=== PATIENT | male | born 1945 | race Caucasian/White ===

== ENCOUNTER 2024-02-27 13:47 | Inpatient (IN) | payer BC, SELFPAY ==
[2024-02-27] VITALS (11 sets, daily range): BP systolic 116–168; BP diastolic 65–94; BMI 27.1; BMI 26.2
--- NOTE | 2024-02-27 10:35 | EDRN ---
Pt after assisted in changing int hosp gown and getting onto stretcher had SOB, moist cough noted, increased WOB, tachypneic, and POX 76% on RA.
--- NOTE | 2024-02-27 10:37 | ED.GENMED ---
History of Present Illness
<Elsa Giang PA-C - Last Filed: 02/27/24 12:32>
General
Chief Complaint: Breathing Problem
Source: patient
Exam Limitations: none
Time Seen by Provider: 02/27/24 10:35
Nursing documentation reviewed up to this point in time: agreed with
Travel History
Have you had any contact with someone who has COVID-19?: No
Do you have any symptoms of coronavirus? Fever > 100 degrees, chills, cough, shortness of breath, sore throat, loss of taste or smell, muscle aches, or headache?: No
History of Present Illness
History of Present Illness:
78 y/o male with a hx of HTN, HLP, chronic kidney disease, DM, presenting to the emergency department today with shortness of breath for the past 3 days. He states he started to have this shortness of breath for few weeks now, however over the past
few days its gotten significantly worse. Patient experiences this on exertion and at rest. Patient states he feels exhausted anytime he is well. Patient also admits to coughing and sputum production. Patient is a ex-smoker, he quit few years ago
but used to smoke every day for years. Patient denies nausea, vomiting, abdominal pain. Patient denies any fevers or chills. Patient has a history of heart failure, coronary artery disease patient does take 80 mg of furosemide twice daily for his
kidney disease. Patient follows with Dr. Hart for his kidney disease but has not gone to see her in a while due to lack of insurance coverage.
Past History
<Elsa Giang PA-C - Last Filed: 02/27/24 12:32>
Past History
ED Past Medical History: HTN, NIDDM and Other (Charcot Ashly Tooth)
ED Past Surgical History: Other (Right second toe amputation)
Social History
Tobacco: Former smoker
Personal:
Living: with family
Employment: Retired
Family History
Family History: Other (nc)
Review of Systems
<Elsa Giang PA-C - Last Filed: 02/27/24 12:32>
Review of Systems
All Other Systems: ROS reviewed and negative except as documented in HPI and ROS
Phy Exam
<YAW Raphael Last Filed: 02/27/24 12:32>
Physical Exam
Physical Exam:
Vitals: Patient is hypoxic to 80% on room air, 88 to 91% on 4 L nasal cannula
General: Patient is ill-appearing
Skin: Warm and dry, no rashes or lesions
Head: Normocephalic, atraumatic
Eyes: Bilateral chemosis
Throat: No pharyngeal erythema
Neck: No cervical lymphadenopathy
Cardiac: Regular rate and rhythm, no murmurs
Peripheral Vascular: Right
Pulm: Increased respiratory effort, increased respiratory rate, tripoding noted, decreased breath sounds noted in all guerrero b/l
Abdomen: No abdominal tenderness
Musculoskeletal: Right sided below the knee amputation, left sided lower extremity swelling with brawny discoloration
Neuro: AAOx3. CN II-XII intact. No focal neurologic deficits.
Scores
<YAW Raphael Last Filed: 02/27/24 12:32>
Heart Failure Risk
Heart Failure Risk Score: Yes
History of Stroke or TIA: No
History of intubation for respiratory distress: No
Heart rate on ED arrival >/= 110: No
SaO2 <90% on arrival on room air: Yes
HR >/=110 during 3min walk test (or too ill to perform test): No
ECG has acute ischemic changes: No
Urea >/=12mmol/L (BUN 33.6mg/dL): Yes
Serum CO2>/=35mmol/L: No
Troponin I or T elevated to MO Level (0.4mg/dL): No
NT-proBNP >/=5,000ng/L (5,000pg/ml): No
HF Risk Score: 2
Admission Status: MEDIUM RISK 9.2% Consider observation or discharge to home with homecare & f/u visit to PCP/Medical Affairs Leader, or SNF for treatment
Course
<Elsa Giang PA-C - Last Filed: 02/27/24 12:32>
Orders/Labs/Results
Orders:
Orders
02/27/24 10:37
Electrocardiogram (*1) Urgent
Reason for Study: Chest Pain
EKG- Treatment ONCE
IV Insert/Care/Rem.- Treatment PRN
02/27/24 10:51
CR Chest Portable - 1 View Urgent
Comment:
Reason For Exam: shortness of breath
Reason Study Needs to be Portable: Patient Unstable
02/27/24 10:59
COVID-19 Antigen Urgent
Source: Nasal Swab
Complete Blood Count/With Diff Urgent
Comprehensive Metabolic Panel Urgent
Pro-BNP [NT-proBNP] Urgent
Troponin I Urgent
Influenza A+B Rapid Molecular Urgent
MARLEEN Source: Nasal Swab
Specimen Description:
02/27/24 11:29
Furosemide [Lasix] 80 mg IV NOW STA
Abnormal Lab Results
02/27/24
10:59
MCH 26.8 L pg
(27.0-31.0)
MCHC 30.9 L g/dL
(33.0-37.0)
Absolute Neuts (auto) 7.8 H 10^3/uL
(1.4-6.5)
Absolute Lymphs (auto) 0.9 L 10^3/uL
(1.2-3.4)
Neutrophils % 82.1 H %
(42.2-75.2)
Lymphocytes % 9.9 L %
(20.5-51.1)
BUN 48 H mg/dl
(9-20)
Creatinine 2.2 H mg/dL
(0.7-1.3)
Glucose 101 H mg/dl
(70-99)
02/27/24 10:59
02/27/24 10:59
Vital Signs
Initial and Last Documented VS:
Initial Vital Signs
Temp Pulse Resp BP Pulse Ox
97.5 F 65 16 153/70 88
02/27/24 10:26 02/27/24 10:26 02/27/24 10:26 02/27/24 10:26 02/27/24 10:26
Last Documented Vital Signs
Temp Pulse Resp BP Pulse Ox
97.5 F 62 24 116/94 90
02/27/24 10:26 02/27/24 12:30 02/27/24 12:30 02/27/24 12:00 02/27/24 12:30
<Joe Mckinney, DO - Last Filed: 02/27/24 11:39>
Orders/Labs/Results
Orders:
Orders
02/27/24 10:37
Electrocardiogram (*1) Urgent
Reason for Study: Chest Pain
EKG- Treatment ONCE
IV Insert/Care/Rem.- Treatment PRN
02/27/24 10:51
CR Chest Portable - 1 View Urgent
Comment:
Reason For Exam: shortness of breath
Reason Study Needs to be Portable: Patient Unstable
02/27/24 10:59
COVID-19 Antigen Urgent
Source: Nasal Swab
Complete Blood Count/With Diff Urgent
Comprehensive Metabolic Panel Urgent
Pro-BNP [NT-proBNP] Urgent
Troponin I Urgent
Influenza A+B Rapid Molecular Urgent
MARLEEN Source: Nasal Swab
Specimen Description:
02/27/24 11:29
Furosemide [Lasix] 80 mg IV NOW STA
Abnormal Lab Results
02/27/24
10:59
MCH 26.8 L pg
(27.0-31.0)
MCHC 30.9 L g/dL
(33.0-37.0)
Absolute Neuts (auto) 7.8 H 10^3/uL
(1.4-6.5)
Absolute Lymphs (auto) 0.9 L 10^3/uL
(1.2-3.4)
Neutrophils % 82.1 H %
(42.2-75.2)
Lymphocytes % 9.9 L %
(20.5-51.1)
BUN 48 H mg/dl
(9-20)
Creatinine 2.2 H mg/dL
(0.7-1.3)
Glucose 101 H mg/dl
(70-99)
02/27/24 10:59
02/27/24 10:59
Vital Signs
Initial and Last Documented VS:
Initial Vital Signs
Temp Pulse Resp BP Pulse Ox
97.5 F 65 16 153/70 88
02/27/24 10:26 02/27/24 10:26 02/27/24 10:26 02/27/24 10:26 02/27/24 10:26
Last Documented Vital Signs
Temp Pulse Resp BP Pulse Ox
97.5 F 62 24 116/94 90
02/27/24 10:26 02/27/24 12:30 02/27/24 12:30 02/27/24 12:00 02/27/24 12:30
Beulahlt;Elsa Giang PA-C - Last Filed: 02/27/24 12:32>
MDM/Problems Addressed
Differential Diagnosis Includes:
ddx include pneumonia, URI, PE, ACS, CHF, DVT, chronic venous disease, DKA, symptomatic anemia, pulmonary effusion, pulmonary renal syndrome
MDM/Problems Addressed:
shortness of breath
Chronic conditions affecting care: DM and HTN
Acute Exacerbation and/or Progression of Chronic Illness: DM and HTN
<Elsa Giang PA-C - Last Filed: 02/27/24 12:32>
*Radiology
Radiology exam reviewed: preliminary read by ED provider (bilateral pleural effusions )
*Pulse Oximetry
Patient hypoxic: yes
*EKG
Interpreted by ED Provider?: Yes
EKG Intrepretation Date: 02/27/24
Interpretation: abnormal (low voltage )
Heart Rate: 65
Rate: normal
Rhythm: sinus
[place]: normal axis
Interval: normal interval and normal QT interval
QRS Pattern: low voltage
Ischemia: no ischemia
*Product Tester Interpretation
Rate: normal
Interpretation: normal
Heart Rate: 66
Rhythm: sinus
*Critical Care Note
Total Time (30-74mins, 75-104mins- exclusive of procedures): Not Applicable
Data Reviewed
Review of Other/Old Records Reveals: Records (reviewed ER physician documentation from 07/22/2023, ) and Discharge Summary (reviewed discharge summary from 07/09/19, )
<YAW Raphael Last Filed: 02/27/24 12:32>
Patient Management
Escalation/DeEscalation of care consider admission/obs:
78 y/o male with PMH of CKD, DM, HTN, coming in today with shortness of breath and left LE edema. He takes 80 mg lasix BID, he states he is unsure exactly why. No hx of CHF. Pt 80% on RA, 92% on 4L, CXR demonstrates b/l pleural effusions. Lasix
started. Patient's presentation is most suspicious for cardiorenal/renopulmonary syndrome. Will plan to admit, patient accepted by hospitalist.
ED Attending Note
<YAW Raphael Last Filed: 02/27/24 12:32>
-
Portions of this chart may have been created with voice recognition software.� Occasional wrong word or��sound alike� substitutions may have occurred due to the inherent limitations of voice recognition software.
<Joe Mckinney DO - Last Filed: 02/27/24 11:39>
ED Attending Note
Patient seen and examined by attending physician: Yes
I performed the substantive portion of visit, reviewed & personally made and approve the management plan that is documented in note by myself or RAULITO.: Yes
I performed a history and physical exam of patient and discussed management with resident, I reviewed resident's note and agree with documented findings and plan of care.: Yes
ED Attending Note:
I evaluated the patient at bedside. The patient has lower extremity edema to the left lower extremity (right lower extremity has been amputated). He is hypoxic with room air sat of 80%. Will IV diuresis and consider preload reduction with nitro.
He does have a history of CKD but denies history of CHF and states he does not have a work study student. Chest x-ray shows bilateral pleural with some volume overload.
Discharge Plan
Departure
Patient Disposition: Admit
Date of Disposition: 02/27/24
Time of Disposition: 12:01
Presentation/result/management discussed w/ accepting MD/DO: Hospitalist
Patient with high blood pressure during this ER visit?: Yes
Condition: Fair
Discharge Problem:
Fluid overload, Hypoxia
Prescriptions:
No Action
clopidogrel 75 MG tablet
75 mg PO DAILY
amlodipine 10 MG tablet
10 mg PO DAILY
montelukast 10 MG tablet
10 mg PO DAILY
furosemide 80 MG tablet
80 mg PO BID
atorvastatin 20 mg Tablet
20 mg PO QPM
metoprolol succinate 100 mg Tablet Extended Release 24 Hr
100 mg PO DAILY
aspirin 81 mg Tablet,Delayed Release (Dr/Ec)
81 mg PO DAILY
acetaminophen [Tylenol Extra Strength] 500 mg Tablet
1,000 mg PO BIDPRN PRN (Reason: mild pain)
bisacodyl [Dulcolax (bisacodyl)] 5 mg Tablet,Delayed Release (Dr/Ec)
5 mg PO DAILYPRN PRN (Reason: constipation)
Patient Comments:
02/27/2024, chewable.
losartan 100 mg Tablet
100 mg PO DAILY
insulin aspart U-100 [Novolog FlexPen U-100 Insulin] 100 unit/mL (3 mL) Insulin Pen
6 unit SC AC PRN (Reason: high blood sugar)
Patient Comments:
02/27/2024, per pt., if his BS is low 80s or below, he does not take this med.
insulin glargine [Lantus Solostar U-100 Insulin] 100 unit/mL (3 mL) Insulin Pen
14 unit SC DAILY
Referrals:
Nell Lala DO [Family Provider] -
Interventions
Interventions:
*Risk Screen - Suicide Last Done: 02/27/24 11:19
*General Assessment Last Done: 02/27/24 11:19
*Neglect/Abuse Screening Last Done: 02/27/24 11:19
ED- Fall Risk Assessment Last Done: 02/27/24 11:19
*ED COVID-19 Vaccine History Last Done: 02/27/24 11:19
ED- Cardiac Assessment Last Done: 02/27/24 11:19
ED- Pulmonary Assessment Last Done: 02/27/24 11:19
Discharge Date and Time
Print Language: ALBANIAN
--- NOTE | 2024-02-27 11:00 | EDRN ---
Portable CXR at this time.
[2024-02-27 11:25] LABS: % Basophils 0.3 % (0-2); % Eosinophils 1.5 % (0-6); % Immature Granulocytes 0.4 % (0-0.5); % Lymphocytes 9.9 % (20.5-51.1); % Monocytes 5.8 % (1.7-9.3); % Neutrophils 82.1 % (42.2-75.2); Absolute Eosinophils 0.1 10^3/uL (0-0.7); Absolute Lymphocytes 0.9 10^3/uL (1.2-3.4); Absolute Monocytes 0.6 10^3/uL (0.1-0.6); Absolute Neutrophils 7.8 10^3/uL (1.4-6.5); Hemoglobin 13.3 g/dL (13.0-18.0); Mean Corp Hgb Conc. 30.9 g/dL (33.0-37.0); Mean Corpuscular Hgb 26.8 pg (27.0-31.0); Mean Corpuscular Volume 86.7 fL (80.0-94.0); Mean Platelet Volume 9.3 fL (7.4-10.4); Nucleated Red Blood Cells % 0 % (-); Platelet Count 181 10^3/uL (130-400); Red Blood Cell Count 4.96 10^6/uL (4.70-6.10); Red Cell Dist. Width 14.1 % (11.5-14.5); White Blood Cell Count 9.5 10^3/uL (4.8-10.8)
[2024-02-27 11:40] LABS: COVID-19 Antigen Negative (Negative)
[2024-02-27 11:46] LABS: ALT (SGPT) 25 U/L (0-50); AST (SGOT) 31 U/L (17-59); Albumin 3.8 g/dl (3.5-5.0); Alkaline Phosphatase 112 U/L (38-126); Blood Urea Nitrogen 48 mg/dl (9-20); Carbon Dioxide 30 mmol/L (22-30); Chloride 104 mmol/L (98-107); Estimated Creatinine Clearance 27 ml/min; Glucose 101 mg/dl (70-99); Potassium 4.3 mmol/L (3.5-5.1); Sodium 139 mmol/L (135-145); Total Bilirubin 0.5 mg/dl (0.2-1.3); Total Protein 7.5 g/dl (6.3-8.2); eGFR 29.54
[2024-02-27 11:58] LABS: NT-proBNP 1080 pg/ml; Troponin I < 0.012 ng/ml
--- NOTE | 2024-02-27 12:40 | EDRN ---
Dr Oscar was in to see pt at this time.
[2024-02-27] MEDS: LASIX 80 MG IV (12:46)
--- NOTE | 2024-02-27 12:53 | EDRN ---
Pt has voided twice before this but someone emptied it and it was not measured.
--- NOTE | 2024-02-27 13:20 | HPS.HSE ---
Family Physician
-
Family Physician: Nell Lala
Chief Complaint
-
Shortness of breath, lower extremity edema
History of Present Illness
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
Patient has been noticing some slowly worsening shortness of breath mainly pronounced in the last 3 days. Not able to take few steps without getting short of breath. Patient have noticed leg swelling as well. Some cough with white phlegm
production, afebrile. Patient has history of CKD and has not seen nephrology in 1 year. Compliant with home medication.
Denies having any chest pain/palpitation/dizziness/syncope/abdominal pain/nausea/vomiting/diarrhea/dysuria.
Medical History
Past Medical History
Past Medical History: Reports Other
Additional Past Medical History:
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
Past Surgical History: Reports Other
Social History
Tobacco: Non-smoker
Alcohol: None
Drug: None
Personal:
Living: With Family
Family History
Family History: Not pertinent
Allergies / Home Medications
Allergies reflects when Allergies were last updated in [facility].
Home Medications with original date entered in [facility]
Allergy/Medication List:
Allergies
Allergy/AdvReac Type Severity Reaction Status Date / Time
No Known Allergies Allergy Verified 02/27/24 10:26
Home Medications
clopidogrel 75 mg tablet 75 mg PO DAILY Blood Clot Prevention/Tx 04/24/18
amlodipine 10 mg tablet 10 mg PO QPM Blood Pressure 07/09/20
montelukast 10 mg tablet 10 mg PO QPM asthma 07/09/20
furosemide 80 mg tablet 80 mg PO BID@0800,1600 Fluid Retention/Swelling 06/28/21
acetaminophen 500 mg tablet (Tylenol Extra Strength) 1,000 mg PO BIDPRN PRN mild pain 02/27/24
aspirin 81 mg tablet,delayed release 81 mg PO DAILY Blood Clot Prevention/Tx 02/27/24
atorvastatin 20 mg tablet 20 mg PO QPM High Cholesterol 02/27/24
bisacodyl 5 mg tablet,delayed release (Dulcolax (bisacodyl)) 5 mg PO DAILYPRN PRN constipation 02/27/24
insulin aspart U-100 100 unit/mL (3 mL) subcutaneous pen (Novolog FlexPen U-100 Insulin aspart) 6 unit SC AC PRN high blood sugar 02/27/24
insulin glargine 100 unit/mL (3 mL) subcutaneous pen (Lantus Solostar U-100 Insulin) 14 unit SC DAILY Diabetes 02/27/24
losartan 100 mg tablet 100 mg PO DAILY Blood Pressure 02/27/24
metoprolol succinate 100 mg tablet,extended release 24 hr 100 mg PO DAILY Blood Pressure 02/27/24
Review of Systems
-
A 12 point ROS was completed and negative except as noted: Yes
Physical Exam
Vital Signs
Vital Signs
Temp Pulse Resp BP Pulse Ox
97.5 F 68 24 163/73 85
02/27/24 10:26 02/27/24 13:00 02/27/24 13:00 02/27/24 13:00 02/27/24 13:00
Physical Exam
General: No Apparent Distress
HEENT: Atraumatic
Respiratory: Clear
Cardiac: S1/S2 and Regular Rhythm; No Murmur or Rub
GI: Soft, Non Tender and Non Distended; No Organomegaly
Rectal: Deferred by Provider
Musculoskeletal: Edema, Left Lower Extremity and Other (Right BKA)
Skin: No Rash
Neuro: Awake, Alert, Oriented and Nonfocal/grossly intact
Laboratory Results
-
02/27/24 10:59
02/27/24 10:59
Laboratory Results
Total Bilirubin 0.5 mg/dl (0.2-1.3) 02/27/24 10:59
AST 31 U/L (17-59) 02/27/24 10:59
ALT 25 U/L (0-50) 02/27/24 10:59
Alkaline Phosphatase 112 U/L (38-126) 02/27/24 10:59
Troponin I < 0.012 ng/ml 02/27/24 10:59
Data Reviewed
-
Lab Data: Labs Reviewed by me, Discussed with Patient and Discussed with Family
Impression/Plan
-
1. Acute hypoxic respiratory failure
Bilateral pleural effusion
-Likely secondary to heart failure exacerbation and effusion related
-Chest x-ray showing moderate bilateral pleural effusion
-IRAD consulted for thoracentesis
-Wean off oxygen as possible
2. Presumed diastolic heart failure exacerbation
-Last echocardiogram in 2018 showing preserved EF
-Repeat echocardiogram ordered
-Start patient on IV Lasix 80 mg twice daily
-Follow weight and creatinine
-Cardiology consulted for further help
3. CKD stage IIIb
-Baseline remains unclear, last creatinine check in July 17 was 2.5
-Patient has failed to follow-up with nephrology
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
-Nephrology asked to follow-up with patient requiring high-dose of IV diuretic therapy
4. History of peripheral artery disease
History of right BKA
-Continue aspirin/Plavix/statin
5. Insulin-dependent diabetes mellitus
-Continue Lantus 14 unit daily and 6 units AC with sliding scale
-Check A1c in morning
6. Essential hypertension
-Continue Toprol-XL with holding parameters
-Hold losartan for now with unknown kidney function baseline
7. HLD
- maintain on atorvastatin
DVT PPX - Heparin subq
Full code
Total time spent : 78 mins
I personally saw and examined the patient.
I have reviewed all diagnostic interpretations and treatment plans as written.
Time includes patient management by me, time spent at the patients bedside, time to review lab and imaging results, discussing patient care, documentation in the medical record, and time spent with the family or caregiver and discussing care plan
with RN/Consultants.
--- NOTE | 2024-02-27 13:39 | EDRN ---
Pt administered boxed lunch at this time for his lunch.
--- NOTE | 2024-02-27 13:41 | CON.CAR ---
Addendum entered and electronically signed by Christal Alvarado MD 02/27/24 15:50:
I saw and examined the patient.
The [employer] SET UP OPERATOR RADIAL's note was reviewed and I agree with the note.
Comment: 78 year old male with diastolic heart failure, HTN, HLD, PVD S/P amputation, and CKD who presents with increasing sob and le edema with malfitting of his right BKA stump. He is not compliant with the second dose of lasix and even more so
this week. He had orthopnea and pnd. On exam he is tachypneic and oxygen saturation dropped to 85% while I was in the room rebounding to 92% with an increase to 5 L NC. He had reduced BS at the bases b/l, rrr no m/r/g. Pitting edema in the left
leg up to the mid thigh. Pitting edema at right bka stump. CXR with b/l mod effusions. ECG without ischemia
A: Acute decompensated CHF, unknown EF, with acute hypoxic respiratory failure.
-start IV BID diuresis
-would benefit from thoracentesis given significatn respiratory distress
-update echo
-titrate GDMT as needed
-will follow
d/w Dr Oscar.
Original Note:
Consultation
Consultation Request
Date/Time Consultation Requested: 02/27/24 13:25
Date/Time Consultation Performed: 02/27/24 13:50
Requesting Provider: AGUEDA Orozco
Performing Provider: AGUEDA Mead for Dr. Alvarado
Reason for Consultation: Acute on chronic heart failure
Medical History
-
Chief Complaint: Shortness of breath
History of Present Illness:
Conrad Melissa is an 78 year old male with diastolic heart failure, HTN, HLD, PVD S/P amputation, and CKD who presents with shortness of breath. It gets worse with exertion and improves with rest. He endorses orthopnea and an increase in edema in
his bilateral hands and left leg. This all started approximately 1 week ago. He states he was mildly short of breath and had no edema at that time. Since then his edema and shortness of breath has escalated. He endorses medication adherence.
Cardiology was consulted for acute on chronic diastolic heart failure. He is not having any anginal symptoms.
He was seen by Dr. Landa during his prior hospitalization. He had bacteremia and had an abnormal transthoracic echocardiogram which progressed to a transesophageal echocardiogram which did not show vegetation.
Past Medical History
Past Medical History: CHF, HTN, Hypercholesterolemia and Renal Failure
Past Surgical History: Orthopedic and Other (Amputation)
Social History
Tobacco: Former Smoker
Alcohol: None
Drug: None
Personal:
Living: With Family
Employment: Retired
Family History
Family History: Reviewed & Not Pertinent
Allergies / Home Medications
Allergy/AdvReac Type Severity Reaction Status Date / Time
No Known Allergies Allergy Verified 02/27/24 10:26
�Medication �Instructions �Recorded �Confirmed �Type
clopidogrel 75 mg tablet 75 mg PO DAILY Blood Clot 04/24/18 02/27/24 History
Prevention/Tx
amlodipine 10 mg tablet 10 mg PO DAILY Blood Pressure 07/09/20 02/27/24 History
montelukast 10 mg tablet 10 mg PO DAILY asthma 07/09/20 02/27/24 History
furosemide 80 mg tablet 80 mg PO BID@0800,1600 Fluid 06/28/21 02/27/24 History
Retention/Swelling
acetaminophen 500 mg tablet 1,000 mg PO BIDPRN PRN mild pain 02/27/24 02/27/24 History
(Tylenol Extra Strength)
aspirin 81 mg tablet,delayed 81 mg PO DAILY Blood Clot 02/27/24 02/27/24 History
release Prevention/Tx
atorvastatin 20 mg tablet 20 mg PO QPM High Cholesterol 02/27/24 02/27/24 History
bisacodyl 5 mg tablet,delayed 5 mg PO DAILYPRN PRN constipation 02/27/24 02/27/24 History
release (Dulcolax (bisacodyl))
insulin aspart U-100 100 unit/mL 6 unit SC AC PRN high blood sugar 02/27/24 02/27/24 History
(3 mL) subcutaneous pen (Novolog
FlexPen U-100 Insulin aspart)
insulin glargine 100 unit/mL (3 14 unit SC DAILY Diabetes 02/27/24 02/27/24 History
mL) subcutaneous pen (Lantus
Solostar U-100 Insulin)
losartan 100 mg tablet 100 mg PO DAILY Blood Pressure 02/27/24 02/27/24 History
metoprolol succinate 100 mg 100 mg PO DAILY Blood Pressure 02/27/24 02/27/24 History
tablet,extended release 24 hr
Review of Systems
-
History Source: Patient
All other systems: Negative unless noted
Respiratory: Trouble Breathing
Musculoskeletal: Edema
Physical Exam
Vital Signs
Temp Pulse Resp BP Pulse Ox
97.5 F 69 22 163/73 85
02/27/24 10:26 02/27/24 13:30 02/27/24 13:30 02/27/24 13:00 02/27/24 13:30
Lab Results
02/27/24 10:59
02/27/24 10:59
Troponin I < 0.012 ng/ml 02/27/24 10:59
Blu-Q-Tpwaymzjuak Pept 1080 pg/ml 02/27/24 10:59
Physical Exam
General: Well Developed, Well Nourished, No Apparent Distress and Respiratory Distress (mild)
HEENT: Normocephalic, Anicteric and Moist Mucous Membranes
Respiratory: Crackles and Accessory Resp Muscle Use
Cardiac: S1/S2, Regular Rhythm and Peripheral Edema (B/L hands and LLE)
Breast: Deferred by me
GI: Soft, Non Tender, Non Distended and Normal Bowel Sounds
Rectal: Deferred by Provider
Genito-urinary: No Costovertebral Tender
Musculoskeletal: No Clubbing and No Cyanosis
Skin: Warm and Dry
Neuro: AO x 3
Hematologic/Lymphatic: No Lymphadenopathy
Psych: Calm
Impression / Plan
-
Acute hypoxic respiratory insufficiency, in the setting of acute heart failure (B/L pleural effusions)
-May need need to consider thoracentesis
Heart failure, type unknown, acute on chronic
-Diuresis per Nephrology, goal weight to be determined, he's on Lasix 80mg BID at home
-On Losartan 100mg & metoprolol succinate
-Had been on Jardiance in the past, documentation reflects this was unaffordable
-Aldactone being avoiding per Nephrology (hyperkalemia)
-Trend daily weight, I/Os, and BMP with diuresis
-Low sodium diet
-Heart failure education
-Update TTE
Abnormal echocardiogram
-Update TTE given HF
-KIP 2019 with focal calcification of anterior mitral valve and LCC of aortic valve, vegetation less likely
HTN, managed by Family Medicine Physician Assistant
HLD, LDL 33 on atorvastatin 20mg
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 Duncan
Secondary hyperparathyroidism
Type II DM, most recent Hgba1c 6.0%
PVD S/P right BKA, on DAPT
Former tobacco abuse, continued cessation recommended
Data Reviewed
-
EKG: Report Reviewed by me (Sinus rhythm, rate 65)
Radiology: Report Reviewed by me (CXR: Moderate bilateral pleural effusions.)
Medical Tests (Nuc Med, Echo etc): Report Reviewed by me (Echo as above)
Labs: Labs Reviewed by me
Old Records: Reviewed
--- NOTE | 2024-02-27 14:41 | EDRN ---
Pt awaiting a clean bed at this time. Pt OOB to Commode to move his bowels w/ assist of one. Pt ate 100% of boxed lunch.
--- NOTE | 2024-02-27 15:11 | W.CON.NEPH ---
Consultation
-
Performing Provider: Kathrine Watson
Reason for Consultation: CKD
Medical History
-
Chief Complaint: AURY on CKD
History of Present Illness:
Mr. Melissa is an 78 YOM with PMH of diastolic heart failure, HTN, DLD, PVD (s/p amputation) and CKD 3B/IV who presents to the hospital for worsening SOB.
It gets worse with exertion and improves with rest. States that he can no longer lay flat. He endorses orthopnea and an increase in edema in his bilateral hands and left leg. Denies chest pain. States that his urine output has remained stable. He
does endorse medication non compliance. He was takign his lasix 80mg daily usually (BID every once in a while). Does fluid restrict at home. Denies heavy salt intake. States that baseline weight is around 180 lbs, up to 187 currently.
Was lost to follow up with Dr. Duncan. States that his kidney function has remained stable. Cr in 11/2023 at 1.99
Past Medical History
CHF, HTN, Hypercholesterolemia and CKD IV (bl Cr 2s)
Past Medical History: Other
Past Surgical History: Orthopedic (R BKA) and Other
Social History
Tobacco: Former Smoker
Alcohol: None
Drug: None
Personal:
Living: With Family
Employment: Retired
Family History
Family History: Not Pertinent
Allergies / Home Medications
Allergy/AdvReac Type Severity Reaction Status Date / Time
No Known Allergies Allergy Verified 02/27/24 10:26
�Medication �Instructions �Recorded �Confirmed �Type
clopidogrel 75 mg tablet 75 mg PO DAILY Blood Clot 04/24/18 02/27/24 History
Prevention/Tx
amlodipine 10 mg tablet 10 mg PO DAILY Blood Pressure 07/09/20 02/27/24 History
montelukast 10 mg tablet 10 mg PO DAILY asthma 07/09/20 02/27/24 History
furosemide 80 mg tablet 80 mg PO BID@0800,1600 Fluid 06/28/21 02/27/24 History
Retention/Swelling
acetaminophen 500 mg tablet 1,000 mg PO BIDPRN PRN mild pain 02/27/24 02/27/24 History
(Tylenol Extra Strength)
aspirin 81 mg tablet,delayed 81 mg PO DAILY Blood Clot 02/27/24 02/27/24 History
release Prevention/Tx
atorvastatin 20 mg tablet 20 mg PO QPM High Cholesterol 02/27/24 02/27/24 History
bisacodyl 5 mg tablet,delayed 5 mg PO DAILYPRN PRN constipation 02/27/24 02/27/24 History
release (Dulcolax (bisacodyl))
insulin aspart U-100 100 unit/mL 6 unit SC AC PRN high blood sugar 02/27/24 02/27/24 History
(3 mL) subcutaneous pen (Novolog
FlexPen U-100 Insulin aspart)
insulin glargine 100 unit/mL (3 14 unit SC DAILY Diabetes 02/27/24 02/27/24 History
mL) subcutaneous pen (Lantus
Solostar U-100 Insulin)
losartan 100 mg tablet 100 mg PO DAILY Blood Pressure 02/27/24 02/27/24 History
metoprolol succinate 100 mg 100 mg PO DAILY Blood Pressure 02/27/24 02/27/24 History
tablet,extended release 24 hr
Review of Systems
-
History Source: Patient
All other systems: Negative unless noted
Constitutional: Weight Gain and Fatigue
Respiratory: Trouble Breathing
Musculoskeletal: Edema
Physical Exam
Vital Signs
Vital Signs
Temp Pulse Resp BP Pulse Ox
97.5 F 65 23 127/65 89
02/27/24 10:26 02/27/24 15:00 02/27/24 15:00 02/27/24 14:00 02/27/24 15:00
Lab Results
WBC 9.5 10^3/uL (4.8-10.8) 02/27/24 10:59
RBC 4.96 10^6/uL (4.70-6.10) 02/27/24 10:59
Hgb 13.3 g/dL (13.0-18.0) 02/27/24 10:59
Hct 43.0 % (39.0-52.0) 02/27/24 10:59
Plt Count 181 10^3/uL (130-400) 02/27/24 10:59
Sodium 139 mmol/L (135-145) 02/27/24 10:59
Potassium 4.3 mmol/L (3.5-5.1) 02/27/24 10:59
Chloride 104 mmol/L (98-107) 02/27/24 10:59
Carbon Dioxide 30 mmol/L (22-30) 02/27/24 10:59
BUN 48 mg/dl (9-20) H 02/27/24 10:59
Creatinine 2.2 mg/dL (0.7-1.3) H 02/27/24 10:59
eGFR 29.54 02/27/24 10:59
Glucose 101 mg/dl (70-99) H 02/27/24 10:59
Calcium 9.0 mg/dl (8.4-10.2) 02/27/24 10:59
Amy-Z-Dfyhkdmwvbm Pept 1080 pg/ml 02/27/24 10:59
Albumin 3.8 g/dl (3.5-5.0) 02/27/24 10:59
Physical Exam
General: AOx3, No Distress and Nontoxic
HEENT: PERRL, EOMI, Anicteric, Conjunctivae Clear and Facial Symmetry
Respiratory: Crackels
Cardiac: S1/S2, Regular Rate/Rhythm and Murmur
Breast: N/A
Abdomen: Soft, Nontender, Nondistended, Normal Bowel Sounds and No Hepatosplenomegaly
Rectal: Deferred by Provider
Genito-urinary: No Costovertebral Tender
Musculoskeletal: Edema (pitting edema of L leg to thigh)
Skin: Warm and Dry
Neuro: Nonfocal/Grossly Intact
Hematologic/Lymphatic: No Cervical Lymphadenopathy
Psych: Mood/afflect pleasant and Insight/judgement good
Assessment/Plan
-
Assessment:
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
b/l pleural effusions
Diastolic heart failure (on losartan, metoprolol, jardiance previously tried. no aldactone due to hyperK)
T2DM (A1C 6%)
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
former smoker
HTN
DLD
volume overload
Plan:
- last seen by Dr. Duncan in 2021. he has been lost to follow up.
- Cr baseline in 2021 was thought to be low 2s. most recent Cr in [facility] is 1.99. Current Cr 2.2, likely at baseline
- In 2020 K biopsy was not adequate smaple but EM shows nodular diabetic sclerosis and severe vascular sclerosis.
- did have periods where he had significant proteinuria (>11g) but had stabilized around 2g. obtain UA, UPCR
- home diuretic: 80mg BID, please increase to 80IV BID. reiterated to the patient the importance of medication compliance
- we will need daily weights to establish a good dry weight
- likely will need thoracentesis to help improve his SOB
- trend BMPs
- monitor I/Os
Data Reviewed
-
Radiology: Image Personally Visualized and interpreted (bilateral pleural effusions)
Labs: Labs Reviewed by me, Discussed with Physician and Discussed with Patient
Old Records: Reviewed
--- NOTE | 2024-02-27 15:13 | EDRN ---
Dr. Bergmanonin room w/ pt. Echocardiogram just completed at [facility] at this time.
[2024-02-27 16:49] LABS: Glucose - Point of Care 113 mg/dl (70-99)
[2024-02-27 18:10] LABS: Urine Albumin 2+ (Neg - Trace); Urine Bilirubin Negative (Negative); Urine Character Clear (Clear); Urine Color Yellow; Urine Glucose Negative (Negative); Urine Ketone Negative (Negative); Urine Leukocyte 1+ (Negative); Urine Nitrite Negative (Negative); Urine Occult Blood 3+ (Negative); Urine Specific Gravity 1.015 (<1.030); Urine Urobilinogen Negative (Neg - 1+)
[2024-02-27] MEDS: NOVOLOG FLEXPEN-LOW RESISTANCE SC (18:11)
[2024-02-27 18:17] LABS: Urine Red Blood Cell 21-25 /HPF (0-2); Urine Squamous Cell 0-2 /LPF (Few); Urine White Cell >100 /HPF (0-5)
[2024-02-27] MEDS: NOVOLOG FLEXPEN 6 UNITS SC (18:26)
--- NOTE | 2024-02-27 18:35 | PTCARENOTE ---
Pt admitted from ED to room 436-1, pt slid over to bed from stretcher. Admission and assessment done. Pt with no c/o at this time. Pt is on bedrest. Pt with R BKA with prosthetic in room. PT SR on monitor. Vitals stable. 96 on 6L. Dinner ordered.
[2024-02-27] MEDS: LIPITOR 20 MG PO (20:22)
[2024-02-27] MEDS: HEPARIN 5000 UNITS SC (20:22)
[2024-02-27 21:56] LABS: Glucose - Point of Care 132 mg/dl (70-99)
[2024-02-28] VITALS (10 sets, daily range): BP systolic 67–161; BP diastolic 54–77; PULSE 68; O2SAT 93–96; BMI 25.9
[2024-02-28 07:51] LABS: Glucose - Point of Care 73 mg/dl (70-99)
[2024-02-28 08:14] LABS: Hematocrit 42.7 % (39.0-52.0); Mean Corp Hgb Conc. 30.4 g/dL (33.0-37.0); Mean Corpuscular Hgb 26.6 pg (27.0-31.0); Mean Corpuscular Volume 87.5 fL (80.0-94.0); Mean Platelet Volume 8.9 fL (7.4-10.4); Platelet Count 159 10^3/uL (130-400); Red Blood Cell Count 4.88 10^6/uL (4.70-6.10); White Blood Cell Count 8.5 10^3/uL (4.8-10.8)
[2024-02-28 08:55] LABS: Blood Urea Nitrogen 50 mg/dl (9-20); Calcium 9.1 mg/dl (8.4-10.2); Carbon Dioxide 33 mmol/L (22-30); Chloride 100 mmol/L (98-107); Estimated Creatinine Clearance 27 ml/min; Glucose 82 mg/dl (70-99); Sodium 140 mmol/L (135-145); eGFR 29.54
[2024-02-28 09:03] LABS: Body Fluid Mononuclear 96.3 %; Body Fluid Polymorphonuclear 3.7 %; Body Fluid WBC 1157 /CUMM
[2024-02-28 09:09] LABS: Body Fluid Second Tech RLT
[2024-02-28 09:26] LABS: Glycohemoglobin (HgbA1c) 6.2 % (4.0-5.6)
[2024-02-28 09:50] LABS: Potassium 4.7 mmol/L (3.5-5.1)
[2024-02-28] MEDS: ASPIR LOW (ENTERIC COATED) 81 MG PO (11:11)
[2024-02-28] MEDS: NOVOLOG FLEXPEN-LOW RESISTANCE SC ×3 (11:11→17:36)
[2024-02-28] MEDS: NOVOLOG FLEXPEN 6 UNITS SC ×2 (11:11→17:36)
[2024-02-28] MEDS: LANTUS 0.140000000000000013 UNITS SC (11:12)
[2024-02-28] MEDS: LASIX 80 MG IV ×2 (11:12→15:54)
[2024-02-28] MEDS: HEPARIN 5000 UNITS SC ×2 (11:12→20:21)
[2024-02-28] MEDS: SINGULAIR 10 MG PO (11:13)
[2024-02-28] MEDS: PLAVIX 75 MG PO (11:13)
[2024-02-28] MEDS: NORVASC 10 MG PO (11:13)
[2024-02-28] MEDS: TOPROL XL 100 MG PO (11:14)
[2024-02-28 11:16] LABS: Body Fluid Glucose 97 mg/dl; Body Fluid LDH 135 U/L; Body Fluid Protein 3.7 g/dl
--- NOTE | 2024-02-28 11:29 | W.PN.CD ---
Addendum entered and electronically signed by Christal Alvarado MD 02/28/24 12:07:
I saw and examined the patient.
The PATIENT FINANCIAL COUNSELOR's note was reviewed and I agree with the note.
Comment: He is feeling so much better since thoracentesis. on exam he has decreased bs on the right and improved on the left base but with rales. RRR no m/r/g. Le edema still persists. Echo results noted and I suspect PHTN and TR will improve
with diuresis. Will continue.
Original Note:
Today's Communication / Plan
-
-continue IV diuresis and monitor
-thoracesis as planned
Impression / Plan
-
Assessment/Plan: 78 year old male with diastolic heart failure, HTN, HLD, PVD S/P amputation, and CKD who presents with SOB and edema. He has some issues with Lasix compliance. He is admitted with heart failure exacerbation.
HFpEF, ekmgw-hy-fqqyyrq:
-Echo 02/27/24: Normal biventricular size and systolic function without regional wall motion abnormality. Stage II diastolic dysfunction suggestive of abnormal relaxation and increased
filling pressures. Aortic sclerosis without stenosis. Moderate tricuspid regurgitation with severe pulmonary hypertension. Bilateral pleural effusions.
-continue IV diuresis, which requires intensive monitoring
-remains on O2 by NC
-Had been on Jardiance in the past, documentation reflects this was unaffordable
-Aldactone being avoiding per Nephrology (hyperkalemia)
-pleural effusions noted: now s/p thoracentesis for 2L today. I am told he will have another thora tomorrow.
-on O2 by NC- wean as tolerated
HTN:
-stable
HLD:
-continue statin
CKD:
-nephrology consulted
Type II DM:
-per primary
PVD S/P right BKA:
-on DAPT
Former tobacco abuse, continued cessation recommended
Subjective:
He feels so much better after thoracentesis
Physical Exam
Vital Signs/Labs
Vital Signs
Temp Pulse Resp BP Pulse Ox
97.8 F 67 16 124/77 93
02/28/24 08:00 02/28/24 11:12 02/28/24 08:45 02/28/24 11:12 02/28/24 08:30
02/27/24 02/28/24 02/29/24
06:59 06:59 06:59
Actual Weight 79.577 kg
02/28/24 07:40
02/28/24 07:40
02/27/24
10:59
Ltm-E-Gwumtgejodp Pept 1080
LAB Results
02/27/24
10:59
Troponin I < 0.012
Physical Exam
Constitutional: No acute distress
EENT: Anicteric
Cardiovascular: Rhythm & rate is regular
Respiratory: Other (caorse lung sounds throughout, on O2 by NC)
Neuro/Psych: AO x 3
Data Reviewed
-
Date of Service: February 28, 2024
EKG: Other (tele SR)
[2024-02-28 12:26] LABS: Glucose - Point of Care 155 mg/dl (70-99)
[2024-02-28 12:45] LABS: Protein/creatinine Ratio 7.6; Urine Protein 331 mg/dl
--- NOTE | 2024-02-28 13:55 | W.PN.HOSP.TC ---
Today's Communication/Plan
-
Continue IV diuretics
Follow renal function
IRAD to do right-sided thoracentesis tomorrow
Assessment / Plan
Assessment / Plan
TTE
Normal biventricular size and systolic function without regional wall motion abnormality.
Stage II diastolic dysfunction suggestive of abnormal relaxation and increased filling pressures.
Aortic sclerosis without stenosis.
Moderate tricuspid regurgitation with severe pulmonary hypertension.
Bilateral pleural effusions.
Compared to previous echo 07/04/19, severe pulmonary hypertension, moderate
tricuspid regurgitation and bilateral pleural effusions are all new from the prior study.

1. Acute hypoxic respiratory failure
Bilateral pleural effusion
-Likely secondary to heart failure exacerbation and effusion related
-Chest x-ray showing moderate bilateral pleural effusion
-S/p thoracentesis of 2 L left sided pleural effusion.
-IRAD will do right-sided thoracentesis tomorrow
-Wean off oxygen as possible
2. Acute on chronic diastolic heart failure exacerbation
-Last echocardiogram in 2018 showing preserved EF
-Repeat echocardiogram result as above
-Start patient on IV Lasix 80 mg twice daily
-Follow weight and creatinine
-Cardiology consulted for further help
3. CKD stage IIIb
-Baseline remains unclear, last creatinine check in July 17 was 2.5
-Patient has failed to follow-up with nephrology
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
-Nephrology asked to follow-up with patient requiring high-dose of IV diuretic therapy
4. History of peripheral artery disease
History of right BKA
-Continue aspirin/Plavix/statin
5. Insulin-dependent diabetes mellitus
-Continue Lantus 14 unit daily and 6 units AC with sliding scale
-Hbga1c of 6.2
6. Essential hypertension
-Continue Toprol-XL with holding parameters
-Hold losartan for now with unknown kidney function baseline
7. HLD
- maintain on atorvastatin
DVT PPX - Heparin subq
Full code
Anticipated Discharge: 24 - 48 hours
Subjective/Interval History
-
Date of Service: February 28, 2024
Patient subjective feeling much better
Remains on oxygen through nasal cannula
Afebrile overnight
Objective Data
-
Labs:
Laboratory Results
02/28/24
07:40
WBC 8.5
Hgb 13.0
Hct 42.7
Plt Count 159
Sodium 140
Potassium 4.7
Chloride 100
Carbon Dioxide 33 H
BUN 50 H
Creatinine 2.2 H
Glucose 82
Calcium 9.1
Vital Signs:
Vital Signs
Temp Pulse Resp BP Pulse Ox
98 F 69 16 128/70 96
02/28/24 11:49 02/28/24 11:49 02/28/24 11:49 02/28/24 11:49 02/28/24 11:49
I&O
02/27/24 02/28/24 02/29/24
06:59 06:59 06:59
Intake Total 480 / 480
Output Total 1475 / 1475
Balance -995 / -995
Review of Systems
-
Respiratory: Denies Cough or Trouble Breathing
Cardiac: Reports No Symptoms
Abdomen/GI: Reports No Symptoms
Physical Exam
-
General: No Apparent Distress and Obese
HEENT: Oxygen
Respiratory: Crackles
Cardiac: Regular Rhythm and S1/S2; Negative Murmur
GI: Soft, Nontender and Nondistended
Musculoskeletal: Edema, Right Lower Extrem, Edema, Left Lower Extrem and Other (Right BKA)
Neuro: Awake, AO x 3 and No Motor Deficits
--- NOTE | 2024-02-28 15:37 | CM ---
quality assurance project manager reviewed patient's chart and met with patient and patient lives with spouse daughter and son in law in a 2 story home with one step to enter, patient is independent with adl's and uses a cane with ambulation, patient with BKA and has
prosthetic leg, patient did not require oxygen prior to admission, patient is currently on 6 liters of oxygen.
Plan; Home with spouse when stable.
[2024-02-28] MEDS: NOVOLOG FLEXPEN SC (15:53)
[2024-02-28 16:54] LABS: Glucose - Point of Care 124 mg/dl (70-99)
--- NOTE | 2024-02-28 17:11 | W.PN.NEPH.PH ---
Today's Communication / Plan
-
observe on diuresis
follow bmp
Assessment/Plan
-
Assessment:
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
b/l pleural effusions
Diastolic heart failure (on losartan, metoprolol, jardiance previously tried. no aldactone due to hyperK)
T2DM (A1C 6%)
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
former smoker
HTN
DLD
volume overload
Plan:
-Creatinine stable at 2.2
- last seen by Dr. Duncan in 2021. he has been lost to follow up.
- Cr baseline in 2021 was thought to be low 2s. most recent Cr in [facility] is 1.99. Current Cr 2.2, likely at baseline
- In 2020 K biopsy was not adequate smaple but EM shows nodular diabetic sclerosis and severe vascular sclerosis.
- did have periods where he had significant proteinuria (>11g) but had stabilized around 2g. obtain UA, UPCR
- home diuretic: 80mg BID, please increase to 80IV BID. reiterated to the patient the importance of medication compliance
- we will need daily weights to establish a good dry weight
- likely will need thoracentesis to help improve his SOB
- trend BMPs
- monitor I/Os
-
-
Date of Service: February 28, 2024
CC / HPI / ROS
-
Chief Complaint:
CKD
History of Present Illness:
Creatinine stable at 2.2
Hemodynamically stable
Status post thoracentesis
Review of Systems:
Nonoliguric
Chest pain
Weight is down
Labs
-
Labs:
WBC 8.5 10^3/uL (4.8-10.8) 02/28/24 07:40
RBC 4.88 10^6/uL (4.70-6.10) 02/28/24 07:40
Hgb 13.0 g/dL (13.0-18.0) 02/28/24 07:40
Hct 42.7 % (39.0-52.0) 02/28/24 07:40
Plt Count 159 10^3/uL (130-400) 02/28/24 07:40
Sodium 140 mmol/L (135-145) 02/28/24 07:40
Potassium 4.7 mmol/L (3.5-5.1) 02/28/24 07:40
Chloride 100 mmol/L (98-107) 02/28/24 07:40
Carbon Dioxide 33 mmol/L (22-30) H 02/28/24 07:40
BUN 50 mg/dl (9-20) H 02/28/24 07:40
Creatinine 2.2 mg/dL (0.7-1.3) H 02/28/24 07:40
eGFR 29.54 02/28/24 07:40
Glucose 82 mg/dl (70-99) 02/28/24 07:40
Calcium 9.1 mg/dl (8.4-10.2) 02/28/24 07:40
Ifh-H-Rzuoerlppvr Pept 1080 pg/ml 02/27/24 10:59
Albumin 3.8 g/dl (3.5-5.0) 02/27/24 10:59
Physical Exam
-
Vital Signs:
Vital Signs
Temp Pulse Resp BP Pulse Ox
97.7 F 63 18 140/69 96
02/28/24 16:25 02/28/24 16:25 02/28/24 16:25 02/28/24 16:25 02/28/24 11:49
Cardiovascular:: Regular rate and rhythm
Respiratory:: Bilateral: Coarse
Lung Excursion:: Normal
Abdomen:: Nontender and Soft
Bowel Sounds:: Normal
Extremity Edema:: +2: Bilateral:
Hernandez Catheter: No
[2024-02-28] MEDS: LIPITOR 20 MG PO (17:36)
--- NOTE | 2024-02-28 19:59 | PTCARENOTE ---
pt was received in bed - awake, alert and verbally responsive receiving 6l/m via nasal cannula. pt can make his needs known and understands when being spoken too. pt had a left sided thoracentesis that yielded 2L of serosanguineous pleural fluid. pt
continues to have band-aid in place with no active bleeding or drainage. pt states that he feels better then when he first arrived but that this has been the worst episode of shortness of breath that he has felt in a long time. pt is currently in
bed interacting with his roommate and his family
[2024-02-28 21:32] LABS: Glucose - Point of Care 68 mg/dl (70-99)
[2024-02-28 21:51] LABS: Glucose - Point of Care 70 mg/dl (70-99)
[2024-02-29] VITALS (9 sets, daily range): BP systolic 66–146; BP diastolic 56–73; BMI 24.8
[2024-02-29] LABS: Glucose - Point of Care 63 mg/dl (70-99)
[2024-02-29 00:18] LABS: Glucose - Point of Care 80 mg/dl (70-99)
[2024-02-29] MEDS: LIDOCAINE 4% PATCH 1 PATCH TOPICAL (02:04)
[2024-02-29 03:03] LABS: Glucose - Point of Care 79 mg/dl (70-99)
[2024-02-29 07:14] LABS: Hematocrit 40.5 % (39.0-52.0); Hemoglobin 12.9 g/dL (13.0-18.0); Mean Corp Hgb Conc. 31.9 g/dL (33.0-37.0); Mean Corpuscular Volume 84.7 fL (80.0-94.0); Platelet Count 157 10^3/uL (130-400); Red Blood Cell Count 4.78 10^6/uL (4.70-6.10); Red Cell Dist. Width 13.9 % (11.5-14.5); White Blood Cell Count 8.3 10^3/uL (4.8-10.8)
[2024-02-29 07:39] LABS: Glucose - Point of Care 63 mg/dl (70-99)
[2024-02-29 07:42] LABS: Blood Urea Nitrogen 50 mg/dl (9-20); Calcium 8.6 mg/dl (8.4-10.2); Carbon Dioxide 35 mmol/L (22-30); Chloride 97 mmol/L (98-107); Estimated Creatinine Clearance 28 ml/min; Glucose 67 mg/dl (70-99); Potassium 4.4 mmol/L (3.5-5.1); Sodium 137 mmol/L (135-145); eGFR 31.23
[2024-02-29 08:11] LABS: Glucose - Point of Care 97 mg/dl (70-99)
[2024-02-29] MEDS: NOVOLOG FLEXPEN-LOW RESISTANCE SC ×3 (08:12→17:04)
[2024-02-29] MEDS: HEPARIN 5000 UNITS SC ×2 (08:13→20:28)
[2024-02-29] MEDS: ASPIR LOW (ENTERIC COATED) 81 MG PO (08:13)
[2024-02-29] MEDS: PLAVIX 75 MG PO (08:13)
[2024-02-29] MEDS: SINGULAIR 10 MG PO (08:15)
[2024-02-29] MEDS: LANTUS 0.140000000000000013 UNITS SC (08:17)
[2024-02-29] MEDS: NORVASC 10 MG PO (08:19)
[2024-02-29] MEDS: LASIX 80 MG IV ×2 (08:19→16:19)
[2024-02-29] MEDS: TOPROL XL 100 MG PO (08:19)
[2024-02-29] MEDS: NOVOLOG FLEXPEN 6 UNITS SC (08:38)
--- NOTE | 2024-02-29 09:23 | W.PN.CD ---
Today's Communication / Plan
-
continue IV lasix 80mg bid
Impression / Plan
-
Assessment/Plan: 78 year old male with diastolic heart failure, HTN, HLD, PVD S/P amputation, and CKD who presents with SOB and edema. He has some issues with Lasix compliance. He is admitted with heart failure exacerbation.
HFpEF, hlyoe-nh-fxiovrp:
-Echo 02/27/24: Normal biventricular size and systolic function without regional wall motion abnormality. Stage II diastolic dysfunction suggestive of abnormal relaxation and increased filling pressures. Aortic sclerosis without stenosis. Moderate
tricuspid regurgitation with severe pulmonary hypertension. Bilateral pleural effusions.
-continue IV lasix 80mg bid, which requires intensive monitoring of labs, tele
-Had been on Jardiance in the past, documentation reflects this was unaffordable
-Aldactone being avoiding per Nephrology (hyperkalemia)
Bilateral pleural effusion
-pleural effusions noted: now s/p left thoracentesis for 2L on 02/27
-assess for right thoracentesis today
HTN:
-stable
HLD:
-continue statin
CKD3b:
-nephrology consulted
Type II DM:
-per primary
PVD S/P right BKA:
-on DAPT
Former tobacco abuse, continued cessation recommended
Subjective:
SOB and edema are improving
Physical Exam
Vital Signs/Labs
Vital Signs
Temp Pulse Resp BP Pulse Ox
98.0 F 67 18 140/73 96
02/29/24 07:30 02/29/24 08:19 02/29/24 07:30 02/29/24 08:19 02/29/24 07:30
02/28/24 02/29/24 03/01/24
06:59 06:59 06:59
Actual Weight 79.577 kg 76.249 kg
02/29/24 06:59
02/29/24 06:59
02/27/24
10:59
Maa-R-Gyzhtjeenls Pept 1080
LAB Results
02/27/24
10:59
Troponin I < 0.012
Physical Exam
Constitutional: No acute distress and Comfortable
EENT: Moist mucous membranes
Cardiovascular: Rhythm & rate is regular, JVD present and Systolic murmur present
Respiratory: Respiratory effort normal and Lungs clear to auscul.
Neuro/Psych: AO x 3
Data Reviewed
-
Date of Service: February 29, 2024
EKG: Other (Tele: SR 60s)
Labs: Labs Reviewed by me
--- NOTE | 2024-02-29 10:56 | W.PN.HOSP.TC ---
Today's Communication/Plan
-
continue wean off o2 as possible.
continue diuretics
f/u weight/cr
Assessment / Plan
Assessment / Plan
TTE
Normal biventricular size and systolic function without regional wall motion abnormality.
Stage II diastolic dysfunction suggestive of abnormal relaxation and increased filling pressures.
Aortic sclerosis without stenosis.
Moderate tricuspid regurgitation with severe pulmonary hypertension.
Bilateral pleural effusions.
Compared to previous echo 07/04/19, severe pulmonary hypertension, moderate
tricuspid regurgitation and bilateral pleural effusions are all new from the prior study.

1. Acute hypoxic respiratory failure
Bilateral pleural effusion
-Likely secondary to heart failure exacerbation and effusion related
-Chest x-ray showing moderate bilateral pleural effusion
-S/p thoracentesis of 2 L left sided pleural effusion. - exudative in nature. gram stain no organism.
-s/p thoracentesis of 2 L right sided effusion.
-IRAD will do right-sided thoracentesis tomorrow
-Wean off oxygen as possible
2. Acute on chronic diastolic heart failure exacerbation
-Last echocardiogram in 2018 showing preserved EF
-Repeat echocardiogram result as above
-Start patient on IV Lasix 80 mg twice daily
-Follow weight and creatinine
-Cardiology consulted for further help
3. CKD stage IIIb
-Baseline remains unclear, last creatinine check in July 17 was 2.5
-Patient has failed to follow-up with nephrology
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
-Nephrology asked to follow-up with patient requiring high-dose of IV diuretic therapy
4. History of peripheral artery disease
History of right BKA
-Continue aspirin/Plavix/statin
5. Insulin-dependent diabetes mellitus
-Continue Lantus 14 unit daily and 6 units AC with sliding scale
-Hbga1c of 6.2
6. Essential hypertension
-Continue Toprol-XL with holding parameters
-Hold losartan for now with unknown kidney function baseline
7. HLD
- maintain on atorvastatin
DVT PPX - Heparin subq
Full code
Anticipated Discharge: 24 - 48 hours
Subjective/Interval History
-
Date of Service: February 29, 2024
breathing subjectively better
no other problems
Objective Data
-
Labs:
Laboratory Results
02/29/24
06:59
WBC 8.3
Hgb 12.9 L
Hct 40.5
Plt Count 157
Sodium 137
Potassium 4.4
Chloride 97 L
Carbon Dioxide 35 H
BUN 50 H
Creatinine 2.1 H
Glucose 67 L
Calcium 8.6
Vital Signs:
Vital Signs
Temp Pulse Resp BP Pulse Ox
98 F 64 18 112/56 95
02/29/24 09:12 02/29/24 09:41 02/29/24 09:41 02/29/24 09:41 02/29/24 09:30
I&O
02/28/24 02/29/24 03/01/24
06:59 06:59 06:59
Intake Total 480 / 480 1260 / 1260
Output Total 1475 / 1475 1550 / 1550
Balance -995 / -995 -290 / -290
Review of Systems
-
Respiratory: Reports No Symptoms
Cardiac: Reports No Symptoms
Abdomen/GI: Reports No Symptoms
Physical Exam
-
General: No Apparent Distress and Obese
HEENT: Oxygen
Respiratory: Crackles
Cardiac: Regular Rhythm and S1/S2; Negative Murmur
GI: Soft, Nontender and Nondistended
Musculoskeletal: Edema, Right Lower Extrem, Edema, Left Lower Extrem and Other (Right BKA)
Neuro: Awake, AO x 3 and No Motor Deficits
[2024-02-29 12:17] LABS: Glucose - Point of Care 53 mg/dl (70-99)
[2024-02-29] MEDS: NOVOLOG FLEXPEN SC ×2 (12:30→17:05)
[2024-02-29 13:22] LABS: Glucose - Point of Care 135 mg/dl (70-99)
--- NOTE | 2024-02-29 14:51 | W.PN.NEPH.PH ---
Today's Communication / Plan
-
Observe on IV diuretics
Assessment/Plan
-
Assessment:
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
b/l pleural effusions
Diastolic heart failure (on losartan, metoprolol, jardiance previously tried. no aldactone due to hyperK)
T2DM (A1C 6%)
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
former smoker
HTN
DLD
volume overload
Plan:
-Creatinine stable at 2.1
- last seen by Dr. Duncan in 2021. he has been lost to follow up.
- Cr baseline in 2021 was thought to be low 2s. most recent Cr in [facility] is 1.99. Current Cr 2.1, likely at baseline
- In 2020 K biopsy was not adequate but EM shows nodular diabetic sclerosis and severe vascular sclerosis.
- did have periods where he had significant proteinuria (>11g) but had stabilized around 2g. obtain UA, UPCR
- home diuretic: 80mg BID, 80IV BID now, weight is dropping
- we will need daily weights to establish a good dry weight
-Status post 2 L thoracentesis today
- trend BMPs
- monitor I/Os
-
-
Date of Service: February 29, 2024
CC / HPI / ROS
-
Chief Complaint:
CKD
History of Present Illness:
Creatinine stable at 2.1
Status post thoracentesis ~2 liters
Hemodynamically stable
Review of Systems:
Nonoliguric
Chest pain
Weight is down
Labs
-
Labs:
WBC 8.3 10^3/uL (4.8-10.8) 02/29/24 06:59
RBC 4.78 10^6/uL (4.70-6.10) 02/29/24 06:59
Hgb 12.9 g/dL (13.0-18.0) L 02/29/24 06:59
Hct 40.5 % (39.0-52.0) 02/29/24 06:59
Plt Count 157 10^3/uL (130-400) 02/29/24 06:59
Sodium 137 mmol/L (135-145) 02/29/24 06:59
Potassium 4.4 mmol/L (3.5-5.1) 02/29/24 06:59
Chloride 97 mmol/L (98-107) L 02/29/24 06:59
Carbon Dioxide 35 mmol/L (22-30) H 02/29/24 06:59
BUN 50 mg/dl (9-20) H 02/29/24 06:59
Creatinine 2.1 mg/dL (0.7-1.3) H 02/29/24 06:59
eGFR 31.23 02/29/24 06:59
Glucose 67 mg/dl (70-99) L 02/29/24 06:59
Calcium 8.6 mg/dl (8.4-10.2) 02/29/24 06:59
Vgj-L-Zuqngzrdjca Pept 1080 pg/ml 02/27/24 10:59
Albumin 3.8 g/dl (3.5-5.0) 02/27/24 10:59
Physical Exam
-
Vital Signs:
Vital Signs
Temp Pulse Resp BP Pulse Ox
97.7 F 60 18 138/70 96
02/29/24 11:00 02/29/24 11:00 02/29/24 11:00 02/29/24 11:00 02/29/24 11:00
Cardiovascular:: Regular rate and rhythm
Respiratory:: Bilateral: Coarse
Lung Excursion:: Normal
Abdomen:: Nontender
Bowel Sounds:: Normal
Extremity Edema:: +1: Bilateral:
Hernandez Catheter: No
--- NOTE | 2024-02-29 15:42 | CM ---
Patient is requiring 5 liters of oxygen, skilled nursing case manager needs to follow with patient for any oxygen needs at discharge.
Plan; to follow with patient progress.
[2024-02-29 16:35] LABS: Glucose - Point of Care 86 mg/dl (70-99)
[2024-02-29] MEDS: LIPITOR 20 MG PO (16:59)
[2024-02-29 21:22] LABS: Glucose - Point of Care 102 mg/dl (70-99)
[2024-03-01 03:39] VITALS: BP 134/69
[2024-03-01 05:37] VITALS: BMI 24.0
[2024-03-01 05:58] LABS: Hematocrit 39.1 % (39.0-52.0); Hemoglobin 12.4 g/dL (13.0-18.0); Mean Corp Hgb Conc. 31.7 g/dL (33.0-37.0); Mean Corpuscular Hgb 26.6 pg (27.0-31.0); Mean Corpuscular Volume 83.9 fL (80.0-94.0); Mean Platelet Volume 9.4 fL (7.4-10.4); Platelet Count 162 10^3/uL (130-400); Red Blood Cell Count 4.66 10^6/uL (4.70-6.10); Red Cell Dist. Width 14.1 % (11.5-14.5); White Blood Cell Count 8.4 10^3/uL (4.8-10.8)
[2024-03-01 06:30] LABS: Blood Urea Nitrogen 50 mg/dl (9-20); Calcium 8.3 mg/dl (8.4-10.2); Carbon Dioxide 34 mmol/L (22-30); Chloride 99 mmol/L (98-107); Estimated Creatinine Clearance 25 ml/min; Glucose 82 mg/dl (70-99); Potassium 4.6 mmol/L (3.5-5.1); Sodium 135 mmol/L (135-145); eGFR 26.61
[2024-03-01 07:30] VITALS: BP 130/65
[2024-03-01 07:44] LABS: Glucose - Point of Care 88 mg/dl (70-99)
[2024-03-01] MEDS: NOVOLOG FLEXPEN-LOW RESISTANCE SC ×2 (08:01→16:10)
[2024-03-01] MEDS: LANTUS 0.140000000000000013 UNITS SC (08:02)
[2024-03-01] MEDS: LIDOCAINE 4% PATCH 1 PATCH TOPICAL (08:02)
[2024-03-01] MEDS: NOVOLOG FLEXPEN 6 UNITS SC ×3 (08:03→16:10)
[2024-03-01] MEDS: LASIX 80 MG IV ×2 (08:04→16:11)
[2024-03-01] MEDS: PLAVIX 75 MG PO (08:26)
[2024-03-01] MEDS: ASPIR LOW (ENTERIC COATED) 81 MG PO (08:26)
[2024-03-01] MEDS: TOPROL XL 100 MG PO (08:26)
[2024-03-01] MEDS: SINGULAIR 10 MG PO (08:27)
[2024-03-01] MEDS: NORVASC 10 MG PO (08:27)
[2024-03-01] MEDS: HEPARIN 5000 UNITS SC ×2 (08:29→20:09)
--- NOTE | 2024-03-01 09:04 | W.PN.CD ---
Today's Communication / Plan
-
received IV lasix this AM, will give one more dose of IV at 4pm
ordered to transition to lasix 80mg PO bid tomorrow
we discussed med compliance: he was not taking the second dose consistently at home previously
as long as weight and Cr stable, likely discharge tomorrow
we will arrange for follow up with us
please call us with additional questions
Impression / Plan
-
Assessment/Plan: 78 year old male with diastolic heart failure, HTN, HLD, PVD S/P amputation, and CKD who presents with SOB and edema. He has some issues with Lasix compliance. He is admitted with heart failure exacerbation.
HFpEF, cbrnf-rn-esbefek:
-Echo 02/27/24: Normal biventricular size and systolic function without regional wall motion abnormality. Stage II diastolic dysfunction suggestive of abnormal relaxation and increased filling pressures. Aortic sclerosis without stenosis. Moderate
tricuspid regurgitation with severe pulmonary hypertension. Bilateral pleural effusions.
-Had been on Jardiance in the past, documentation reflects this was unaffordable
-Aldactone being avoiding per Nephrology (hyperkalemia)
-received IV lasix this AM, will give one more dose of IV at 4pm
-ordered to transition to lasix 80mg PO bid tomorrow
-we discussed med compliance: he was not taking the second dose consistently at home previously
Bilateral pleural effusion
-pleural effusions noted: now s/p left thoracentesis for 2L on 02/27, and right for 2L on 02/28
HTN:
-stable
HLD:
-continue statin
CKD3b:
-nephrology consulted
Type II DM:
-per primary
PVD S/P right BKA:
-on DAPT
Former tobacco abuse, continued cessation recommended
Subjective:
SOB and edema are better
Physical Exam
Vital Signs/Labs
Vital Signs
Temp Pulse Resp BP Pulse Ox
99.0 F 62 18 130/65 96
03/01/24 07:30 03/01/24 07:30 03/01/24 07:30 03/01/24 07:30 03/01/24 07:30
02/29/24 03/01/24 03/02/24
06:59 06:59 06:59
Actual Weight 76.249 kg 73.624 kg
03/01/24 05:17
03/01/24 05:17
02/27/24
10:59
Elk-W-Dacxubcasjk Pept 1080
LAB Results
02/27/24
10:59
Troponin I < 0.012
Physical Exam
Constitutional: No acute distress and Comfortable
EENT: Moist mucous membranes
Cardiovascular: Rhythm & rate is regular, Systolic murmur absent and JVD present
Respiratory: Respiratory effort normal, Lungs clear to auscul. and Wheeze Absent
GI: Distention absent
Neuro/Psych: AO x 3
Data Reviewed
-
Date of Service: March 01, 2024
EKG: Other (Tele: SR 60s)
Labs: Labs Reviewed by me
[2024-03-01 09:36] VITALS: BP 111/58; PULSE 73; O2SAT 92
[2024-03-01 11:30] VITALS: BP 114/65
[2024-03-01 11:49] LABS: Glucose - Point of Care 188 mg/dl (70-99)
[2024-03-01] MEDS: NOVOLOG FLEXPEN-LOW RESISTANCE 1 UNITS SC (12:04)
--- NOTE | 2024-03-01 13:48 | CM ---
Chart reviewed and patient is still on 5 liters of oxygen, patient did not require oxygen prior to admission. patient will need home oxygen evaluation, family preservation caseworker reached out to nursing to discuss plan for weaning oxygen. Plan is to home with
spouse.
Plan; Home with home oxygen evaluation and home care.
--- NOTE | 2024-03-01 14:16 | W.PN.HOSP.TC ---
Today's Communication/Plan
-
continue diuretics, PO from tomorrow
f/u renal function
Assessment / Plan
Assessment / Plan
TTE
Normal biventricular size and systolic function without regional wall motion abnormality.
Stage II diastolic dysfunction suggestive of abnormal relaxation and increased filling pressures.
Aortic sclerosis without stenosis.
Moderate tricuspid regurgitation with severe pulmonary hypertension.
Bilateral pleural effusions.
Compared to previous echo 07/04/19, severe pulmonary hypertension, moderate
tricuspid regurgitation and bilateral pleural effusions are all new from the prior study.

1. Acute hypoxic respiratory failure
Bilateral pleural effusion
-Likely secondary to heart failure exacerbation and effusion related
-Chest x-ray showing moderate bilateral pleural effusion
-S/p thoracentesis of 2 L left sided pleural effusion. - exudative in nature. gram stain no organism.
-s/p thoracentesis of 2 L right sided effusion.
-IRAD will do right-sided thoracentesis tomorrow
-Wean off oxygen as possible
2. Acute on chronic diastolic heart failure exacerbation
-Last echocardiogram in 2018 showing preserved EF
-Repeat echocardiogram result as above
-Follow weight and creatinine
-Patient IV Lasix has been changed to oral Lasix 80 mg twice daily.
3. CKD stage IIIb
-Baseline remains unclear, last creatinine check in July 17 was 2.5
-Patient has failed to follow-up with nephrology
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
-Nephrology asked to follow-up with patient requiring high-dose of IV diuretic therapy
4. History of peripheral artery disease
History of right BKA
-Continue aspirin/Plavix/statin
5. Insulin-dependent diabetes mellitus
-Continue Lantus 14 unit daily and 6 units AC with sliding scale
-Hbga1c of 6.2
6. Essential hypertension
-Continue Toprol-XL with holding parameters
-Hold losartan for now with unknown kidney function baseline
7. HLD
- maintain on atorvastatin
DVT PPX - Heparin subq
Full code
Anticipated Discharge: Within 24 hours
Subjective/Interval History
-
Date of Service: March 01, 2024
Patient denies of any problems
Breathing subjectively better
Remains on 4 L oxygen through nasal cannula
Objective Data
-
Labs:
Laboratory Results
03/01/24
05:17
WBC 8.4
Hgb 12.4 L
Hct 39.1
Plt Count 162
Sodium 135
Potassium 4.6
Chloride 99
Carbon Dioxide 34 H
BUN 50 H
Creatinine 2.4 H
Glucose 82
Calcium 8.3 L
Vital Signs:
Vital Signs
Temp Pulse Resp BP Pulse Ox
98.3 F 84 18 114/65 93
03/01/24 11:30 03/01/24 11:30 03/01/24 11:30 03/01/24 11:30 03/01/24 11:30
I&O
02/29/24 03/01/24 03/02/24
06:59 06:59 06:59
Intake Total 1260 / 1260 1800 / 1800
Output Total 1550 / 1550 900 / 900
Balance -290 / -290 900 / 900
Review of Systems
-
Respiratory: Reports No Symptoms
Cardiac: Reports No Symptoms
Abdomen/GI: Reports No Symptoms
Physical Exam
-
General: No Apparent Distress and Obese
HEENT: Oxygen
Respiratory: Clear to Auscultation
Cardiac: Regular Rhythm and S1/S2; Negative Murmur
GI: Soft, Nontender and Nondistended
Musculoskeletal: Edema, Right Lower Extrem, Edema, Left Lower Extrem and Other (Right BKA)
Neuro: Awake, AO x 3 and No Motor Deficits
--- NOTE | 2024-03-01 15:17 | W.HF.CON ---
Heart Failure
- LV Function
Left ventricular function study result: LV Ejection fraction >40%
Ejection Fraction Percentage: 55-60
- ARNI
Patient already on ARNI: No
Heart Failure ARNI Not Indicated: LV Ejection Fraction >/= 40%
- ACEI/ARB
Patient already on ACEI/ARB: No
Heart Failure ACEI/ARB Not Indicated: LV Ejection Fraction > 40%
- Beta Charity
Patient already on Evidence Based Beta Charity: Yes
- Mineralocorticord Receptor Antagonist
Patient already on MRA: No
Heart Failure MRA Not Indicated: LV Ejection Fraction > 40%
- SGLT-2 Inhibitor
Patient already on SGLT-2 Inhibitor: No
Heart Failure SGLT-2 Inhibitor Contraindication: Patient Refusal
Heart Failure SGLT-2 Inhibitor Not Indicated: LV Ejection Fraction >40%
- NYHA CHF Classification
NYHA CHF Classification Level: Class III - Symptoms w/ min exertion, interferes w/ nml daily activity
- ACC/AHA Stage
ACC/AHA Stage: Stage C: Symptomatic Heart Failure
--- NOTE | 2024-03-01 15:49 | PN.CDI ---
CDI
- -
CDI:
Physician Documentation Request
Admit Date: 02/27/24 13:47
Dear Doctor Dayne,
Patient admitted for acute hypoxic respiratory failure.
03/01 Hospitalist PN: 'CKD stage IIIb'
Laboratory Tests
02/29/24 03/01/24
06:59 05:17
Creatinine 2.1 H 2.4 H
Clarify which of the following accurately represents the patient's renal status:
AURY on CKD 3B
CKD 3B
Other
Criteria for AURY*
1 Increase in serum creatinine by > or = to 0.3 mg/dL (> or = to 26.5 micromol/L) within 48 hours, OR
2 Increase in serum creatinine to > or = to 1.5 times baseline, which is known or presumed to have occurred within 7 days, OR
3 Urine volume < 0.5 nL/kg/hour for six hours
Use of terms such as suspected, likely, concern for, or probable (associated with a specific diagnosis that is being evaluated, monitored, or treated as if it exists) are acceptable and can be coded in the inpatient setting, when documented at the
time of discharge.
Thank you,
Era Burk RN, BSN
CDI Specialist
Available via [place] text
Please use your independent medical judgment in providing your response.
*Source: Kidney Disease: Improving Global Outcomes (KDIGO) 2012
[2024-03-01 16:00] VITALS: BP 128/64
[2024-03-01 16:10] LABS: Glucose - Point of Care 133 mg/dl (70-99)
[2024-03-01] MEDS: LIPITOR 20 MG PO (16:12)
--- NOTE | 2024-03-01 17:13 | W.PN.NEPH.PH ---
Today's Communication / Plan
-
f/u labs
Assessment/Plan
-
Assessment:
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
b/l pleural effusions
Diastolic heart failure (on losartan, metoprolol, jardiance previously tried. no aldactone due to hyperK)
T2DM (A1C 6%)
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
former smoker
HTN
DLD
volume overload
Plan:
-Creatinine up at 2.4 with diuresis
- last seen by Dr. Duncan in 2021. he has been lost to follow up.
- In 2020 K biopsy was not adequate but EM shows nodular diabetic sclerosis and severe vascular sclerosis.
- did have periods where he had significant proteinuria (>11g) but had stabilized around 2g. obtain UA ?UTI sample, UPCR 7.6gm/gm of cr
- home diuretic: 80mg BID, 80IV BID now, weight is dropping
diuresis changed to po in am per cards
-Status post 2 L thoracentesisthis admit
we reviewed imp of FR and checking daily wts
- trend BMPs
f/u nephro after d/c
-
-
Date of Service: March 01, 2024
CC / HPI / ROS
-
Chief Complaint:
CKD
History of Present Illness:
Creatinine up at 2.4
Status post thoracentesis ~2 liters 4/4
Hemodynamically stable
wt is down
Review of Systems:
Nonoliguric
Chest pain
no sob at rest
Labs
-
Labs:
WBC 8.4 10^3/uL (4.8-10.8) 03/01/24 05:17
RBC 4.66 10^6/uL (4.70-6.10) L 03/01/24 05:17
Hgb 12.4 g/dL (13.0-18.0) L 03/01/24 05:17
Hct 39.1 % (39.0-52.0) 03/01/24 05:17
Plt Count 162 10^3/uL (130-400) 03/01/24 05:17
Sodium 135 mmol/L (135-145) 03/01/24 05:17
Potassium 4.6 mmol/L (3.5-5.1) 03/01/24 05:17
Chloride 99 mmol/L (98-107) 03/01/24 05:17
Carbon Dioxide 34 mmol/L (22-30) H 03/01/24 05:17
BUN 50 mg/dl (9-20) H 03/01/24 05:17
Creatinine 2.4 mg/dL (0.7-1.3) H 03/01/24 05:17
eGFR 26.61 03/01/24 05:17
Glucose 82 mg/dl (70-99) 03/01/24 05:17
Calcium 8.3 mg/dl (8.4-10.2) L 03/01/24 05:17
Ugl-J-Cmmygpdzeiu Pept 1080 pg/ml 02/27/24 10:59
Albumin 3.8 g/dl (3.5-5.0) 02/27/24 10:59
Physical Exam
-
Vital Signs:
Vital Signs
Temp Pulse Resp BP Pulse Ox
98.1 F 63 20 128/64 95
03/01/24 16:00 03/01/24 16:00 03/01/24 16:00 03/01/24 16:00 03/01/24 16:00
Cardiovascular:: Regular rate and rhythm
Respiratory:: Bilateral: Rales
Lung Excursion:: Normal
Abdomen:: Nontender and Soft
Extremity Edema:: +1: Left:
Hernandez Catheter: No
Other Findings::
rt BKA
[2024-03-01 22:10] LABS: Glucose - Point of Care 106 mg/dl (70-99)
[2024-03-01 23:39] VITALS: BP 147/78
[2024-03-02 05:48] VITALS: BMI 23.5
[2024-03-02 07:00] VITALS: BP 137/62
[2024-03-02 07:29] LABS: Blood Urea Nitrogen 52 mg/dl (9-20); Calcium 8.4 mg/dl (8.4-10.2); Chloride 95 mmol/L (98-107); Estimated Creatinine Clearance 23 ml/min; Glucose 78 mg/dl (70-99); Potassium 4.4 mmol/L (3.5-5.1); Sodium 136 mmol/L (135-145); eGFR 24.17
[2024-03-02 07:36] LABS: Glucose - Point of Care 82 mg/dl (70-99)
[2024-03-02 07:40] LABS: Carbon Dioxide 35 mmol/L (22-30)
[2024-03-02] MEDS: LANTUS 0.140000000000000013 UNITS SC (08:08)
[2024-03-02] MEDS: NOVOLOG FLEXPEN-LOW RESISTANCE SC ×3 (08:08→16:30)
[2024-03-02] MEDS: NOVOLOG FLEXPEN 6 UNITS SC (08:09)
[2024-03-02] MEDS: PLAVIX 75 MG PO (08:11)
[2024-03-02] MEDS: TOPROL XL 100 MG PO (08:11)
[2024-03-02] MEDS: NORVASC 10 MG PO (08:12)
[2024-03-02] MEDS: ASPIR LOW (ENTERIC COATED) 81 MG PO (08:12)
[2024-03-02] MEDS: SINGULAIR 10 MG PO (08:12)
[2024-03-02] MEDS: LASIX 80 MG PO (08:13)
[2024-03-02] MEDS: HEPARIN 5000 UNITS SC ×2 (08:16→20:09)
[2024-03-02] MEDS: LIDOCAINE 4% PATCH TOPICAL (08:22)
--- NOTE | 2024-03-02 10:15 | CM ---
Patient seen bedside, patient continues to require oxygen. CM will watch for home O2 evaluation for home O2 needs. CM will continue to follow for discharge planning needs.
Plan; home with home O2 likely.
[2024-03-02 11:44] LABS: Glucose - Point of Care 138 mg/dl (70-99)
--- NOTE | 2024-03-02 13:26 | W.PN.HOSP.TC ---
Today's Communication/Plan
-
home o2 assessment
discharge planning
Assessment / Plan
Assessment / Plan
TTE
Normal biventricular size and systolic function without regional wall motion abnormality.
Stage II diastolic dysfunction suggestive of abnormal relaxation and increased filling pressures.
Aortic sclerosis without stenosis.
Moderate tricuspid regurgitation with severe pulmonary hypertension.
Bilateral pleural effusions.
Compared to previous echo 07/04/19, severe pulmonary hypertension, moderate
tricuspid regurgitation and bilateral pleural effusions are all new from the prior study.

1. Acute hypoxic respiratory failure
Bilateral pleural effusion
-Likely secondary to heart failure exacerbation and effusion related
-Chest x-ray showing moderate bilateral pleural effusion
-S/p thoracentesis of 2 L left sided pleural effusion. - exudative in nature. gram stain no organism.
-s/p thoracentesis of 2 L right sided effusion.
-Home oxygen evaluation ordered. Currently on 3 L through nasal cannula
2. Acute on chronic diastolic heart failure exacerbation
-Last echocardiogram in 2018 showing preserved EF
-Repeat echocardiogram result as above
-Follow weight and creatinine
-Back on PO Lasix 80 mg twice daily
-Creatinine uptrending 2.6 today. May overload decreased dose of Lasix based on cr tomorrow
3. CKD stage IIIb
-Baseline remains unclear, last creatinine check in July 17 was 2.5
-Patient has failed to follow-up with nephrology
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
-Nephrology asked to follow-up with patient requiring high-dose of IV diuretic therapy
4. History of peripheral artery disease
History of right BKA
-Continue aspirin/Plavix/statin
5. Insulin-dependent diabetes mellitus
-Continue Lantus 14 unit daily and 6 units AC with sliding scale
-Hbga1c of 6.2
6. Essential hypertension
-Continue Toprol-XL with holding parameters
-Hold losartan for now with unknown kidney function baseline
7. HLD
- maintain on atorvastatin
DVT PPX - Heparin subq
Full code
Anticipated Discharge: Within 24 hours
Subjective/Interval History
-
Date of Service: March 02, 2024
Patient subjectively feeling better
Oxygen requirement coming down on on 3 L nasal cannula
Objective Data
-
Labs:
Laboratory Results
03/02/24
06:00
Sodium 136
Potassium 4.4
Chloride 95 L
Carbon Dioxide 35 H
BUN 52 H
Creatinine 2.6 H
Glucose 78
Calcium 8.4
Vital Signs:
Vital Signs
Temp Pulse Resp BP Pulse Ox
98.3 F 69 16 137/62 95
03/02/24 07:00 03/02/24 07:00 03/02/24 07:00 03/02/24 07:00 03/02/24 08:10
I&O
03/01/24 03/02/24 03/03/24
06:59 06:59 06:59
Intake Total 1800 / 1800 1080 / 1080
Output Total 900 / 900 1500 / 1500
Balance 900 / 900 -420 / -420
Review of Systems
-
Respiratory: Reports No Symptoms
Cardiac: Reports No Symptoms
Abdomen/GI: Reports No Symptoms
Physical Exam
-
General: No Apparent Distress and Obese
HEENT: Oxygen (3 L nasal cannula)
Respiratory: Clear to Auscultation
Cardiac: Regular Rhythm and S1/S2; Negative Murmur
GI: Soft, Nontender and Nondistended
Musculoskeletal: Edema, Right Lower Extrem, Edema, Left Lower Extrem and Other (Right BKA)
Neuro: Awake, AO x 3 and No Motor Deficits
[2024-03-02 15:00] VITALS: BP 130/70
--- NOTE | 2024-03-02 15:06 | W.PN.NEPH.PH ---
Today's Communication / Plan
-
hold lasix
Assessment/Plan
-
Assessment:
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
b/l pleural effusions
Diastolic heart failure (on losartan, metoprolol, jardiance previously tried. no aldactone due to hyperK)
T2DM (A1C 6%)
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
former smoker
HTN
DLD
volume overload
- last seen by Dr. Duncan in 2021. he has been lost to follow up.
- In 2020 K biopsy was not adequate but EM shows nodular diabetic sclerosis and severe vascular sclerosis.
- did have periods where he had significant proteinuria (>11g) but had stabilized around 2g.
Plan:
-Creatinine up at 2.6 with diuresis
UA ?UTI sample, UPCR 7.6gm/gm of cr
hold po lasix today and monitor cr
if cr improving tomorrow resume home dose lasix 80mg BID and maintian FR strictly at home
-Status post 2 L thoracentesisthis admit
we reviewed imp of FR and checking daily wts
- trend BMPs
f/u nephro Dr Duncan after d/c
-
-
Date of Service: March 02, 2024
CC / HPI / ROS
-
Chief Complaint:
CKD
History of Present Illness:
Creatinine up at 2.6
Status post thoracentesis ~2 liters 4/4
Hemodynamically stable
wt is down
Review of Systems:
Nonoliguric
Chest pain
no sob at rest
Labs
-
Labs:
WBC 8.4 10^3/uL (4.8-10.8) 03/01/24 05:17
RBC 4.66 10^6/uL (4.70-6.10) L 03/01/24 05:17
Hgb 12.4 g/dL (13.0-18.0) L 03/01/24 05:17
Hct 39.1 % (39.0-52.0) 03/01/24 05:17
Plt Count 162 10^3/uL (130-400) 03/01/24 05:17
Sodium 136 mmol/L (135-145) 03/02/24 06:00
Potassium 4.4 mmol/L (3.5-5.1) 03/02/24 06:00
Chloride 95 mmol/L (98-107) L 03/02/24 06:00
Carbon Dioxide 35 mmol/L (22-30) H 03/02/24 06:00
BUN 52 mg/dl (9-20) H 03/02/24 06:00
Creatinine 2.6 mg/dL (0.7-1.3) H 03/02/24 06:00
eGFR 24.17 03/02/24 06:00
Glucose 78 mg/dl (70-99) 03/02/24 06:00
Calcium 8.4 mg/dl (8.4-10.2) 03/02/24 06:00
Lae-T-Eqonjrsytrg Pept 1080 pg/ml 02/27/24 10:59
Albumin 3.8 g/dl (3.5-5.0) 02/27/24 10:59
Physical Exam
-
Vital Signs:
Vital Signs
Temp Pulse Resp BP Pulse Ox
98.3 F 69 16 137/62 95
03/02/24 07:00 03/02/24 07:00 03/02/24 07:00 03/02/24 07:00 03/02/24 08:10
Cardiovascular:: Regular rate and rhythm
Lung Excursion:: Normal (decreased)
Abdomen:: Nontender and Soft
Extremity Edema:: +2: Left:
Hernandez Catheter: No
[2024-03-02 16:29] LABS: Glucose - Point of Care 83 mg/dl (70-99)
[2024-03-02] MEDS: LIPITOR 20 MG PO (16:31)
[2024-03-02 21:25] LABS: Glucose - Point of Care 108 mg/dl (70-99)
[2024-03-02 23:23] VITALS: BP 153/81
[2024-03-03 04:48] VITALS: BMI 24.2
[2024-03-03 06:56] LABS: Glucose - Point of Care 91 mg/dl (70-99)
[2024-03-03 07:00] VITALS: BP 121/60
[2024-03-03] MEDS: NOVOLOG FLEXPEN-LOW RESISTANCE SC ×2 (08:20→12:00)
[2024-03-03] MEDS: LANTUS 0.140000000000000013 UNITS SC (08:21)
[2024-03-03] MEDS: ASPIR LOW (ENTERIC COATED) 81 MG PO (08:21)
[2024-03-03] MEDS: PLAVIX 75 MG PO (08:21)
[2024-03-03] MEDS: NORVASC 10 MG PO (08:21)
[2024-03-03] MEDS: TOPROL XL 100 MG PO (08:22)
[2024-03-03] MEDS: HEPARIN 5000 UNITS SC (08:22)
[2024-03-03] MEDS: SINGULAIR 10 MG PO (08:22)
[2024-03-03] MEDS: LIDOCAINE 4% PATCH TOPICAL (08:23)
[2024-03-03 08:27] LABS: Blood Urea Nitrogen 57 mg/dl (9-20); Calcium 8.5 mg/dl (8.4-10.2); Carbon Dioxide 36 mmol/L (22-30); Chloride 94 mmol/L (98-107); Estimated Creatinine Clearance 23 ml/min; Glucose 92 mg/dl (70-99); Potassium 4.2 mmol/L (3.5-5.1); Sodium 133 mmol/L (135-145); eGFR 24.17
--- NOTE | 2024-03-03 10:36 | W.PN.HOSP.TC ---
Addendum entered and electronically signed by Gerardo Oscar MD 03/03/24 15:46:
Adjust diagnosis:
AURY on CKD IIIB
Original Note:
Today's Communication/Plan
-
d/c home with HH
Assessment / Plan
Assessment / Plan
TTE
Normal biventricular size and systolic function without regional wall motion abnormality.
Stage II diastolic dysfunction suggestive of abnormal relaxation and increased filling pressures.
Aortic sclerosis without stenosis.
Moderate tricuspid regurgitation with severe pulmonary hypertension.
Bilateral pleural effusions.
Compared to previous echo 07/04/19, severe pulmonary hypertension, moderate
tricuspid regurgitation and bilateral pleural effusions are all new from the prior study.

1. Acute hypoxic respiratory failure
Bilateral pleural effusion
-Likely secondary to heart failure exacerbation and effusion related
-Chest x-ray showing moderate bilateral pleural effusion
-S/p thoracentesis of 2 L left sided pleural effusion. - exudative in nature. gram stain no organism.
-s/p thoracentesis of 2 L right sided effusion.
-Currently on 3 L through nasal cannula. Home o2 arrangement pending today
2. Acute on chronic diastolic heart failure exacerbation
-Last echocardiogram in 2018 showing preserved EF
-Repeat echocardiogram result as above
-Follow weight and creatinine
-On PO Lasix 80 mg twice daily
-Creatinine remains stable.
3. CKD stage IIIb
-Baseline remains unclear, last creatinine check in July 17 was 2.5
-Patient has failed to follow-up with nephrology
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
-Nephrology asked to follow-up with patient requiring high-dose of IV diuretic therapy
4. History of peripheral artery disease
History of right BKA
-Continue aspirin/Plavix/statin
5. Insulin-dependent diabetes mellitus
-Continue Lantus 14 unit daily and 6 units AC with sliding scale
-Hbga1c of 6.2
6. Essential hypertension
-Continue Toprol-XL with holding parameters
-Hold losartan for now with unknown kidney function baseline
7. HLD
- maintain on atorvastatin
DVT PPX - Heparin subq
Full code
More than 30 minutes spent in discharge including
Final examination of the patient
Summarizing hospital stay
Instructions for continuing care to all relevant caregivers
Preparation of discharge records, prescriptions, and referral forms
Total time spent (in minutes): 38 mins
Anticipated Discharge: Today
Subjective/Interval History
-
Date of Service: March 03, 2024
no new problems
have some dry cough and minimal phlegm
Objective Data
-
Labs:
Laboratory Results
03/03/24
07:25
Sodium 133 L
Potassium 4.2
Chloride 94 L
Carbon Dioxide 36 H
BUN 57 H
Creatinine 2.6 H
Glucose 92
Calcium 8.5
Vital Signs:
Vital Signs
Temp Pulse Resp BP Pulse Ox
98.2 F 67 18 121/60 97
03/03/24 07:00 03/03/24 08:21 03/03/24 07:00 03/03/24 08:21 03/03/24 08:30
I&O
03/02/24 03/03/24 03/04/24
06:59 06:59 06:59
Intake Total 1080 / 1080 1740 / 1740
Output Total 1500 / 1500 650 / 650
Balance -420 / -420 1090 / 1090
Review of Systems
-
Respiratory: Reports No Symptoms
Cardiac: Reports No Symptoms
Abdomen/GI: Reports No Symptoms
Physical Exam
-
General: No Apparent Distress and Obese
HEENT: Oxygen (3 L nasal cannula)
Respiratory: Clear to Auscultation
Cardiac: Regular Rhythm and S1/S2; Negative Murmur
GI: Soft, Nontender and Nondistended
Musculoskeletal: Other (Right BKA)
Neuro: Awake, AO x 3 and No Motor Deficits
--- NOTE | 2024-03-03 11:44 | CM ---
Addendum entered by Nyla Haider 03/03/24 16:03:
Patient tank delivered bedside, concentrator will be delivered once patient and are home. to provide transport home.
Original Note:
Patient seen bedside, discussed patient qualifies for home oxygen, clinical information sent to [facility]. To from [facility] will be calling patient and delivering tank to hospital, unsure of a time. CM will continue to
follow for discharge planning needs.
Plan; home with O2, waiting on O2 delivery.
[2024-03-03 11:56] LABS: Glucose - Point of Care 138 mg/dl (70-99)
[2024-03-03 13:20] VITALS: BP 121/57
--- NOTE | 2024-03-03 14:11 | W.PN.NEPH.PH ---
Today's Communication / Plan
-
ok to d/c
Assessment/Plan
-
Assessment:
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
b/l pleural effusions
Diastolic heart failure (on losartan, metoprolol, jardiance previously tried. no aldactone due to hyperK)
T2DM (A1C 6%)
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
former smoker
HTN
DLD
volume overload
- last seen by Dr. Duncan in 2021. he has been lost to follow up.
- In 2020 K biopsy was not adequate but EM shows nodular diabetic sclerosis and severe vascular sclerosis.
- did have periods where he had significant proteinuria (>11g) but had stabilized around 2g.
Plan:
-Creatinine stable at 2.6 holding diuresis
UA ?UTI sample, UPCR 7.6gm/gm of cr
hold po lasix and monitor cr
bp stable, hold losartan
probably resume lasix 80mg BID in next 1-2 days for wt gain
BMP 3-4days, results to Dr Duncan
we reviewed imp of FR and checking daily wts
f/u nephro Dr Duncan after d/c
d/w pt
-
-
Date of Service: March 03, 2024
CC / HPI / ROS
-
Chief Complaint:
CKD
History of Present Illness:
Creatinine stable at 2.6
Status post thoracentesis ~2 liters 4/4
Hemodynamically stable
wt is up today
Review of Systems:
Nonoliguric
Chest pain
no sob at rest
edema much improved
Labs
-
Labs:
WBC 8.4 10^3/uL (4.8-10.8) 03/01/24 05:17
RBC 4.66 10^6/uL (4.70-6.10) L 03/01/24 05:17
Hgb 12.4 g/dL (13.0-18.0) L 03/01/24 05:17
Hct 39.1 % (39.0-52.0) 03/01/24 05:17
Plt Count 162 10^3/uL (130-400) 03/01/24 05:17
Sodium 133 mmol/L (135-145) L 03/03/24 07:25
Potassium 4.2 mmol/L (3.5-5.1) 03/03/24 07:25
Chloride 94 mmol/L (98-107) L 03/03/24 07:25
Carbon Dioxide 36 mmol/L (22-30) H 03/03/24 07:25
BUN 57 mg/dl (9-20) H 03/03/24 07:25
Creatinine 2.6 mg/dL (0.7-1.3) H 03/03/24 07:25
eGFR 24.17 03/03/24 07:25
Glucose 92 mg/dl (70-99) 03/03/24 07:25
Calcium 8.5 mg/dl (8.4-10.2) 03/03/24 07:25
Xok-H-Fsyaavdabjy Pept 1080 pg/ml 02/27/24 10:59
Albumin 3.8 g/dl (3.5-5.0) 02/27/24 10:59
Physical Exam
-
Vital Signs:
Vital Signs
Temp Pulse Resp BP Pulse Ox
98.3 F 64 18 121/57 94
03/03/24 13:20 03/03/24 13:20 03/03/24 13:20 03/03/24 13:20 03/03/24 13:20
Cardiovascular:: Regular rate and rhythm
Respiratory:: Bilateral: CTA
Lung Excursion:: Normal
Abdomen:: Nontender and Soft
Extremity Edema:: None: Left: (trace)
Hernandez Catheter: No
Other Findings::
rt BKA
--- NOTE | 2024-03-03 17:42 | W.DCSUMMARY ---
Discharge Summary
Discharge Data
Date of Admission: 02/27/24
Date of Discharge: 03/03/24
-
Pending Results: No
Hospital Course
Discharging Physician : Dr Gerardo Oscar
Disposition : Home with
Primary care physician : Dr Nell Lala
Principal Discharge diagnosis :
Acute hypoxic respiratory failure
Bilateral pleural effusion, transudative
Acute on chronic diastolic congestive heart failure
Acute kidney injury on chronic kidney disease stage IIIb
Chronic Discharge diagnosis :
History of peripheral artery disease
History of right below-knee amputation
Insulin-dependent diabetes mellitus
Essential hypertension
Hyperlipidemia
Hospital Course :
Patient is 78-year-old male with above-mentioned past medical history came to ER with new onset of exertional dyspnea and lower extremity swelling. Patient have history of diastolic heart failure and chronic kidney disease although have not
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 In ER patient was noted to having new hypoxic respiratory failure. Chest x-ray was showing bilateral pleural effusion. Patient was considered to having diastolic heart failure exacerbation.
Patient was started on IV diuretic and cardiology and nephrology was consulted. Interventional radiology was consulted for thoracentesis and patient underwent bilateral thoracentesis with drainage of 2 L of pleural fluid. Patient had significant
improvement in symptoms after this and oxygen was able to be weaned off of 2 L. Post volume optimization patient was discharged home on oral Lasix therapy and home oxygen. Patient instructed to follow-up with cardiology and nephrology in office.
Important imaging findings :
None
Procedure findings :
None
Discharge Plan
-
Patient Disposition: Home with Home Care
Discharge Diagnosis/Procedures: Diastolic HF exacerbation, Acute hypoxic resp failure, CKDIIIB
Condition: Fair
Diet: Low Fat, 2 Gram Sodium and Restrict fluids to 48 oz
Activity: As tolerated
Driving Restrictions: No driving
Bathing Restrictions: OK to Shower
Other Services: VN and PT
Instructions: *CBC Heart Failure Instructions
Referrals:
Tim Landa MD [Active] -
Nell Lala DO [Family Provider] - in one week
Jade Duncan MD [Active] - in three to four weeks
Prescriptions:
Continued
clopidogrel 75 MG tablet
75 mg PO DAILY
amlodipine 10 MG tablet
10 mg PO QPM
montelukast 10 MG tablet
10 mg PO QPM
furosemide 80 MG tablet
80 mg PO BID@0800,1600
atorvastatin 20 mg Tablet
20 mg PO QPM
metoprolol succinate 100 mg Tablet Extended Release 24 Hr
100 mg PO DAILY
aspirin 81 mg Tablet,Delayed Release (Dr/Ec)
81 mg PO DAILY
acetaminophen [Tylenol Extra Strength] 500 mg Tablet
1,000 mg PO BIDPRN PRN (Reason: mild pain)
bisacodyl [Dulcolax (bisacodyl)] 5 mg Tablet,Delayed Release (Dr/Ec)
5 mg PO DAILYPRN PRN (Reason: constipation)
Patient Comments:
02/27/2024, chewable.
losartan 100 mg Tablet
100 mg PO DAILY
insulin aspart U-100 [Novolog FlexPen U-100 Insulin] 100 unit/mL (3 mL) Insulin Pen
6 unit SC AC PRN (Reason: high blood sugar)
Patient Comments:
02/27/2024, per pt., if his BS is low 80s or below, he does not take this med.
insulin glargine [Lantus Solostar U-100 Insulin] 100 unit/mL (3 mL) Insulin Pen
14 unit SC DAILY
Discharge Orders:
Discharge Patient (As Directed); Ordered 03/03/24
Ordered By: Gerardo Oscar
Discharge Date and Time
Discharge Date/Time: 03/03/24 15:59
Print Language: ZIMBABWEAN
--- NOTE | 2024-03-18 10:18 | HFEDUCATE ---
Pt has F/U appt on 03/19/24 at 2:00PM with AGUEDA Staples
== END 2024-03-03 15:59 | disposition home health service (06) | DRG 291 ==
LOC: 4 WEST ACU 13:47
PROVIDERS: Internal Medicine; Radiology Vascular & Interventional Radiology; ADMITTING PHYSICIAN Hospitalist; CONSULT PHYSICIAN Internal Medicine Cardiovascular Disease; EMERGENCY PHYSICIAN Emergency Medicine; FAMILY PHYSICIAN Family Medicine; OTHER PHYSICIAN Student in an Organized Health Care Education/Training Program
PROC: 0W9B3ZZ Drainage of Left Pleural Cavity, Percutaneous Approach (ICD-10-PCS; 2024-02-28)
PROC: 0W993ZZ Drainage of Right Pleural Cavity, Percutaneous Approach (ICD-10-PCS; 2024-02-29)
DX: I13.0 Hypertensive heart and chronic kidney disease with heart failure and stage 1 through stage 4 chronic kidney disease, or unspecified chronic kidney disease (principal); I50.33 Acute on chronic diastolic (congestive) heart failure; J96.01 Acute respiratory failure with hypoxia; N18.4 Chronic kidney disease, stage 4 (severe); N25.81 Secondary hyperparathyroidism of renal origin; N17.9 Acute kidney failure, unspecified; J90 Pleural effusion, not elsewhere classified; E78.00 Pure hypercholesterolemia, unspecified; M10.9 Gout, unspecified; E11.22 Type 2 diabetes mellitus with diabetic chronic kidney disease; N26.9 Renal sclerosis, unspecified; E11.51 Type 2 diabetes mellitus with diabetic peripheral angiopathy without gangrene; I27.20 Pulmonary hypertension, unspecified; I07.1 Rheumatic tricuspid insufficiency; E11.65 Type 2 diabetes mellitus with hyperglycemia; I25.10 Atherosclerotic heart disease of native coronary artery without angina pectoris; Z87.891 Personal history of nicotine dependence; Z59.7 Insufficient social insurance and welfare support; Z91.148 Patient's other noncompliance with medication regimen for other reason; Z89.511 Acquired absence of right leg below knee; Z79.02 Long term (current) use of antithrombotics/antiplatelets; Z79.82 Long term (current) use of aspirin; Z79.4 Long term (current) use of insulin; Z11.52 Encounter for screening for COVID-19
CPT/HCPCS: 88305; 32555; 71045; 80048; 80053; 81003; 81015; 82570; 82945; 82962; 83036; 83615; 83880; 84156; 84157; 84484; 85025; 85027; 87015; 87070; 87205; 87502; 87811; 88112; 89051; 93005; 93306; 96374; 97116; 97162; 97166; 99285

== ENCOUNTER 2024-04-15 11:43 | Outpatient (RCR) | payer BC, SELFPAY | END 2024-04-15 23:59 | disposition home or self-care (01) | LOC: RPT 11:43 | PROVIDERS: ATTENDING PHYSICIAN Internal Medicine; FAMILY PHYSICIAN Family Medicine | DX: I89.0 Lymphedema, not elsewhere classified (principal); Z89.511 Acquired absence of right leg below knee; Z89.422 Acquired absence of other left toe(s); Z89.412 Acquired absence of left great toe; Z73.6 Limitation of activities due to disability | CPT/HCPCS: 97163; 97530 ==

== ENCOUNTER 2024-11-22 14:35 | Inpatient (IN) | payer BC, SELFPAY ==
[2024-11-22] VITALS (40 sets, daily range): BP systolic 88–128; BP diastolic 42–67; PULSE 2–94; BMI 25.4; BMI 24.5
--- NOTE | 2024-11-22 09:34 | EDRN ---
oxygen 2l applied
[2024-11-22 10:33] LABS: COVID-19 Antigen Negative (Negative)
[2024-11-22 10:35] LABS: ALT (SGPT) 16 U/L (0-50); AST (SGOT) 20 U/L (17-59); Albumin 3.3 g/dl (3.5-5.0); Alkaline Phosphatase 49 U/L (38-126); Blood Urea Nitrogen 65 mg/dl (9-20); Calcium 8.5 mg/dl (8.4-10.2); Carbon Dioxide 30 mmol/L (22-30); Chloride 100 mmol/L (98-107); Glucose 107 mg/dl (70-99); Potassium 4.9 mmol/L (3.5-5.1); Sodium 140 mmol/L (135-145); Total Bilirubin 0.4 mg/dl (0.2-1.3); Total Protein 6.4 g/dl (6.3-8.2); eGFR 21.07
[2024-11-22 10:41] LABS: Hematocrit 42.9 % (39.0-52.0); Hemoglobin 13.3 g/dL (13.0-18.0); Mean Corpuscular Hgb 27.6 pg (27.0-31.0); Mean Platelet Volume 9.7 fL (7.4-10.4); Platelet Count 132 10^3/uL (130-400); Red Blood Cell Count 4.82 10^6/uL (4.70-6.10); White Blood Cell Count 5.2 10^3/uL (4.8-10.8)
[2024-11-22 10:44] LABS: INR 1.37; PT 17.4 Sec (11.4-14.6)
[2024-11-22 11:21] LABS: Absolute Neutrophils -Man Diff 3.6 10^3/uL (1.4-6.5); Band Neutrophils 28 % (0-3); Lymphocytes 5 % (20-51); Metamyelocytes 17 % (-); Myelocytes 4 % (-); Normal RBC Morphology Yes; Platelets Checked Yes; Segmented Neutrophils 42 % (42-75); Total Cells Counted 100
[2024-11-22 11:55] LABS: NT-proBNP 7510 pg/ml; Troponin I < 0.012 ng/ml
--- NOTE | 2024-11-22 12:58 | ED.GENMED ---
History of Present Illness
General
Chief Complaint: Breathing Problem
Source: patient, records and spouse
Exam Limitations: none
Time Seen by Provider: 11/22/24 12:40
Nursing documentation reviewed up to this point in time: agreed with
History of Present Illness
History of Present Illness:
79-year-old male with a past medical history as documented presents to the emergency department for evaluation of shortness of breath. Patient reports onset of symptoms over the past week and they have been constant. He reports symptoms are
exacerbated with conversation, movement, laying flat. No relieving factors noted. Associated with swelling in the leg (he is status post right BKA but has increased swelling in the left leg). He has had mild cough. Denies fevers or chills.
Denies any chest pain. Similar symptoms in the past related CHF. He does take 80 mg twice daily of Lasix but says he has been only intermittently compliant due to recent significant health issue with his granddaughter and travel to and from [facility].
Previously seen by Dr. Landa during hospitalizations.
Past History
Past History
ED Past Medical History: HTN, NIDDM and Other (Charcot Ashly Tooth)
ED Past Surgical History: Other (Right second toe amputation)
Social History
Tobacco: Former smoker
Personal:
Living: with family
Employment: Retired
Family History
Family History: Other (nc)
Review of Systems
Review of Systems
All Other Systems: ROS reviewed and negative except as documented in HPI and ROS
Constitutional: Reports fatigue; Denies fever or chills
Respiratory: Reports cough and trouble breathing
Cardiac: Denies chest pain
ABD/GI: Denies abdominal pain
Musculoskeletal: Reports edema
Neurological: Denies dizzy or headache
Phy Exam
Physical Exam
Physical Exam:
General: Awake, alert, oriented x3; no acute distress
Head: Normocephalic, atraumatic
Eyes: Conjunctiva normal, EOMI
Throat: Airway intact, handling secretions
Neck: Trachea midline, slight JVD
Lungs: Breath sounds diminished at the lung bases bilaterally; tachypneic respiratory rate high 20s, hypoxic requiring 3 L nasal cannula
Heart: Regular rate and rhythm, no murmurs, gallops, or rubs appreciated
Neuro: No gross deficit
Extremities: Right BKA, left lower extremity +2 edema pitting
Scores
Heart Failure Risk
Heart Failure Risk Score: Yes
History of Stroke or TIA: No
History of intubation for respiratory distress: No
Heart rate on ED arrival >/= 110: No
SaO2 <90% on arrival on room air: Yes
HR >/=110 during 3min walk test (or too ill to perform test): Yes
ECG has acute ischemic changes: No
Urea >/=12mmol/L (BUN 33.6mg/dL): Yes
Serum CO2>/=35mmol/L: No
Troponin I or T elevated to CO Level (0.4mg/dL): No
NT-proBNP >/=5,000ng/L (5,000pg/ml): Yes
HF Risk Score: 5
Admission Status: VERY HIGH RISK 39.8% Consider admission to hospital
Heart Score for Chest Pain Patients
STEMI patient?: Not applicable
Withdrawal Assessment of Alcohol
Withdrawal Assessment Completed?: Not applicable
Course
Orders/Labs/Results
Orders:
Orders
11/22/24 09:50
Electrocardiogram (*1) Urgent
Reason for Study: Shortness of Breath
11/22/24 09:51
EKG- Treatment ONCE
11/22/24 09:52
Chest [CR Chest - 2 Views ] Urgent
Comment:
Reason For Exam: cough, sob
11/22/24 10:00
COVID-19 Antigen Urgent
Source: Nasal Swab
Complete Blood Count/With Diff Urgent
Comprehensive Metabolic Panel Urgent
Manual Differential Urgent
NT-proBNP Urgent
PT/INR [Prothrombin Time] Urgent
Troponin I Urgent
Influenza A+B Rapid Molecular Urgent
MARLEEN Source: Nasal Swab
Specimen Description:
11/22/24 12:53
Furosemide [Lasix] 80 mg IV NOW STA
Abnormal Lab Results
11/22/24
10:00
MCHC 31.0 L g/dL
(33.0-37.0)
RDW 15.0 H %
(11.5-14.5)
Band Neutrophils 28 H %
(0-3)
Lymphocytes (Manual) 5 L %
(20-51)
PT 17.4 H Sec
(11.4-14.6)
BUN 65 H mg/dl
(9-20)
Creatinine 2.9 H mg/dL
(0.7-1.3)
Glucose 107 H mg/dl
(70-99)
Albumin 3.3 L g/dl
(3.5-5.0)
11/22/24 10:00
11/22/24 10:00
Vital Signs
Initial and Last Documented VS:
Initial Vital Signs
Pulse Pulse Ox
85 88
11/22/24 09:33 11/22/24 09:33
Last Documented Vital Signs
Temp Pulse Resp BP Pulse Ox
36.4 C 87 20 95/56 94
11/22/24 10:00 11/22/24 09:49 11/22/24 09:49 11/22/24 09:49 11/22/24 09:49
MDM/Problems Addressed
Differential Diagnosis Includes:
Pneumonia, CHF, bronchitis, anemia
MDM/Problems Addressed:
79-year-old male presents for evaluation of increasing shortness of breath associate with cough, orthopnea, edema. Intermittently compliant with diuretic over the past few weeks. Vitals were significant for hypoxia requiring 3 L nasal cannula�he
wears oxygen at nighttime but never during the day at home he says. He also has tachypnea and conversational dyspnea. Physical exam as above. Labs were sent off including a CBC and a CMP which were significant for chronic kidney disease with a
creatinine of 2.9 slightly higher than baseline. His troponin is undetectable but his proBNP is 7500. Chest x-ray shows increased bilateral pleural effusions and overall picture is concerning for acute CHF. Will plan to treat with IV Lasix. Will
admit for continued treatment of acute respiratory failure with hypoxia secondary to CHF exacerbation. Case discussed with hospitalist.
Chronic conditions affecting care:
CHF, CKD
Acute Exacerbation and/or Progression of Chronic Illness:
Acute CHF managed as above
*Radiology
Radiology exam reviewed: preliminary read by ED provider (Reviewed independently by me shows bilateral pleural effusions and subsegmental atelectasis) and radiology read reviewed
*Pulse Oximetry
Patient hypoxic: yes
*EKG
Interpreted by ED Provider?: Yes
Heart Rate: 86
Rate: normal
Rhythm: sinus
[place]: normal axis
Interval: normal interval
QRS Pattern: low voltage
Ischemia: no ischemia
*Critical Care Note
Total Time (30-74mins, 75-104mins- exclusive of procedures): Not Applicable
Data Reviewed
Review of Other/Old Records Reveals: Labs, Records, Radiology Studies (Prior chest x-ray reviewed) and Discharge Summary
Source: patient, records and spouse
Patient Management
Discussion with other providers: Hospitalist (Discussed with hospitalist)
Escalation/DeEscalation of care consider admission/obs:
Admission indicated
ED Attending Note
-
Portions of this chart may have been created with voice recognition software.� Occasional wrong word or��sound alike� substitutions may have occurred due to the inherent limitations of voice recognition software.
Discharge Plan
Departure
Patient Disposition: Admit
Date of Disposition: 11/22/24
Time of Disposition: 12:57
Admit to doctor: Maria Luz
Presentation/result/management discussed w/ accepting MD/DO: Hospitalist
Discharge Problem:
CHF exacerbation, Acute hypoxemic respiratory failure
Prescriptions:
No Action
clopidogrel 75 MG tablet
75 mg PO DAILY
amlodipine 10 MG tablet
10 mg PO QPM
montelukast 10 MG tablet
10 mg PO QPM
furosemide 80 MG tablet
80 mg PO BID@0800,1600
atorvastatin 20 mg Tablet
20 mg PO QPM
metoprolol succinate 100 mg Tablet Extended Release 24 Hr
100 mg PO DAILY
aspirin 81 mg Tablet,Delayed Release (Dr/Ec)
81 mg PO DAILY
acetaminophen [Tylenol Extra Strength] 500 mg Tablet
1,000 mg PO BIDPRN PRN (Reason: mild pain)
bisacodyl [Dulcolax (bisacodyl)] 5 mg Tablet,Delayed Release (Dr/Ec)
5 mg PO DAILYPRN PRN (Reason: constipation)
Patient Comments:
02/27/2024, chewable.
losartan 100 mg Tablet
100 mg PO DAILY
insulin aspart U-100 [Novolog FlexPen U-100 Insulin] 100 unit/mL (3 mL) Insulin Pen
6 unit SC AC PRN (Reason: high blood sugar)
Patient Comments:
02/27/2024, per pt., if his BS is low 80s or below, he does not take this med.
insulin glargine [Lantus Solostar U-100 Insulin] 100 unit/mL (3 mL) Insulin Pen
14 unit SC DAILY
Referrals:
Jade Duncan MD [Family Provider] -
Interventions
Interventions:
*Risk Screen - Suicide Last Done: 11/22/24 09:49
Discharge Date and Time
Print Language: AZERI
[2024-11-22] MEDS: LASIX 80 MG IV ×2 (13:07→20:53)
--- NOTE | 2024-11-22 13:11 | HPS.HSE ---
Family Physician
-
Family Physician: Jade Duncan MD
Chief Complaint
-
Shortness of breath, hypoxia
History of Present Illness
79-year-old male complaining of shortness of breath , orthopnea, productive cough for the past 2 days. He is on chronic oxygen 2 to 3 L but is increased to 4 L over the past 2 days due to his symptoms. He believes he has not taken his Lasix 80 mg
p.o. for the past 3 days at 2 PM like he normally does due to stress of his 12-year-old granddaughter currently diagnosed with a brain tumor 1 week ago and is dying at [facility]. He was noted to be 93% on 2 L in ER triage complaining of generalized
fatigue. He is 90% on 4 L nasal cannula at bedside currently during my exam with orthopnea. He is hypotensive on arrival 95/56. He denies fever, chills, chest pain, palpitations, abdominal pain, nausea, vomiting, diarrhea, urinary symptoms, rash,
headache.
He has past medical history of chronic diastolic heart failure on chronic 2 to 3 L nasal cannula due to chronic hypoxic respiratory insufficiency DM2, diabetic neuropathy, CKD 4, former smoker, HTN, HLD, Burks-Troy syndrome, necrotizing
fasciitis of the right first finger, PVD with right BKA, left midfoot amputation, left kidney biopsy 07/01/2021, iron deficiency anemia.
Medical History
Past Medical History
Past Medical History: Reports Other
Additional Past Medical History:
chronic diastolic heart failure on chronic 2 to 3 L nasal cannula due to chronic hypoxic respiratory insufficiency
DM2
diabetic neuropathy
CKD stage 4-left kidney biopsy 07/01/2021
former smoker
HTN
HLD
Burks-Troy syndrome
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
PVD with right BKA, left midfoot amputation
iron deficiency anemia
Past Surgical History: Reports Other
Social History
Tobacco: Former Smoker (36 years 1 pack a day quit 30 years ago age 49)
Alcohol: Former (Daily)
Drug: None
Personal:
Living: With Family ( Maye, grandchildren and adult children)
Family History
Family History: Not pertinent
Allergies / Home Medications
Allergies reflects when Allergies were last updated in [facility].
Home Medications with original date entered in [facility]
Allergy/Medication List:
Allergies
Allergy/AdvReac Type Severity Reaction Status Date / Time
No Known Allergies Allergy Verified 11/22/24 09:50
Home Medications
clopidogrel 75 mg tablet 75 mg PO DAILY Blood Clot Prevention/Tx 04/24/18
amlodipine 10 mg tablet 10 mg PO QPM Blood Pressure 07/09/20
montelukast 10 mg tablet 10 mg PO QPM asthma 07/09/20
furosemide 80 mg tablet 80 mg PO BID Fluid Retention/Swelling 06/28/21
acetaminophen 500 mg tablet (Tylenol Extra Strength) 1,000 mg PO BIDPRN PRN mild pain 02/27/24
atorvastatin 20 mg tablet 20 mg PO QPM High Cholesterol 02/27/24
bisacodyl 5 mg tablet,delayed release (Dulcolax (bisacodyl)) 5 mg PO DAILYPRN PRN constipation 02/27/24
insulin aspart U-100 100 unit/mL (3 mL) subcutaneous pen (Novolog FlexPen U-100 Insulin aspart) 6 unit SC AC high blood sugar 02/27/24
insulin glargine 100 unit/mL (3 mL) subcutaneous pen (Lantus Solostar U-100 Insulin) 14 unit SC DAILY Diabetes 02/27/24
losartan 100 mg tablet 100 mg PO DAILY Blood Pressure 02/27/24
metoprolol succinate 100 mg tablet,extended release 24 hr 100 mg PO DAILY Blood Pressure 02/27/24
Review of Systems
-
History Source: Patient and Family ( Maye)
A 12 point ROS was completed and negative except as noted: Yes
Constitutional: Reports Fatigue; Denies Fever, Weight Gain or Weight Loss
EENT: Reports Runny Nose; Denies Sore Throat
Respiratory: Reports Cough (Productive) and Trouble Breathing (Shortness of breath, orthopnea)
Cardiac: Denies Chest Pain, Diaphoresis, Palpitations or Syncope
Abdomen/GI: Denies Abdominal Pain, Nausea, Vomiting, Diarrhea, Constipated, Bloody Stools or Black Stools
: Denies Dysuria, Frequency, Flank Pain, Incontinence, Difficulty Voiding or Urgency
Musculoskeletal: Reports Edema (+2 left lower extremity, right BKA prosthetic in place, left midfoot amputation); Denies Joint Pain
Skin: Denies Itching or Rash
Neurological: Denies Dizzy, Headache or Weakness
Endocrine: Reports No Symptoms
Hematologic/Lymphatic: Reports No Symptoms
Psych: Reports Calm
Physical Exam
Vital Signs
Vital Signs
Temp Pulse Resp BP Pulse Ox
97.6 F 85 20 114/58 94
11/22/24 10:00 11/22/24 13:07 11/22/24 09:49 11/22/24 13:07 11/22/24 09:49
Physical Exam
General: Conversant and Other (Orthopneic with tachypnea); No Fever or Chills
HEENT: NormoCephalic, Anicteric, Tracheostomy Collar, PERRLA and Other (Rhinorrhea)
Respiratory: Other (Severely diminished breath sounds bilaterally with severe bilateral moderate pleural effusions on x-ray, tachypnea with orthopnea); No Wheezes
Cardiac: S1/S2, Regular Rhythm, Peripheral Edema (+2 left lower extremity, right BKA prosthetic in place, left midfoot amputation) and JVD; No Murmur, Rub or Gallop
Breast: Deferred by me
GI: Soft, Non Tender, Non Distended, Normal Bowel Sounds and No Hepatosplenomegaly
Musculoskeletal: No Clubbing, No Cyanosis, Edema, Left Lower Extremity (+2 left lower extremity, right BKA prosthetic in place, left midfoot amputation) and Edema, Right Lower Extremity (+2 left lower extremity, right BKA prosthetic in place, left
midfoot amputation); No Edema, Left Upper Extremity or Edema, Right Upper Extremity
Skin: Warm and Dry; No Rash, Jaundice or Ulcers
Neuro: AO x 3, No Motor Deficits, Cranial Nerves Intact and No Sensory Deficits; No Slurred Speech, Facial Droop, Tremors or Sedated
Psych: Calm
Laboratory Results
-
11/22/24 10:00
11/22/24 10:00
Laboratory Results
PT 17.4 Sec (11.4-14.6) H 11/22/24 10:00
INR 1.37 11/22/24 10:00
Total Bilirubin 0.4 mg/dl (0.2-1.3) 11/22/24 10:00
AST 20 U/L (17-59) 11/22/24 10:00
ALT 16 U/L (0-50) 11/22/24 10:00
Alkaline Phosphatase 49 U/L (38-126) 11/22/24 10:00
Troponin I < 0.012 ng/ml 11/22/24 10:00
Impression/Plan
-
Impression/plan:
Admit to IMU
#Acute on Chronic hypoxic resp insufficiency on chronic 2-3 L nasal cannula 2/2 MOD BILAT Pleural effusions versus possible infectious source
#Moderate bilateral pleural effusions likely secondary to missed diuretics
#Hx February 2024-S/p thoracentesis of 2 L left sided pleural effusion. - exudative in nature. gram stain no organism.-s/p thoracentesis of 2 L right sided effusion.
WBC 5.2 but with 28% bands
-Consult interventional radiology-for thoracentesis
-Blood cultures x 2, UA [employer]
#Acute on hronic diastolic CHF 2/2 Missed diuretics x 3 days
#Hx severe Pulm HTN
Patient missed his 2 PM 80 mg Lasix over the last 3 days due to stress of 12-year-old granddaughter dying of brain tumor diagnosed 1 week ago
90% 2 L nasal cannula, orthopnea
-BNP 7510 patient reports his weight is typically 170-173 pounds was 173 pounds on 11/19/2024
-I/O, daily weights
-IV Lasix 80 mg given in ER
-Will give IV Lasix 80 mg twice daily hold parameters for blood pressure
-Consult CBC cardiology
2D echo 02/27/2024: EF 55-60% normal LVS, LVSF, no wall abnormalities, stage II diastolic dysfunction, moderate TR with severe pulm HTN PAP 69 mmHg
#Hx severe pulm HTN-PAP 69 mmHg
#Hx moderate TR
#AURY on CKD 4
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
Creat 2.9 baseline appears 2.2 from February 2024
-Will hold on IV fluids due to CHF
- monitor BMP
#Acute hypotension concern volume depletion versus infection
95/56 > 114/58 self resolved
-Will monitor, hold amlodipine 10 mg every afternoon, losartan 100 mg daily, metoprolol succinate 100 mg daily
#History of peripheral artery disease
#History of right BKA-has prosthetic device from [place]
# Hx left midfoot amputation
-Continue aspirin/Plavix/statin
#Insulin-dependent diabetes mellitus
-Continue Lantus 14 unit daily and 6 units AC with sliding scale
-Hbga1c of 6.27 February 2024
#HLD
-Continue atorvastatin 20 mg every afternoon
#Asthma�no acute exacerbation
-Continue Singulair 10 mg every afternoon
Other PMH:
Burks-Troy syndrome,
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
iron deficiency anemia-Hgb 13.3
DVT PPX - Heparin subq
Full code
--- NOTE | 2024-11-22 14:03 | W.PN.UPDATE ---
Update Note
Progress Note Update
This is an addendum to the H&P written by Rosanna Delarosa on 11/22/2024.� Patient seen and examined independently with [employer].
79-year-old male past medical history of HFpEF, severe pulmonary hypertension, moderate tricuspid regurgitation, CKD 3B, PAD status post right BKA, type 2 diabetes, hypertension, hyperlipidemia, presenting with shortness of breath over the past week
and leg swelling.
Chest x-ray shows bibasilar opacifications suggesting moderate bilateral pleural effusions with likely underlying subsegmental atelectasis.� COVID and flu negative.� Cardiac BNP of 7500.
Labs show stable labs with creatinine of 2.9 relatively close to his baseline of 2.6.� Labs also show bandemia of 28 with normal white cell count.
Patient initially with blood pressure of 95/56.� Second blood pressure 114/58.� Patient given 80 IV Lasix.
Presentation consistent with acute HFpEF exacerbation.� Continue 80 IV Lasix twice daily if blood pressure can tolerate.� Cardiology consulted.� IR consulted for thoracentesis.� Check blood cultures due to bandemia.
--- NOTE | 2024-11-22 14:48 | CON.CAR ---
Addendum entered and electronically signed by Uli Bethea MD 11/22/24 16:31:
I saw and examined the patient.
The [employer]'s note was reviewed and I agree with the note.
Comment: 79-year-old male (known to Dr. Landa, his primary ship pilot), with chronic HFpEF, hypertension, tricuspid regurgitation, pulmonary hypertension, dyslipidemia, PAD status post right BKA, chronic lymphedema, medically managed endocarditis
in 2019 and chronic kidney disease stage IV who presented to the emergency department with a chief complaint of shortness of breath. He has bilateral pleural effusion and has not taken afternoon lasix given granddaughter's illness.
- IV lasix
Original Note:
Consultation
Consultation Request
Date/Time Consultation Requested: 11/22/2024 13:50
Date/Time Consultation Performed: 11/22/2024 14:20
Requesting Provider: AGUEDA Orozco
Performing Provider: AGUEDA Mead for Dr. Bethea
Reason for Consultation: Acute on chronic HF
Medical History
-
Chief Complaint: Shortness of breath
History of Present Illness:
Conrad Gillis is an 79-year-old male (known to Dr. Landa, his primary ship pilot), with chronic HFpEF, hypertension, tricuspid regurgitation, pulmonary hypertension, dyslipidemia, PAD status post right BKA, chronic lymphedema, medically managed
endocarditis in 2019 and chronic kidney disease stage IV who presented to the emergency department with a chief complaint of shortness of breath. He endorses not taking his afternoon Lasix for 3 days. This was prompted by his granddaughter's
illness. She currently has a nonoperative brain tumor and is at [facility]. He was found to be hypoxic in triage. Chest x-ray with bilateral pleural effusions. Cardiology has been consulted for heart failure management.
Past Medical History
Past Medical History: CHF, HTN, Hypercholesterolemia, IDDM, Renal Failure (CKD Stage IV) and Other (Pulmonary hypertension, lymphedema, P 80 status post right BKA)
Past Surgical History: Orthopedic
Social History
Tobacco: Former Smoker
Alcohol: Daily
Drug: None
Personal:
Living: With Family (, daughter, and grandchildren)
Employment: Retired
Family History
Family History: Reviewed & Not Pertinent
Allergies / Home Medications
Allergy/AdvReac Type Severity Reaction Status Date / Time
No Known Allergies Allergy Verified 11/22/24 09:50
�Medication �Instructions �Recorded �Confirmed �Type
clopidogrel 75 mg tablet 75 mg PO DAILY Blood Clot 04/24/18 11/22/24 History
Prevention/Tx
amlodipine 10 mg tablet 10 mg PO QPM Blood Pressure 07/09/20 11/22/24 History
montelukast 10 mg tablet 10 mg PO QPM asthma 07/09/20 11/22/24 History
furosemide 80 mg tablet 80 mg PO BID Fluid 06/28/21 11/22/24 History
Retention/Swelling
acetaminophen 500 mg tablet 1,000 mg PO BIDPRN PRN mild pain 02/27/24 11/22/24 History
(Tylenol Extra Strength)
atorvastatin 20 mg tablet 20 mg PO QPM High Cholesterol 02/27/24 11/22/24 History
bisacodyl 5 mg tablet,delayed 5 mg PO DAILYPRN PRN constipation 02/27/24 11/22/24 History
release (Dulcolax (bisacodyl))
insulin aspart U-100 100 unit/mL 6 unit SC AC high blood sugar 02/27/24 11/22/24 History
(3 mL) subcutaneous pen (Novolog
FlexPen U-100 Insulin aspart)
insulin glargine 100 unit/mL (3 14 unit SC DAILY Diabetes 02/27/24 11/22/24 History
mL) subcutaneous pen (Lantus
Solostar U-100 Insulin)
losartan 100 mg tablet 100 mg PO DAILY Blood Pressure 02/27/24 11/22/24 History
metoprolol succinate 100 mg 100 mg PO DAILY Blood Pressure 02/27/24 11/22/24 History
tablet,extended release 24 hr
Review of Systems
-
History Source: Patient
All other systems: Negative unless noted
Constitutional: Weight Gain and Fatigue
EENT: No Symptoms
Respiratory: Trouble Breathing
Cardiac: No Symptoms
Abdomen/GI: No Symptoms
: No Symptoms
Musculoskeletal: Edema
Skin: No Symptoms
Neurological: No Symptoms
Endocrine: No Symptoms
Hematologic/Lymphatic: No Symptoms
Physical Exam
Vital Signs
Temp Pulse Resp BP Pulse Ox
98.1 F 88 20 102/52 93
11/22/24 14:14 11/22/24 14:14 11/22/24 14:14 11/22/24 14:14 11/22/24 14:14
Lab Results
Troponin I < 0.012 ng/ml 11/22/24 10:00
Ttq-P-Zxdgyzdsdxl Pept 7510 pg/ml 11/22/24 10:00
Physical Exam
General: Well Developed, Well Nourished, No Apparent Distress and Comfortable
HEENT: Normocephalic, Anicteric and Moist Mucous Membranes
Respiratory: Crackles and Accessory Resp Muscle Use
Cardiac: S1/S2, Regular Rhythm and Peripheral Edema
Breast: Deferred by me
GI: Soft, Non Tender, Non Distended and Normal Bowel Sounds
Rectal: Deferred by Provider
Genito-urinary: No Costovertebral Tender
Musculoskeletal: No Clubbing and No Cyanosis
Skin: Warm and Dry
Neuro: AO x 3
Hematologic/Lymphatic: No Lymphadenopathy
Psych: Calm
Impression / Plan
-
IMPRESSION/PLAN: 79M with chronic HFpEF, hypertension, tricuspid regurgitation, pulmonary hypertension, dyslipidemia, PAD status post right BKA, chronic lymphedema, medically managed endocarditis in 2019 and chronic kidney disease stage IV who
presented to the emergency department with a chief complaint of shortness
Primary Children Librarian: Dr. Landa
Acute on chronic hypoxic respiratory insufficiency, in the setting of acute on chronic HFpEF
HFpEF, acute on chronic
-Diuresis with furosemide 80 mg IV twice daily, this requires intensive monitoring
-Case management to [facility] [id number], nephrology believes he will benefit from this (per outpatient note)
-Trend daily weight, I's/O, and BMP with diuresis
-Update echocardiogram
Bilateral pleural effusions
-Status post right thoracentesis for 2000 mL yellow pleural fluid
Bandemia, blood cultures drawn by primary service
Moderate tricuspid regurgitation
Severe pulmonary hypertension
HTN, managed by Lead Retail Sales Associate
HLD, on atorvastatin 20mg
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 Duncan
Secondary hyperparathyroidism
Type II DM, on insulin
PAD S/P right BKA, on clopidogrel
Former tobacco abuse, continued cessation recommended
[2024-11-22 15:30] LABS: Body Fluid Amylase 70 U/L; Body Fluid Glucose 103 mg/dl; Body Fluid LDH 142 U/L; Body Fluid Protein 4.9 g/dl; Body Fluid Triglycerides 33 mg/dl
--- NOTE | 2024-11-22 15:30 | W.PN.UPDATE ---
Update Note
Progress Note Update
Upgrade to ICU
#Acute hypoxia status post thoracentesis possible contralateral reexpansion pulmonary edema
-Pulse ox 74% on current 10 L nasal cannula-consider high flow nasal cannula if no pneumothorax
-Chest x-ray postthoracentesis 1 hour ago:Was no pneumothorax following right thoracentesis still with moderate left pleural effusion small right residual pleural effusion
-Will obtain stat chest x-ray given acute hypoxia 1 hour after thoracentesis
-Consult pulmonary
-Case discussed with interventional radiology no pneumothorax noted on repeat chest x-ray however left lung appearing worse concerning for possible contralateral reexpansion pulm edema
-Check stat Pro-Aime
-Stat ABGs
-Will start BiPAP
-Consult services program manager
-Patient agrees to intubation if needed
-IV Lasix 20 mg now for possible contralateral reexpansion pulmonary edema
Exam
Patient awake alert oriented x 3 is stating that his shortness of breath feels much better than when he initially came in, however nurse now reporting he is becoming more lethargic
He denies chest pain but states he still has that difficulty taking a breath when he came in
Bilateral lungs still very diminished with slight crackles throughout the right lung status post thoracentesis right lung 2 L removed
Heart S1-S2 no murmur no rub
[2024-11-22 15:55] LABS: Body Fluid Mononuclear 97.5 %; Body Fluid Polymorphonuclear 2.5 %; Body Fluid WBC 347 /CUMM
[2024-11-22 15:56] LABS: Body Fluid Second Tech CMC
[2024-11-22 16:08] LABS: Hematocrit 45.4 % (39.0-52.0)
[2024-11-22] MEDS: LASIX 20 MG IV (16:10)
[2024-11-22 16:23] LABS: B.E. 2.7 mmol/L; HCO3 30.1 mmol/L (21-28); O2 Saturation % 79.1 % (94-98); PCO2 57 mmHg (35-48); pH 7.33 (7.35-7.45)
[2024-11-22 16:24] LABS: PO2 46 mmHg (83-108)
[2024-11-22 16:31] LABS: Glucose 76 mg/dl (70-99); Total Protein 6.6 g/dl (6.3-8.2)
[2024-11-22 16:42] LABS: Procalcitonin 55.51 ng/ml (0.0-0.25)
[2024-11-22 16:43] LABS: LDH 186 U/L (120-246)
--- NOTE | 2024-11-22 16:57 | CON.INTV ---
Consultation
Consultation Request
Date/Time Consultation Requested: 11/22
Date/Time Consultation Performed: 11/22
Reason for Consultation: Critical care, hypoxia
Medical History
-
History of Present Illness:
History obtained from the patient, reviewing hospital records and reviewing outpatient records. Patient is an 79-year-old male with history of heart failure, hypertension, peripheral vascular disease status post right lower extremity BKA, chronic
kidney disease. He has a history of heart failure secondary to noncompliance with medications. Patient is on oxygen therapy does not use it consistently. He was seen by pulmonary for recurrent effusions in 2019 but has not been seen since. He
brought himself into [facility] because of increased shortness of breath and left-sided chest discomfort. He also describes some mild increased lower extreme edema. He admits to not taking his Lasix consistently due to stress dealing with
a grandchild who is sick. He denies any cough, hemoptysis, falls, syncope, nausea, abdominal pain, blood in urine or stool. He denies any weight changes, PND, orthopnea. Upon arrival to [facility], afebrile, pulse 87, breathing at 20,
95/56, 94%. Patient was noted to have bilateral pleural effusions on chest x-ray. He underwent right thoracentesis which she last underwent February 2024 without difficulty. 2 L were drained. Postthoracentesis he developed increased shortness of
breath, requiring high levels of nasal cannula, transition to BiPAP. Chest x-ray ruled out any obvious pneumothorax but he had worsening left upper lobe infiltrate postthoracentesis. He is being admitted to ICU for further management
.
PMH: Hypertension, hyperlipidemia, chronic kidney disease, history of heart failure, peripheral vascular disease with left BKA, history of recurrent effusion requiring intermittent thoracentesis, history of COPD, History of Pseudomonas infection of
the right lower extremity preamputation
Past Medical History
Past Medical History: None (See above)
Past Surgical History: None (See above)
Social History
Tobacco: Former Smoker (2 packs a day for 30 years, quit many years ago. 60+ pack year history)
Alcohol: Occasional
Drug: None
Personal:
Living: With Family
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
Family History
Family History: Other (Unremarkable for lung disease, blood clots, lung cancer)
Allergies / Home Medications
Allergies
Allergy/AdvReac Type Severity Reaction Status Date / Time
No Known Allergies Allergy Verified 11/22/24 09:50
Home Medications
�Medication �Instructions �Recorded �Confirmed �Last Taken �Type
clopidogrel 75 mg tablet 75 mg PO DAILY Blood Clot 04/24/18 11/22/24 11/22/24 History
Prevention/Tx
amlodipine 10 mg tablet 10 mg PO QPM Blood Pressure 07/09/20 11/22/24 11/21/24 History
montelukast 10 mg tablet 10 mg PO QPM asthma 07/09/20 11/22/24 11/21/24 History
furosemide 80 mg tablet 80 mg PO BID Fluid 06/28/21 11/22/24 11/22/24 History
Retention/Swelling
acetaminophen 500 mg tablet 1,000 mg PO BIDPRN PRN mild pain 02/27/24 11/22/24 11/22/24 History
(Tylenol Extra Strength)
atorvastatin 20 mg tablet 20 mg PO QPM High Cholesterol 02/27/24 11/22/24 11/21/24 History
bisacodyl 5 mg tablet,delayed 5 mg PO DAILYPRN PRN constipation 02/27/24 11/22/24 02/26/24 History
release (Dulcolax (bisacodyl))
insulin aspart U-100 100 unit/mL 6 unit SC AC high blood sugar 02/27/24 11/22/24 11/22/24 History
(3 mL) subcutaneous pen (Novolog
FlexPen U-100 Insulin aspart)
insulin glargine 100 unit/mL (3 14 unit SC DAILY Diabetes 02/27/24 11/22/24 11/22/24 History
mL) subcutaneous pen (Lantus
Solostar U-100 Insulin)
losartan 100 mg tablet 100 mg PO DAILY Blood Pressure 02/27/24 11/22/24 11/22/24 History
metoprolol succinate 100 mg 100 mg PO DAILY Blood Pressure 02/27/24 11/22/24 11/22/24 History
tablet,extended release 24 hr
Review of Systems
-
All other systems: Negative unless noted
Vitals / Labs / Diagnostic Testing
Vital Signs
Temp Pulse Resp BP Pulse Ox
98.1 F 83 28 128/62 73
11/22/24 14:14 11/22/24 16:15 11/22/24 16:15 11/22/24 16:15 11/22/24 16:17
Lab Data
11/22/24 16:01
11/22/24 16:01
Laboratory Results
11/22/24 11/22/24
10:00 16:14
PT 17.4 H
INR 1.37
pH 7.33 L
pCO2 57 H
pO2 46 L*
HCO3 30.1 H
O2 Delivery Level
Microbiology
11/22/24 10:00 Nasal Swab Influenza Types A & B (BERRY) - Final
Negative for Influenza A & B, NAAT
Negative results must be combined with clinical observations
and patient history.
Nucleic Acid Amplification test (NAAT)performed on the
[employer] platform.
Diagnostic Testing:
Physical Exam
-
HEENT: Normocephalic, Anicteric and Other (Dry mucosa)
Cardiovascular: S1/S2, Regular Rhythm and Murmur (n)
Respiratory: Wheeze (n), Rales (Crackles left side midlung field), Rhonchi (n), Non-Labored Respirations and Other (Decreased breath sounds left base)
GI: Soft, Non Distended and Non Tender
Neurology: Awake, Alert, No Motor Deficits (Moving all extremities) and Other (Right BKA)
Skin: Good Color and Other (Capillary refill adequate, extremities warm)
General: Comfortable
Assessment
-
79-year-old male with history of heart failure, chronic kidney disease, bilateral pleural effusions requiring intermittent thoracentesis, presents with 3 days of increased chest discomfort on the left side. This was associated with increased
shortness of breath. He admits to not taking his Lasix therapy given recent stress and travel to [facility] [place] [facility] with sick grandchild. Was found to have bilateral pleural effusions. Underwent right thoracentesis drained 2 L. Postthoracentesis required
increased oxygen, now on BiPAP saturation 86%. We are asked to help from critical care standpoint 11/22/2024
Acute hypoxic respiratory insufficiency
Now requiring BiPAP with 15 L
Baseline 1 to 2 L at home as needed
Worsening left upper lobe infiltrate
Pneumonia versus reexpansion pulmonary edema
History of heart failure
Pulmonary hypertension
Noncompliance with Lasix in the past
Conditions present prior to admission
COPD, emphysema per CT imaging
FEV1 2.48/92%, TLC 90%, DLCO 50% per PFT 2019
Hypertension/hyperlipidemia
Peripheral arterial disease, right BKA
On Plavix
Left toe amputation
Chronic kidney disease, stage III
Diabetic nodular glomerulosclerosis
Recurrent pleural effusion requiring intermittent thoracentesis
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
COVID December 2022
Plan/recommendations
At this time, patient has developed worsening oxygenation postthoracentesis
He appears to have developed a left upper lobe infiltrate. Interestingly he is complaining of left-sided chest discomfort over the past few days
Has not been taking his Lasix therapy consistently
Crackles in the left midlung zone noted. Improvement in the right lung after thoracentesis, 2 L drained
Echocardiogram was done in the ED, PA pressure 57, large bilateral pleural effusion, normal biventricular function which is encouraging
Moving forward
Continue with BiPAP therapy at this time. Currently on 11/09 with 15 L
Saturation ranges between 83 and 86%. Patient appears to be comfortable with no use of accessory muscles
He received Lasix therapy in the ED
Agree with Lasix therapy
I suspect he may require Hernandez catheter as he is unable to urinate despite positive bladder scan
Will place Hernandez catheter
Although likely reexpansion pulm edema, given symptoms of chest discomfort on the left side for few days prior at risk for brewing pneumonia or thromboembolic process versus worsening left pleural effusion
Check bilateral lower extremity Dopplers.
D-dimer may be helpful if negative
It appears he has left lower extremity edema, records suggest history of lymphedema but not sure acuity
If oxygenation continues to improve with BiPAP, alveolar recruitment, continue with supportive care
If does not improve, may require intubation. Patient is agreeable to intubation although hopefully this can be avoided
Would also consider antibiotics for pneumonia at least in the short-term if he worsens
COVID-negative
Check flu
Check procalcitonin
Depending on how he does, may need CT angiogram to rule out PE but given current constellation of findings, this is less likely and would avoid contrast given his CKD
May consider empiric Lovenox therapy tonight if he worsens or for now continue with DVT prophylaxis
Reviewed with the ED staff, CCN
will follow
TCCT 32 min
[2024-11-22 17:07] LABS: Urine Albumin 2+ (Neg - Trace); Urine Bilirubin Negative (Negative); Urine Character Clear (Clear); Urine Color Yellow; Urine Glucose Negative (Negative); Urine Ketone Negative (Negative); Urine Leukocyte Negative (Negative); Urine Nitrite Negative (Negative); Urine Occult Blood 1+ (Negative); Urine Urobilinogen Negative (Neg - 1+)
[2024-11-22 17:16] LABS: Urine Squamous Cell 0-2 /LPF (Few)
[2024-11-22 17:17] LABS: Urine Bacteria Many (Negative); Urine White Cell 0-2 /HPF (0-5)
[2024-11-22 17:18] LABS: D-Dimer 3.12 ug/mlFEU (0.00-0.50)
[2024-11-22] MEDS: DEXTROSE 50% SYRINGE 12.5 GRAMS IV (17:47)
--- NOTE | 2024-11-22 17:51 | PTCARENOTE ---
pt received from ED AO x3. on NIV 12/09 100% 91%. Crackles throughout. dyspneic,tachypnea. Accucheck 66, dextrose administered. hernandez draining clear dark yellow urine 500 out on arrival. IV lasix admin in ED. Skin intact, right BKA, left toe
amputations, left pedal present with Doppler. sacral foam applied for prevention. bandaid on right mid back secondary to thoracentesis. Prosthesis removed. Pt oriented to surroundings. CB in reach. BP 104/64 HR 95.
[2024-11-22 17:53] LABS: Glucose - Point of Care 66 mg/dl (70-99)
[2024-11-22 18:25] LABS: Glucose - Point of Care 90 mg/dl (70-99)
--- NOTE | 2024-11-22 19:32 | PTCARENOTE ---
Received pt via handoff. Pt AAOx3, able to move all extremities. NSR, with palpable pulse in UE, and left L extremity. 95% on NIV, crackles throughout. Hypoactive bowel sounds in all 4Q. Hernandez Catheter CDI draining yellow urine. Left toe amputation
and right BKA, Right flank thoracentesis incision covered. No gtts running. Call pino at bedside.
[2024-11-22] MEDS: ZOFRAN 4 MG IV (19:45)
[2024-11-22] MEDS: LIPITOR PO (20:32)
[2024-11-22] MEDS: SINGULAIR PO (20:32)
[2024-11-22 22:00] LABS: Glucose - Point of Care 87 mg/dl (70-99)
[2024-11-22 23:44] LABS: B.E. 0.4 mmol/L; HCO3 28.9 mmol/L (21-28); O2 Saturation % 88.2 % (94-98); PCO2 63 mmHg (35-48); pH 7.27 (7.35-7.45)
[2024-11-22 23:46] LABS: O2 Therapy NIV
[2024-11-22 23:47] LABS: PO2 56 mmHg (83-108)
[2024-11-23] VITALS (91 sets, daily range): BP systolic 63–159; BP diastolic 38–108; BMI 23.9
--- NOTE | 2024-11-23 | PTCARENOTE ---
All systems reassessed. Hygiene performed. Call pino at bedside.
[2024-11-23] MEDS: HEPARIN 5000 UNITS SC ×3 (00:50→15:23)
[2024-11-23] MEDS: OFIRMEV 100 IV ×2 (01:28→13:06)
[2024-11-23] MEDS: LEVOPHED 250 IV ×3 (02:36→16:53)
[2024-11-23 03:30] LABS: Hematocrit 46.4 % (39.0-52.0); Hemoglobin 14.4 g/dL (13.0-18.0); Mean Corpuscular Hgb 27.5 pg (27.0-31.0); Mean Corpuscular Volume 88.7 fL (80.0-94.0); Mean Platelet Volume 9.7 fL (7.4-10.4); Platelet Count 154 10^3/uL (130-400); Red Blood Cell Count 5.23 10^6/uL (4.70-6.10); White Blood Cell Count 2.5 10^3/uL (4.8-10.8)
--- NOTE | 2024-11-23 03:41 | PTCARENOTE ---
All systems reassessed. Pt becoming hypotensive, Levo gtt started see flowsheet. Hygiene performed, labs drawn.
[2024-11-23 03:43] LABS: ALT (SGPT) 14 U/L (0-50); AST (SGOT) 19 U/L (17-59); Alkaline Phosphatase 47 U/L (38-126); Blood Urea Nitrogen 80 mg/dl (9-20); Calcium 8.4 mg/dl (8.4-10.2); Carbon Dioxide 25 mmol/L (22-30); Chloride 103 mmol/L (98-107); Estimated Creatinine Clearance 19 ml/min; Glucose 71 mg/dl (70-99); Potassium 5.4 mmol/L (3.5-5.1); Sodium 140 mmol/L (135-145); Total Bilirubin 0.6 mg/dl (0.2-1.3); eGFR 20.23
[2024-11-23 04:54] LABS: Platelets Checked Yes; Total Cells Counted 100; Toxic Granulation 2+; Vacuolated Segs 1+
[2024-11-23 04:55] LABS: Absolute Neutrophils -Man Diff 1.3 10^3/uL (1.4-6.5); Atypical Lymphocytes 2 %; Band Neutrophils 37 % (0-3); Lymphocytes 16 % (20-51); Metamyelocytes 46 % (-); Monocytes 7 % (2-9); Myelocytes 4 % (-); Normal RBC Morphology No; Segmented Neutrophils 18 % (42-75)
[2024-11-23 04:58] LABS: Anisocytosis Occasional; Polychromasia Occasional; Target Cells Occasional
[2024-11-23 04:59] LABS: Basophilic Stippling Occasional
--- NOTE | 2024-11-23 07:47 | W.PN.INTV ---
Today's Communication / Plan
Recommendations
Proceed with left thoracentesis, appropriate studies
Broad-spectrum antibiotics for presumed infection, sepsis
ID has been consulted
Continue NIV
Remains on norepinephrine, wean as able
Hold Lasix
Assessment
-
79-year-old male with history of heart failure, chronic kidney disease, bilateral pleural effusions requiring intermittent thoracentesis, presents with 3 days of increased chest discomfort on the left side. This was associated with increased
shortness of breath. He admits to not taking his Lasix therapy given recent stress and travel to the city with sick grandchild. Was found to have bilateral pleural effusions. Underwent right thoracentesis drained 2 L. Postthoracentesis required
increased oxygen, now on BiPAP saturation 86%. We are asked to help from critical care standpoint 11/22/2024
Acute hypoxic respiratory insufficiency
on NIV
Baseline 1 to 2 L at home as needed
Worsening left upper lobe infiltrate
Pneumonia versus reexpansion pulmonary edema
Bacteremia
Hypotension, secondary to sepsis
History of heart failure
Pulmonary hypertension
Noncompliance with Lasix in the past
Conditions present prior to admission
COPD, emphysema per CT imaging
FEV1 2.48/92%, TLC 90%, DLCO 50% per PFT 2019
Hypertension/hyperlipidemia
Peripheral arterial disease, right BKA
On Plavix
Left toe amputation
Chronic kidney disease, stage III
Diabetic nodular glomerulosclerosis
Recurrent pleural effusion requiring intermittent thoracentesis
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
COVID December 2022
Plan/recommendations
At this time, patient has developed worsening oxygenation postthoracentesis
Chest x-ray worrisome for left upper lobe pneumonia
Blood cultures are positive. Antibiotics started this morning, ceftriaxone/azithromycin
Dopplers negative for DVT
Crackles in the left midlung zone noted. Improvement in the right lung after thoracentesis, 2 L drained
Echocardiogram was done in the ED, PA pressure 57, large bilateral pleural effusion, normal biventricular function which is encouraging
Moving forward
Continue with NIV, 100%
Saturation ranges between 83 and 86%. Patient appears to be comfortable with no use of accessory muscles
He received Lasix therapy in the ED
Would favor holding Lasix for now, may require gentle fluids
Hernandez catheter in place
Although likely reexpansion pulm edema, given symptoms of chest discomfort on the left side for few days prior at risk for brewing pneumonia or thromboembolic process versus worsening left pleural effusion
Dopplers negative
Will proceed with left thoracentesis
Will also proceed with central line placement in anticipation of ongoing issues with hypotension which I suspect is from sepsis
If oxygenation continues to improve with BiPAP, alveolar recruitment, continue with supportive care
If does not improve, may require intubation. Patient is agreeable to intubation although hopefully this can be avoided
Would also consider antibiotics for pneumonia at least in the short-term if he worsens
COVID-negative
Influenza negative
Depending on how he does, may need CT angiogram to rule out PE but given current constellation of findings, this is less likely and would avoid contrast given his CKD
May consider empiric Lovenox therapy tonight if he worsens or for now continue with DVT prophylaxis
Reviewed with critical care nursing, respiratory care, primary service, nephrology
TCCT 40 min
Subjective Dataa
Subjective Data
Date of Service:
Date of Service: November 23, 2024
Subjective:
Patient remains critically ill. Although mentating, continues to have issues with hypoxia despite NIV. Also requiring low-dose norepinephrine
Objective Data
Data Reviewed
Vital Signs / I&O / Oxygen:
Vital Signs
Temp Pulse Resp BP Pulse Ox
99.5 F 114 16 107/68 89
11/23/24 07:38 11/23/24 07:30 11/23/24 07:30 11/23/24 07:30 11/23/24 07:30
Intake and Output
11/22/24 11/23/2411/24/24
06:59 06:59 06:59
Intake Total 287.5 / 310.0 22.5 / 22.5
Output Total 855 / 855
Balance -567.5 / -545.0 22.5 / 22.5
SaO2 [NIV (Non Invasive 92
Ventilation)]
SaO2 89
Nasal Cannula flow liters per 15
minute
Physical Exam
General: Respiratory Distress (Mild use of accessory muscles)
HEENT: Normocephalic and Anicteric
Cardiovascular: S1-S2, Regular Rhythm and Murmur (n)
Respiratory: Wheeze, Crackles (Left midlung zone), Rhonchi (n), Non-Labored Respirations, Stridor (n) and ET Tube
GI: Soft and Non Distended
Neurology: Awake, Alert, No Motor Deficits (Generally weak) and Other (Right BKA)
Skin: Cyanosis (n), Jaundice (n) and Rash (n)
Labs/Micro/Reports
Lab Data
11/23/24 03:18
11/23/24 03:18
Laboratory Results
11/22/24 11/22/24 11/22/24
10:00 16:14 23:37
PT 17.4 H
INR 1.37
pH 7.33 L 7.27 L
pCO2 57 H 63 H
pO2 46 L* 56 L*
HCO3 30.1 H 28.9 H
O2 Delivery Level Niv
Microbiology
11/22/24 14:40 Pleural Fluid Gram Stain - Preliminary
11/22/24 10:00 Nasal Swab Influenza Types A & B (BERRY) - Final
Negative for Influenza A & B, NAAT
Negative results must be combined with clinical observations
and patient history.
Nucleic Acid Amplification test (NAAT)performed on the
[employer] platform.
--- NOTE | 2024-11-23 08:18 | W.PN.HOSP.TC ---
Today's Communication/Plan
-
Continue diuretics
IR consult
Add vancomycin
ID consult
Assessment / Plan
Assessment / Plan
Gen-AAOx3, NAD
HEENT-NC, AT, anicteric, clear oral mm
Neck-supple
CV-reg, no M, +S1/S2
Lungs-decreased breath sounds bilaterally
Abd-soft, NT, ND
Ext-left lower extremity edema, right BKA
Musculoskeletal-no cyanosis, clubbing
Skin-warm and dry
Neuro-grossly non-focal
Psych-calm, cooperative
Shock -requiring vasopressors. Differential diagnosis includes sepsis versus cardiogenic versus hypovolemic versus other. Currently on 6 mcg/min Levophed.
Acute hypoxic respiratory failure -likely multifactorial etiology including acute pulmonary edema from heart failure, bilateral pleural effusions, cannot rule out pneumonia. Remains hypoxic on noninvasive ventilation as well as high flow nasal
cannula with pulse ox in the 70s. High flow nasal cannula attempted with nonrebreather mask and pulse ox still around 70%.
Sepsis -differential diagnosis includes pneumonia versus other causes. Blood cultures positive for gram-positive cocci so far. Add vancomycin. ID consult.
Leukopenia noted, low-grade fevers.
Acute on chronic heart failure with preserved EF -continue IV Lasix. Echocardiogram done 11/22 shows LVEF 60 to 65%, stage I diastolic dysfunction, mild to moderate TR, normal RV size and function.
BNP 7510.
Bilateral pleural effusions -presumably due to congestive heart failure. Underwent right thoracentesis 11/22 by IR, 2 L of clear yellow fluid removed. Has had multiple bilateral thoracenteses in the past.
IR consulted for left thoracentesis by occupational therapist's assistant.
Hyperkalemia -5.4. Give a dose of Lokelma. Hold losartan.
CKD 4 -I do not believe he has AURY. Suspect renal function at baseline.
PAD -history of right BKA.
DM 2 without hyperglycemia -glucose 71 this morning. Has been on Lantus 14 units daily, NovoLog 6 units AC at home. Orders continued here.
Essential hypertension
Hyperlipidemia -atorvastatin.
Mild intermittent asthma
History of Burks-Troy syndrome
Full code -I spoke with patient about goals of care and aggressiveness of therapy. He agrees to CPR and ventilation if needed. Remains quite hypoxic despite high flow oxygen along with nonrebreather mask. Discussed with nursing and occupational therapist's assistant.
Anticipated Discharge: > 48 hours
Subjective/Interval History
-
Date of Service: November 23, 2024
Patient seen and examined. Complaining of left-sided chest pain that feels like a muscle cramp. Denies shortness of breath, denies cough.
Objective Data
-
Labs:
Laboratory Results
11/22/24 11/23/24
23:37 03:18
WBC 2.5 L
Hgb 14.4
Hct 46.4
Plt Count 154
HCO3 28.9 H
Sodium 140
Potassium 5.4 H
Chloride 103
Carbon Dioxide 25
BUN 80 H
Creatinine 3.0 H
Glucose 71
Calcium 8.4
Total Bilirubin 0.6
AST 19
ALT 14
Alkaline Phosphatase 47
Vital Signs:
Vital Signs
Temp Pulse Resp BP Pulse Ox
99.5 F 114 16 107/68 89
11/23/24 07:38 11/23/24 07:30 11/23/24 07:30 11/23/24 07:30 11/23/24 07:30
I&O
11/22/24 11/23/24 11/24/24
06:59 06:59 06:59
Intake Total 287.5 / 310.0 22.5 / 22.5
Output Total 855 / 855
Balance -567.5 / -545.0 22.5 / 22.5
Review of Systems
-
History Source: Patient
All other systems: Reviewed and negative
[2024-11-23] MEDS: LASIX IV (08:33)
[2024-11-23] MEDS: PLAVIX PO (08:33)
[2024-11-23] MEDS: ZITHROMAX INFUSION 250 IV (08:36)
[2024-11-23 08:43] LABS: Glucose - Point of Care 90 mg/dl (70-99)
[2024-11-23] MEDS: ROCEPHIN 1000 MG IV ×2 (08:46→14:37)
[2024-11-23] MEDS: STERILE WATER FOR INJECTION 10 ML IV ×2 (08:46→14:37)
[2024-11-23 08:50] LABS: Protein/creatinine Ratio 0.2; Urine Protein 43 mg/dl
[2024-11-23 09:06] LABS: Glycohemoglobin (HgbA1c) 5.5 % (4.0-5.6)
--- NOTE | 2024-11-23 09:08 | W.CON.NEPH ---
Consultation
-
Date/Time Consultation Requested: 11/23/2024 7 AM
Date/Time Consultation Performed: 11/23/2024 9 AM
Requesting Provider: Dr. Stanley
Performing Provider: Dr. Norman
Reason for Consultation: AURY
Medical History
-
Chief Complaint: AURY on CKD
History of Present Illness:
Mr. Melissa is an 79 YOM diastolic heart failure on Lasix therapy though he has not been taking this in the last 3 days, diabetes controlled with insulin therapy, CKD 3B/4 felt to be progressive diabetic kidney disease and hypertensive
nephrosclerosis. He came to the hospital because of worsening shortness of breath. He was found to be in distress with significant bilateral pleural effusions. He was also hypotensive and required pressor therapy. He is currently in the ICU on
BiPAP. He underwent right thoracentesis for 2 L yesterday and had worsening of his x-ray on the left side. He is now also growing gram-positive cocci in blood cultures in the last 24 hours. His creatinine is noted to be 3.0 up from his baseline
of 2.4 representing acute kidney injury. He is currently critically ill in the ICU.
Past Medical History
Diastolic heart failure, pulmonary hypertension, HTN, Hypercholesterolemia and CKD IV (bl Cr 2.4), diabetes mellitus type 2, TKD, right BKA
Past Medical History: Other
Past Surgical History: Orthopedic (R BKA) and Other
Social History
Tobacco: Former Smoker
Alcohol: None
Drug: None
Personal:
Living: With Family
Employment: Retired
Family History
Family History: Not Pertinent
Allergies / Home Medications
Allergy/AdvReac Type Severity Reaction Status Date / Time
No Known Allergies Allergy Verified 11/22/24 09:50
�Medication �Instructions �Recorded �Confirmed �Type
clopidogrel 75 mg tablet 75 mg PO DAILY Blood Clot 04/24/18 11/22/24 History
Prevention/Tx
amlodipine 10 mg tablet 10 mg PO QPM Blood Pressure 07/09/20 11/22/24 History
montelukast 10 mg tablet 10 mg PO QPM asthma 07/09/20 11/22/24 History
furosemide 80 mg tablet 80 mg PO BID Fluid 06/28/21 11/22/24 History
Retention/Swelling
acetaminophen 500 mg tablet 1,000 mg PO BIDPRN PRN mild pain 02/27/24 11/22/24 History
(Tylenol Extra Strength)
atorvastatin 20 mg tablet 20 mg PO QPM High Cholesterol 02/27/24 11/22/24 History
bisacodyl 5 mg tablet,delayed 5 mg PO DAILYPRN PRN constipation 02/27/24 11/22/24 History
release (Dulcolax (bisacodyl))
insulin aspart U-100 100 unit/mL 6 unit SC AC high blood sugar 02/27/24 11/22/24 History
(3 mL) subcutaneous pen (Novolog
FlexPen U-100 Insulin aspart)
insulin glargine 100 unit/mL (3 14 unit SC DAILY Diabetes 02/27/24 11/22/24 History
mL) subcutaneous pen (Lantus
Solostar U-100 Insulin)
losartan 100 mg tablet 100 mg PO DAILY Blood Pressure 02/27/24 11/22/24 History
metoprolol succinate 100 mg 100 mg PO DAILY Blood Pressure 02/27/24 11/22/24 History
tablet,extended release 24 hr
Review of Systems
-
Shortness of breath. No chest pain
All other systems: Negative unless noted
Physical Exam
Vital Signs
Vital Signs
Temp Pulse Resp BP Pulse Ox
99.5 F 114 16 107/68 89
11/23/24 07:38 11/23/24 07:30 11/23/24 07:30 11/23/24 07:30 11/23/24 07:30
Lab Results
WBC 2.5 10^3/uL (4.8-10.8) L 11/23/24 03:18
RBC 5.23 10^6/uL (4.70-6.10) 11/23/24 03:18
Hgb 14.4 g/dL (13.0-18.0) 11/23/24 03:18
Hct 46.4 % (39.0-52.0) 11/23/24 03:18
Plt Count 154 10^3/uL (130-400) 11/23/24 03:18
Sodium 140 mmol/L (135-145) 11/23/24 03:18
Potassium 5.4 mmol/L (3.5-5.1) H 11/23/24 03:18
Chloride 103 mmol/L (98-107) 11/23/24 03:18
Carbon Dioxide 25 mmol/L (22-30) 11/23/24 03:18
BUN 80 mg/dl (9-20) H 11/23/24 03:18
Creatinine 3.0 mg/dL (0.7-1.3) H 11/23/24 03:18
eGFR 20.23 11/23/24 03:18
Glucose 71 mg/dl (70-99) 11/23/24 03:18
Calcium 8.4 mg/dl (8.4-10.2) 11/23/24 03:18
Cqj-T-Gtkdwamnpuj Pept 7510 pg/ml 11/22/24 10:00
Albumin 3.0 g/dl (3.5-5.0) L 11/23/24 03:18
Physical Exam
Patient is awake alert oriented and in no distress. Mood and affect were pleasant, insight and judgment were good. Pupils are equal round and reactive to light, extraocular movements are intact, sclera were anicteric. Hearing was normal, ears and
nose are intact. Oropharynx was clear. Neck was supple with trachea midline and no thyromegaly. Heart was regular rate and rhythm without rubs. Lower extremities with 1 edema. Lungs were rhonchi to auscultation bilaterally left > right and with
normal excursion. Abdomen was soft, nontender, with normal active bowel sounds, and no hepatosplenomegaly. Skin was without rash and with normal turgor.
Data Reviewed
-
Radiology: Report Reviewed by me
Medical Tests (Nuc Med, Echo etc): Image Personally Visualized and interpreted and Report Reviewed by me (Echocardiogram on 11/22/2024 shows ejection fraction 60%, diastolic dysfunction, moderate TR, moderate pulmonary hypertension, large bilateral
pleural effusion)
Labs: Labs Reviewed by me
Old Records: Reviewed
Assessment/Plan
-
Assessment:
CKD IV (followed by Dr. Duncan) presumed to be DKD/vascular sclerosis
AURY
b/l pleural effusions
Decompensated Diastolic heart failure (on losartan, metoprolol, jardiance previously tried. no aldactone due to hyperK)
DM2
PVD s/p R BKA
hypotension
subnephrotic range proteinuria ?improving
PNA
GPC Bacteremia
leukopenia
- In 2020 Kidney biopsy was not adequate but EM showed nodular diabetic sclerosis and severe vascular sclerosis.
Plan:
check lactate
repeat BMP
keep SBP > 90 and MAP > 65
for left thoracentesis
maintain hernandez
holding losartan
can try to diurese with lasix 80 iV TID and diuril, but I suspect sepsis may be a larger issue (with BCx growing this quickly)
I discussed with the patient the possibility of dialysis and he does understand that this may be a problem in the future.
Critical care time 50 minutes
--- NOTE | 2024-11-23 09:26 | W.PN.CD ---
Today's Communication / Plan
-
Hold diuresis for today given likely septic shock
Abx and pressor support
Impression / Plan
-
IMPRESSION/PLAN: 79M with chronic HFpEF, hypertension, tricuspid regurgitation, pulmonary hypertension, dyslipidemia, PAD status post right BKA, chronic lymphedema, medically managed endocarditis in 2019 and chronic kidney disease stage IV who
presented to the emergency department with a chief complaint of shortness
Primary Riverboat Master: Dr. Landa
Acute on chronic hypoxic respiratory insufficiency, in the setting of acute on chronic HFpEF and likely PNA with positive blood cultures and hypotension requiring levophed
It is unclear what is driving this degree of hypoxia and hypotension, in the setting of fevers positive blood cultures likely infection related
- he is now requiring vasopressors
- he has 2/2 blood cx's positive with low grade fevers
- likely will need thoracentesis
- would hold diuretics for today and reassess tomorrow
- Now requiring BIPAP
HFpEF, acute on chronic
-Hold Diuresis with furosemide 80 mg IV twice daily
-Case management to [facility] SGLT2i, nephrology believes he will benefit from this (per outpatient note)
-Trend daily weight, I's/O, and BMP with diuresis
-Update echocardiogram
Bilateral pleural effusions
-Status post right thoracentesis for 2000 mL yellow pleural fluid
- consider repeat
Bandemia, blood cultures drawn by primary service
Moderate tricuspid regurgitation
Severe pulmonary hypertension
HTN, managed by [facility]
HLD, on atorvastatin 20mg
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 Duncan
Secondary hyperparathyroidism
Type II DM, on insulin
PAD S/P right BKA, on clopidogrel
Former tobacco abuse, continued cessation recommended
Physical Exam
Vital Signs/Labs
Vital Signs
Temp Pulse Resp BP Pulse Ox
99.5 F 114 16 107/68 89
11/23/24 07:38 11/23/24 07:30 11/23/24 07:30 11/23/24 07:30 11/23/24 07:30
11/22/24 11/23/24 11/24/24
06:59 06:59 06:59
Actual Weight 161 lb 9.581 oz
11/23/24 03:18
11/23/24 03:18
PT 17.4 Sec (11.4-14.6) H 11/22/24 10:00
INR 1.37 11/22/24 10:00
11/22/24
10:00
Itv-O-Ffblmtfvzgg Pept 7510
LAB Results
11/22/24
10:00
Troponin I < 0.012
Physical Exam
Constitutional: Distress
EENT: Anicteric
Cardiovascular: Rhythm & rate is regular and Pedal edema present (LLE trace to 1+ )
Respiratory: Other (decreased b/s b/l )
GI: Soft
Neuro/Psych: Alert and Oriented
Data Reviewed
-
Date of Service: November 23, 2024
Medical Decision Making: Reviewed Test Results
EKG: Tracing Personally Visualized and interpreted (sr)
Echo: Tracing Personally Visualized and interpreted
Labs: Labs Reviewed by me
--- NOTE | 2024-11-23 09:35 | PTCARENOTE ---
recd 0715 handoff at bedside, awake, brightly interactive gesturing wants mask off. asking for food/water. seen by Ester Bey, Lizeth, Neema. updates with patient, Dr. Anderson updated by phone. code status conversation with
lizeth, pt very clearly wishes measures to save his life. assessment as documented. abx given as ordered, see JAN. turned, on bedpan no results, reassured of care and his safety, smiling. able to make needs known. levophed as documented,
attempted to wean, unsuccessful, see VS. CXR done portable in room. awaiting plan with IR for L thora and possible TLC insertion. adjustments made with oxygen, did not tolerate high flow and NRB, desats into low 70s. returned to NIV, when not
talking, moving, gesturing, sats can be as high as 87%.
--- NOTE | 2024-11-23 09:50 | PHA.VAN.IN ---
Assessment
- Assessment
Renal Function: Appears elevated from baseline
Concomitant Antimicrobials: CEFTRIAXONE, AZITHROMYCIN
- Previous Dosing Experience
Previous Regimen: 2019, SCR IS NOT AT THAT LEVEL
Plan
- Plan
Initial / Loading Dose: 1500MG
Maintenance Regimen: PRN BY LEVEL
Monitoring: RANDOM 11/24 IN AM
Pharmacokinetics Vancomycin I
- -
Patient Age: 79
Patient Sex: Male
Vancomycin Day #: 1
Indication: Bacteremia
Requesting Provider: DR. OCONNELL
Pertinent Antimicrobial Allergies:
NKDA
Height / Weight:
Height 5 ft 9 in
Actual Weight 73.3 kg
IBW in k.7
- Vital Signs / Lab Results
Temp Pulse Resp BP Pulse Ox
99.5 F 91 27 90/57 86
11/23/24 07:38 11/23/24 09:30 11/23/24 09:30 11/23/24 09:30 11/23/24 09:15
Lab Results - Hematology
11/22/24 11/23/24
10:00 03:18
WBC 5.2 2.5 L
Band Neutrophils 28 H 37 H D
Lab Results - Chemistry
11/22/24 11/23/24
10:00 03:18
BUN 65 H 80 H
Creatinine 2.9 H 3.0 H
Estimated Creat Clear 19
Albumin 3.3 L 3.0 L
Lab Results - Urine
11/22/24
16:59
Urine Nitrite (Reflex) Negative
Leukocyte Esterase Rfl Negative
Urine WBC (Reflex) 0-2
Ur Squamous Epith Cells 0-2
Urine Bacteria (Reflex) Many A
Microbiology Results
11/22/24 16:01 Blood Culture - Preliminary
Blood/Venous Positive culture in progress
Gram Stain - Preliminary
11/22/24 16:01 Blood Culture - Preliminary
Blood/Venous Positive culture in progress
Gram Stain - Preliminary
11/22/24 14:40 Gram Stain - Preliminary
Pleural Fluid
11/22/24 10:00 Influenza Types A & B (BERRY) - Final
Nasal Swab Negative for Influenza A & B, NAAT
Negative results must be combined with clinical observations
and patient history.
Nucleic Acid Amplification test (NAAT)performed on the
[employer] platform.
--- NOTE | 2024-11-23 10:00 | PTCARENOTE ---
positioned as able for comfort, lying on side, occas mask leaks.
[2024-11-23] MEDS: VANCOCIN 530 MG IV (10:16)
--- NOTE | 2024-11-23 10:59 | CM ---
CM following re: discharge planning.
Reviewed pt's chart, met with pt and pt's spouse at bedside.
Pt is an 79 year old male, admitted with primary dx of Acute hypoxic respiratory insufficiency. Now requiring BiPAP with 15 L. has home O2, baseline 2-3 L NC.
Pt lives with spouse, daughter, son in law and 2grandchildren in a 2SH, 1 step to enter. Per spouse their 12 year old grandson diagnosed with CA and is dying. Emotional support offered and provided. pt's spouse stated that she feels that their
grandson situation brought the pt to a condition he is now. Emotional support offered again and again. 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 Pt has home Oxygen, uses prosthetic leg due to R BKA. No VN or SNF history
[facility] for Farxiga 10 mg daily checked with [facility] pharmacist - no co-pay, covered by insurance 100%. Free monthly Farxiga coupon provided to pt's spouse.
Pharmacy: [facility]
D/C plan: uncertain at this time and will de[end on pt's progress.
CM will follow with discharge plan updates as hospitalization progresses
[2024-11-23 11:30] LABS: Hematocrit 45.7 % (39.0-52.0); Hemoglobin 14.7 g/dL (13.0-18.0); Mean Corp Hgb Conc. 32.2 g/dL (33.0-37.0); Mean Corpuscular Hgb 28.1 pg (27.0-31.0); Mean Corpuscular Volume 87.2 fL (80.0-94.0); Mean Platelet Volume 10.3 fL (7.4-10.4); Platelet Count 151 10^3/uL (130-400); Red Blood Cell Count 5.24 10^6/uL (4.70-6.10); Red Cell Dist. Width 15.1 % (11.5-14.5); White Blood Cell Count 3.1 10^3/uL (4.8-10.8)
[2024-11-23 11:33] LABS: Lactic Acid 2.3 mmol/L (0.7-2.0)
[2024-11-23 11:35] LABS: ALT (SGPT) 13 U/L (0-50); AST (SGOT) 19 U/L (17-59); Alkaline Phosphatase 47 U/L (38-126); Blood Urea Nitrogen 84 mg/dl (9-20); Calcium 8.3 mg/dl (8.4-10.2); Carbon Dioxide 22 mmol/L (22-30); Chloride 104 mmol/L (98-107); Estimated Creatinine Clearance 17 ml/min; Glucose 80 mg/dl (70-99); Potassium 5.4 mmol/L (3.5-5.1); Sodium 140 mmol/L (135-145); Total Bilirubin 0.6 mg/dl (0.2-1.3); Total Protein 6.1 g/dl (6.3-8.2); eGFR 17.41
--- NOTE | 2024-11-23 11:36 | PTCARENOTE ---
IR team here, RIJ TLC placed, positioned for thoracentesis, pt interacting with staff, making needs known. sats 74%, with some cough and deep breathing, debi into low 80s. denies SOB at this time, NIV settings unchanged, some leakage from mask,
re-sealed as able.
[2024-11-23] MEDS: NOVOLOG FLEXPEN-LOW RESISTANCE SC ×2 (11:47→16:55)
[2024-11-23 12:28] LABS: Body Fluid pH 7.02
[2024-11-23 12:31] LABS: Body Fluid WBC 6011 /CUMM
[2024-11-23 12:37] LABS: Body Fluid Glucose < 30 mg/dl; Body Fluid LDH < 90 U/L; Body Fluid Protein 4.6 g/dl
[2024-11-23 12:38] LABS: Body Fluid Second Tech CS
[2024-11-23 12:59] LABS: B.E. -2.9 mmol/L; O2 Saturation % 95.8 % (94-98); PCO2 62 mmHg (35-48); PO2 75 mmHg (83-108); pH 7.23 (7.35-7.45)
[2024-11-23] MEDS: NSS 250 IV (12:59)
--- NOTE | 2024-11-23 13:01 | PTCARENOTE ---
RIJ line in good placement per xray, fluid bolus infusing. ABG obtained by resp therapy. Dr Anderson updated throughout. positioned for comfort. in room, also updated, questions answered.
--- NOTE | 2024-11-23 13:32 | CON.ID ---
Consultation
-
Date/Time Consultation Requested: 11/23/2024 0825
Date/Time Consultation Performed: 11/23/2024 1300
Requesting Provider: Dr. Stanley
Performing Provider: Dr. Everett
Reason for Consultation: Bacteremia
Chief Complaint / Past History
History of Present Illness
Conrad Gillis is an 79-year-old male being evaluated at the request of Dr. Stanley in regards to bacteremia. History is obtained from chart review as the patient is currently intubated on the ventilator.
The patient has a significant past medical history of NIDDM with neuropathy. He presented to the emergency room yesterday afternoon following 1 weeks worth of progressive shortness of breath. He also has noted increased lower extremity swelling.
In the ER he admitted to mild cough but no fevers or chills. According to his who is at the bedside, the patient's family has been dealing with another illness, and the patient and his have been taking care of their 7-year-old grandchild.
She admits that he may have recently had a cold, which seemed self-limited. She notes that he often uses his home O2 concentrator at 1-1/2 L, but over the prior day or so it needed to be increased to 4 L/min.
At admission, he was found to have a normal white count but with a marked bandemia. Imaging revealed infiltrates. Blood cultures obtained at the time of admission are now positive (4 of 4 bottles) for gram-positive cocci.
Past History
Additional Past Medical History:
HTN
CHF
DM type II with neuropathy
CKD stage IV
Dyslipidemia
Pulmonary hypertension
PAD
Additional Past Surgical History:
Right BKA
Allergy History:
No Known Allergies Allergy (Verified 11/22/24 09:50)
Medications Reviewed: Yes
Current Antibiotics:
Azithromycin 500 mg IV every 24 hours
Ceftriaxone 1 g IV every 24 hours
Vancomycin (dosed per pharmacy)
Social History
Tobacco: Former Smoker
Alcohol: Daily
Drug: None
Personal:
Living: With Family
Employment: Retired
Family History
Family History: Not Pertinent
Review of Systems
Vital Signs
Temp Pulse Resp BP Pulse Ox
99.2 F 91 27 111/63 84
11/23/24 11:39 11/23/24 10:30 11/23/24 10:30 11/23/24 10:30 11/23/24 09:45
Physical Exam
Physical Exam
Constitutional: Acutely Ill, Chronically Ill and Toxic
Head: Normocephalic
Eyes: No Conjunctival Hemorrhage and Sclera Anicteric
Cardiovascular: S1/S2; Negative S3/S4
Pulmonary: Other (Currently on BiPAP. Breathing somewhat labored.)
Gastrointestinal: Soft, Non Distended, Normal Bowel Sounds, No Rebound and No Guarding
Extremities: Edema; Negative Cyanosis or Erythema
Neurological: Other (Arousable to touch.)
Lab / Diagnostic Study Results
11/23/24 11:07
11/23/24 11:07
Total Counted 100 11/23/24 03:18
Abs Neuts (Manual) 1.3 10^3/uL (1.4-6.5) L 11/23/24 03:18
Segmented Neutrophils 18 % (42-75) L 11/23/24 03:18
Band Neutrophils 37 % (0-3) H D 11/23/24 03:18
Lymphocytes (Manual) 16 % (20-51) L 11/23/24 03:18
PT 17.4 Sec (11.4-14.6) H 11/22/24 10:00
INR 1.37 11/22/24 10:00
Lactic Acid 2.3 mmol/L (0.7-2.0) H 11/23/24 11:07
Procalcitonin 55.51 ng/ml (0.0-0.25) H* 11/22/24 16:01
Ur Squamous Epith Cells 0-2 /LPF (Few) 11/22/24 16:59
Microbiology Results
Micro:
11/22/24 16:59 Urine Culture - Final
Urine NO GROWTH
11/23/24 11:42 Body Fluid Culture - Pending
Pleural Fluid Gram Stain - Pending
11/22/24 14:40 Body Fluid Culture - Preliminary
Pleural Fluid No Growth After 18-24 Hours
Gram Stain - Preliminary
11/22/24 16:01 Blood Culture - Preliminary
Blood/Venous Positive culture in progress
Gram Stain - GPC's in pairs (2 of 2 bottles)
11/22/24 16:01 Blood Culture - Preliminary
Blood/Venous Positive culture in progress
Gram Stain - GPC's in pairs (2 of 2 bottles)
11/22/24 14:39 Acid Fast Bacilli Smear - Pending
Pleural Fluid Acid Fast Bacilli Culture - Pending
11/22/24 14:40 Fungal Smear - Pending
Pleural Fluid Fungal Culture - Pending
11/22/24 10:00 Influenza Types A & B (BERRY) - Final
Nasal Swab Negative for Influenza A & B, NAAT
Negative results must be combined with clinical observations
and patient history.
Nucleic Acid Amplification test (NAAT)performed on the
[employer] platform.
Imaging:
11/22/2024 CXR (2 view): There is moderate bibasilar opacification at least in part suggesting moderate pleural effusions with likely underlying subsegmental atelectasis, slightly increased in comparison to prior study and significantly obscuring
the cardiac silhouette. There is no pneumothorax or suspected mediastinal shift.
11/22/2024 ECHO (TTE): EF approximately 60%. Mild to moderate tricuspid regurgitation. Large bilateral pleural effusions noted. Compared to prior from February 27, 2024, estimated pulmonary artery systolic pressure remain moderate to severely
elevated at 57 mmHg.
Assessment / Plan
Bacteremia with gram-positive cocci
- Suspect pneumococcus
Leukopenia
Hypoxic respiratory failure
- Pt failing BiPAP and for impending intubation
Fever
Pleural effusion s/p thoracentesis
HTN
CHF
DM type II with neuropathy
CKD stage IV
Dyslipidemia
Pulmonary hypertension
PAD with hx (R) BKA
Recommendations:
Continue ceftriaxone; increase to 2 g IV every 24 hours.
Continue Azithromycin.
While cultures are pending, continue with vancomycin. Await full identification and susceptibility data.
Monitor white count and temperature curve.
Follow CXR.
Patient currently critically ill in ICU with respiratory failure
Care Review
Plan reviewed with: Physician (Critical Care)
--- NOTE | 2024-11-23 13:36 | W.PN.UPDATE ---
Update Note
Progress Note Update
Evaluated patient multiple times throughout the day
Evaluated post left thoracentesis. 2 L drained. Saturation immediately improved from 83% to 97%
However, patient, although feeling better, appears to be using more accessory muscles
Chest exam with persistent decreased breath sounds
ABG reviewed. Progressive hypercapnic respiratory failure noted
Moving forward, decision was made to intubate for worsening hypercapnia
Discussed with anesthesia
Patient intubated without issue
Continue with volume-cycled ventilation, light sedation for now
Patient remains on ceftriaxone/vancomycin, azithromycin. Appreciate ID input
He may require some IV fluids depending on how he does
Follow oxygenation
Leukopenia with bandemia noted
Provided multiple updates to both by phone and at bedside throughout the day
Reviewed with critical care nursing, respiratory care, pharmacy, primary service, anesthesia
TCCT 37 min
[2024-11-23] MEDS: VERSED 2 MG IV (13:40)
--- NOTE | 2024-11-23 13:53 | W.PN.ANESINT ---
Anesthesia Intubation Note
- Intubation Note
Intubation Note:
Diagnosis: Hypercapnia, Respiratory Distress
Blade: Glidescope Mac 4
Tube Size: 8
Depth: 24
Side Taped: Right
Drugs Used: Versed 2 mg, Rocuronium 50 mg
Grade View: I
EtCO2 Present: Yes
Atraumatic: Yes
Attempts: 1
Insertion Start and Stop Time: 1242 pm, 1243 pm
SaO2 Pre: 93
SaO2 Post: 98
Glidescope Used: Yes
Other Airway Adjustments: None
Pre-Oxygenated: Yes
Portable Chest X-Ray: Pending
RSI: Yes
Suctioned: No
Bilateral Breath Sounds Confirmed: Yes
Vent Settings:
Settings per ICU Attending Physician
[2024-11-23 13:54] LABS: Urine Sodium 17 mmol/L (30-90)
[2024-11-23] MEDS: D5/0.9% SODIUM CHLORIDE 1000 IV (14:20)
[2024-11-23] MEDS: SUBLIMAZE 100 IV (14:20)
[2024-11-23] MEDS: SUBLIMAZE 75 MCG IV (14:25)
--- NOTE | 2024-11-23 14:31 | PTCARENOTE ---
intubated by PROGRAM PROFESSIONAL, Dr. Anderson updated , pt nodded head in understanding. some transient hypotension post procedure, titrating levophed block charting utilized. small bore feeding tube placed, tolerated, 65 cm, confirmed by xray. fentanyl
infusion added, turned, cleaned, complete bath and linen change, tolerated. oral care, mouth is dry, moisturizer applied.
[2024-11-23] MEDS: PLAVIX 75 MG PO (15:33)
[2024-11-23 16:24] LABS: Blood Urea Nitrogen 88 mg/dl (9-20); Calcium 7.6 mg/dl (8.4-10.2); Carbon Dioxide 24 mmol/L (22-30); Chloride 101 mmol/L (98-107); Estimated Creatinine Clearance 16 ml/min; Glucose 112 mg/dl (70-99); Potassium 4.9 mmol/L (3.5-5.1); Sodium 137 mmol/L (135-145); eGFR 16.26
[2024-11-23 16:25] LABS: Lactic Acid 2.1 mmol/L (0.7-2.0)
[2024-11-23] MEDS: SINGULAIR 10 MG PO (16:47)
[2024-11-23] MEDS: LIPITOR 20 MG PO (16:47)
[2024-11-23] MEDS: TYLENOL 1000 MG PO (16:47)
[2024-11-23 16:56] LABS: B.E. -1.1 mmol/L; HCO3 23.5 mmol/L (21-28); O2 Saturation % 97.6 % (94-98); PCO2 38 mmHg (35-48); PO2 74 mmHg (83-108)
--- NOTE | 2024-11-23 17:55 | PTCARENOTE ---
temp noted, blankets removed, linens changed, tylenol given see MAR for times. remains bedside. levophed titrated.
[2024-11-23] MEDS: PITRESSIN 100 IV (19:49)
--- NOTE | 2024-11-23 20:00 | PTCARENOTE ---
Received pt via handoff. Pt drowsy but still able to nod appropriately. NSR w/ pulse present with doppler. Intubated, #8 ETT, vent settings AC 18/550/100%/5, harsh scattered rhonchi throughout, suctioning greenish butt fluid. Small bore feeding tube
in the left nare @65. Hernandez draining minimal bernabe urine. Skin CDI. Gtts running see flowsheet. Labs drawn and hygiene performed. at bedside.
[2024-11-23] MEDS: LEVOPHED 258 MG IV (20:05)
[2024-11-23 20:49] LABS: Blood Urea Nitrogen 90 mg/dl (9-20); Calcium 7.7 mg/dl (8.4-10.2); Carbon Dioxide 25 mmol/L (22-30); Chloride 100 mmol/L (98-107); Estimated Creatinine Clearance 16 ml/min; Glucose 156 mg/dl (70-99); Potassium 4.6 mmol/L (3.5-5.1); Sodium 136 mmol/L (135-145); eGFR 16.26
[2024-11-23] MEDS: SUBLIMAZE 50 MCG IV (22:44)
[2024-11-23] MEDS: ATIVAN 1 MG IV (22:50)
--- NOTE | 2024-11-23 23:29 | W.PN.UPDATE ---
Update Note
Progress Note Update
Operation/Procedure: left radial arterial line placement
Consent for operation or procedure: Emergent need due to patient condition - need for invasive monitoring per protocol
Indications: Hemodynamic monitoring
After properly positioning the patient's wrist in the standard fashion, the site was prepped and draped in a sterile fashion. The radial artery was entered, noting bright red, pulsatile flow. A guidewire was easily inserted, the needle removed, and
the catheter was then placed using the Seldinger technique. The guidewire was removed, with good flow present. The catheter was then connected to the transducer with a good waveform noted. The catheter was secured with an occlusive dressing was
placed after properly cleaning and prepping the site.
Complications: The patient tolerated the procedure well and no complications were noted.
Estimated Blood Loss: minimal
Plan: Arterial line to remain in place for hemodynamic monitoring.
--- NOTE | 2024-11-23 23:30 | PTCARENOTE ---
All systems reassessed, SALVADOR Sullivan placed Jerrica which has been zeroed and correlates with cuff. at bedside.
[2024-11-24] VITALS (31 sets, daily range): BP systolic 76–152; BP diastolic 51–118; BMI 24.4
[2024-11-24] MEDS: SUBLIMAZE 50 MCG IV ×2 (00:35→12:14)
[2024-11-24] MEDS: HEPARIN 5000 UNITS SC ×3 (00:35→16:25)
[2024-11-24] MEDS: NOVOLOG FLEXPEN-LOW RESISTANCE 1 UNITS SC ×3 (00:58→23:35)
[2024-11-24] MEDS: CORDARONE 103 MG IV (00:59)
[2024-11-24 01:07] LABS: Glucose - Point of Care 174 mg/dl (70-99)
[2024-11-24] MEDS: CORDARONE 518 MG IV (01:11)
[2024-11-24] MEDS: D5/0.9% SODIUM CHLORIDE 1000 IV (01:28)
[2024-11-24] MEDS: LEVOPHED 258 MG IV ×3 (02:11→21:31)
[2024-11-24] MEDS: PITRESSIN 100 IV ×2 (02:13→14:01)
[2024-11-24 03:18] LABS: B.E. -3.5 mmol/L; HCO3 22.1 mmol/L (21-28); PCO2 41 mmHg (35-48); PO2 129 mmHg (83-108); pH 7.34 (7.35-7.45)
[2024-11-24 03:47] LABS: Vancomycin Random 10.9 ug/ml
--- NOTE | 2024-11-24 04:00 | PTCARENOTE ---
All systems reassessed. Pt now afebrile, still in rapid AFib. Labs drawn, hygiene performed.
[2024-11-24 04:02] LABS: ALT (SGPT) 15 U/L (0-50); AST (SGOT) 20 U/L (17-59); Albumin 2.5 g/dl (3.5-5.0); Alkaline Phosphatase 44 U/L (38-126); Blood Urea Nitrogen 90 mg/dl (9-20); Calcium 7.6 mg/dl (8.4-10.2); Carbon Dioxide 20 mmol/L (22-30); Chloride 103 mmol/L (98-107); Estimated Creatinine Clearance 17 ml/min; Glucose 246 mg/dl (70-99); Potassium 4.4 mmol/L (3.5-5.1); Sodium 137 mmol/L (135-145); Total Bilirubin 0.5 mg/dl (0.2-1.3); Total Protein 5.2 g/dl (6.3-8.2); eGFR 16.82
[2024-11-24 04:15] LABS: Hematocrit 41.4 % (39.0-52.0); Hemoglobin 13.2 g/dL (13.0-18.0); Mean Corp Hgb Conc. 31.9 g/dL (33.0-37.0); Mean Corpuscular Hgb 27.4 pg (27.0-31.0); Mean Corpuscular Volume 85.9 fL (80.0-94.0); Platelet Count 137 10^3/uL (130-400); Red Blood Cell Count 4.82 10^6/uL (4.70-6.10); Red Cell Dist. Width 15.1 % (11.5-14.5); White Blood Cell Count 5.1 10^3/uL (4.8-10.8)
[2024-11-24] MEDS: SUBLIMAZE 100 IV ×2 (05:54→20:14)
[2024-11-24] MEDS: NOVOLOG FLEXPEN-LOW RESISTANCE 300 UNITS SC (05:58)
[2024-11-24 06:09] LABS: Glucose - Point of Care 194 mg/dl (70-99)
[2024-11-24] MEDS: PLAVIX 75 MG PO (07:29)
[2024-11-24] MEDS: ROCEPHIN 2000 MG IV (07:29)
[2024-11-24] MEDS: STERILE WATER FOR INJECTION 20 ML IV (07:29)
--- NOTE | 2024-11-24 07:41 | W.PN.INTV ---
Today's Communication / Plan
Recommendations
Continue with volume-cycled ventilation for now. No plans for wean
Daily chest x-ray, follow pleural effusion
Await culture data, remains on antibiotics
Follow renal function
Assessment
-
79-year-old male with history of heart failure, chronic kidney disease, bilateral pleural effusions requiring intermittent thoracentesis, presents with 3 days of increased chest discomfort on the left side. This was associated with increased
shortness of breath. He admits to not taking his Lasix therapy given recent stress and travel to the city with sick grandchild. Was found to have bilateral pleural effusions. Underwent right thoracentesis drained 2 L. Postthoracentesis required
increased oxygen, now on BiPAP saturation 86%. We are asked to help from critical care standpoint 11/22/2024
Acute hypoxic respiratory insufficiency
on NIV, intubated 11/23
Baseline 1 to 2 L at home as needed
Worsening left upper lobe infiltrate
Pneumonia versus reexpansion pulmonary edema
Bacteremia
Left pleural fluid positive for Streptococcus hypotension, secondary to sepsis
s/p Left thora 11/23, -2L
History of heart failure
Pulmonary hypertension
Noncompliance with Lasix in the past
s/p rt thora -2L on 11/22
Acute renal insufficiency, creatinine 3.5
Conditions present prior to admission
COPD, emphysema per CT imaging
FEV1 2.48/92%, TLC 90%, DLCO 50% per PFT 2019
Hypertension/hyperlipidemia
Peripheral arterial disease, right BKA
On Plavix
Left toe amputation
Chronic kidney disease, stage III
Diabetic nodular glomerulosclerosis
Recurrent pleural effusion requiring intermittent thoracentesis
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
COVID December 2022
Plan/recommendations
At this time, patient remains critically ill
Required intubation 11/23 for progressive hypoxia
This is despite significant improvement in oxygenation status with left thoracentesis
Chest x-ray worrisome for left upper lobe pneumonia, left pleural fluid positive for Streptococcus
Blood cultures are positive.
Creatinine 3.5, urine output 500 cc / 24 hours
Moving forward
Continue with volume-cycled ventilation
AC 18/550/5/100%
Ppk 24, Pplat 11
wean FiO2
Daily chest x-ray, daily ABG
maintain light sedation for now. Patient appears to be comfortable
Ceftriaxone/azithromycin started morning of 11/23
Remains on antibiotics in addition to vancomycin pending cultures
Cardiology following
Blood cultures positive, left pleural fluid positive
COVID, flu negative
Echocardiogram was done in the ED, PA pressure 57, large bilateral pleural effusion, normal biventricular function which is encouraging
Hold on Lasix therapy for now per nephrology
Fluids per nephrology, bicarbonate
Follow urine output
Hernandez catheter in place
Atrial fibrillation with RVR developed overnight
Remains on amiodarone, started 11/23.
Chronic heart failure
Cardiology following
Depending on how he does, may need CT angiogram to rule out PE but given current constellation of findings, this is less likely and would avoid contrast given his CKD
May consider empiric Lovenox therapy tonight if he worsens or for now continue with DVT prophylaxis
Seems to be improved with treatment for pneumonia and thoracentesis for now
DVT prophylaxis: Subcutaneous heparin every 8 hours
GI prophylaxis: Not indicated
Reviewed with critical care nursing, respiratory care, primary service, cardiology
TCCT 35 min
Subjective Dataa
Subjective Data
Date of Service:
Date of Service: November 24, 2024
Subjective:
Patient remains critically ill. Required intubation yesterday p.m. for progressive hypercapnia. Renal function remains poor, urine output noted. Patient is awake and follows commands. Appears comfortable. Fevers noted
Objective Data
Data Reviewed
Vital Signs / I&O / Oxygen:
Vital Signs
Temp Pulse Resp BP Pulse Ox
98.7 F 119 20 76/51 95
11/24/24 07:00 11/24/24 06:00 11/24/24 06:00 11/24/24 06:00 11/24/24 07:16
Intake and Output
11/23/24 11/24/24 11/25/24
06:59 06:59 06:59
Intake Total 287.5 / 310.0 4189.1 / 4189.1
Output Total 855 / 855 527 / 527
Balance -567.5 / -545.0 3662.1 / 3662.1
SaO2 [A/C] 96
SaO2 [NIV (Non Invasive 83
Ventilation)]
SaO2 95
Nasal Cannula flow liters per 15
minute
Physical Exam
General: Comfortable and Other (Right IJ, upper extremity A-line)
HEENT: Normocephalic, Anicteric and Other (Dry mucosa)
Cardiovascular: S1-S2, Regular Rhythm, Murmur (n) and Other (Right lower extremity BKA)
Respiratory: Wheeze, Crackles (n), Rhonchi (n), Non-Labored Respirations, Stridor (n) and ET Tube
GI: Soft, Non Distended and Non Tender
Neurology: Awake, Alert, No Motor Deficits (Generally weak, moves extremities) and Other (Right BKA)
Skin: Cyanosis (n), Jaundice (n) and Rash (n)
Labs/Micro/Reports
Lab Data
11/24/24 03:10
11/24/24 03:09
Laboratory Results
11/23/24 11/23/24 11/24/24
12:53 16:43 03:10
pH 7.23 L 7.40 7.34 L
pCO2 62 H 38 41
pO2 75 L 74 L 129 H
HCO3 26.0 23.5 22.1
O2 Delivery Level
Microbiology
11/23/24 11:42 Pleural Fluid Gram Stain - Preliminary
11/22/24 16:59 Urine Urine Culture - Final
NO GROWTH
11/22/24 14:40 Pleural Fluid Body Fluid Culture - Preliminary
No Growth After 18-24 Hours
11/22/24 14:40 Pleural Fluid Gram Stain - Preliminary
11/22/24 16:01 Blood/Venous Blood Culture - Preliminary
Positive culture in progress
11/22/24 16:01 Blood/Venous Gram Stain - Preliminary
11/22/24 16:01 Blood/Venous Blood Culture - Preliminary
Positive culture in progress
11/22/24 16:01 Blood/Venous Gram Stain - Preliminary
11/22/24 10:00 Nasal Swab Influenza Types A & B (BERRY) - Final
Negative for Influenza A & B, NAAT
Negative results must be combined with clinical observations
and patient history.
Nucleic Acid Amplification test (NAAT)performed on the
[employer] platform.
--- NOTE | 2024-11-24 07:43 | PTCARENOTE ---
recd pt, eyes open with care, ETT to vent tolerating settings, tense, remains on fentanyl as noted, denies pain at present. bilat restraints for ETT safety. bedside, updated. gtts remain, art line zero and vee, cuff pressure noted. hernandez
draining. awaiting tube feed pump. afebrile. amio to 0.5 mg/min per order, IV line to amio separate, fluids, and pressors/fent for compatibility reasons. RIJ TLC dressing occlusive. peripheral sites capped. resting when undisturbed.
[2024-11-24] MEDS: ZITHROMAX INFUSION 250 IV (07:51)
[2024-11-24 08:07] LABS: Absolute Neutrophils -Man Diff 4.1 10^3/uL (1.4-6.5); Band Neutrophils 29 % (0-3); Segmented Neutrophils 53 % (42-75)
[2024-11-24 08:08] LABS: Lymphocytes 4 % (20-51); Metamyelocytes 5 % (-); Monocytes 7 % (2-9); Myelocytes 2 % (-); Total Cells Counted 100; Toxic Granulation 2+
--- NOTE | 2024-11-24 08:19 | PHA.VAN.FU ---
Vancomycin Assessment / Plan
- Assessment
Renal Function: Stable
WBC's are: WNL
In the past 24 hrs, patient has been: Febrile (102.9F)
Concomitant Antimicrobials: AZITHROMYCIN, CEFTRIAXONE
- Assessment - Therapeutic Drug Monitoring
Random Level: 10.9
- Dosing Plan
Dosing by Level: Re-dose today (500MG)
- Monitoring Plan
Random Level: 12/30 IN AM
- Follow Up
Pharmacy will continue to follow.
Vancomycin Follow UP
- -
Patient Age: 79
Patient Sex: Male
Vancomycin Day #: 2
Indication: Bacteremia
Requesting Provider: DR. OCONNELL
Pertinent Antimicrobial Allergies:
NKDA
Height / Weight:
Height 5 ft 9 in
Actual Weight 74.8 kg
IBW in k.7
- Vital Signs / Lab Results
Temp Pulse Resp BP Pulse Ox
98.7 F 119 20 76/51 95
11/24/24 07:00 11/24/24 06:00 11/24/24 06:00 11/24/24 06:00 11/24/24 07:16
Lab Results - Hematology
11/22/24 11/23/24 11/23/24
10:00 03:18 11:07
WBC 5.2 2.5 L 3.1 L
Band Neutrophils 28 H 37 H D
11/24/24
03:10
WBC 5.1
Band Neutrophils 29 H D
Lab Results - Chemistry
11/22/24 11/23/24 11/23/24
10:00 03:18 11:07
BUN 65 H 80 H 84 H
Creatinine 2.9 H 3.0 H 3.4 H
Estimated Creat Clear 19 17
Albumin 3.3 L 3.0 L 3.0 L
11/23/24 11/23/24 11/24/24
16:00 20:24 03:09
BUN 88 H 90 H 90 H
Creatinine 3.6 H 3.6 H 3.5 H
Estimated Creat Clear 16 16 17
Albumin 2.5 L
11/23/24 11/23/24 11/23/24
11:07 16:00 20:24
Lactic Acid 2.3 H 2.1 H 2.0
Microbiology Results
11/23/24 11:42 Gram Stain - Preliminary
Pleural Fluid
11/22/24 16:59 Urine Culture - Final
Urine NO GROWTH
11/22/24 14:40 Body Fluid Culture - Preliminary
Pleural Fluid No Growth After 18-24 Hours
Gram Stain - Preliminary
11/22/24 16:01 Blood Culture - Preliminary
Blood/Venous Positive culture in progress
Gram Stain - Preliminary
11/22/24 16:01 Blood Culture - Preliminary
Blood/Venous Positive culture in progress
Gram Stain - Preliminary
11/22/24 10:00 Influenza Types A & B (BERRY) - Final
Nasal Swab Negative for Influenza A & B, NAAT
Negative results must be combined with clinical observations
and patient history.
Nucleic Acid Amplification test (NAAT)performed on the
[employer] platform.
Therapeutic Drug Monitoring
Random Vancomycin 10.9 ug/ml 11/24/24 03:09
--- NOTE | 2024-11-24 08:28 | W.PN.HOSP.TC ---
Today's Communication/Plan
-
Continue antibiotics
Await cultures
Wean ventilator as able
Assessment / Plan
Assessment / Plan
Gen-sedated, intubated
HEENT-NC, AT, anicteric, clear oral mm
Neck-supple
CV-reg, no M, +S1/S2
Lungs-decreased breath sounds bilaterally
Abd-soft, NT, ND
Ext-left lower extremity edema, right BKA
Musculoskeletal-no cyanosis, clubbing
Skin-warm and dry
Shock -requiring vasopressors. Differential diagnosis includes sepsis versus cardiogenic versus hypovolemic versus other. Currently on 6 mcg/min Levophed.
Acute hypoxic respiratory failure -likely multifactorial etiology including acute pulmonary edema from heart failure, bilateral pleural effusions, pneumonia, sepsis. Intubated 11/23. 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 Currently on 80% FiO2, wean down
as able.
Sepsis -suspect due to pneumonia. Awaiting speciation of blood cultures. ID following. Continue antibiotics.
Acute on chronic heart failure with preserved EF -IV Lasix on hold due to shock, hypotension, vasopressors. Echocardiogram done 11/22 shows LVEF 60 to 65%, stage I diastolic dysfunction, mild to moderate TR, normal RV size and function.
BNP 7510.
Rapid atrial fibrillation -appears to be a new diagnosis. Started amiodarone drip last night. Cardiology following.
Bilateral pleural effusions -presumably due to congestive heart failure, rule out pneumonia. Gram stain of pleural fluid does show WBCs and gram-positive cocci. Underwent bilateral thoracentesis by IR, 2 L of fluid removed from each side. Has had
multiple bilateral thoracenteses in the past. Chest x-ray from this morning shows improvement but not resolution of effusions.
Hyperkalemia - resolved. Hold losartan.
AURY on CKD 4 -previous creatinine was in the 2 range, 2.1-2.6 in February. Admission creatinine 2.9, 3.5 today. Nephrology following. Etiology of AURY suspected to be due to sepsis, shock. Hold losartan. Continue Hernandez catheter.
PAD -history of right BKA.
DM 2 with hyperglycemia -glucose 264 this morning. Has been on Lantus 14 units daily, NovoLog 6 units AC at home. Currently on low resistance NovoLog scale. If needed can resume Lantus at lower dose.
Essential hypertension -hold meds for shock, hypotension.
Hyperlipidemia -atorvastatin.
Mild intermittent asthma
History of Burks-Troy syndrome
Full code
updated at the bedside.
Anticipated Discharge: > 48 hours
Subjective/Interval History
-
Date of Service: November 24, 2024
Patient seen and examined. Sedated, intubated. Looks comfortable.
Objective Data
-
Labs:
Laboratory Results
11/23/24 11/24/24 11/24/24
20:24 03:09 03:10
WBC 5.1
Hgb 13.2
Hct 41.4
Plt Count 137
HCO3 22.1
Sodium 136 137
Potassium 4.6 4.4
Chloride 100 103
Carbon Dioxide 25 20 L
BUN 90 H 90 H
Creatinine 3.6 H 3.5 H
Glucose 156 H 246 H
Calcium 7.7 L 7.6 L
Total Bilirubin 0.5
AST 20
ALT 15
Alkaline Phosphatase 44
Vital Signs:
Vital Signs
Temp Pulse Resp BP Pulse Ox
98.7 F 119 20 76/51 95
11/24/24 07:00 11/24/24 06:00 11/24/24 06:00 11/24/24 06:00 11/24/24 07:16
I&O
11/23/24 11/24/24 11/25/24
06:59 06:59 06:59
Intake Total 287.5 / 310.0 4189.1 / 4350.2 161.1 / 161.1
Output Total 855 / 855 527 / 527
Balance -567.5 / -545.0 3662.1 / 3823.2 161.1 / 161.1
Review of Systems
-
Unable to obtain full review of systems at this time due to: Acuity and Patient Intubation
[2024-11-24 08:37] LABS: Normal RBC Morphology Yes; Platelets Checked Yes
--- NOTE | 2024-11-24 09:07 | W.PN.NEPH.PH ---
Today's Communication / Plan
-
IVF
Assessment/Plan
-
Assessment:
CKD IV (followed by Dr. Duncan) presumed to be DKD/vascular sclerosis
AURY
b/l pleural effusions
Decompensated Diastolic heart failure (on losartan, metoprolol, jardiance previously tried. no aldactone due to hyperK)
DM2
PVD s/p R BKA
hypotension
subnephrotic range proteinuria ?improving
PNA
GPC Bacteremia
leukopenia
- In 2020 Kidney biopsy was not adequate but EM showed nodular diabetic sclerosis and severe vascular sclerosis.
Plan:
follow lactate
follow BMP
keep SBP > 90 and MAP > 65
maintain hernandez
holding losartan
no lasix needed currently
change IVF to bicarb once current bag completes
critical care time 34 minutes
-
-
Date of Service: November 24, 2024
CC / HPI / ROS
-
Chief Complaint:
AURY
History of Present Illness:
critically ill in ICU on vent/pressors
BP stable now on 2 pressors
AURY/Cr stable at 3.5
UOP improving
on 80% FiO2 vent
LFTs normal
WBC up to 5.1
Review of Systems:
intubated/sedated
Labs
-
Labs:
WBC 5.1 10^3/uL (4.8-10.8) 11/24/24 03:10
RBC 4.82 10^6/uL (4.70-6.10) 11/24/24 03:10
Hgb 13.2 g/dL (13.0-18.0) 11/24/24 03:10
Hct 41.4 % (39.0-52.0) 11/24/24 03:10
Plt Count 137 10^3/uL (130-400) 11/24/24 03:10
Sodium 137 mmol/L (135-145) 11/24/24 03:09
Potassium 4.4 mmol/L (3.5-5.1) 11/24/24 03:09
Chloride 103 mmol/L (98-107) 11/24/24 03:09
Carbon Dioxide 20 mmol/L (22-30) L 11/24/24 03:09
BUN 90 mg/dl (9-20) H 11/24/24 03:09
Creatinine 3.5 mg/dL (0.7-1.3) H 11/24/24 03:09
eGFR 16.82 11/24/24 03:09
Glucose 246 mg/dl (70-99) H 11/24/24 03:09
Calcium 7.6 mg/dl (8.4-10.2) L 11/24/24 03:09
Puo-Y-Gtyyccrwuxp Pept 7510 pg/ml 11/22/24 10:00
Albumin 2.5 g/dl (3.5-5.0) L 11/24/24 03:09
Physical Exam
-
Vital Signs:
Vital Signs
Temp Pulse Resp BP Pulse Ox
98.7 F 119 20 76/51 95
11/24/24 07:00 11/24/24 06:00 11/24/24 06:00 11/24/24 06:00 11/24/24 07:16
Cardiovascular:: Regular rate and rhythm
Respiratory:: Bilateral: Coarse
Lung Excursion:: Normal
Abdomen:: Nontender and Soft
Bowel Sounds:: Normal
Extremity Edema:: +1: Bilateral:
[2024-11-24] MEDS: SODIUM BICARBONATE 1150 MEQ IV ×2 (10:01→22:37)
--- NOTE | 2024-11-24 10:08 | W.PN.ID1 ---
Date of Service
Date of Service: November 24, 2024
Today's Communication
Continue current of biotics. Await final culture data. Continue with supportive measures.
Assessment / Plan
Bacteremia with gram-positive cocci
- Suspect pneumococcus
Leukopenia
Hypoxic respiratory failure
- Pt failing BiPAP and for impending intubation
Fever
Pleural effusion s/p thoracentesis
- left sided pleural fluid with streptococcal species growing.
HTN
CHF
DM type II with neuropathy
CKD stage IV
Dyslipidemia
Pulmonary hypertension
PAD with hx (R) BKA
Recommendations:
Continue ceftriaxone 2 g IV every 24 hours.
Continue Azithromycin.
While cultures are pending, continue with vancomycin. Await full identification and susceptibility data.
Monitor white count and temperature curve.
Follow CXR.
Patient remains critically ill in ICU on vent.
Chief Complaint
-: Clinical Sepsis and Bacteremia
Subjective / Review of Systems
Patient seen and examined. Since yesterday's exam, patient has been intubated.
Vital Signs / Physical Exam
Vital Signs
Vital Signs
Temp Pulse Resp BP Pulse Ox
98.7 F 119 20 76/51 95
11/24/24 07:00 11/24/24 06:00 11/24/24 06:00 11/24/24 06:00 11/24/24 07:16
Physical Exam
Constitutional: Comfortable and Acutely Ill
Head: Other (ET tube in place.)
Eyes: No Conjunctival Hemorrhage and Sclera Anicteric
Cardiovascular: S1/S2; Negative S3/S4
Pulmonary: Other (On vent.)
Gastrointestinal: Soft, Non Distended and Normal Bowel Sounds
Extremities: Edema; Negative Cyanosis or Erythema
Skin: Warm and Dry; Negative Rash or Jaundice
Psychological: Calm
Objective Data
Lab Data
Lab Results
11/24/24 03:10
11/24/24 03:09
PT 17.4 Sec (11.4-14.6) H 11/22/24 10:00
INR 1.37 11/22/24 10:00
Estimated Creat Clear 17 ml/min 11/24/24 03:09
Lactic Acid 2.0 mmol/L (0.7-2.0) 11/23/24 20:24
Total Bilirubin 0.5 mg/dl (0.2-1.3) 11/24/24 03:09
AST 20 U/L (17-59) 11/24/24 03:09
ALT 15 U/L (0-50) 11/24/24 03:09
Alkaline Phosphatase 44 U/L (38-126) 11/24/24 03:09
Most recent labs reviewed.
Micro Results:
11/22/24 16:01 Blood Culture - Preliminary
Blood/Venous Positive culture in progress
Gram Stain - Preliminary
11/23/24 11:42 Body Fluid Culture - Preliminary
Pleural Fluid Streptococcus species
Gram Stain - Preliminary
11/22/24 16:01 Blood Culture - Preliminary
Blood/Venous Positive culture in progress
Gram Stain - Preliminary
11/22/24 16:59 Urine Culture - Final
Urine NO GROWTH
11/22/24 14:40 Body Fluid Culture - Preliminary
Pleural Fluid No Growth After 18-24 Hours
Gram Stain - Preliminary
11/22/24 14:39 Acid Fast Bacilli Smear - Pending
Pleural Fluid Acid Fast Bacilli Culture - Pending
11/22/24 14:40 Fungal Smear - Pending
Pleural Fluid Fungal Culture - Pending
11/22/24 10:00 Influenza Types A & B (BERRY) - Final
Nasal Swab Negative for Influenza A & B, NAAT
Negative results must be combined with clinical observations
and patient history.
Nucleic Acid Amplification test (NAAT)performed on the
[employer] platform.
Imaging:
11/22/2024 CXR (2 view): There is moderate bibasilar opacification at least in part suggesting moderate pleural effusions with likely underlying subsegmental atelectasis, slightly increased in comparison to prior study and significantly obscuring
the cardiac silhouette. There is no pneumothorax or suspected mediastinal shift.
11/22/2024 ECHO (TTE): EF approximately 60%. Mild to moderate tricuspid regurgitation. Large bilateral pleural effusions noted. Compared to prior from February 27, 2024, estimated pulmonary artery systolic pressure remain moderate to severely
elevated at 57 mmHg.
Care Review
Plan reviewed with: Physician (Hospitalist; Critical Care)
[2024-11-24] MEDS: VANCOCIN HCL 500 MG 100 IV (10:10)
--- NOTE | 2024-11-24 11:39 | W.PN.CD ---
Today's Communication / Plan
-
Continue supportive care
Differ diuretics to nephrology given AURY on CKD
cont amio
heparin gtt for AF
EKG now back in SR
Impression / Plan
-
IMPRESSION/PLAN: 79M with chronic HFpEF, hypertension, tricuspid regurgitation, pulmonary hypertension, dyslipidemia, PAD status post right BKA, chronic lymphedema, medically managed endocarditis in 2019 and chronic kidney disease stage IV who
presented to the emergency department with a chief complaint of shortness
Primary Sole Painter: Dr. Landa
Acute on chronic hypoxic respiratory insufficiency 2/2 PNA with septic shock
Bacteremia and bacteria in thora fluid
- intubated wean vent as able
- on levophed wean as able
- ID following
HFpEF, acute on chronic
-Would differ diuretics to nephro given CKD and worsening kidney fxn
-Case management to [facility] SGLT2i, nephrology believes he will benefit from this (per outpatient note)
-Trend daily weight, I's/O, and BMP with diuresis
AF RVR
- new CHADSVASC at least 6
- cont amio
- heparin gtt now that he has converted
- EKG
Bilateral pleural effusions
-Status post thora
- bacteria in fluid
Moderate tricuspid regurgitation
Severe pulmonary hypertension
HTN, managed by Rigging Man
HLD, on atorvastatin 20mg
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 Duncan
Secondary hyperparathyroidism
Type II DM, on insulin
PAD S/P right BKA, on clopidogrel
Former tobacco abuse, continued cessation recommended
Subjective: Intubated but awake
Physical Exam
Vital Signs/Labs
Vital Signs
Temp Pulse Resp BP Pulse Ox
98.7 F 119 20 76/51 96
11/24/24 07:00 11/24/24 06:00 11/24/24 06:00 11/24/24 06:00 11/24/24 11:18
11/23/24 11/24/24 11/25/24
06:59 06:59 06:59
Actual Weight 161 lb 9.581 oz 164 lb 14.492 oz
11/24/24 03:10
11/24/24 03:09
PT 17.4 Sec (11.4-14.6) H 11/22/24 10:00
INR 1.37 11/22/24 10:00
11/22/24
10:00
Rlw-S-Iuqceudqgvf Pept 7510
LAB Results
11/22/24
10:00
Troponin I < 0.012
Physical Exam
Constitutional: Other (intubated)
EENT: Anicteric
Cardiovascular: Rhythm & rate is regular
Respiratory: Other (Improved aeration bilaterally)
GI: Soft
Neuro/Psych: Alert
Data Reviewed
-
Date of Service: November 24, 2024
Medical Decision Making: Reviewed Test Results
EKG: Tracing Personally Visualized and interpreted (af now sr )
Labs: Labs Reviewed by me
[2024-11-24 12:13] LABS: Glucose - Point of Care 221 mg/dl (70-99)
[2024-11-24] MEDS: NOVOLOG FLEXPEN-LOW RESISTANCE 2 UNITS SC (12:15)
--- NOTE | 2024-11-24 12:30 | PTCARENOTE ---
ETT moved per policy. glucose noted, covered per order. acknowledged pain, med with fentanyl as noted and gtt increased for comfort. titrated levophed per intervention. otherwise assessment unchanged.
--- NOTE | 2024-11-24 16:00 | PTCARENOTE ---
no change, turned, positioned for comfort. RIJ TLC dressing changed, tolerated. pt does report some neck pain at times, some lung discomfort L chest but presently denies need for additional pain meds.
[2024-11-24] MEDS: SINGULAIR 10 MG PO (17:30)
[2024-11-24] MEDS: LIPITOR 20 MG PO (17:30)
[2024-11-24] MEDS: TYLENOL 1000 MG PO ×2 (17:32→23:36)
[2024-11-24 17:54] LABS: Glucose - Point of Care 193 mg/dl (70-99)
--- NOTE | 2024-11-24 18:30 | PTCARENOTE ---
pt went back into afib, a flutter, see strips. VR 95-110. levophed titration as noted.
--- NOTE | 2024-11-24 19:38 | W.PN.UPDATE ---
Update Note
Progress Note Update
1899- Patient back in rapid afib, currently on amio gtt. Discussed with Dr. Bethea, road engineer freight, recommended initiation of heparin gtt and stop heparin 5000 sq Q8hr. Heparin gtt orders placed.
[2024-11-24] MEDS: HEPARIN 25000 UNITS/250 ML IV (20:05)
[2024-11-24 20:11] LABS: Hematocrit 38.4 % (39.0-52.0); Hemoglobin 12.7 g/dL (13.0-18.0); Mean Corp Hgb Conc. 33.1 g/dL (33.0-37.0); Mean Corpuscular Volume 84.8 fL (80.0-94.0); Mean Platelet Volume 10.1 fL (7.4-10.4); Platelet Count 132 10^3/uL (130-400); Red Blood Cell Count 4.53 10^6/uL (4.70-6.10); Red Cell Dist. Width 15.3 % (11.5-14.5); White Blood Cell Count 8.9 10^3/uL (4.8-10.8)
[2024-11-24 20:25] LABS: APTT 43.9 Sec (23.4-35.0)
[2024-11-24] MEDS: HEPARIN 6000 UNITS IV (22:39)
[2024-11-24 23:39] LABS: Glucose - Point of Care 165 mg/dl (70-99)
--- NOTE | 2024-11-25 | PTCARENOTE ---
Patient incontinent of large amount of dark brown loose stool. Skin care given, perineal care, hernandez care. Slight scrotal edema noted. Sacral dressing intact. DTI noted left medial coccyx measuring 2cm x 0.5cm. Protective zinc ointment and turning
patient off of coccyx; surrounding tissue pink and intact. No marked change in rest of physical assessment.
[2024-11-25] MEDS: PITRESSIN 100 IV ×3 (00:54→23:02)
[2024-11-25] MEDS: CORDARONE 518 MG IV (02:07)
[2024-11-25 02:17] VITALS: BP 137/72
[2024-11-25 02:54] LABS: APTT > 200 Sec (23.4-35.0)
--- NOTE | 2024-11-25 02:55 | PTCARENOTE ---
APTT drawn > 200. Heparin gtt on hold. Elizabeth ROJAS notified. Instructed to redraw, repeat PTT drawn. Advised that result is 197. Continue to hold Heparin gtt and resume at 1000units at 0500 per Elizabeth ROJAS instruction. Next APTT due at 1100, order
entered.
[2024-11-25 03:34] LABS: HCO3 25.5 mmol/L (21-28); O2 Saturation % 99.6 % (94-98); PCO2 35 mmHg (35-48); PO2 134 mmHg (83-108); pH 7.47 (7.35-7.45)
--- NOTE | 2024-11-25 04:00 | PTCARENOTE ---
Essentially no change in assessment except BBS slightly more coarse, L>R. Suctioned via ETT for moderate amount of thick butt secretions. Oral care as needed. Patient anxious at times, reaching for ETT. Advised not to reach for ETT or will need to
have restraints replaced. Shook head to acknowledge. ETT positioned to the left.
[2024-11-25 04:04] LABS: Hematocrit 36.4 % (39.0-52.0); Mean Corpuscular Hgb 27.4 pg (27.0-31.0); Mean Corpuscular Volume 83.1 fL (80.0-94.0); Platelet Count 107 10^3/uL (130-400); Red Blood Cell Count 4.38 10^6/uL (4.70-6.10); White Blood Cell Count 9.3 10^3/uL (4.8-10.8)
[2024-11-25 04:07] LABS: O2 Therapy 60%
[2024-11-25 04:13] LABS: ALT (SGPT) 17 U/L (0-50); AST (SGOT) 24 U/L (17-59); Albumin 2.6 g/dl (3.5-5.0); Alkaline Phosphatase 67 U/L (38-126); Blood Urea Nitrogen 80 mg/dl (9-20); Calcium 8.1 mg/dl (8.4-10.2); Carbon Dioxide 27 mmol/L (22-30); Chloride 99 mmol/L (98-107); Estimated Creatinine Clearance 20 ml/min; Glucose 189 mg/dl (70-99); Potassium 3.4 mmol/L (3.5-5.1); Sodium 136 mmol/L (135-145); Total Bilirubin 0.4 mg/dl (0.2-1.3); Total Protein 5.8 g/dl (6.3-8.2); eGFR 21.07
[2024-11-25 04:20] LABS: APTT 197.5 Sec (23.4-35.0)
[2024-11-25 05:06] VITALS: BP 131/63
[2024-11-25 05:08] LABS: % Eosinophils 0.1 % (0-6); % Immature Granulocytes 1.3 % (0-0.5); % Lymphocytes 3.5 % (20.5-51.1); % Monocytes 3.4 % (1.7-9.3); % Neutrophils 91.7 % (42.2-75.2); Absolute Immature Granulocytes 0.1 10^3/uL (0-0.05); Absolute Lymphocytes 0.3 10^3/uL (1.2-3.4); Absolute Monocytes 0.3 10^3/uL (0.1-0.6); Absolute Neutrophils 8.5 10^3/uL (1.4-6.5); Nucleated Red Blood Cells % 0 % (-)
[2024-11-25 05:28] LABS: Vancomycin Random 12.8 ug/ml
[2024-11-25 05:39] LABS: Glucose - Point of Care 178 mg/dl (70-99)
[2024-11-25 06:00] VITALS: BMI 25.0
[2024-11-25] MEDS: NOVOLOG FLEXPEN-LOW RESISTANCE 1 UNITS SC (06:21)
--- NOTE | 2024-11-25 07:02 | PTCARENOTE ---
Report given verbally to VIVIAN Dorman, questions answered.
[2024-11-25] MEDS: STERILE WATER FOR INJECTION 20 ML IV (07:44)
[2024-11-25] MEDS: ROCEPHIN 2000 MG IV (07:44)
--- NOTE | 2024-11-25 07:44 | PTCARENOTE ---
Received pt from manager community outreach RN; pt intubated and sedated; Pupils 2mm equal and reactive; Left A-line, RIJ triple lumen and PIV x2 patent; all lines leveled and zeroed; Amiodarone, Heparin, Fentanyl, Levo, Vaso and Sodium Bicarb infusing see flow
sheet for details; A-fib on monitor and VSS; Lungs coarse/diminished; ETT 8 23 at lip; vent settings A/C 60%, 5/5, 550, 18; hypoactive bowel sounds and round abdomen; Hernandez catheter draining clear yellow urine; positive Doppler pedal pulses on left
and positive popiteal pulse on right left; +1 generalized edema; sacrum foam C/D/I; see nursing documentation for details.
[2024-11-25] MEDS: LEVOPHED 258 MG IV ×2 (07:47→23:02)
[2024-11-25] MEDS: PLAVIX 75 MG PO (07:47)
[2024-11-25] MEDS: ZITHROMAX INFUSION 250 IV (07:47)
--- NOTE | 2024-11-25 08:30 | PTCARENOTE ---
Tube feeding residuals 310mls; tube feedings placed on hold; recheck residuals at 1000.
--- NOTE | 2024-11-25 08:40 | W.PN.NEPH.PH ---
Today's Communication / Plan
-
maintain hernandez
keep MAP > 65 with pressor support
Hold further IV fluids as patient is on tube feed
Replete K
Assessment/Plan
-
Assessment:
CKD IV (followed by Dr. Duncan) presumed to be DKD/vascular sclerosis
AURY
b/l pleural effusions
Decompensated Diastolic heart failure (on losartan, metoprolol, jardiance previously tried. no aldactone due to hyperK)
DM2
PVD s/p R BKA
hypotension
subnephrotic range proteinuria ?improving
PNA
GPC Bacteremia
leukopenia
- In 2020 Kidney biopsy was not adequate but EM showed nodular diabetic sclerosis and severe vascular sclerosis.
Plan:
Creatinine improving to 2.9 and remains grossly nonoliguric with urine output via Hernandez of 2 L
Replete potassium, d/c sodium bicarbonate IVFs
follow BMP
keep SBP > 90 and MAP > 65 currently on dual pressor support with vasopressin and levophed
maintain hernandez
holding losartan
no lasix needed currently
Hemodynamically labile on dual pressor support, critically ill
critical care time 32 minutes
-
-
Date of Service: November 25, 2024
CC / HPI / ROS
-
Chief Complaint:
AURY
History of Present Illness:
critically ill in ICU on vent/pressors
BP stable now on 2 pressors
AURY/Cr stable at 2.9
remains on vent
LFTs normal
K 3.4
Review of Systems:
intubated/sedated
awake
febrile
non oliguric
Labs
-
Labs:
WBC 9.3 10^3/uL (4.8-10.8) 11/25/24 03:28
RBC 4.38 10^6/uL (4.70-6.10) L 11/25/24 03:28
Hgb 12.0 g/dL (13.0-18.0) L 11/25/24 03:28
Hct 36.4 % (39.0-52.0) L 11/25/24 03:28
Plt Count 107 10^3/uL (130-400) L 11/25/24 03:28
Sodium 136 mmol/L (135-145) 11/25/24 03:28
Potassium 3.4 mmol/L (3.5-5.1) L 11/25/24 03:28
Chloride 99 mmol/L (98-107) 11/25/24 03:28
Carbon Dioxide 27 mmol/L (22-30) 11/25/24 03:28
BUN 80 mg/dl (9-20) H 11/25/24 03:28
Creatinine 2.9 mg/dL (0.7-1.3) H 11/25/24 03:28
eGFR 21.07 11/25/24 03:28
Glucose 189 mg/dl (70-99) H 11/25/24 03:28
Calcium 8.1 mg/dl (8.4-10.2) L 11/25/24 03:28
Fuz-I-Ilukzpyhykx Pept 7510 pg/ml 11/22/24 10:00
Albumin 2.6 g/dl (3.5-5.0) L 11/25/24 03:28
Physical Exam
-
Vital Signs:
Vital Signs
Temp Pulse Resp BP Pulse Ox
100.6 F H 113 18 131/63 96
11/25/24 07:28 11/25/24 06:45 11/25/24 06:45 11/25/24 05:06 11/25/24 08:00
Cardiovascular:: Regular rate and rhythm
Respiratory:: Bilateral: Coarse
Lung Excursion:: Normal
Abdomen:: Nontender and Soft
Bowel Sounds:: Normal
Extremity Edema:: +1: Bilateral:
[2024-11-25] MEDS: KCL 270 MEQ IV (08:57)
--- NOTE | 2024-11-25 09:43 | W.PN.ID1 ---
Date of Service
Date of Service: November 25, 2024
Today's Communication
Continue ceftriaxone and Azithromycin. Discontinue further vancomycin.
Assessment / Plan
Bacteremia with Streptococcus pneumoniae
Leukopenia; suspect secondary to sepsis
Hypoxic respiratory failure
-On vent.
Fever
Parapneumonic effusion; s/p thoracentesis
- left sided pleural fluid also with Streptococcus pneumoniae
HTN
CHF
DM type II with neuropathy
CKD stage IV
Dyslipidemia
Pulmonary hypertension
PAD with hx (R) BKA
Recommendations:
Continue ceftriaxone 2 g IV every 24 hours.
Continue Azithromycin.
Discontinue further vancomycin
Monitor white count and temperature curve.
Follow CXR.
Patient remains critically ill in ICU on vent.
Chief Complaint
-: Clinical Sepsis, Bacteremia and Other (Parapneumonic effusion)
Subjective / Review of Systems
Patient seen and examined. Remains on vent at this time. Ongoing fevers noted.
Vital Signs / Physical Exam
Vital Signs
Vital Signs
Temp Pulse Resp BP Pulse Ox
100.6 F H 113 18 131/63 96
11/25/24 07:28 11/25/24 06:45 11/25/24 06:45 11/25/24 05:06 11/25/24 08:00
Physical Exam
Constitutional: Comfortable, Acutely Ill and Non-toxic
Head: Other (ET tube in place.)
Eyes: No Conjunctival Hemorrhage and Sclera Anicteric
Cardiovascular: Irregular Rate and S1/S2; Negative S3/S4
Pulmonary: Other (On vent.)
Gastrointestinal: Soft, Non Distended and Normal Bowel Sounds
Extremities: Edema; Negative Cyanosis or Erythema
Skin: Warm and Dry; Negative Rash or Jaundice
Neurological: Other (Sedated, but arousable to touch.)
Psychological: Calm
Objective Data
Lab Data
Lab Results
11/25/24 03:28
11/25/24 03:28
PT 17.4 Sec (11.4-14.6) H 11/22/24 10:00
INR 1.37 11/22/24 10:00
APTT 197.5 Sec (23.4-35.0) H* 11/25/24 03:28
Estimated Creat Clear 20 ml/min 11/25/24 03:28
Lactic Acid 2.0 mmol/L (0.7-2.0) 11/23/24 20:24
Total Bilirubin 0.4 mg/dl (0.2-1.3) 11/25/24 03:28
AST 24 U/L (17-59) 11/25/24 03:28
ALT 17 U/L (0-50) 11/25/24 03:28
Alkaline Phosphatase 67 U/L (38-126) 11/25/24 03:28
Most recent labs reviewed.
Micro Results:
11/22/24 16:01 Blood Culture - Preliminary
Blood/Venous Streptococcus pneumoniae
Positive culture in progress
Gram Stain - Preliminary
11/22/24 14:40 Body Fluid Culture - Preliminary
Pleural Fluid Gram Stain - Preliminary
11/23/24 11:42 Body Fluid Culture - Preliminary
Pleural Fluid Streptococcus species
Gram Stain - Preliminary
11/22/24 16:01 Blood Culture - Preliminary
Blood/Venous Positive culture in progress
Gram Stain - Preliminary
11/22/24 16:59 Urine Culture - Final
Urine NO GROWTH
11/22/24 14:39 Acid Fast Bacilli Smear - Pending
Pleural Fluid Acid Fast Bacilli Culture - Pending
11/22/24 14:40 Fungal Smear - Pending
Pleural Fluid Fungal Culture - Pending
11/22/24 10:00 Influenza Types A & B (BERRY) - Final
Nasal Swab Negative for Influenza A & B, NAAT
Negative results must be combined with clinical observations
and patient history.
Nucleic Acid Amplification test (NAAT)performed on the
[employer] platform.
Imaging:
11/22/2024 CXR (2 view): There is moderate bibasilar opacification at least in part suggesting moderate pleural effusions with likely underlying subsegmental atelectasis, slightly increased in comparison to prior study and significantly obscuring
the cardiac silhouette. There is no pneumothorax or suspected mediastinal shift.
11/22/2024 ECHO (TTE): EF approximately 60%. Mild to moderate tricuspid regurgitation. Large bilateral pleural effusions noted. Compared to prior from February 27, 2024, estimated pulmonary artery systolic pressure remain moderate to severely
elevated at 57 mmHg.
Care Review
Plan reviewed with: Nurse and Physician (Critical Care)
[2024-11-25] MEDS: SUBLIMAZE 100 IV (10:28)
--- NOTE | 2024-11-25 10:47 | PTCARENOTE ---
Residuals rechecked at 1000; 60mls resulted; Tube feedings resumed at 30mls/hr with no water flush.
--- NOTE | 2024-11-25 10:48 | W.PN.CD ---
Today's Communication / Plan
-
Continue supportive care
Impression / Plan
-
IMPRESSION/PLAN: 79M with chronic HFpEF, hypertension, tricuspid regurgitation, pulmonary hypertension, dyslipidemia, PAD status post right BKA, chronic lymphedema, medically managed endocarditis in 2019 and chronic kidney disease stage IV who
presented to the emergency department with a chief complaint of shortness
Primary Piano Mechanic Apprentice: Dr. Landa
Acute on chronic hypoxic respiratory insufficiency 2/2 PNA with septic shock
Bacteremia and bacteria in thora fluid
- intubated wean vent as able
- on levophed wean as able
- ID following
HFpEF, acute on chronic
-Would differ diuretics to nephro given CKD and worsening kidney fxn
- appears to be urinating OK
-Case management to [facility] [id number], nephrology believes he will benefit from this (per outpatient note)
-Trend daily weight, I's/O, and BMP with diuresis
AF RVR
- new CHADSVASC at least 6
- cont amio
- heparin gtt now that he has converted
- EKG
Bilateral pleural effusions
-Status post thora
- bacteria in fluid
Moderate tricuspid regurgitation
Severe pulmonary hypertension
HTN, managed by [facility]
HLD, on atorvastatin 20mg
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 Duncan
Secondary hyperparathyroidism
Type II DM, on insulin
PAD S/P right BKA, on clopidogrel
Former tobacco abuse, continued cessation recommended
Subjective: Intubated sedated
Physical Exam
Vital Signs/Labs
Vital Signs
Temp Pulse Resp BP Pulse Ox
100.6 F H 92 18 131/63 94
11/25/24 07:28 11/25/24 10:15 11/25/24 10:15 11/25/24 05:06 11/25/24 10:15
11/24/24 11/25/24 11/26/24
06:59 06:59 06:59
Actual Weight 164 lb 14.492 oz 169 lb 1.513 oz
11/25/24 03:28
11/25/24 03:28
PT 17.4 Sec (11.4-14.6) H 11/22/24 10:00
INR 1.37 11/22/24 10:00
APTT 197.5 Sec (23.4-35.0) H* 11/25/24 03:28
11/22/24
10:00
Qfh-Y-Heykrjkyoaq Pept 7510
LAB Results
11/22/24
10:00
Troponin I < 0.012
Physical Exam
Constitutional: Other (intubated and sedated )
EENT: Anicteric
Cardiovascular: Rhythm/rate is irregular
Respiratory: Other (rhonchi crackles )
GI: Soft
Neuro/Psych: Other (intubated and sedated )
Data Reviewed
-
Date of Service: November 25, 2024
Medical Decision Making: Reviewed Test Results
EKG: Tracing Personally Visualized and interpreted (af)
Echo: Report Reviewed by me
Labs: Labs Reviewed by me
Critical Care Time (in minutes): 33
--- NOTE | 2024-11-25 11:27 | PTCARENOTE ---
Pt had large liquid bowel movement; dark in color, Hematest preformed and a negative result occurred.
[2024-11-25] MEDS: NOVOLOG FLEXPEN-LOW RESISTANCE 2 UNITS SC ×2 (11:38→18:14)
[2024-11-25] MEDS: TYLENOL 1000 MG PO (11:43)
[2024-11-25 11:51] LABS: Glucose - Point of Care 228 mg/dl (70-99)
[2024-11-25 12:03] LABS: APTT 98.9 Sec (23.4-35.0)
[2024-11-25 12:08] LABS: Glucose - Point of Care 205 mg/dl (70-99)
--- NOTE | 2024-11-25 12:12 | PTCARENOTE ---
Assessment unchanged; A-fib on monitor and VSS: Levo, Vaso, Heparin, Amiodarone and Fentanyl infusing see flow sheet for details.
[2024-11-25] MEDS: SODIUM BICARBONATE IV (12:17)
--- NOTE | 2024-11-25 12:48 | W.PN.INTV ---
Today's Communication / Plan
Recommendations
Continue current antibiotics
Mechanical ventilation will continue without change
Minimize sedation
Wean off vasopressors
Daily chest x-ray, may need chest tube on the left if there is rapid reaccumulation
No longer IV fluids needed
Diuretics when able per nephrology
Spontaneous breathing trial once more appropriate and hemodynamics improved.
Assessment
-
79-year-old male with history of heart failure, chronic kidney disease, bilateral pleural effusions requiring intermittent thoracentesis, presents with 3 days of increased chest discomfort on the left side. This was associated with increased
shortness of breath. He admits to not taking his Lasix therapy given recent stress and travel to the city with sick grandchild. Was found to have bilateral pleural effusions. Underwent right thoracentesis drained 2 L. Postthoracentesis required
increased oxygen, now on BiPAP saturation 86%. We are asked to help from critical care standpoint 11/22/2024
Acute hypoxic respiratory insufficiency
on NIV, intubated 11/23
Baseline 1 to 2 L at home as needed
Worsening left upper lobe infiltrate
Pneumonia versus reexpansion pulmonary edema
Bacteremia
Left pleural fluid positive for Streptococcus hypotension, secondary to sepsis
s/p Left thora 11/23, -2L
History of heart failure
Pulmonary hypertension
Noncompliance with Lasix in the past
s/p rt thora -2L on 11/22
Acute renal insufficiency, creatinine 3.5
Conditions present prior to admission
COPD, emphysema per CT imaging
FEV1 2.48/92%, TLC 90%, DLCO 50% per PFT 2019
Hypertension/hyperlipidemia
Peripheral arterial disease, right BKA
On Plavix
Left toe amputation
Chronic kidney disease, stage III
Diabetic nodular glomerulosclerosis
Recurrent pleural effusion requiring intermittent thoracentesis
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
COVID December 2022
Plan/recommendations
Remains critically ill intubated, on mechanical ventilation, on pressors.
Required intubation 11/23 for progressive hypoxia.
This is despite significant improvement in oxygenation status with left thoracentesis
Chest x-ray worrisome for left upper lobe pneumonia, left pleural fluid positive for Streptococcus
Blood cultures are positive-for Streptococcus pneumonia as well.
Continue mechanical ventilation without change:
Continue with volume-cycled ventilation
AC 18/550/5/40%
Acceptable respiratory mechanics.
AB.47/35/134 (11/25/2024)
Chest x-ray 11/25/2024: Reviewed showed bilateral pleural effusion, right greater than left, stable compared to prior. Bibasilar airspace disease consistent with pneumonia. Possible pulmonary edema on top as well.
-
Repeat x-ray tomorrow.
-
Will decrease sedation as able
Ceftriaxone/azithromycin started morning of 11/23
Infectious disease following
Left pleural fluid positive with a streptococcal pneumonia
Blood culture positive with Streptococcus pneumonia
Vancomycin discontinued.
COVID-negative
Flu negative
Repeat chest x-ray, based on pleural fluid results if there is rapid reaccumulation of fluid chest tube will be needed on the left.
-
Possible heart failure component, volume overload, chronic kidney disease
Diuretics per nephrology as able
Echocardiogram was done in the ED, PA pressure 57, large bilateral pleural effusion, normal biventricular function which is encouraging
Fluids per nephrology, bicarbonate IV fluids discontinue
Cardiology following-supportive care for now.
Follow urine output
Hernandez catheter in place
Atrial fibrillation-improved rate.
Heparin drip-follow PTT.
Remains on amiodarone, started 11/23.
Cardiology following
Glycemic control-Target 140-180.
Insulin sliding scale
DVT prophylaxis: Heparin drip
GI prophylaxis: PPI
Reviewed with critical care nursing, respiratory care, primary service, cardiology
Critical care statement: A total of 35 minutes of critical care time was provided for this patient today. This includes management of unstable vital signs, evaluation of the patient at bedside, reviewing the patient's pertinent medical records
including ventilator settings, arterial blood gases, radiographs, microbiology, laboratory evaluations and discussion with primary team, critical care nursing, and respiratory therapy.
Subjective Dataa
Subjective Data
Date of Service:
Date of Service: November 25, 2024
Chief Complaint: [employer] Follow Up (Acute hypoxemic respiratory failure/septic shock)
Subjective:
Remains critically ill, on mechanical ventilation
On pressors.
Sedated
Review of Systems
General: Unobtainable - Sedation
Objective Data
Data Reviewed
Vital Signs / I&O / Oxygen:
Vital Signs
Temp Pulse Resp BP Pulse Ox
101.4 F H 117 18 131/63 94
11/25/24 11:00 11/25/24 11:15 11/25/24 11:15 11/25/24 05:06 11/25/24 11:47
Intake and Output
11/24/24 11/25/24 11/26/24
06:59 06:59 06:59
Intake Total 4189.1 / 4350.2 4834.0 / 4834.0 1058.5 / 1058.5
Output Total 527 / 527 2890 / 2890 490 / 490
Balance 3662.1 / 3823.2 1944.0 / 1944.0 568.5 / 568.5
SaO2 [A/C] 94
SaO2 [NIV (Non Invasive 83
Ventilation)]
SaO2 93
Nasal Cannula flow liters per 15
minute
Physical Exam
General: Comfortable and Other (Right IJ, upper extremity A-line)
HEENT: Normocephalic, Anicteric and Other (Dry mucosa)
Cardiovascular: S1-S2, Regular Rhythm, Murmur (n) and Other (Right lower extremity BKA)
Respiratory: Wheeze, Crackles (n), Rhonchi (n), Non-Labored Respirations, Stridor (n) and ET Tube
GI: Soft, Non Distended and Non Tender
Neurology: Awake, Alert, No Motor Deficits (Generally weak, moves extremities) and Other (Right BKA)
Skin: Cyanosis (n), Jaundice (n) and Rash (n)
Labs/Micro/Reports
Lab Data
11/25/24 03:28
11/25/24 03:28
Laboratory Results
11/24/24 11/25/24 11/25/24
20:02 02:16 03:28
APTT 43.9 H > 200 H* 197.5 H*
pH 7.47 H
pCO2 35
pO2 134 H
HCO3 25.5
O2 Delivery Level 60%
11/25/24
11:35
APTT 98.9 H
pH
pCO2
pO2
HCO3
O2 Delivery Level
Microbiology
11/22/24 14:40 Pleural Fluid Body Fluid Culture - Final
Streptococcus pneumoniae
11/22/24 14:40 Pleural Fluid Gram Stain - Final
11/23/24 11:42 Pleural Fluid Body Fluid Culture - Final
Streptococcus pneumoniae
11/23/24 11:42 Pleural Fluid Gram Stain - Final
11/22/24 16:01 Blood/Venous Blood Culture - Final
Streptococcus pneumoniae
11/22/24 16:01 Blood/Venous Gram Stain - Final
11/22/24 16:01 Blood/Venous Blood Culture - Final
Streptococcus pneumoniae
11/22/24 16:01 Blood/Venous Gram Stain - Final
11/22/24 16:59 Urine Urine Culture - Final
NO GROWTH
11/22/24 10:00 Nasal Swab Influenza Types A & B (BERRY) - Final
Negative for Influenza A & B, NAAT
Negative results must be combined with clinical observations
and patient history.
Nucleic Acid Amplification test (NAAT)performed on the
[employer] platform.
--- NOTE | 2024-11-25 13:53 | W.PN.HOSP.TC ---
Today's Communication/Plan
-
Wean pressors as tolerated
IV abx
IV amio/hep. (Hep gtt protocol switched to cardiac)
Cont TF
Assessment / Plan
Assessment / Plan
Gen-sedated, intubated
HEENT-NC, AT, anicteric, clear oral mm
Neck-supple
CV-reg, no M, +S1/S2
Lungs- ET tube noted. Breathing w/ the vent.
Abd-soft, NT, ND
Ext-left lower extremity edema, right BKA
Musculoskeletal-no cyanosis, clubbing
Skin-warm and dry
#Acute hypoxic respiratory failure -likely multifactorial etiology including acute pulmonary edema from heart failure, bilateral pleural effusions, pneumonia, sepsis.
Intubated 11/23. Appreciate sales merchandising specialist input.
Currently on 60% FiO2, wean down as able.
Repeat chest x-ray noted with increasing fluid pleural. May require chest tube.
Continue with tube feeding
#Sepsis due to pneumonia and Streptococcus bacteremia.
#Shock likely sepsis
#Bandemia 2/2 sepsis
requiring vasopressors and levophed. Wean pressors as BP allows.
Continue with ceftriaxone 2 g every 24 and azithromycin. DC further vancomycin.
Infectious disease following
#Acute on chronic heart failure with preserved EF
IV Lasix on hold due to shock, hypotension, vasopressors.
Echocardiogram done 11/22 shows LVEF 60 to 65%, stage I diastolic dysfunction, mild to moderate TR, normal RV size and function.
BNP 7510.
Diuretics per nephro.
#Rapid atrial fibrillation -appears to be a new diagnosis.
Continue with amiodarone infusion and heparin infusion. Cardiology following.
#Bilateral pleural effusions
Underwent bilateral thoracentesis by IR, 2 L of fluid removed from each side. Has had multiple bilateral thoracenteses in the past.
Fluid culture positive for infection. Antibiotics as above.
#Hyperkalemia
resolved. Hold losartan.
#AURY on CKD 4
previous creatinine was in the 2 range, 2.1-2.6 in February.
Admission creatinine 2.9,
Nephrology following.
Etiology of AURY suspected to be due to sepsis, shock. Hold losartan. Continue Hernandez catheter.
#DM 2 with hyperglycemia
glucose 178 this morning.
Has been on Lantus 14 units daily, NovoLog 6 units AC at home.
Currently on low resistance NovoLog scale. If needed can resume Lantus at lower dose.
Essential hypertension -hold meds for shock, hypotension.
Hyperlipidemia -atorvastatin.
PAD -history of right BKA.
Mild intermittent asthma
History of Burks-Troy syndrome
Hypokalemia-replete/monitor
Full code
Discussed with sales merchandising specialist
Total Critical Care Time 40 minutes. I was immediately available to the patient and staff. I personally examined, reviewed labs, diagnostic images/reports, interpretations, treatment plans, discussed patient care with other providers and family
or caregivers (if patient is unable to make decisions), entered orders as appropriate and documented the medical record.
Anticipated Discharge: > 48 hours
Subjective/Interval History
-
Date of Service: November 25, 2024
Remains intubated and sedated
Remains on Levophed and vasopressin
Mild increasing residuals this morning which is decreased
Having bowel movements
Spiking fever
Blood cultures were noted
Objective Data
-
Labs:
Laboratory Results
11/25/24 11/25/24 11/25/24
02:16 03:28 11:35
WBC 9.3
Hgb 12.0 L
Hct 36.4 L
Plt Count 107 L
APTT > 200 H* 197.5 H* 98.9 H
HCO3 25.5
Sodium 136
Potassium 3.4 L
Chloride 99
Carbon Dioxide 27
BUN 80 H
Creatinine 2.9 H
Glucose 189 H
Calcium 8.1 L
Total Bilirubin 0.4
AST 24
ALT 17
Alkaline Phosphatase 67
11/25/24
18:00
WBC
Hgb
Hct
Plt Count
APTT Pending
HCO3
Sodium
Potassium
Chloride
Carbon Dioxide
BUN
Creatinine
Glucose
Calcium
Total Bilirubin
AST
ALT
Alkaline Phosphatase
Vital Signs:
Vital Signs
Temp Pulse Resp BP Pulse Ox
101.4 F H 117 18 131/63 94
11/25/24 11:00 11/25/24 11:15 11/25/24 11:15 11/25/24 05:06 11/25/24 11:47
I&O
11/24/24 11/25/24 11/26/24
06:59 06:59 06:59
Intake Total 4189.1 / 4350.2 4834.0 / 4834.0 1144.2 / 1144.2
Output Total 527 / 527 2890 / 2890 540 / 540
Balance 3662.1 / 3823.2 1944.0 / 1944.0 604.2 / 604.2
--- NOTE | 2024-11-25 15:48 | CM ---
Patient continues in ICU, nursing states that patient continues with improvement but continues to qualify for ICU level care. Patient disposition uncertain at this time. CM will continue to follow for discharge planning needs.
Plan; pending patient functional needs
--- NOTE | 2024-11-25 16:00 | PTCARENOTE ---
Assessment unchanged; A-fib on monitor and VSS; pt remains intubated; Levo, Heparin, Vaso and Amio infusing see flow sheet for details; family at bedside and updated on plan.
[2024-11-25 18:00] LABS: APTT 99.9 Sec (23.4-35.0)
--- NOTE | 2024-11-25 18:00 | PTCARENOTE ---
Pt tired to self extubate self; 3 RN's and respiratory at bedside; new orders received for B/L hand wrist restraints and 4 side rails; B/L wrist restraints applied; portable CRX ordered and taken; A-fib on monitor and VSS; assessment unchanged and
pt resting comfortably in bed.
[2024-11-25] MEDS: SINGULAIR 10 MG PO (18:15)
[2024-11-25] MEDS: LIPITOR 20 MG PO (18:15)
[2024-11-25] MEDS: HEPARIN 25000 UNITS/250 ML IV (18:22)
[2024-11-25 18:33] LABS: Glucose - Point of Care 202 mg/dl (70-99)
--- NOTE | 2024-11-25 20:00 | PTCARENOTE ---
Resumed care of pt intubated on vent. Pt opens eyes to voice, pt able to nod head and attempts to mouth words. No sedation at this time. B/L wrist restraints in place and secure. Pt HR in the 90's to low 100's in Afib on the monitor. Amiodarone
infusing via right IJ @0.5 mg/min as ordered. POX 92% on current vent settings AC18, TV 550, Fio2 50%, Peep 5 with #8.0 ETT to 25 at left lip. Pt orally suctioned for thick white secretions. Oral care complete. Lungs course, dec @ bases. Left nare
DHT in place infusing Osmolite 1.2 @30ml/hr, no flush. Hyper bowel, round abd. Pt grossly inc of liquid brown stool, rectal trumpet inserted now draining liquid brown stool. Complete bed bath provided, kisha care complete. Hernandez in place draining
clear yellow urine. Right BKA. Left foot with 3 toes amp. Doppler pulses present. Left AC int leaking and removed. Right forearm int capped. Right IJ tripple lumen in place infusing Double concentrated Levophed at 8mcg/min to keep MAP.65, Vaso
@0.03 units/min, and Heparin gtt @1000units/hr. New sacral foam applied. pt repositioned per comfort. Will continue to monitor.
[2024-11-25] MEDS: TYLENOL ORAL SOLUTION 650 MG TUBE (20:15)
--- NOTE | 2024-11-25 21:10 | RESPNOTE ---
PT self-extubated while restrained at this time and was subsequesntly placed on a NRB with end-tidal. Will get an ABG from the A-line shortly and monitor resp status.
--- NOTE | 2024-11-25 21:22 | W.PN.UPDATE ---
Update Note
Progress Note Update
7 Patient self-extubated. ��Patient currently able to protect airway, moving all extremities, and able to follow commands. Plan to observe patient if he fails will reintubate.
[2024-11-25 21:50] LABS: B.E. 3.5 mmol/L; HCO3 29.1 mmol/L (21-28); O2 Saturation % 96.1 % (94-98); PCO2 47 mmHg (35-48); PO2 73 mmHg (83-108)
--- NOTE | 2024-11-25 22:43 | PTCARENOTE ---
Pt self extubated himself. RT and GIS SCIENTIST at bedside. B/L wrist restraints in place and secured prior to extubation, pt slid down in bed and purposefully pulled ETT out. Pt stated ' I wanted it out'. RT placed pt on NIV 12/07 with 100% FIO2. HR in the
140's -150's Amiodarone gtt increased to 1mg/min per order. Pt nodding head and attempting to speak, making needs known. Pt educated on need to keep NIV mask in place to avoid re-intubation. Pt expresses understanding. ABG obtained and stable at
this time. B/L wrist restraints removed. Close monitoring maintained. Will continue to monitor.
[2024-11-25 23:52] LABS: Glucose - Point of Care 259 mg/dl (70-99)
[2024-11-26] MEDS: NOVOLOG FLEXPEN-HIGH RESISTANCE 7 UNITS SC ×3 (00:20→23:28)
[2024-11-26] MEDS: TYLENOL ORAL SOLUTION 650 MG TUBE ×2 (00:21→17:48)
[2024-11-26] MEDS: ATIVAN 0.25 MG IV (01:44)
[2024-11-26] MEDS: NSS (PRESERVATIVE FREE) 0.125 ML IV (01:45)
--- NOTE | 2024-11-26 02:00 | PTCARENOTE ---
Pt awake, not sleeping, asking for water, stating he cant breathe. All vitals stable, POX 95% on NIV. Pt repositioned. Medication administered as ordered. Levophed being tapered down. Will continue to monitor.
[2024-11-26] MEDS: CORDARONE 518 MG IV (03:16)
--- NOTE | 2024-11-26 04:00 | PTCARENOTE ---
Pt finally resting. No issues to report. Pt tolerating NIV. Attempting to wean off pressors. Amio, and hep gtt infusing as ordered. Vital signs stable. Will continue to monitor.
[2024-11-26 04:23] LABS: B.E. 2.9 mmol/L; HCO3 28.5 mmol/L (21-28); O2 Saturation % 99.6 % (94-98); PCO2 47 mmHg (35-48); PO2 106 mmHg (83-108); pH 7.39 (7.35-7.45)
[2024-11-26 04:28] LABS: O2 Therapy 100%
[2024-11-26 04:40] LABS: APTT 96.5 Sec (23.4-35.0)
[2024-11-26 05:22] LABS: Blood Urea Nitrogen 84 mg/dl (9-20); Calcium 7.6 mg/dl (8.4-10.2); Carbon Dioxide 27 mmol/L (22-30); Chloride 100 mmol/L (98-107); Estimated Creatinine Clearance 26 ml/min; Glucose 296 mg/dl (70-99); Potassium 3.5 mmol/L (3.5-5.1); Sodium 136 mmol/L (135-145); eGFR 29.36
[2024-11-26 05:24] LABS: Hematocrit 34.3 % (39.0-52.0); Hemoglobin 11.2 g/dL (13.0-18.0); Mean Corp Hgb Conc. 32.7 g/dL (33.0-37.0); Mean Corpuscular Volume 85.8 fL (80.0-94.0); Mean Platelet Volume 10.2 fL (7.4-10.4); Platelet Count 88 10^3/uL (130-400); Red Cell Dist. Width 15.4 % (11.5-14.5); White Blood Cell Count 13.2 10^3/uL (4.8-10.8)
[2024-11-26] MEDS: KCL ELIXIR 20 MEQ TUBE (05:45)
[2024-11-26 05:54] LABS: Glucose - Point of Care 264 mg/dl (70-99)
[2024-11-26 06:00] VITALS: BMI 25.0
[2024-11-26] MEDS: ROCEPHIN 2000 MG IV (07:43)
[2024-11-26] MEDS: PLAVIX 75 MG PO (07:43)
[2024-11-26] MEDS: ZITHROMAX INFUSION 250 IV (07:44)
[2024-11-26] MEDS: STERILE WATER FOR INJECTION 20 ML IV (07:44)
[2024-11-26 07:59] VITALS: BP 102/47
--- NOTE | 2024-11-26 09:12 | W.PN.ID1 ---
Date of Service
Date of Service: November 26, 2024
Today's Communication
Continue ceftriaxone. Discontinue further Azithromycin. Continue with supportive measures. Follow temperature curve.
Assessment / Plan
Bacteremia with Streptococcus pneumoniae
Leukocytosis
Hypoxic respiratory failure
-S/p self extubation. Currently remains on BiPAP.
Fevers
Parapneumonic effusion; s/p thoracentesis
- left sided pleural fluid also with Streptococcus pneumoniae
HTN
CHF
DM type II with neuropathy
CKD stage IV
Dyslipidemia
Pulmonary hypertension
PAD with hx (R) BKA
Recommendations:
Continue ceftriaxone 2 g IV every 24 hours.
Discontinue further Azithromycin.
Monitor white count and temperature curve.
Follow CXR.
����������������������������������������������������������
Chief Complaint
-: Clinical Sepsis, Bacteremia and Other (Parapneumonic effusion)
Subjective / Review of Systems
Patient seen and examined. Chart reviewed. Overnight, patient self extubated, and currently now on BiPAP.
Continued elevated temperatures noted, although these are 'core' temperatures.
Vital Signs / Physical Exam
Vital Signs
Vital Signs
Temp Pulse Resp BP Pulse Ox
99.9 F 85 26 102/47 95
11/26/24 07:00 11/26/24 09:00 11/26/24 09:00 11/26/24 07:59 11/26/24 09:00
Physical Exam
Constitutional: Comfortable, Acutely Ill and Non-toxic
Eyes: No Conjunctival Hemorrhage and Sclera Anicteric
Cardiovascular: Irregular Rate and S1/S2; Negative S3/S4
Pulmonary: Other (BiPAP mask in place. Minimally labored.)
Gastrointestinal: Soft, Non Distended and Normal Bowel Sounds
Extremities: Edema; Negative Cyanosis or Erythema
Skin: Warm and Dry; Negative Rash or Jaundice
Neurological: Awake and Alert
Psychological: Calm
Objective Data
Lab Data
Lab Results
11/26/24 04:12
11/26/24 04:12
PT 17.4 Sec (11.4-14.6) H 11/22/24 10:00
INR 1.37 11/22/24 10:00
APTT 96.5 Sec (23.4-35.0) H 11/26/24 04:12
Estimated Creat Clear 26 ml/min 11/26/24 04:12
Lactic Acid 2.0 mmol/L (0.7-2.0) 11/23/24 20:24
Total Bilirubin 0.4 mg/dl (0.2-1.3) 11/25/24 03:28
AST 24 U/L (17-59) 11/25/24 03:28
ALT 17 U/L (0-50) 11/25/24 03:28
Alkaline Phosphatase 67 U/L (38-126) 11/25/24 03:28
Most recent labs reviewed.
Chest X-Ray: Image Reviewed and Report Reviewed
Micro Results:
11/22/24 14:39 Acid Fast Bacilli Smear - Preliminary
Pleural Fluid Acid Fast Bacilli Culture - Preliminary
11/22/24 14:40 Fungal Smear - Pending
Pleural Fluid Fungal Culture - Preliminary
Culture in progress.
Positive cultures are reported as soon as detected.
Final report to follow in four to five weeks.
11/22/24 14:40 Body Fluid Culture - Final
Pleural Fluid Streptococcus pneumoniae
Gram Stain - Final
11/23/24 11:42 Body Fluid Culture - Final
Pleural Fluid Streptococcus pneumoniae
Gram Stain - Final
11/22/24 16:01 Blood Culture - Final
Blood/Venous Streptococcus pneumoniae
Gram Stain - Final
11/22/24 16:01 Blood Culture - Final
Blood/Venous Streptococcus pneumoniae
Gram Stain - Final
11/22/24 16:59 Urine Culture - Final
Urine NO GROWTH
11/22/24 10:00 Influenza Types A & B (BERRY) - Final
Nasal Swab Negative for Influenza A & B, NAAT
Negative results must be combined with clinical observations
and patient history.
Nucleic Acid Amplification test (NAAT)performed on the
[employer] platform.
Imaging:
11/26/2024 CXR (portable): Previously noted ET tube is no longer identified. Right IJ catheter is noted with tip in distal SVC. No pneumothorax. Moderate bilateral pleural effusions are without significant change. Cephalization of pulmonary
vasculature is noted.
11/22/2024 CXR (2 view): There is moderate bibasilar opacification at least in part suggesting moderate pleural effusions with likely underlying subsegmental atelectasis, slightly increased in comparison to prior study and significantly obscuring
the cardiac silhouette. There is no pneumothorax or suspected mediastinal shift.
11/22/2024 ECHO (TTE): EF approximately 60%. Mild to moderate tricuspid regurgitation. Large bilateral pleural effusions noted. Compared to prior from February 27, 2024, estimated pulmonary artery systolic pressure remain moderate to severely
elevated at 57 mmHg.
Care Review
Plan reviewed with: Physician (Critical Care)
--- NOTE | 2024-11-26 09:20 | PTCARENOTE ---
Received pt this am on niv ventilation with amio/heparin/levo/vaso infusing as charted. Weaned off levo then vaso as charted. Pt reports feeling sob, Dr Morales aware. Lasix ordered and given. Pt tachypneic, with sats low to mid 90s on 70%.
Does not appear acutely distressed. Pt turned/repositioned. Hernandez/skin care given. Rectal trumpet in place putting out dark brown loose stool. Otherwise please refer to worklist
[2024-11-26] MEDS: LASIX 40 MG IV (09:33)
--- NOTE | 2024-11-26 09:40 | W.PN.NEPH.PH ---
Today's Communication / Plan
-
Restarted Lasix
Assessment/Plan
-
Assessment:
CKD IV (followed by Dr. Duncan) presumed to be DKD/vascular sclerosis
AURY
b/l pleural effusions
Decompensated Diastolic heart failure (on losartan, metoprolol, jardiance previously tried. no aldactone due to hyperK)
DM2
PVD s/p R BKA
hypotension
subnephrotic range proteinuria ?improving
PNA
GPC Bacteremia
leukopenia
- In 2020 Kidney biopsy was not adequate but EM showed nodular diabetic sclerosis and severe vascular sclerosis.
Plan:
Creatinine improving to 2.9>2.2 and remains grossly nonoliguric
Off pressors/self extubated last night
follow BMP
keep SBP > 90 and MAP > 65 currently
maintain hernandez
holding losartan
Lasix restarted
Communicated with critical care team
critical care time 32 minutes
-
-
Date of Service: November 26, 2024
CC / HPI / ROS
-
Chief Complaint:
AURY
History of Present Illness:
critically ill in ICU now off pressors
AURY/Cr
Self-extubated on BiPAP
Review of Systems:
BiPAP
awake
non oliguric
Labs
-
Labs:
WBC 13.2 10^3/uL (4.8-10.8) H 11/26/24 04:12
RBC 4.00 10^6/uL (4.70-6.10) L 11/26/24 04:12
Hgb 11.2 g/dL (13.0-18.0) L 11/26/24 04:12
Hct 34.3 % (39.0-52.0) L 11/26/24 04:12
Plt Count 88 10^3/uL (130-400) L 11/26/24 04:12
Sodium 136 mmol/L (135-145) 11/26/24 04:12
Potassium 3.5 mmol/L (3.5-5.1) 11/26/24 04:12
Chloride 100 mmol/L (98-107) 11/26/24 04:12
Carbon Dioxide 27 mmol/L (22-30) 11/26/24 04:12
BUN 84 mg/dl (9-20) H 11/26/24 04:12
Creatinine 2.2 mg/dL (0.7-1.3) H 11/26/24 04:12
eGFR 29.36 11/26/24 04:12
Glucose 296 mg/dl (70-99) H 11/26/24 04:12
Calcium 7.6 mg/dl (8.4-10.2) L 11/26/24 04:12
Mjy-T-Hcqrvdrqlha Pept 7510 pg/ml 11/22/24 10:00
Albumin 2.6 g/dl (3.5-5.0) L 11/25/24 03:28
Physical Exam
-
Vital Signs:
Vital Signs
Temp Pulse Resp BP Pulse Ox
99.9 F 85 26 102/47 95
11/26/24 07:00 11/26/24 09:00 11/26/24 09:00 11/26/24 07:59 11/26/24 09:00
--- NOTE | 2024-11-26 10:33 | W.PN.CD ---
Today's Communication / Plan
-
- Continue amiodarone drip.
- Continue heparin drip.
Impression / Plan
-
IMPRESSION/PLAN: 79M with chronic HFpEF, hypertension, tricuspid regurgitation, pulmonary hypertension, dyslipidemia, PAD status post right BKA, chronic lymphedema, medically managed endocarditis in 2019 and chronic kidney disease stage IV who
presented to the emergency department with a chief complaint of shortness
Primary Slot Shift Supervisor: Dr. Landa
Acute on chronic hypoxic respiratory insufficiency 2/2 PNA with septic shock
Bacteremia and bacteria in thora fluid
- Extubated.
- No longer on Levophed.
- ID following.
- Management as per primary team/pens and pencils dipper.
HFpEF, acute on chronic
-Would differ diuretics to nephro given CKD and worsening kidney fxn
- appears to be urinating OK
-Case management to [facility] [id number], nephrology believes he will benefit from this (per outpatient note)
-Trend daily weight, I's/O, and BMP with diuresis
AF RVR
- new; CHADSVASC at least 6
- Continue amiodarone drip.
- Continue heparin drip.
- Continue site monitor.
Bilateral pleural effusions
-Status post thora
- bacteria in fluid
Moderate tricuspid regurgitation
Severe pulmonary hypertension
HTN, managed by [employer]
HLD, on atorvastatin 20mg
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 Duncan
Secondary hyperparathyroidism
Type II DM, on insulin
PAD S/P right BKA, on clopidogrel
Former tobacco abuse, continued cessation recommended
Subjective:
Now extubated.
Physical Exam
Vital Signs/Labs
Vital Signs
Temp Pulse Resp BP Pulse Ox
99.9 F 95 27 102/47 95
11/26/24 07:00 11/26/24 09:30 11/26/24 09:30 11/26/24 07:59 11/26/24 10:26
11/25/24 11/26/24 11/27/24
06:59 06:59 06:59
Actual Weight 76.7 kg 76.8 kg
11/26/24 04:12
11/26/24 04:12
PT 17.4 Sec (11.4-14.6) H 11/22/24 10:00
INR 1.37 11/22/24 10:00
APTT 96.5 Sec (23.4-35.0) H 11/26/24 04:12
11/22/24
10:00
Luv-Q-Srqmgyqddrc Pept 7510
Physical Exam
Constitutional: No acute distress and Comfortable
EENT: Anicteric
Cardiovascular: Pedal edema is absent, Rhythm/rate is irregular, Pedal edema present (12/02) and S1S2 is normal
Respiratory: Respiratory effort normal, Wheeze Absent and Other (decreased bibasilar breath sounds)
GI: Soft
Neuro/Psych: Alert
Other: Skin (warm, dry)
Data Reviewed
-
Date of Service: November 26, 2024
EKG: Report Reviewed by me (Telemetry: AFIB)
Labs: Labs Reviewed by me
Critical Care Time (in minutes): 34
--- NOTE | 2024-11-26 11:00 | W.PN.INTV ---
Today's Communication / Plan
Recommendations
Continue ceftriaxone
Will attempt IV diuresis
Continue noninvasive mechanical ventilation on high flow oxygen as needed
Daily chest x-ray
Incentive spirometry
Minimize sedation
Continue heparin drip
Continue amiodarone
Assessment
-
79-year-old male with history of heart failure, chronic kidney disease, bilateral pleural effusions requiring intermittent thoracentesis, presents with 3 days of increased chest discomfort on the left side. This was associated with increased
shortness of breath. He admits to not taking his Lasix therapy given recent stress and travel to the city with sick grandchild. Was found to have bilateral pleural effusions. Underwent right thoracentesis drained 2 L. Postthoracentesis required
increased oxygen, now on BiPAP saturation 86%. We are asked to help from critical care standpoint 11/22/2024
Acute hypoxic respiratory insufficiency
on NIV, intubated 11/23
Baseline 1 to 2 L at home as needed
Worsening left upper lobe infiltrate
Pneumonia versus reexpansion pulmonary edema
Bacteremia
Left pleural fluid positive for Streptococcus hypotension, secondary to sepsis
s/p Left thora 11/23, -2L
History of heart failure
Pulmonary hypertension
Noncompliance with Lasix in the past
s/p rt thora -2L on 11/22
Acute renal insufficiency, creatinine 3.5
Conditions present prior to admission
COPD, emphysema per CT imaging
FEV1 2.48/92%, TLC 90%, DLCO 50% per PFT 2019
Hypertension/hyperlipidemia
Peripheral arterial disease, right BKA
On Plavix
Left toe amputation
Chronic kidney disease, stage III
Diabetic nodular glomerulosclerosis
Recurrent pleural effusion requiring intermittent thoracentesis
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
COVID December 2022
Plan/recommendations:
Required intubation 11/23 for progressive hypoxia.
Self extubated 11/25/2024 in the afternoon
Transition to noninvasive mechanical ventilator-tolerated overnight
Remains hypoxemic
Chest x-ray this morning 11/26/2024: Bilateral pleural effusions without change, mild pulmonary edema pattern.
-
Status post left thoracentesis:
Chest x-ray worrisome for left upper lobe pneumonia, left pleural fluid positive for Streptococcus
Blood cultures are positive-for Streptococcus pneumonia as well.
-
Will transition to high flow oxygen and may use noninvasive mechanical ventilation as needed.
Currently 65% FiO2.
Will attempt diuresis, 40 mg IV Lasix given, will assess response
If not responsive will increase to 60 mg IV, suspect there is a component of volume overload.
Daily chest x-ray
Maintain pulse ox above 90% as able.
-
Minimize sedation
-
A-fib/leukocytosis noted
Continue ceftriaxone- 11/23
Azithromycin discontinued
Infectious disease following
Left pleural fluid positive with a streptococcal pneumonia
Blood culture positive with Streptococcus pneumonia
Vancomycin discontinued.
COVID-negative
Flu negative
Daily chest x-ray, if there is rapid reaccumulation on the left chest tube will be needed.
-
Possible heart failure component, volume overload, chronic kidney disease
Diuretics per nephrology as able-IV Lasix today 11/26/2024.
Echocardiogram was done in the ED, PA pressure 57, large bilateral pleural effusion, normal biventricular function which is encouraging
Hold IV fluid
Cardiology following-supportive care for now.
Follow urine output
Hernandez catheter in place
Atrial fibrillation-improved rate.
Heparin drip-follow PTT.
Remains on amiodarone, started 11/23.
Cardiology following
Glycemic control-Target 140-180.
Insulin sliding scale
Dobbhoff tube in place
Okay to continue tube feedings
Speech evaluation today
Physical therapy/Occupational Therapy as able
DVT prophylaxis: Heparin drip
GI prophylaxis: PPI
High risk for reintubation
Reviewed with critical care nursing, respiratory care, primary service, cardiology
Critical care statement: A total of 31 minutes of critical care time was provided for this patient today. This includes management of unstable vital signs, evaluation of the patient at bedside, reviewing the patient's pertinent medical records
including ventilator settings, arterial blood gases, radiographs, microbiology, laboratory evaluations and discussion with primary team, critical care nursing, and respiratory therapy.
Subjective Dataa
Subjective Data
Date of Service:
Date of Service: November 26, 2024
Chief Complaint: Portable Machine Cutter Follow Up (Acute hypoxemic respiratory failure/septic shock)
Subjective:
Self extubated yesterday
Currently on noninvasive mechanical ventilation, alert, following commands.
Review of Systems
General: Other (Difficult to obtain as the patient is on noninvasive mechanical ventilation)
Objective Data
Data Reviewed
Vital Signs / I&O / Oxygen:
Vital Signs
Temp Pulse Resp BP Pulse Ox
99.9 F 103 25 102/47 93
11/26/24 07:00 11/26/24 10:30 11/26/24 10:30 11/26/24 07:59 11/26/24 10:30
Intake and Output
11/25/24 11/26/24 11/27/24
06:59 06:59 06:59
Intake Total 4834.0 / 4834.0 2503.0 / 2587.5 588.6 / 588.6
Output Total 2890 / 2890 1525 / 1575 245 / 245
Balance 1944.0 / 1944.0 978.0 / 1012.5 343.6 / 343.6
SaO2 [A/C] 90
SaO2 [NIV (Non Invasive 93
Ventilation)]
SaO2 93
Nasal Cannula flow liters per 50
minute
Physical Exam
General: Comfortable and Other (Noninvasive mechanical ventilation)
HEENT: Normocephalic, Anicteric and Other (Dry mucosa)
Cardiovascular: S1-S2, Regular Rhythm, Murmur (n) and Other (Right lower extremity BKA)
Respiratory: Wheeze, Crackles (n), Rhonchi (n), Non-Labored Respirations and Stridor (n)
GI: Soft, Non Distended and Non Tender
Neurology: Awake, Alert, No Motor Deficits (Generally weak, moves extremities) and Other (Right BKA)
Skin: Cyanosis (n), Jaundice (n) and Rash (n)
Labs/Micro/Reports
Lab Data
11/26/24 04:12
11/26/24 04:12
Laboratory Results
11/25/24 11/25/24 11/25/24
11:35 17:33 21:42
APTT 98.9 H 99.9 H
pH 7.40
pCO2 47
pO2 73 L
HCO3 29.1 H
O2 Delivery Level
11/26/24
04:12
APTT 96.5 H
pH 7.39
pCO2 47
pO2 106
HCO3 28.5 H
O2 Delivery Level 100%
Microbiology
11/22/24 14:39 Pleural Fluid Acid Fast Bacilli Smear - Preliminary
11/22/24 14:39 Pleural Fluid Acid Fast Bacilli Culture - Preliminary
11/22/24 14:40 Pleural Fluid Fungal Culture - Preliminary
Culture in progress.
Positive cultures are reported as soon as detected.
Final report to follow in four to five weeks.
11/22/24 14:40 Pleural Fluid Body Fluid Culture - Final
Streptococcus pneumoniae
11/22/24 14:40 Pleural Fluid Gram Stain - Final
11/23/24 11:42 Pleural Fluid Body Fluid Culture - Final
Streptococcus pneumoniae
11/23/24 11:42 Pleural Fluid Gram Stain - Final
11/22/24 16:01 Blood/Venous Blood Culture - Final
Streptococcus pneumoniae
11/22/24 16:01 Blood/Venous Gram Stain - Final
11/22/24 16:01 Blood/Venous Blood Culture - Final
Streptococcus pneumoniae
11/22/24 16:01 Blood/Venous Gram Stain - Final
11/22/24 16:59 Urine Urine Culture - Final
NO GROWTH
[2024-11-26 11:43] VITALS: BP 105/58
--- NOTE | 2024-11-26 12:15 | PTCARENOTE ---
systems reviewed. pt sats dropping to 80s on high flow 55/60. attempted to do IS and pt could barely move device. was able to cough some thick butt secretions suctioned, but sats did not improve. resp therapist aware and pt placed back on niv.
No other changes at this time.
[2024-11-26] MEDS: LASIX 60 MG IV (12:17)
[2024-11-26] MEDS: NOVOLIN N vial 0.07 UNITS SC (12:18)
[2024-11-26] MEDS: NOVOLOG FLEXPEN-HIGH RESISTANCE 4 UNITS SC ×2 (12:18→18:00)
[2024-11-26 12:23] LABS: Glucose - Point of Care 209 mg/dl (70-99)
--- NOTE | 2024-11-26 13:00 | PN.CDI ---
CDI
- -
CDI:
Physician Documentation Request
Admit Date: 11/22/24 14:35
Dear Doctor Cydney,
Patient presented to ED for evaluation of shortness of breath. Attending note states 'presentation consistent with acute HFpEF exacerbation'
H&P state 'Acute on Chronic hypoxic resp insufficiency on chronic 2-3 L nasal cannula / MOD BILAT Pleural effusions versus possible infectious source'
Sepsis was included in progress note 10/24.
10/23 presenting wbc 5.2 , temp 97.6 (tmax 10/23 100.6 ), presenting heart rate 80s, respiratory rate 20-28
Please clarify the following:
Sepsis was present on admission
Sepsis was not present on admission
Unable to determine
Use of terms such as suspected, likely, concern for, or probable (associated with a specific diagnosis that is being evaluated, monitored, or treated as if it exists) are acceptable and can be coded in the inpatient setting, when documented at the
time of discharge.
Thank you,
Liliana Self RN, BSN
CDI Specialist
tiger text
Please use your independent medical judgment in providing your response.
--- NOTE | 2024-11-26 13:09 | W.PN.HOSP.TC ---
Addendum entered and electronically signed by Dami Lamas MD 11/26/24 14:25:
finally able to get in touch with spouse-updated via phone in details
Addendum entered and electronically signed by Dami Lamas MD 11/26/24 13:51:
called spouse to update but no response once again. left voicemail for callback
Addendum entered and electronically signed by Dami Lamas MD 11/26/24 13:49:
circled back to room but no family was present at bedside
Original Note:
Today's Communication/Plan
-
IV abx
IV lasix
on NIV-monitor closely
trend cr-improving
Monitor respiratory status closely
Assessment / Plan
Assessment / Plan
Gen-On NIV. Opens eyes
HEENT-NC, AT, anicteric, clear oral mm
Neck-supple
CV-reg, no M, +S1/S2, irregular irregular
Lungs- rhonchi anterior
Abd-soft, NT, ND, rectal bag
Ext-left lower extremity edema, right BKA
Musculoskeletal-no cyanosis, clubbing
Skin-warm and dry
#Acute hypoxic respiratory failure -likely multifactorial etiology including acute pulmonary edema from heart failure, bilateral pleural effusions, pneumonia, sepsis.
Intubated 11/23. Appreciate business instructor input.
Status post self extubation 11/25. Currently on noninvasive. Low threshold for reintubation
Repeat chest x-ray noted with increasing fluid pleural. May require chest tube.
Continue with tube feeding
#Sepsis due to pneumonia and Streptococcus bacteremia-poa
#Shock likely sepsis
#Bandemia 2/2 sepsis
#Parapneumonic effusion status post thoracentesis
requiring vasopressors and levophed. Wean pressors as BP allows.
Continue with ceftriaxone 2 g every 24. DC further vancomycin and azithromycin
Underwent bilateral thoracentesis by IR, 2 L of fluid removed from each side. Has had multiple bilateral thoracenteses in the past.
Off pressors
Infectious disease following
#Acute on chronic heart failure with preserved EF
Echocardiogram done 11/22 shows LVEF 60 to 65%, stage I diastolic dysfunction, mild to moderate TR, normal RV size and function.
BNP 7510.
Lasix restarted 80 mg IV twice daily
Diuretics per nephro.
#Rapid atrial fibrillation -appears to be a new diagnosis.
Continue with amiodarone infusion and heparin infusion. Cardiology following.
#Hyperkalemia
resolved. Hold losartan.
#AURY on CKD 4
previous creatinine was in the 2 range, 2.1-2.6 in February.
Admission creatinine 2.9,
Nephrology following.
Etiology of AURY suspected to be due to sepsis, shock. Hold losartan. Continue Hernandez catheter.
#DM 2 with hyperglycemia
glucose 178 this morning.
Has been on Lantus 14 units daily, NovoLog 6 units AC at home.
Currently on low resistance NovoLog scale.
Essential hypertension -hold meds for shock, hypotension.
Hyperlipidemia -atorvastatin.
PAD -history of right BKA.
Mild intermittent asthma
History of Burks-Troy syndrome
Hypokalemia-replete/monitor
Full code
Discussed with business instructor
called spouse to update but no response.
Anticipated Discharge: > 48 hours
Subjective/Interval History
-
Date of Service: November 26, 2024
Overnight events noted.
Patient self extubated and currently on noninvasive 12/07 with 70%fio2
Objective Data
-
Labs:
Laboratory Results
11/26/24
04:12
WBC 13.2 H
Hgb 11.2 L
Hct 34.3 L
Plt Count 88 L
APTT 96.5 H
HCO3 28.5 H
Sodium 136
Potassium 3.5
Chloride 100
Carbon Dioxide 27
BUN 84 H
Creatinine 2.2 H
Glucose 296 H
Calcium 7.6 L
Vital Signs:
Vital Signs
Temp Pulse Resp BP Pulse Ox
99.9 F 128 28 102/47 93
11/26/24 07:00 11/26/24 11:30 11/26/24 11:30 11/26/24 07:59 11/26/24 12:00
I&O
11/25/24 11/26/24 11/27/24
06:59 06:59 06:59
Intake Total 4834.0 / 4834.0 2503.0 / 2587.5 732.0 / 732.0
Output Total 2890 / 2890 1525 / 1575 410 / 410
Balance 1944.0 / 1944.0 978.0 / 1012.5 322.0 / 322.0
--- NOTE | 2024-11-26 16:09 | PTCARENOTE ---
systems reviewed. pt remains on niv, tachypneic in 30s. fatigued. minimal urine output with diuresis. dr hsu aware. tylenol for core temp 101.1. no other changes.
[2024-11-26] MEDS: LIPITOR 20 MG PO (17:48)
[2024-11-26] MEDS: SINGULAIR 10 MG PO (17:48)
[2024-11-26 18:10] LABS: Glucose - Point of Care 207 mg/dl (70-99)
[2024-11-26 18:14] VITALS: BP 93/54
--- NOTE | 2024-11-26 20:00 | PTCARENOTE ---
resumed care of pt laying in bed, arousable to voice, able to node head and talk through NIV mask to make needs known. HR in the low 100's in Afib with occ. PVC's. POX 94% on current NIV settings, Fio2 70%, R 12, Peep 8, pressure support 16. Lungs
dec @ bases, course. Tachypneic at rest, RR in the 30's. Left Nare DHT in place infusing jevity 1..5 @55ml/hr. + bowel, round abd. Rectal trumpet in place draining brown loose stool. Temp sensing Hernandez in place. Right BKA, Left first 3 toes amp.
Doppler pulses present. Right IJ tripple lumen in place infusing Hep gtt @1000units/ hr, Amio gtt @0.5mg/min. Right AC int capped. Left radial Rin in place. Sacral foam intact. Pt repositioned per comfort. Call pino in reach. Will continue to
monitor.
[2024-11-26] MEDS: HEPARIN 25000 UNITS/250 ML IV (21:41)
[2024-11-26] MEDS: LANTUS 0.14 UNITS SC (23:28)
[2024-11-26 23:36] LABS: Glucose - Point of Care 265 mg/dl (70-99)
[2024-11-27] VITALS (12 sets, daily range): BP systolic 108–137; BP diastolic 51–69; BMI 25.0
[2024-11-27] MEDS: TYLENOL ORAL SOLUTION 650 MG TUBE ×3 (00:38→20:48)
[2024-11-27] MEDS: ZOFRAN 4 MG IV (01:34)
--- NOTE | 2024-11-27 01:53 | PTCARENOTE ---
Pt rang call pino, pt stated he felt like he was going to throw up. NIV mask removed. Pt had a couple episodes of harsh dry heaves, but no actual vomit. POX dropped into the 70's, NRB mask applied. RT at bedside to place pt on Hi Flow NC. Pt POX now
94% on 60L/100% hi flow. Zofran administered as ordered. Pt with harsh junky cough, pt encouraged to bring up secretions, deep suction provided to help clear airway, thick butt secretions suctioned. Pt tolerating Hi flow well at this time. Pt reports
feeling better. Close monitoring maintained. Will monitor.
[2024-11-27 04:02] LABS: Hematocrit 37.3 % (39.0-52.0); Hemoglobin 11.8 g/dL (13.0-18.0); Mean Corp Hgb Conc. 31.6 g/dL (33.0-37.0); Mean Corpuscular Volume 88.4 fL (80.0-94.0); Platelet Count 89 10^3/uL (130-400); Red Blood Cell Count 4.22 10^6/uL (4.70-6.10); Red Cell Dist. Width 15.8 % (11.5-14.5); White Blood Cell Count 13.8 10^3/uL (4.8-10.8)
[2024-11-27 04:15] LABS: APTT 63.9 Sec (23.4-35.0)
[2024-11-27 04:27] LABS: Blood Urea Nitrogen 94 mg/dl (9-20); Calcium 7.9 mg/dl (8.4-10.2); Carbon Dioxide 27 mmol/L (22-30); Chloride 101 mmol/L (98-107); Estimated Creatinine Clearance 23 ml/min; Glucose 256 mg/dl (70-99); Potassium 3.5 mmol/L (3.5-5.1); Sodium 139 mmol/L (135-145); eGFR 25.18
--- NOTE | 2024-11-27 04:54 | PTCARENOTE ---
Pt tolerating hi flow O2. Complete bed bath provided. Kathy care complete. Pt with frequent harsh cough, attempting to cough up sputum. Pt reports breathing is at a comfortable level. Denies any complaints at this time. Will continue to monitor.
[2024-11-27] MEDS: NOVOLOG FLEXPEN-HIGH RESISTANCE 4 UNITS SC ×2 (06:25→11:57)
[2024-11-27] MEDS: KCL 160 MEQ IV (06:28)
[2024-11-27 06:33] LABS: Glucose - Point of Care 241 mg/dl (70-99)
--- NOTE | 2024-11-27 08:12 | W.PN.CD ---
Addendum entered and electronically signed by Christal Alvarado MD 11/27/24 09:42:
will transition clopidogrel to baby aspirin given need for Eliquis
Original Note:
Today's Communication / Plan
-
add dilitatizem for better rate control
transtion heparin to Eliquis if ok with care team
Transition amiodarone to p.o.
Impression / Plan
-
IMPRESSION/PLAN: 79M with chronic HFpEF, hypertension, tricuspid regurgitation, pulmonary hypertension, dyslipidemia, PAD status post right BKA, chronic lymphedema, medically managed endocarditis in 2019 and chronic kidney disease stage IV who
presented to the emergency department with a chief complaint of shortness
Primary [employer] Outside Sales Representative: Dr. Landa
Acute on chronic hypoxic respiratory insufficiency 2/2 PNA with septic shock
-still on max high flow
Bacteremia and bacteria in thora fluid
- Extubated.
- No longer on Levophed.
- ID following.
- Management as per primary team/assayer.
HFpEF, acute on chronic
-receive IV lasix yesteraday and now Cr worse
-Would differ diuretics to nephro given CKD and worsening kidney fxn
- appears to be urinating OK
-Case management to [facility] [id number], nephrology believes he will benefit from this (per outpatient note)
-Trend daily weight, I's/O, and BMP with diuresis
AF RVR
- new; CHADSVASC at least 6
-still with rvr
-Transition amiodarone drip to po .
-will add diltiazem and assess response.
-Start diltiazem 30mg po q6 hours
- Transition heparin gtt to Eliquis 2.5mg po bid.
- Continue meter repairer helper.
Bilateral pleural effusions
-Status post thora
- bacteria in fluid
Moderate tricuspid regurgitation
Severe pulmonary hypertension
HTN, managed by Devulcan[employer] Loader
HLD, on atorvastatin 20mg
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 Duncan
Secondary hyperparathyroidism
Type II DM, on insulin
PAD S/P right BKA, on clopidogrel
Former tobacco abuse, continued cessation recommended
Still critically ill, high oxygen requirements with high risk for the need to reintubate
Subjective:
He feels sob no better or worse than yesterday, no cp or palpitations.
Total time in his care today 32 minutes
Physical Exam
Vital Signs/Labs
Vital Signs
Temp Pulse Resp BP Pulse Ox
99.0 F 111 33 93/54 91
11/27/24 07:00 11/27/24 03:30 11/27/24 03:30 11/26/24 18:14 11/27/24 03:30
11/26/24 11/27/24 11/28/24
06:59 06:59 06:59
Actual Weight 76.8 kg 76.8 kg
11/27/24 03:40
11/27/24 03:40
PT 17.4 Sec (11.4-14.6) H 11/22/24 10:00
INR 1.37 11/22/24 10:00
APTT 63.9 Sec (23.4-35.0) H 11/27/24 03:40
11/22/24
10:00
Gcr-Y-Yydwliatdya Pept 7510
Physical Exam
Constitutional: Distress (sob)
Cardiovascular: Pedal edema is absent, JVD pressure is normal, Systolic murmur absent, Diastolic murmur absent and Rhythm/rate is irregular
Respiratory: Rhonchi Present (diffusely) and Other (increased respiratory effort)
Neuro/Psych: AO x 3
Data Reviewed
-
Date of Service: November 27, 2024
Medical Decision Making: Review of Case with other Provider (Reviewed case with critical care nursing Shweta Torres, Dr. Morales and Dr. Lamas)
[2024-11-27] MEDS: PLAVIX 75 MG PO (08:37)
[2024-11-27] MEDS: ROCEPHIN 2000 MG IV (08:37)
[2024-11-27] MEDS: STERILE WATER FOR INJECTION 20 ML IV (08:38)
--- NOTE | 2024-11-27 09:09 | W.PN.ID1 ---
Date of Service
Date of Service: November 27, 2024
Today's Communication
Continue ceftriaxone.
Assessment / Plan
Bacteremia with Streptococcus pneumoniae
PNA, b/l parapneumonic effusion; s/p thoracentesis
- 11/22 right sided pleural fluid with Streptococcus pneumoniae
- 11/23 left sided pleural fluid also with Streptococcus pneumoniae
Hypoxic respiratory failure
-S/p self extubation. Currently remains on HFNC
Fevers
Leukocytosis -trending up
HTN
CHF
DM type II with neuropathy
CKD stage IV
Dyslipidemia
Pulmonary hypertension
PAD with hx (R) BKA
Recommendations:
Continue ceftriaxone 2 g IV every 24 hours.
Monitor white count and temperature curve.
Follow CXR.
����������������������������������������������������������
Chief Complaint
-: Clinical Sepsis, Bacteremia and Other (Parapneumonic effusion)
Subjective / Review of Systems
+SOB/cough still
Vital Signs / Physical Exam
Vital Signs
Vital Signs
Temp Pulse Resp BP Pulse Ox
99.0 F 111 33 93/54 93
11/27/24 07:00 11/27/24 03:30 11/27/24 03:30 11/26/24 18:14 11/27/24 08:16
Selected Entries
11/26/24
15:00
Temp 100.9 F H
Physical Exam
Constitutional: Acutely Ill
Eyes: Sclera Anicteric
Pulmonary: Other (Decreased BS bases. On high-flow oxygen, labored breathing.)
Gastrointestinal: Soft, Non Tender and Non Distended
Genito-Urinary: Negative CVA Tenderness
Neurological: AO x 3
Objective Data
Lab Data
Lab Results
11/27/24 03:40
11/27/24 03:40
PT 17.4 Sec (11.4-14.6) H 11/22/24 10:00
INR 1.37 11/22/24 10:00
APTT 63.9 Sec (23.4-35.0) H 11/27/24 03:40
Estimated Creat Clear 23 ml/min 11/27/24 03:40
Lactic Acid 2.0 mmol/L (0.7-2.0) 11/23/24 20:24
Total Bilirubin 0.4 mg/dl (0.2-1.3) 11/25/24 03:28
AST 24 U/L (17-59) 11/25/24 03:28
ALT 17 U/L (0-50) 11/25/24 03:28
Alkaline Phosphatase 67 U/L (38-126) 11/25/24 03:28
Most recent labs reviewed.
Micro Results:
11/22/24 14:39 Acid Fast Bacilli Smear - Preliminary
Pleural Fluid Acid Fast Bacilli Culture - Preliminary
11/22/24 14:40 Fungal Smear - Pending
Pleural Fluid Fungal Culture - Preliminary
Culture in progress.
Positive cultures are reported as soon as detected.
Final report to follow in four to five weeks.
11/22/24 14:40 Body Fluid Culture - Final
Pleural Fluid Streptococcus pneumoniae
Gram Stain - Final
11/23/24 11:42 Body Fluid Culture - Final
Pleural Fluid Streptococcus pneumoniae
Gram Stain - Final
11/22/24 16:01 Blood Culture - Final
Blood/Venous Streptococcus pneumoniae
Gram Stain - Final
11/22/24 16:01 Blood Culture - Final
Blood/Venous Streptococcus pneumoniae
Gram Stain - Final
11/22/24 16:59 Urine Culture - Final
Urine NO GROWTH
11/22/24 10:00 Influenza Types A & B (BERRY) - Final
Nasal Swab Negative for Influenza A & B, NAAT
Negative results must be combined with clinical observations
and patient history.
Nucleic Acid Amplification test (NAAT)performed on the
[employer] ID NOW platform.
Imaging:
11/26/2024 CXR (portable): Previously noted ET tube is no longer identified. Right IJ catheter is noted with tip in distal SVC. No pneumothorax. Moderate bilateral pleural effusions are without significant change. Cephalization of pulmonary
vasculature is noted.
11/22/2024 CXR (2 view): There is moderate bibasilar opacification at least in part suggesting moderate pleural effusions with likely underlying subsegmental atelectasis, slightly increased in comparison to prior study and significantly obscuring
the cardiac silhouette. There is no pneumothorax or suspected mediastinal shift.
11/22/2024 ECHO (TTE): EF approximately 60%. Mild to moderate tricuspid regurgitation. Large bilateral pleural effusions noted. Compared to prior from February 27, 2024, estimated pulmonary artery systolic pressure remain moderate to severely
elevated at 57 mmHg.
[2024-11-27] MEDS: CARDIZEM 30 MG PO ×2 (10:11→16:06)
[2024-11-27] MEDS: PACERONE 400 MG PO (10:11)
[2024-11-27] MEDS: ELIQUIS 2.5 MG PO (10:11)
--- NOTE | 2024-11-27 11:04 | W.PN.HOSP.TC ---
Addendum entered and electronically signed by Dami Lamas MD 11/27/24 15:55:
Updated patient spouse over the phone in detail. Did relay that patient with critical situation and prognosis guarded.
Original Note:
Today's Communication/Plan
-
po amiod/cardizem
wean off gtt
po eliquis
TF
speech eval
Lasix per nephro
wean o2
Assessment / Plan
Assessment / Plan
Gen-talkative.
HEENT-NC, AT, anicteric, clear oral mm
Neck-supple
CV-reg, no M, +S1/S2, irregular irregular, tachycardia
Lungs- rhonchi anterior. on HFNC.
Abd-soft, NT, ND, rectal bag. Dobhoff noted
Ext-left lower extremity edema, right BKA
Musculoskeletal-no cyanosis, clubbing
Skin-warm and dry
#Acute hypoxic respiratory failure -likely multifactorial etiology including acute pulmonary edema from heart failure, bilateral pleural effusions, pneumonia, sepsis.
Intubated 11/23. Appreciate geology faculty member input.
Status post self extubation 11/25. off NIV and now on HFNC
Repeat chest x-ray noted with increasing fluid pleural.
Continue with tube feeding
Speech eval
#Sepsis due to pneumonia and Streptococcus bacteremia-poa
#Shock likely sepsis
#Bandemia 2/2 sepsis
#Parapneumonic effusion status post thoracentesis
requiring vasopressors and levophed. Wean pressors as BP allows.
Continue with ceftriaxone 2 g every 24. DC further vancomycin and azithromycin
Underwent bilateral thoracentesis by IR, 2 L of fluid removed from each side. Has had multiple bilateral thoracenteses in the past.
Off pressors
Infectious disease following
#Acute on chronic heart failure with preserved EF
Echocardiogram done 11/22 shows LVEF 60 to 65%, stage I diastolic dysfunction, mild to moderate TR, normal RV size and function.
BNP 7510.
Lasix 80 mg IV twice daily-on hold.
Diuretics per nephro.
#Rapid atrial fibrillation -appears to be a new diagnosis.
s/p amiodarone infusion and heparin infusion.
Now transition to p.o. amiodarone 40 mg twice daily and Cardizem 30 mg every 6 hours
Off heparin and now started on Eliquis
Cardiology following.
#Hyperkalemia
resolved. Hold losartan.
#AURY on CKD 4
previous creatinine was in the 2 range, 2.1-2.6 in February.
Admission creatinine 2.9,
Nephrology following.
Etiology of AURY suspected to be due to sepsis, shock. Hold losartan. Continue Hernandez catheter.
#DM 2 with hyperglycemia
Has been on Lantus 14 units daily, NovoLog 6 units AC at home.
Currently on high resistance NovoLog scale.
Essential hypertension -losartan held.
Hyperlipidemia -atorvastatin.
PAD -history of right BKA.
Mild intermittent asthma
History of Burks-Troy syndrome
Hypokalemia-replete/monitor
Full code
Discussed with geology faculty member
updated spouse on 11/26.
Anticipated Discharge: > 48 hours
Subjective/Interval History
-
Date of Service: November 27, 2024
more awake
on HFNC
remains in AFIB rvr
Objective Data
-
Labs:
Laboratory Results
11/27/24 11/27/24
03:40 10:50
WBC 13.8 H
Hgb 11.8 L
Hct 37.3 L
Plt Count 89 L
APTT 63.9 H Pending
Sodium 139
Potassium 3.5
Chloride 101
Carbon Dioxide 27
BUN 94 H
Creatinine 2.5 H
Glucose 256 H
Calcium 7.9 L
Vital Signs:
Vital Signs
Temp Pulse Resp BP Pulse Ox
99.0 F 122 29 123/68 93
11/27/24 07:00 11/27/24 10:11 11/27/24 10:00 11/27/24 10:11 11/27/24 08:25
I&O
11/26/24 11/27/24 11/28/24
06:59 06:59 06:59
Intake Total 2503.0 / 2587.5 2116.6 / 2200.3 386.1 / 386.1
Output Total 1525 / 1575 1390 / 1420 145 / 145
Balance 978.0 / 1012.5 726.6 / 780.3 241.1 / 241.1
Data Reviewed
-
Total Time Spent with Patient (in minutes): 55
--- NOTE | 2024-11-27 11:48 | W.PN.NEPH.PH ---
Today's Communication / Plan
-
Holding diuretics with increasing creatinine
Volume status is stable
Assessment/Plan
-
Assessment:
CKD IV (followed by Dr. Duncan) presumed to be DKD/vascular sclerosis
AURY
b/l pleural effusions
Decompensated Diastolic heart failure (on losartan, metoprolol, jardiance previously tried. no aldactone due to hyperK)
DM2
PVD s/p R BKA
hypotension
subnephrotic range proteinuria ?improving
PNA
GPC Bacteremia= strep pneumo
leukopenia
- In 2020 Kidney biopsy was not adequate but EM showed nodular diabetic sclerosis and severe vascular sclerosis.
Plan:
Creatinine improving to 2.9>2.2 >2.5 and remains grossly nonoliguric
Off pressors/self extubated 11/26= on high flow
follow BMP
keep SBP > 90 and MAP > 65 currently
maintain hernandez
holding losartan
Lasix on hold
Communicated with critical care team
Slightly positive over last 24 hours though clinically euvolemic
Total Time Spent with Patient (in minutes): 35 minutes
-
-
Date of Service: November 27, 2024
CC / HPI / ROS
-
Chief Complaint:
AURY
History of Present Illness:
critically ill in ICU now off pressors
AURY/Cr
Self-extubated on high flow currently
Review of Systems:
No chest pain/comfortable
non oliguric
Labs
-
Labs:
WBC 13.8 10^3/uL (4.8-10.8) H 11/27/24 03:40
RBC 4.22 10^6/uL (4.70-6.10) L 11/27/24 03:40
Hgb 11.8 g/dL (13.0-18.0) L 11/27/24 03:40
Hct 37.3 % (39.0-52.0) L 11/27/24 03:40
Plt Count 89 10^3/uL (130-400) L 11/27/24 03:40
Sodium 139 mmol/L (135-145) 11/27/24 03:40
Potassium 3.5 mmol/L (3.5-5.1) 11/27/24 03:40
Chloride 101 mmol/L (98-107) 11/27/24 03:40
Carbon Dioxide 27 mmol/L (22-30) 11/27/24 03:40
BUN 94 mg/dl (9-20) H 11/27/24 03:40
Creatinine 2.5 mg/dL (0.7-1.3) H 11/27/24 03:40
eGFR 25.18 11/27/24 03:40
Glucose 256 mg/dl (70-99) H 11/27/24 03:40
Calcium 7.9 mg/dl (8.4-10.2) L 11/27/24 03:40
Zma-J-Cucnggkaloo Pept 7510 pg/ml 11/22/24 10:00
Albumin 2.6 g/dl (3.5-5.0) L 11/25/24 03:28
Physical Exam
-
Vital Signs:
Vital Signs
Temp Pulse Resp BP Pulse Ox
96.8 F L 121 36 123/68 87
11/27/24 11:00 11/27/24 11:00 11/27/24 11:00 11/27/24 10:11 11/27/24 11:05
Respiratory:: Bilateral: Coarse and Bilateral: Rhonchi
Lung Excursion:: Normal
Abdomen:: Soft
Bowel Sounds:: Normal
Extremity Edema:: None: Bilateral:
Hernandez Catheter: Yes
[2024-11-27 11:58] LABS: Glucose - Point of Care 218 mg/dl (70-99)
--- NOTE | 2024-11-27 12:03 | PTCARENOTE ---
Pt intermittently restless, fatigues easily. More tachypnea noted and sats dipping in to 80s. Pt agreed he needed a rest and placed on NIV. FIO2 increased to 80% to keep sats above [address] Morales. Pt otherwise without complaint. Heart rate
90-100s since placed on niv/post cardizem. Pt resting, did not sleep overnight. No other changes at present.
--- NOTE | 2024-11-27 13:17 | W.PN.INTV ---
Today's Communication / Plan
Recommendations
Continue antibiotics
Noninvasive mechanical ventilation
High flow oxygen intermittently
Holding diuretics
Repeat chest x-ray tomorrow, may need chest tube placement
Tube feedings
Start nebulizer for secretion clearance 3 times a day
Start vest therapy
Prognosis guarded
Assessment
-
79-year-old male with history of heart failure, chronic kidney disease, bilateral pleural effusions requiring intermittent thoracentesis, presents with 3 days of increased chest discomfort on the left side. This was associated with increased
shortness of breath. He admits to not taking his Lasix therapy given recent stress and travel to the city with sick grandchild. Was found to have bilateral pleural effusions. Underwent right thoracentesis drained 2 L. Postthoracentesis required
increased oxygen, now on BiPAP saturation 86%. We are asked to help from critical care standpoint 11/22/2024
Acute hypoxic respiratory insufficiency
on NIV, intubated 11/23
Baseline 1 to 2 L at home as needed
Worsening left upper lobe infiltrate
Pneumonia versus reexpansion pulmonary edema
Bacteremia
Right/Left pleural fluid positive for Streptococcus hypotension, secondary to sepsis
s/p Left thora 11/23, -2L
History of heart failure
Pulmonary hypertension
Noncompliance with Lasix in the past
s/p rt thora -2L on 11/22
Acute renal insufficiency, creatinine 3.5
Conditions present prior to admission
COPD, emphysema per CT imaging
FEV1 2.48/92%, TLC 90%, DLCO 50% per PFT 2019
Hypertension/hyperlipidemia
Peripheral arterial disease, right BKA
On Plavix
Left toe amputation
Chronic kidney disease, stage III
Diabetic nodular glomerulosclerosis
Recurrent pleural effusion requiring intermittent thoracentesis
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
COVID December 2022
Plan/recommendations:
Required intubation 11/23 for progressive hypoxia.
Self extubated 11/25/2024 in the afternoon.
-
Respiratory status remained tenuous
Requiring oxygen supplementation and intermittent noninvasive mechanical ventilation.
-
Chest x-ray 11/26/2024: Bilateral pleural effusions without change, mild pulmonary edema pattern.
-
Status post left/right thoracentesis:
Blood cultures are positive-for Streptococcus pneumonia as well.
Bilateral pleural fluid positive with Streptococcus pneumonia.
-
Unfortunately very slow improvement of pneumonia/patient is also very deconditioned
Continue oxygen supplementation: High flow/mid flow to maintain pulse ox above 90%
Intermittent noninvasive mechanical ventilation to support respiratory status
Did not respond to 40 mg and 60 mg of Lasix 11/26/2024.
No additional diuretics will be recommended as creatinine is rising
-
A-fib/leukocytosis noted
Continue ceftriaxone- 11/23
Azithromycin discontinued
Infectious disease following
Left/right pleural fluid positive with a streptococcal pneumonia
Blood culture positive with Streptococcus pneumonia
Vancomycin discontinued.
COVID-negative
Flu negative
Daily chest x-ray, if there is rapid reaccumulation on the left chest tube will be needed.
-
Patient has difficulty expectorating
Not bronchospastic on exam
Start percussion vest therapy
Nebulizers 3 times a day to aid with secretion clearance
-
Possible heart failure component, volume overload, chronic kidney disease
Diuretics is on hold.
Echocardiogram was done in the ED, PA pressure 57, large bilateral pleural effusion, normal biventricular function which is encouraging
Hold IV fluid
Cardiology following-supportive care for now.
Follow urine output
Hernandez catheter in place
Atrial fibrillation-improved rate.
Heparin drip-follow PTT. Transition to oral anticoagulants
Remains on amiodarone, started 11/23.
Cardiology following
Glycemic control-Target 140-180.
Insulin sliding scale
Dobbhoff tube in place-continue tube feeds
Keep n.p.o. for now, respiratory status very tenuous.
Speech evaluation today
Physical therapy/Occupational Therapy as able
DVT prophylaxis: Heparin drip, transition to oral anticoagulant
GI prophylaxis: PPI
High risk for reintubation
Reviewed with critical care nursing, respiratory care, primary service, cardiology
Critical care statement: A total of 42 minutes of critical care time was provided for this patient today. This includes management of unstable vital signs, evaluation of the patient at bedside, reviewing the patient's pertinent medical records
including ventilator settings, arterial blood gases, radiographs, microbiology, laboratory evaluations and discussion with primary team, critical care nursing, and respiratory therapy.
Subjective Dataa
Subjective Data
Date of Service:
Date of Service: November 27, 2024
Chief Complaint: Contracts Officer Follow Up (Acute hypoxemic respiratory failure/septic shock)
Subjective:
Remains intermittently on noninvasive mechanical ventilation
Requiring oxygen therapy.
Denies abdominal pain
Denies nausea or bowel
Review of Systems
General: Other (Difficult to obtain as the patient is on noninvasive mechanical ventilator)
Objective Data
Data Reviewed
Vital Signs / I&O / Oxygen:
Vital Signs
Temp Pulse Resp BP Pulse Ox
96.8 F L 92 30 108/53 91
11/27/24 11:00 11/27/24 12:00 11/27/24 12:00 11/27/24 12:00 11/27/24 12:00
Intake and Output
11/26/24 11/27/24 11/28/24
06:59 06:59 06:59
Intake Total 2503.0 / 2587.5 2116.6 / 2200.3 386.1 / 386.1
Output Total 1525 / 1575 1390 / 1420 145 / 145
Balance 978.0 / 1012.5 726.6 / 780.3 241.1 / 241.1
SaO2 [A/C] 90
SaO2 [NIV (Non Invasive 94
Ventilation)]
SaO2 91
Nasal Cannula flow liters per 60
minute
Physical Exam
General: Comfortable and Other (Noninvasive mechanical ventilation)
HEENT: Normocephalic, Anicteric and Other (Dry mucosa)
Cardiovascular: S1-S2, Regular Rhythm, Murmur (n) and Other (Right lower extremity BKA)
Respiratory: Wheeze, Crackles (n), Rhonchi (n), Non-Labored Respirations and Stridor (n)
GI: Soft, Non Distended and Non Tender
Neurology: Awake, Alert, No Motor Deficits (Generally weak, moves extremities) and Other (Right BKA)
Skin: Cyanosis (n), Jaundice (n) and Rash (n)
Labs/Micro/Reports
Lab Data
11/27/24 03:40
11/27/24 03:40
Laboratory Results
11/27/24 11/27/24
03:40 10:50
APTT 63.9 H Cancelled
Microbiology
11/22/24 14:39 Pleural Fluid Acid Fast Bacilli Smear - Preliminary
11/22/24 14:39 Pleural Fluid Acid Fast Bacilli Culture - Preliminary
11/22/24 14:40 Pleural Fluid Fungal Culture - Preliminary
Culture in progress.
Positive cultures are reported as soon as detected.
Final report to follow in four to five weeks.
11/22/24 14:40 Pleural Fluid Body Fluid Culture - Final
Streptococcus pneumoniae
11/22/24 14:40 Pleural Fluid Gram Stain - Final
11/23/24 11:42 Pleural Fluid Body Fluid Culture - Final
Streptococcus pneumoniae
11/23/24 11:42 Pleural Fluid Gram Stain - Final
11/22/24 16:01 Blood/Venous Blood Culture - Final
Streptococcus pneumoniae
11/22/24 16:01 Blood/Venous Gram Stain - Final
11/22/24 16:01 Blood/Venous Blood Culture - Final
Streptococcus pneumoniae
11/22/24 16:01 Blood/Venous Gram Stain - Final
[2024-11-27] MEDS: DUONEB 3 ML INH ×2 (14:09→20:23)
--- NOTE | 2024-11-27 14:48 | PTCARENOTE ---
pt's in to see him, switched to high flow for mouth care. requesting water, ice chip given and appreciated. hernandez catheter removed. condom cath applied. otherwise no changes.
[2024-11-27] MEDS: ROBITUSSIN DM 5 ML PO (16:06)
[2024-11-27] MEDS: SINGULAIR 10 MG PO (17:29)
[2024-11-27] MEDS: LIPITOR 20 MG PO (17:29)
[2024-11-27] MEDS: NOVOLOG FLEXPEN-HIGH RESISTANCE 10 UNITS SC (17:29)
[2024-11-27 17:38] LABS: Glucose - Point of Care 336 mg/dl (70-99)
[2024-11-27] MEDS: ELIQUIS 2.5 MG TUBE (20:47)
[2024-11-27] MEDS: PACERONE 400 MG TUBE (20:47)
[2024-11-27] MEDS: ELIQUIS PO (21:18)
[2024-11-27] MEDS: PACERONE PO (21:18)
--- NOTE | 2024-11-27 21:30 | PTCARENOTE ---
Report received from previous shift RN [id number]. Pt in bed, AAO3, generalized weakness. Telemetry rhythm reveals A-fib, HR 70's, generalized edema noted, doppler L pedal pulse, + radial pulses. R BKA, multiple toes on L foot amputated. Pt received on
NIV, 80% FIO2, rate 12, 16/8; pox 93-94%. Lung sounds w coarse scattered rhonchi throughout and fine crackles 1/[address] up L and R base. Pt is tachypneic (RR 20-25 bpm), +VELIZ/rest, + orthopnea, oc moist cough. +BS, abdomen soft round nontender. L nare
DHT w TF per order. Pt's Hernandez catheter was D/C'd on prior shift, condom cath placed by prior shift RN; minimal cloudy yellow urine noted in drainage bag. Bladder scan performed with result of 130ml; pt denies discomfort/urge to void, will monitor.
Skin as documented. R AC and R TL IJ catheter capped. Call pino within reach, safe environment maintained. Will monitor closely.
[2024-11-27] MEDS: CARDIZEM 30 MG TUBE (22:57)
[2024-11-27] MEDS: LANTUS 0.14 UNITS SC (22:58)
[2024-11-27] MEDS: NOVOLOG FLEXPEN-HIGH RESISTANCE 7 UNITS SC (23:01)
[2024-11-27 23:14] LABS: Glucose - Point of Care 285 mg/dl (70-99)
[2024-11-28] VITALS (68 sets, daily range): BP systolic 61–143; BP diastolic 37–90; BMI 25.4
--- NOTE | 2024-11-28 00:21 | PTCARENOTE ---
Continuing to reposition pt Q2H for skin integrity. Pt sleeping intermittently when undisturbed. Pt remains without void, bladder scan repeated with result of 184ml. Pt denies urge to void/discomfort, will follow.
RT exchanged pt from NIV to HighFlow O2 around midnight. Pt's pox remained 90-92% but pt slightly more tachypneic (RR 26-28 bpm on NIV, low 30s on HFO2). After approx 15 mins pt rang call pino requesting to be placed back on NIV. RT at bedside and
exchanged pt to NIV mask.
Call pino within reach, will continue to monitor.
--- NOTE | 2024-11-28 02:36 | PTCARENOTE ---
Around 0100 pt rang call pino stating he was feeling nauseous and wanted to try the high flow O2 again. RT notified and switched pt over to HFO2. Pt stated he was not actually nauseous but reports having 'a lot of mucus.' Pt able to cough and deep
breathe on HFO2. Approx 0200 pt was switched back over to NIV by RT. POX 87-88% on NIV settings; 0230 RT increased FIO2 to 90%. Pt's pox now 90-91%. Will monitor.
--- NOTE | 2024-11-28 03:00 | PTCARENOTE ---
pt voided 80 ml cloudy yellow urine. post void bladder scan result 138ml. Pt denies complaints. Will monitor.
[2024-11-28] MEDS: ZOFRAN 4 MG IV (03:59)
[2024-11-28] MEDS: FLUSH (NSS) 4 FLUSH IV (03:59)
[2024-11-28] MEDS: CARDIZEM 30 MG TUBE ×4 (04:05→21:29)
[2024-11-28] MEDS: TYLENOL ORAL SOLUTION 650 MG TUBE (04:08)
[2024-11-28 04:38] LABS: % Basophils 0.3 % (0-2); % Eosinophils 0.3 % (0-6); % Immature Granulocytes 1.5 % (0-0.5); % Lymphocytes 1.9 % (20.5-51.1); % Monocytes 4.6 % (1.7-9.3); % Neutrophils 91.4 % (42.2-75.2); Absolute Basophils 0.1 10^3/uL (0-0.2); Absolute Immature Granulocytes 0.2 10^3/uL (0-0.05); Absolute Lymphocytes 0.3 10^3/uL (1.2-3.4); Absolute Monocytes 0.7 10^3/uL (0.1-0.6); Absolute Neutrophils 13.7 10^3/uL (1.4-6.5); Hematocrit 38.1 % (39.0-52.0); Hemoglobin 11.7 g/dL (13.0-18.0); Mean Corp Hgb Conc. 30.7 g/dL (33.0-37.0); Mean Corpuscular Hgb 27.4 pg (27.0-31.0); Mean Corpuscular Volume 89.2 fL (80.0-94.0); Mean Platelet Volume 10.7 fL (7.4-10.4); Nucleated Red Blood Cells % 0 % (-); Platelet Count 87 10^3/uL (130-400); Red Blood Cell Count 4.27 10^6/uL (4.70-6.10); Red Cell Dist. Width 15.8 % (11.5-14.5)
[2024-11-28 04:49] LABS: Blood Urea Nitrogen 114 mg/dl (9-20); Calcium 8.1 mg/dl (8.4-10.2); Carbon Dioxide 27 mmol/L (22-30); Chloride 102 mmol/L (98-107); Estimated Creatinine Clearance 20 ml/min; Glucose 301 mg/dl (70-99); Magnesium 2.9 mg/dl (1.6-2.3); Potassium 4.3 mmol/L (3.5-5.1); Sodium 141 mmol/L (135-145); eGFR 21.07
[2024-11-28] MEDS: NOVOLOG FLEXPEN-HIGH RESISTANCE 7 UNITS SC (05:36)
[2024-11-28] MEDS: FLUSH (NSS) 1 FLUSH IV (05:41)
[2024-11-28] MEDS: MORPHINE SULFATE 2 MG IV (05:41)
[2024-11-28 05:46] LABS: Glucose - Point of Care 296 mg/dl (70-99)
--- NOTE | 2024-11-28 06:01 | PTCARENOTE ---
Pt has not slept much throughout the night, intermittently resting with eyes closed but awake. Pt rang call pino requesting to go off NIV and back onto HighFlow O2. RT switched pt over to HFO2. Pt with frequent moist cough stating he is slightly
nauseous, anxious and nervous. AUTHORIZATION REP Nate at bedside, ordered Morphine 2mg IV x1. Administered per order. Offered to turn on relaxation television/music, pt declined. Emotional support provided, will monitor closely.
[2024-11-28] MEDS: ROBITUSSIN DM 5 ML TUBE (06:11)
--- NOTE | 2024-11-28 06:30 | PTCARENOTE ---
Pt restless in bed. Pox 83-87% on 100%/55L. RT to bedside, applied nonrebreather mask over top of high flow O2. Pox slowly improving, currently 87-88%.
--- NOTE | 2024-11-28 06:55 | PTCARENOTE ---
report to oncoming shift RN. TT to Dr Morales with brief update on pt status.
[2024-11-28] MEDS: DUONEB 3 ML INH ×3 (07:27→19:36)
[2024-11-28 07:32] LABS: B.E. -0.9 mmol/L; HCO3 27.4 mmol/L (21-28); O2 Saturation % 92.8 % (94-98); PCO2 61 mmHg (35-48); PO2 63 mmHg (83-108); pH 7.26 (7.35-7.45)
--- NOTE | 2024-11-28 07:40 | PTCARENOTE ---
Pt received in bed @ 0700. Pt restless. High Flow NC 55L/100% with NRB. SaO2 85%. Tachypneic with RR in 30s. Breath sounds greatly diminished, scattered crackles. Pt reporting productive cough with small mucous, none yet observed. Returned to NIV
(11/13/90%); SaO2 to 89%. New order for ABG, drawn and sent to lab. A Fib on court monitor. HR 80s. MAP > 65 without pressors. Trace anasarca. +2 scrotal edema. (+) bowel sounds. Left nare DHT @ 65cm with Jevity 1.5 infusing @ 55ml/hr. Condom
catheter #[address] Sacral dressing C/D/I. (R) TL IJ and (R) AC #20 flushed and capped.
--- NOTE | 2024-11-28 07:45 | W.PN.CD ---
Today's Communication / Plan
-
Cont rate control meds as able
Reintubation pending
Impression / Plan
-
IMPRESSION/PLAN: 79M with chronic HFpEF, hypertension, tricuspid regurgitation, pulmonary hypertension, dyslipidemia, PAD status post right BKA, chronic lymphedema, medically managed endocarditis in 2019 and chronic kidney disease stage IV who
presented to the emergency department with a chief complaint of shortness
Primary Final Inspector Motorcyles: Dr. Landa
Acute on chronic hypoxic respiratory insufficiency 2/2 PNA with septic shock
-still on max high flow --> Reintubated 11/28/2024
Bacteremia and bacteria in thora fluid
- ID following.
- Management as per primary team/plant scientist.
HFpEF, acute on chronic
-receive IV lasix yesteraday and now Cr worse
-Would differ diuretics to nephro given CKD and worsening kidney fxn
- appears to be urinating OK
-Case management to [facility]bour [id number], nephrology believes he will benefit from this (per outpatient note)
-Trend daily weight, I's/O, and BMP with diuresis
AF RVR
- new; CHADSVASC at least 6
-still with rvr --> Improved rate
-Transition amiodarone drip to po .
-will add diltiazem and assess response.
-Start diltiazem 30mg po q6 hours
- Transition heparin gtt to Eliquis 2.5mg po bid.
- Continue satellite project site monitor.
Bilateral pleural effusions
-Status post thora
- bacteria in fluid
Moderate tricuspid regurgitation
Severe pulmonary hypertension
HTN, managed by Athletic Director
HLD, on atorvastatin 20mg
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 Duncan
Secondary hyperparathyroidism
Type II DM, on insulin
PAD S/P right BKA, on clopidogrel
Former tobacco abuse, continued cessation recommended
Still critically ill, high oxygen requirements with high risk for the need to reintubate
Subjective:
SOB awaiting reintubation
Total time in his care today 31 minutes
Physical Exam
Vital Signs/Labs
Vital Signs
Temp Pulse Resp BP Pulse Ox
97.6 F 89 31 129/55 90
11/28/24 02:53 11/28/24 07:29 11/28/24 07:29 11/28/24 06:00 11/28/24 07:35
11/27/24 11/28/24 11/29/24
06:59 06:59 06:59
Actual Weight 169 lb 5.04 oz 172 lb 2.896 oz
11/28/24 04:03
11/28/24 04:03
PT 17.4 Sec (11.4-14.6) H 11/22/24 10:00
INR 1.37 11/22/24 10:00
APTT Cancelled 11/27/24 10:50
Magnesium 2.9 mg/dl (1.6-2.3) H 11/28/24 04:03
11/22/24
10:00
Sdo-L-Tanpkqvqtlx Pept 7510
Physical Exam
Constitutional: Comfortable
Cardiovascular: Rhythm & rate is regular and Pedal edema is absent
Respiratory: Crackles Present and Rhonchi Present
GI: Soft
Neuro/Psych: Alert and Oriented
Data Reviewed
-
Date of Service: November 28, 2024
Medical Decision Making: Reviewed Test Results
EKG: Tracing Personally Visualized and interpreted
Echo: Report Reviewed by me
Labs: Labs Reviewed by me
[2024-11-28] MEDS: SUBLIMAZE 50 MCG IV ×3 (08:30→11:00)
--- NOTE | 2024-11-28 08:30 | W.PN.ANESINT ---
Anesthesia Intubation Note
- Intubation Note
Intubation Note:
Diagnosis: Respiratory distress
Blade: glidescope
Tube Size: 8.0
Depth: 23cm @lip
Side Taped: right
Drugs Used: prop-50 mg, succs- 100 mg
Grade View: 1
EtCO2 Present: yes
Atraumatic: yes
Attempts: 1
Insertion Start and Stop Time: 08:15- 08:17
SaO2 Pre:85
SaO2 Post:95
Glidescope Used: yes
Other Airway Adjustments: no
Pre-Oxygenated: yes
Portable Chest X-Ray: yes
RSI:yes
Suctioned: no
Bilateral Breath Sounds Confirmed: yes
Vent Settings:
Settings per ___Attending Physician
--- NOTE | 2024-11-28 08:38 | W.PN.NEPH.PH ---
Today's Communication / Plan
-
follow BMP
Assessment/Plan
-
Assessment:
CKD IV (followed by Dr. Duncan) presumed to be DKD/vascular sclerosis
AURY
b/l pleural effusions
Decompensated Diastolic heart failure (on losartan, metoprolol, jardiance previously tried. no aldactone due to hyperK)
DM2
PVD s/p R BKA
hypotension
subnephrotic range proteinuria ?improving
PNA
GPC Bacteremia= strep pneumo
leukopenia
- In 2020 Kidney biopsy was not adequate but EM showed nodular diabetic sclerosis and severe vascular sclerosis.
Plan:
follow BMP
continue abx
no lasix for now
will likely need chest tube
weights fairly stable overall
forunately not hypotense currently
watch platelets
critical care time 31 minutes
-
-
Date of Service: November 28, 2024
CC / HPI / ROS
-
Chief Complaint:
AURY
History of Present Illness:
critically ill in ICU now off pressors
reintubated this morning for worsening hypoxia
AURY/Cr worse at 2.9, BUN higher
WBC rising 15
plts falling
abx for strep pneumonia
Review of Systems:
intubated
sedated
non oliguric
Labs
-
Labs:
WBC 15.0 10^3/uL (4.8-10.8) H 11/28/24 04:03
RBC 4.27 10^6/uL (4.70-6.10) L 11/28/24 04:03
Hgb 11.7 g/dL (13.0-18.0) L 11/28/24 04:03
Hct 38.1 % (39.0-52.0) L 11/28/24 04:03
Plt Count 87 10^3/uL (130-400) L 11/28/24 04:03
Sodium 141 mmol/L (135-145) 11/28/24 04:03
Potassium 4.3 mmol/L (3.5-5.1) 11/28/24 04:03
Chloride 102 mmol/L (98-107) 11/28/24 04:03
Carbon Dioxide 27 mmol/L (22-30) 11/28/24 04:03
BUN 114 mg/dl (9-20) H* 11/28/24 04:03
Creatinine 2.9 mg/dL (0.7-1.3) H 11/28/24 04:03
eGFR 21.07 11/28/24 04:03
Glucose 301 mg/dl (70-99) H 11/28/24 04:03
Calcium 8.1 mg/dl (8.4-10.2) L 11/28/24 04:03
Cie-E-Iclbvbrdhqc Pept 7510 pg/ml 11/22/24 10:00
Albumin 2.6 g/dl (3.5-5.0) L 11/25/24 03:28
Physical Exam
-
Vital Signs:
Vital Signs
Temp Pulse Resp BP Pulse Ox
97.8 F 89 31 129/55 91
11/28/24 08:26 11/28/24 07:29 11/28/24 07:29 11/28/24 06:00 11/28/24 08:19
Cardiovascular:: Regular rate and rhythm
Respiratory:: Bilateral: Coarse and Bilateral: Rhonchi
Lung Excursion:: Normal
Abdomen:: Nontender and Soft
Bowel Sounds:: Normal
Extremity Edema:: None: Bilateral:
[2024-11-28] MEDS: DIPRIVAN 100 IV ×2 (08:41→16:35)
[2024-11-28] MEDS: STERILE WATER FOR INJECTION 20 ML IV (08:44)
[2024-11-28] MEDS: ROCEPHIN 2000 MG IV (08:44)
[2024-11-28] MEDS: LOW STRENGTH ASPIRIN 81 MG TUBE (08:53)
--- NOTE | 2024-11-28 08:54 | W.PN.ID1 ---
Date of Service
Date of Service: November 28, 2024
Today's Communication
Continue ceftriaxone
Assessment / Plan
Bacteremia with Streptococcus pneumoniae
PNA
B/L parapneumonic effusions; s/p thoracentesis
- 11/22 right sided pleural fluid with Streptococcus pneumoniae
- 11/23 left sided pleural fluid also with Streptococcus pneumoniae
VDRF 2*Hypoxic respiratory failure
Fevers
Leukocytosis -trending up
HTN
CHF
DM type II with neuropathy
CKD stage IV
Dyslipidemia
Pulmonary hypertension
PAD with hx (R) BKA
Recommendations:
Continue ceftriaxone 2 g IV every 24 hours.
Monitor white count and temperature curve.
Follow CXR.
For evaluation by IR for possible chest tube placement.
Patient remains critically ill, in intensive care unit, on vent and pressor support.
����������������������������������������������������������
Chief Complaint
-: Clinical Sepsis, Bacteremia and Other (Parapneumonic effusion)
Subjective / Review of Systems
Patient seen and examined. Events noted. Patient with worsening respiratory status overnight and has been reintubated.
Vital Signs / Physical Exam
Vital Signs
Vital Signs
Temp Pulse Resp BP Pulse Ox
97.8 F 89 31 129/55 91
11/28/24 08:26 11/28/24 07:29 11/28/24 07:29 11/28/24 06:00 11/28/24 08:19
Physical Exam
Constitutional: Acutely Ill and Chronically Ill
Eyes: Sclera Anicteric
Oropharyngeal: Other (ET tube in place. Dobbhoff in place)
Cardiovascular: S1/S2; Negative S3/S4
Pulmonary: Other (Decreased BS bases. )
Gastrointestinal: Soft, Non Tender and Non Distended
Genito-Urinary: Negative CVA Tenderness
Extremities: Negative Cyanosis or Erythema
Neurological: Other (Sedated)
Psychological: Calm
Objective Data
Lab Data
Lab Results
11/28/24 04:03
11/28/24 04:03
PT 17.4 Sec (11.4-14.6) H 11/22/24 10:00
INR 1.37 11/22/24 10:00
APTT Cancelled 11/27/24 10:50
Estimated Creat Clear 20 ml/min 11/28/24 04:03
Lactic Acid 2.0 mmol/L (0.7-2.0) 11/23/24 20:24
Total Bilirubin 0.4 mg/dl (0.2-1.3) 11/25/24 03:28
AST 24 U/L (17-59) 11/25/24 03:28
ALT 17 U/L (0-50) 11/25/24 03:28
Alkaline Phosphatase 67 U/L (38-126) 11/25/24 03:28
Most recent labs reviewed.
Chest X-Ray: Image Reviewed and Report Reviewed
Micro Results:
11/22/24 14:39 Acid Fast Bacilli Smear - Preliminary
Pleural Fluid Acid Fast Bacilli Culture - Preliminary
11/22/24 14:40 Fungal Smear - Pending
Pleural Fluid Fungal Culture - Preliminary
Culture in progress.
Positive cultures are reported as soon as detected.
Final report to follow in four to five weeks.
11/22/24 14:40 Body Fluid Culture - Final
Pleural Fluid Streptococcus pneumoniae
Gram Stain - Final
11/23/24 11:42 Body Fluid Culture - Final
Pleural Fluid Streptococcus pneumoniae
Gram Stain - Final
11/22/24 16:01 Blood Culture - Final
Blood/Venous Streptococcus pneumoniae
Gram Stain - Final
11/22/24 16:01 Blood Culture - Final
Blood/Venous Streptococcus pneumoniae
Gram Stain - Final
11/22/24 16:59 Urine Culture - Final
Urine NO GROWTH
11/22/24 10:00 Influenza Types A & B (BERRY) - Final
Nasal Swab Negative for Influenza A & B, NAAT
Negative results must be combined with clinical observations
and patient history.
Nucleic Acid Amplification test (NAAT)performed on the
[employer] platform.
Imaging:
11/28/2024 CXR (portable): Moderate bilateral pleural effusions noted. No cardiomegaly. ET tube approximately 2.5 cm above terri. No visualized pneumothorax. Please see full dictation for additional detail.
11/26/2024 CXR (portable): Previously noted ET tube is no longer identified. Right IJ catheter is noted with tip in distal SVC. No pneumothorax. Moderate bilateral pleural effusions are without significant change. Cephalization of pulmonary
vasculature is noted.
11/22/2024 CXR (2 view): There is moderate bibasilar opacification at least in part suggesting moderate pleural effusions with likely underlying subsegmental atelectasis, slightly increased in comparison to prior study and significantly obscuring
the cardiac silhouette. There is no pneumothorax or suspected mediastinal shift.
11/22/2024 ECHO (TTE): EF approximately 60%. Mild to moderate tricuspid regurgitation. Large bilateral pleural effusions noted. Compared to prior from February 27, 2024, estimated pulmonary artery systolic pressure remain moderate to severely
elevated at 57 mmHg.
[2024-11-28] MEDS: PACERONE 400 MG TUBE ×2 (09:21→20:08)
[2024-11-28] MEDS: ELIQUIS 2.5 MG TUBE ×2 (09:21→20:09)
[2024-11-28] MEDS: LEVOPHED 250 IV ×3 (09:30→20:33)
[2024-11-28 10:00] LABS: Triglycerides 114 mg/dl (10-149)
[2024-11-28] MEDS: NSS 500 IV (10:56)
[2024-11-28] MEDS: SUBLIMAZE 100 IV (10:57)
--- NOTE | 2024-11-28 11:20 | PTCARENOTE ---
Elective intubation after results of morning ABG @ 08:10. Family called by Dr. Morales. ETT #8 @ 24cm to right lip. AC (18/500/100%/5+). FiO2 weaned to 80%; SaO2 94%. Suctioned for large thick green sputum. Pt restless, asynchronous with
ventilation. CPOT 5. RASS 1 to 2. Propofol gtt infusing @ 20 mcg/kg/min. PRN Fentanyl 50mcg IV administered x3 before Fentanyl gtt hung and infusing @ 50 mcg/hr. Unable to maintain MAP > 65 after intubation. Levophed gtt infusing with goal of MAP >
65; currently infusing @ 10 mcg/min. Remains A Fib on radiation monitor. Tube feed remains at goal.
[2024-11-28 12:04] LABS: Glucose - Point of Care 247 mg/dl (70-99)
[2024-11-28] MEDS: NSS (PRESERVATIVE FREE) 10 ML IV (12:13)
[2024-11-28] MEDS: PROTONIX IV 40 MG IV (12:13)
[2024-11-28] MEDS: NOVOLOG FLEXPEN-HIGH RESISTANCE 4 UNITS SC (12:15)
--- NOTE | 2024-11-28 13:01 | W.PN.INTV ---
Today's Communication / Plan
Recommendations
Continue antibiotics
Intubated, obtain ABG later
Daily chest x-ray
IR consultation for possible chest tube
Nutritional support
Hold Lasix
Follow renal function
Continue hemodynamic ozuuduk-zmz-zihr vasopressors
Sedation
: Fentanyl drip and propofol
Assessment
-
79-year-old male with history of heart failure, chronic kidney disease, bilateral pleural effusions requiring intermittent thoracentesis, presents with 3 days of increased chest discomfort on the left side. This was associated with increased
shortness of breath. He admits to not taking his Lasix therapy given recent stress and travel to the city with sick grandchild. Was found to have bilateral pleural effusions. Underwent right thoracentesis drained 2 L. Postthoracentesis required
increased oxygen, now on BiPAP saturation 86%. We are asked to help from critical care standpoint 11/22/2024
Acute hypoxic respiratory insufficiency
on NIV, intubated 11/23
Baseline 1 to 2 L at home as needed
Worsening left upper lobe infiltrate
Pneumonia versus reexpansion pulmonary edema
Bacteremia
Right/Left pleural fluid positive for Streptococcus hypotension, secondary to sepsis
s/p Left thora 11/23, -2L
History of heart failure
Pulmonary hypertension
Noncompliance with Lasix in the past
s/p rt thora -2L on 11/22
Acute renal insufficiency, creatinine 3.5
Conditions present prior to admission
COPD, emphysema per CT imaging
FEV1 2.48/92%, TLC 90%, DLCO 50% per PFT 2019
Hypertension/hyperlipidemia
Peripheral arterial disease, right BKA
On Plavix
Left toe amputation
Chronic kidney disease, stage III
Diabetic nodular glomerulosclerosis
Recurrent pleural effusion requiring intermittent thoracentesis
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
COVID December 2022
Plan/recommendations:
Required intubation 11/23 for progressive hypoxia.
Self extubated 11/25/2024 in the afternoon.
Unfortunately, the morning of 11/28/2024: Increased work of breathing, more hypoxemic, anxious, nauseous. Required reintubation.
-
Mechanical ventilation settings reviewed
Chest x-ray post 12-16 25: Moderate bilateral pleural effusions. Progress findings suggestive pulmonary edema.
Propofol/fentanyl for light sedation
Obtain ABG and ventilator will be adjusted as necessary
-
Unfortunately very slow improvement of pneumonia/patient is also very deconditioned
Did not respond to 40 mg and 60 mg of Lasix 11/26/2024.
No additional diuretics will be recommended as creatinine is rising
Due to hypotension after intubation 500 mL of normal saline were given.
Low-dose vasopressor started, likely due to sedation and volume depletion. Hopefully can be weaned off.
-
Worsening leukocytosis. Afebrile
Continue ceftriaxone- 11/23
Azithromycin discontinued
Infectious disease following
Left/right pleural fluid positive with a streptococcal pneumonia
Blood culture positive with Streptococcus pneumonia
Vancomycin discontinued.
COVID-negative
Flu negative
-
Status post left/right thoracentesis:
Blood cultures are positive-for Streptococcus pneumonia as well.
Bilateral pleural fluid positive with Streptococcus pneumonia.
Given deteriorating clinical condition, moderate bilateral pleural effusions and infiltrate, chest tube will be requested to be placed at least on the left side. Left side pleural fluid with significant high risk features with low pH and low
glucose.
Dr. Morales consulted interventional radiology
Continue with daily chest x-ray.
-
Not bronchospastic on exam
Nebulizers 3 times a day to aid with secretion clearance
-
Possible heart failure component, volume overload, chronic kidney disease
Diuretics is on hold.
Echocardiogram was done in the ED, PA pressure 57, large bilateral pleural effusion, normal biventricular function which is encouraging
Cardiology following-supportive care for now.
Follow urine output
Hernandez catheter in place
Atrial fibrillation-improved rate.
Currently on oral anticoagulants.
Remains on amiodarone, started 11/23.
Cardiology following
Glycemic control-Target 140-180.
Insulin sliding scale
Dobbhoff tube in place-continue tube feeds
Keep n.p.o. for now, respiratory status very tenuous.
DVT prophylaxis: transitioned to oral anticoagulant
GI prophylaxis: PPI
High risk for reintubation
Dr. Morales updated 12-16 over the phone. Explained about reintubation and thoracentesis. Condition is tenuous
Reviewed with critical care nursing, respiratory care, primary service, cardiology
Critical care statement: A total of 42 minutes of critical care time was provided for this patient today. This includes management of unstable vital signs, evaluation of the patient at bedside, reviewing the patient's pertinent medical records
including ventilator settings, arterial blood gases, radiographs, microbiology, laboratory evaluations and discussion with primary team, critical care nursing, and respiratory therapy.
Subjective Dataa
Subjective Data
Date of Service:
Date of Service: November 28, 2024
Chief Complaint: Engineering Systems Analyst Follow Up (Acute hypoxemic respiratory failure/septic shock)
Subjective:
This morning with increased work of breathing despite BiPAP therapy.
Nauseous, anxious but
Increased oxygen requirement
Increased leukocytosis next
Review of Systems
General: Other ( difficult to obtain due to acuity)
Objective Data
Data Reviewed
Vital Signs / I&O / Oxygen:
Vital Signs
Temp Pulse Resp BP Pulse Ox
97.8 F 73 18 112/46 94
11/28/24 12:14 11/28/24 10:00 11/28/24 10:00 11/28/24 10:00 11/28/24 12:00
Intake and Output
11/27/24 11/28/24 11/29/24
06:59 06:59 06:59
Intake Total 2116.6 / 2200.3 1811.1 / 1866.1 493.1 / 493.1
Output Total 1390 / 1420 590 / 590 50 / 50
Balance 726.6 / 780.3 1221.1 / 1276.1 443.1 / 443.1
SaO2 [A/C] 94
SaO2 [NIV (Non Invasive 95
Ventilation)]
SaO2 94
Nasal Cannula flow liters per 60
minute
Physical Exam
General: Respiratory Distress (Mild on noninvasive mechanical into the) and Other (Noninvasive mechanical ventilation)
HEENT: Normocephalic, Anicteric and Other (Dry mucosa)
Cardiovascular: S1-S2, Regular Rhythm, Murmur (n) and Other (Right lower extremity BKA)
Respiratory: Wheeze, Crackles (n), Rhonchi (n), Non-Labored Respirations and Stridor (n)
GI: Soft, Non Distended and Non Tender
Neurology: Awake, Alert, No Motor Deficits (Generally weak, moves extremities) and Other (Right BKA)
Skin: Cyanosis (n), Jaundice (n) and Rash (n)
Labs/Micro/Reports
Lab Data
11/28/24 04:03
11/28/24 04:03
Laboratory Results
11/28/24
07:23
pH 7.26 L
pCO2 61 H
pO2 63 L
HCO3 27.4
O2 Delivery Level
Microbiology
11/22/24 14:39 Pleural Fluid Acid Fast Bacilli Smear - Preliminary
11/22/24 14:39 Pleural Fluid Acid Fast Bacilli Culture - Preliminary
11/22/24 14:40 Pleural Fluid Fungal Culture - Preliminary
Culture in progress.
Positive cultures are reported as soon as detected.
Final report to follow in four to five weeks.
11/22/24 14:40 Pleural Fluid Body Fluid Culture - Final
Streptococcus pneumoniae
11/22/24 14:40 Pleural Fluid Gram Stain - Final
11/23/24 11:42 Pleural Fluid Body Fluid Culture - Final
Streptococcus pneumoniae
11/23/24 11:42 Pleural Fluid Gram Stain - Final
11/22/24 16:01 Blood/Venous Blood Culture - Final
Streptococcus pneumoniae
11/22/24 16:01 Blood/Venous Gram Stain - Final
11/22/24 16:01 Blood/Venous Blood Culture - Final
Streptococcus pneumoniae
11/22/24 16:01 Blood/Venous Gram Stain - Final
--- NOTE | 2024-11-28 13:24 | W.PN.HOSP.TC ---
Today's Communication/Plan
-
on vent/sedated
IRAD for CT
monitor HR
Pressors
IV abx
Assessment / Plan
Assessment / Plan
Gen-intubated and sedated
HEENT-NC, AT, anicteric, clear oral mm
Neck-supple
CV-reg, no M, +S1/S2, irregular irregular, tachycardia
Lungs- rhonchi anterior. ET tube noted
Abd-soft, NT, ND, rectal bag. Dobhoff noted
Ext-left lower extremity edema, right BKA
Musculoskeletal-no cyanosis, clubbing
Skin-warm and dry
#Acute hypoxic respiratory failure -likely multifactorial etiology including acute pulmonary edema from heart failure, bilateral pleural effusions, pneumonia, sepsis.
Intubated 11/23.
Status post self extubation 11/25.
Status post reintubation 11/28/2024
Repeat chest x-ray noted with increasing fluid pleural and moderate B/L pleural effusions
Continue with tube feeding
IRAD consult for chest tube placement
Cont with bronchodilators
[employer] Farmer following
#Sepsis due to pneumonia and Streptococcus bacteremia-poa
#Shock likely sepsis
#Bandemia 2/2 sepsis
#Parapneumonic effusion status post thoracentesis
requiring levophed. Wean pressors as BP allows.
Continue with ceftriaxone 2 g every 24. DC further vancomycin and azithromycin. Bump in WBC noted.
Underwent bilateral thoracentesis by IR, 2 L of fluid removed from each side. Has had multiple bilateral thoracenteses in the past.
Infectious disease following
#Acute on chronic heart failure with preserved EF
Echocardiogram done 11/22 shows LVEF 60 to 65%, stage I diastolic dysfunction, mild to moderate TR, normal RV size and function.
BNP 7510.
Lasix 80 mg IV twice daily-on hold.
Diuretics per nephro.
#Rapid atrial fibrillation -appears to be a new diagnosis.
s/p amiodarone infusion and heparin infusion.
Now transition to p.o. amiodarone 400 mg twice daily and Cardizem 30 mg every 6 hours
Off heparin and now started on Eliquis
Cardiology following.
#Hyperkalemia
resolved. Hold losartan.
#AURY on CKD 4
previous creatinine was in the 2 range, 2.1-2.6 in February.
Admission creatinine 2.9,
Nephrology following.
Etiology of AURY suspected to be due to sepsis, shock. Hold losartan. Continue Hernandez catheter.
#DM 2 with hyperglycemia
Has been on Lantus 14 units daily, NovoLog 6 units AC at home.
Currently on high resistance NovoLog scale. and lantus 14u
Essential hypertension -losartan held.
Hyperlipidemia -atorvastatin.
PAD -history of right BKA.
Mild intermittent asthma
History of Burks-Troy syndrome
Hypokalemia-replete/monitor
Full code
Discussed with triple drum operator
Total Critical Care Time 35 minutes. I was immediately available to the patient and staff. I personally examined, reviewed labs, diagnostic images/reports, interpretations, treatment plans, discussed patient care with other providers and family
or caregivers (if patient is unable to make decisions), entered orders as appropriate and documented the medical record.
Anticipated Discharge: > 48 hours
Subjective/Interval History
-
Date of Service: November 28, 2024
Overnight and scaffold setter events noted
Patient reintubated
Currently comfortable on sedation
In shock and requiring 10 of Levophed
Objective Data
-
Labs:
Laboratory Results
11/28/24 11/28/24
04:03 07:23
WBC 15.0 H
Hgb 11.7 L
Hct 38.1 L
Plt Count 87 L
HCO3 27.4
Sodium 141
Potassium 4.3
Chloride 102
Carbon Dioxide 27
BUN 114 H*
Creatinine 2.9 H
Glucose 301 H
Calcium 8.1 L
Vital Signs:
Vital Signs
Temp Pulse Resp BP Pulse Ox
97.8 F 75 18 105/51 96
11/28/24 12:14 11/28/24 13:00 11/28/24 13:00 11/28/24 13:00 11/28/24 13:00
I&O
11/27/24 11/28/24 11/29/24
06:59 06:59 06:59
Intake Total 2116.6 / 2200.3 1811.1 / 1866.1 655.0 / 655.0
Output Total 1390 / 1420 590 / 590 50 / 50
Balance 726.6 / 780.3 1221.1 / 1276.1 605.0 / 605.0
[2024-11-28] MEDS: NOVOLIN R 6 UNITS IV (14:43)
[2024-11-28] MEDS: NOVOLIN R INSULIN INFUSION 100 IV (14:44)
[2024-11-28 14:45] LABS: Glucose - Point of Care 349 mg/dl (70-99)
--- NOTE | 2024-11-28 15:03 | CM ---
CM following re: discharge planning.
Reviewed pt's chart, met with pt.
Per Rounds meeting, pt remains intubated, possible chest tube, very slow improvement, continue supportive care.
D/C plan: uncertain at this time and will depend on pt's progresses.
CM will follow with discharge plan updates as hospitalization progresses
[2024-11-28 15:42] LABS: Glucose - Point of Care 290 mg/dl (70-99)
[2024-11-28 16:38] LABS: Glucose - Point of Care 360 mg/dl (70-99)
--- NOTE | 2024-11-28 16:52 | PTCARENOTE ---
Pt reassessed. Left chest tube placed by IR at bedside, draining yellow output. Insulin gtt initiated; adjusting based on Glycemic protocol. Levophed gtt @ 12 mcg/min to maintain MAP > 65. Propofol infusing @ 20 mcg/kg/min and Fentanyl gtt @ 50
mcg/hr. TF remains at goal. No bowel movement observed this shift.
[2024-11-28 17:44] LABS: Glucose - Point of Care 257 mg/dl (70-99)
[2024-11-28] MEDS: LIPITOR 20 MG TUBE (18:23)
[2024-11-28] MEDS: SINGULAIR 10 MG TUBE (18:23)
[2024-11-28 18:46] LABS: Glucose - Point of Care 227 mg/dl (70-99)
[2024-11-28 19:50] LABS: Glucose - Point of Care 295 mg/dl (70-99)
[2024-11-28 20:42] LABS: Glucose - Point of Care 241 mg/dl (70-99)
--- NOTE | 2024-11-28 21:25 | PTCARENOTE ---
Received pt from previous RN. Pt is restless @ times, restraints in place (see order and worklist). Pt is NSR on the monitor, doppler left pedal pulse. ETT #8 24 @ the lip, repositioned to the center. AC 18/500/75%/5, O2 sat 91%. Left nare DHT in
place @ 65 cm. No urine output, bladder scan for 110 ml. Prop, fent, and levo gtt (see worklist). Insulin gtt, accu checks Q1H (see worklist). CHG bath provided. Safe environment maintained.
[2024-11-28 21:42] LABS: Glucose - Point of Care 216 mg/dl (70-99)
[2024-11-28 22:41] LABS: Glucose - Point of Care 176 mg/dl (70-99)
[2024-11-28 23:42] LABS: Glucose - Point of Care 170 mg/dl (70-99)
--- NOTE | 2024-11-28 23:50 | PTCARENOTE ---
Systems reviewed, no new changes in assessment. Fent, prop, and levo gtt per protocol (see worklist). Insulin gtt @ 8 ml/hr, per protocol (see worklist). Mouth care and Q2T provided. Safe environment maintained.
[2024-11-29] VITALS (28 sets, daily range): BP systolic 85–130; BP diastolic 38–50; BMI 25.6
[2024-11-29] MEDS: NOVOLIN R INSULIN INFUSION 100 IV ×2 (00:12→23:54)
[2024-11-29 00:48] LABS: Glucose - Point of Care 188 mg/dl (70-99)
[2024-11-29 01:41] LABS: Glucose - Point of Care 110 mg/dl (70-99)
[2024-11-29] MEDS: DIPRIVAN 100 IV ×3 (01:51→17:43)
[2024-11-29] MEDS: LEVOPHED 250 IV (01:56)
[2024-11-29 02:36] LABS: Glucose - Point of Care 120 mg/dl (70-99)
[2024-11-29] MEDS: CARDIZEM 30 MG TUBE ×2 (03:23→10:31)
[2024-11-29 03:55] LABS: % Basophils 0.4 % (0-2); % Immature Granulocytes 1.5 % (0-0.5); % Lymphocytes 3.7 % (20.5-51.1); % Neutrophils 88.4 % (42.2-75.2); Absolute Basophils 0.1 10^3/uL (0-0.2); Absolute Eosinophils 0.2 10^3/uL (0-0.7); Absolute Immature Granulocytes 0.3 10^3/uL (0-0.05); Absolute Lymphocytes 0.7 10^3/uL (1.2-3.4); Hematocrit 35.7 % (39.0-52.0); Hemoglobin 11.1 g/dL (13.0-18.0); Mean Corp Hgb Conc. 31.1 g/dL (33.0-37.0); Mean Corpuscular Hgb 27.6 pg (27.0-31.0); Mean Corpuscular Volume 88.8 fL (80.0-94.0); Mean Platelet Volume 10.4 fL (7.4-10.4); Nucleated Red Blood Cells % 0 % (-); Platelet Count 176 10^3/uL (130-400); Red Blood Cell Count 4.02 10^6/uL (4.70-6.10); Red Cell Dist. Width 15.9 % (11.5-14.5); White Blood Cell Count 19.2 10^3/uL (4.8-10.8)
[2024-11-29] MEDS: SUBLIMAZE 100 IV (03:55)
--- NOTE | 2024-11-29 04:00 | PTCARENOTE ---
ICU EMERGENCY DEPARTMENT PHYSICIAN Sim notified, pt with no urine output this shift, bladder scanned for 154, hernandez inserted for critical I&O. AM labs provided. Systems reviewed. Safe environment maintained.
[2024-11-29 04:21] LABS: Carbon Dioxide 25 mmol/L (22-30); Chloride 102 mmol/L (98-107); Estimated Creatinine Clearance 17 ml/min; Glucose 121 mg/dl (70-99); Magnesium 2.9 mg/dl (1.6-2.3); Potassium 4.5 mmol/L (3.5-5.1); Sodium 140 mmol/L (135-145); eGFR 16.82
[2024-11-29 04:32] LABS: Blood Urea Nitrogen 133 mg/dl (9-20)
[2024-11-29 04:52] LABS: Glucose - Point of Care 124 mg/dl (70-99)
[2024-11-29 05:24] LABS: B.E. -1.4 mmol/L; HCO3 24.3 mmol/L (21-28); Ionized Calcium 1.21 mMOL/L (1.15-1.33); O2 Saturation % 95.5 % (94-98); PCO2 44 mmHg (35-48); PO2 67 mmHg (83-108); Potassium 4.6 mMOL/L (3.5-5.1); Sodium 136 mMOL/L (136-145); pH 7.35 (7.35-7.45)
[2024-11-29 05:27] LABS: O2 Therapy 70%
--- NOTE | 2024-11-29 05:46 | W.PN.UPDATE ---
Update Note
Progress Note Update
Procedure Note: Arterial Line�
� LEFT Wrist Arrow 20 (01/28)�
Diagnosis:��sepsis and PNA
IV Line Comments: Uneventful Procedure�
Madhu's test completed pre-procedure: Yes�
A-Line Comments: Sterile technique as per standard protocol, Ultrasound guided insertion�
Functioning A-line in situ: Yes�
A-line Insertion Start Time:��0500
A-line in at:��0515
[2024-11-29] MEDS: LEVOPHED 258 MG IV ×3 (06:28→22:12)
[2024-11-29 06:38] LABS: Glucose - Point of Care 128 mg/dl (70-99)
[2024-11-29 07:44] LABS: Glucose - Point of Care 98 mg/dl (70-99)
[2024-11-29] MEDS: ELIQUIS 2.5 MG TUBE ×2 (07:48→19:13)
[2024-11-29] MEDS: ROCEPHIN 2000 MG IV (07:49)
[2024-11-29] MEDS: STERILE WATER FOR INJECTION 20 ML IV (07:49)
[2024-11-29] MEDS: PACERONE 400 MG TUBE ×2 (07:49→19:13)
[2024-11-29] MEDS: LOW STRENGTH ASPIRIN 81 MG TUBE (07:49)
[2024-11-29] MEDS: PROTONIX IV 40 MG IV (07:50)
[2024-11-29] MEDS: MIRALAX 17 GRAMS TUBE (07:50)
[2024-11-29] MEDS: NSS (PRESERVATIVE FREE) 10 ML IV (07:50)
--- NOTE | 2024-11-29 08:30 | PTCARENOTE ---
Received pt from previous RN. Pt is calm, restraints in place (see order and worklist). Pt is a-flutter on the monitor, doppler left pedal pulse. ETT #8 24 @ the lip, AC 18/500/5/80%, O2 sat 92%. Left nare DHT in place @ 65 cm. No urine output from
cath at this time. Prop, fent, and levo gtt (see worklist). Insulin gtt, accu checks Q1H (see worklist). Oral and hernandez care provided.
[2024-11-29] MEDS: DUONEB 3 ML INH ×3 (08:42→21:29)
[2024-11-29 08:52] LABS: Glucose - Point of Care 121 mg/dl (70-99)
--- NOTE | 2024-11-29 09:53 | W.PN.ID1 ---
Date of Service
Date of Service: November 29, 2024
Today's Communication
Continue ceftriaxone for today.
Assessment / Plan
Bacteremia with Streptococcus pneumoniae
Pneumonia
B/L parapneumonic effusions; s/p thoracentesis
- 11/22 right sided pleural fluid with Streptococcus pneumoniae
- 11/23 left sided pleural fluid also with Streptococcus pneumoniae
- s/p left CT placement
VDRF 2*Hypoxic respiratory failure
Fevers
Leukocytosis -trending up
HTN
CHF
DM type II with neuropathy
CKD stage IV
Dyslipidemia
Pulmonary hypertension
PAD with hx (R) BKA
Recommendations:
Continue ceftriaxone 2 g IV every 24 hours.
Monitor white count and temperature curve. Current rise of white count may be reactive given lack of fever. Current antibiotics appropriate for recovered isolate; although if white count continues to rise, may need to broaden antibiotic coverage
empirically.
Follow CXR.
Patient remains critically ill, in intensive care unit, on vent and pressor support.
����������������������������������������������������������
Chief Complaint
-: Clinical Sepsis, Bacteremia and Other (Parapneumonic effusion)
Subjective / Review of Systems
Patient seen and examined. Remains on vent at this time. A-line has been placed for closer monitoring of BP. Since yesterday a left-sided chest tube has been placed.
Review of Systems: No Fever
Vital Signs / Physical Exam
Vital Signs
Vital Signs
Temp Pulse Resp BP Pulse Ox
99.3 F 78 20 123/48 93
11/29/24 08:25 11/29/24 09:30 11/29/24 09:30 11/29/24 08:00 11/29/24 09:30
Physical Exam
Constitutional: Acutely Ill and Chronically Ill
Eyes: Sclera Anicteric
Oropharyngeal: Other (ET tube in place. Dobbhoff in place)
Cardiovascular: S1/S2; Negative S3/S4
Pulmonary: Other (Left-sided chest tube in place. Serous pleural fluid noted in Pleur-evac)
Gastrointestinal: Soft, Non Tender and Non Distended
Genito-Urinary: Negative CVA Tenderness
Extremities: Negative Cyanosis or Erythema
Neurological: Other (Sedated)
Psychological: Calm
Objective Data
Lab Data
Lab Results
11/29/24 03:32
11/29/24 03:32
PT 17.4 Sec (11.4-14.6) H 11/22/24 10:00
INR 1.37 11/22/24 10:00
APTT Cancelled 11/27/24 10:50
Estimated Creat Clear 17 ml/min 11/29/24 03:32
Lactic Acid 2.0 mmol/L (0.7-2.0) 11/23/24 20:24
Total Bilirubin 0.4 mg/dl (0.2-1.3) 11/25/24 03:28
AST 24 U/L (17-59) 11/25/24 03:28
ALT 17 U/L (0-50) 11/25/24 03:28
Alkaline Phosphatase 67 U/L (38-126) 11/25/24 03:28
Most recent labs reviewed.
Micro Results:
11/22/24 14:39 Acid Fast Bacilli Smear - Preliminary
Pleural Fluid Acid Fast Bacilli Culture - Preliminary
11/22/24 14:40 Fungal Smear - Pending
Pleural Fluid Fungal Culture - Preliminary
Culture in progress.
Positive cultures are reported as soon as detected.
Final report to follow in four to five weeks.
11/22/24 14:40 Body Fluid Culture - Final
Pleural Fluid Streptococcus pneumoniae
Gram Stain - Final
11/23/24 11:42 Body Fluid Culture - Final
Pleural Fluid Streptococcus pneumoniae
Gram Stain - Final
11/22/24 16:01 Blood Culture - Final
Blood/Venous Streptococcus pneumoniae
Gram Stain - Final
11/22/24 16:01 Blood Culture - Final
Blood/Venous Streptococcus pneumoniae
Gram Stain - Final
11/22/24 16:59 Urine Culture - Final
Urine NO GROWTH
11/22/24 10:00 Influenza Types A & B (BERRY) - Final
Nasal Swab Negative for Influenza A & B, NAAT
Negative results must be combined with clinical observations
and patient history.
Nucleic Acid Amplification test (NAAT)performed on the
[employer] NOW platform.
Imaging:
11/28/2024 CXR (portable): Moderate bilateral pleural effusions noted. No cardiomegaly. ET tube approximately 2.5 cm above terri. No visualized pneumothorax. Please see full dictation for additional detail.
11/26/2024 CXR (portable): Previously noted ET tube is no longer identified. Right IJ catheter is noted with tip in distal SVC. No pneumothorax. Moderate bilateral pleural effusions are without significant change. Cephalization of pulmonary
vasculature is noted.
11/22/2024 CXR (2 view): There is moderate bibasilar opacification at least in part suggesting moderate pleural effusions with likely underlying subsegmental atelectasis, slightly increased in comparison to prior study and significantly obscuring
the cardiac silhouette. There is no pneumothorax or suspected mediastinal shift.
11/22/2024 ECHO (TTE): EF approximately 60%. Mild to moderate tricuspid regurgitation. Large bilateral pleural effusions noted. Compared to prior from February 27, 2024, estimated pulmonary artery systolic pressure remain moderate to severely
elevated at 57 mmHg.
[2024-11-29 10:47] LABS: Glucose - Point of Care 93 mg/dl (70-99)
--- NOTE | 2024-11-29 11:22 | W.PN.CD ---
Today's Communication / Plan
-
Intubated and sedated worsening renal function
Requiring ventilator and pressor support
Differ diuretics to nephrology
Dilt can be held if needed for pressor support remains in a flutter
Impression / Plan
-
IMPRESSION/PLAN: 79M with chronic HFpEF, hypertension, tricuspid regurgitation, pulmonary hypertension, dyslipidemia, PAD status post right BKA, chronic lymphedema, medically managed endocarditis in 2019 and chronic kidney disease stage IV who
presented to the emergency department with a chief complaint of shortness
Primary Hvac Operations Technician: Dr. Landa
Acute on chronic hypoxic respiratory insufficiency 2/2 PNA with septic shock
-still on max high flow --> Reintubated 11/28/2024
Bacteremia and bacteria in thora fluid
- ID following.
- Management as per primary team/brand activation manager.
HFpEF, acute on chronic
-Now with oliguria, worsening Cr and BUN > 100
-Would differ diuretics to nephro given CKD and worsening kidney fxn
-Case management to barbour [id number], nephrology believes he will benefit from this (per outpatient note)
-Trend daily weight, I's/O, and BMP with diuresis
AF RVR
- new; CHADSVASC at least 6
-still with rvr --> Improved rate
-Transition amiodarone drip to po .
-will add diltiazem and assess response.
-OK to hold diltiazem 30mg po q6 hours for pressor support
- On Eliquis 2.5mg po bid.
- Continue lunchroom monitor.
Bilateral pleural effusions
-Status post thora
- bacteria in fluid
Moderate tricuspid regurgitation
Severe pulmonary hypertension
HTN, managed by Art Education Professor
HLD, on atorvastatin 20mg
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 Duncan
Secondary hyperparathyroidism
Type II DM, on insulin
PAD S/P right BKA, on clopidogrel
Former tobacco abuse, continued cessation recommended
Still critically ill, high oxygen requirements with high risk for the need to reintubate
Subjective:
Intubated and sedated
Total time in his care today 31 minutes
Physical Exam
Vital Signs/Labs
Vital Signs
Temp Pulse Resp BP Pulse Ox
99.3 F 77 19 123/48 93
11/29/24 08:25 11/29/24 10:15 11/29/24 10:15 11/29/24 08:00 11/29/24 10:15
11/28/24 11/29/24 11/30/24
06:59 06:59 06:59
Actual Weight 172 lb 2.896 oz 173 lb 8.061 oz
11/29/24 03:32
11/29/24 03:32
PT 17.4 Sec (11.4-14.6) H 11/22/24 10:00
INR 1.37 11/22/24 10:00
APTT Cancelled 11/27/24 10:50
Magnesium 2.9 mg/dl (1.6-2.3) H 11/29/24 03:32
Triglycerides 114 mg/dl (10-149) 11/28/24 08:36
11/22/24
10:00
Poe-P-Towpkhmkufn Pept 7510
Physical Exam
Constitutional: Other (intubated and sedated )
EENT: Anicteric
Cardiovascular: Rhythm/rate is irregular
Respiratory: Other (ventilator w/ left chest tube)
GI: Soft
Neuro/Psych: Other (sedated)
Data Reviewed
-
Date of Service: November 29, 2024
Medical Decision Making: Reviewed Test Results
EKG: Tracing Personally Visualized and interpreted (a flutter)
Echo: Report Reviewed by me
Labs: Labs Reviewed by me
--- NOTE | 2024-11-29 11:50 | W.PN.HOSP.TC ---
Today's Communication/Plan
-
critically ill
Wean pressors as tolerated
?R chest tube
cont with tube feeding
IV abx
Assessment / Plan
Assessment / Plan
Gen-intubated and sedated
HEENT-NC, AT, anicteric, clear oral mm
Neck-supple
CV-reg, no M, +S1/S2, irregular irregular, tachycardia
Lungs- rhonchi anterior. ET tube noted
Abd-soft, NT, ND, rectal bag. Dobhoff noted
Ext-left lower extremity edema, right BKA
Musculoskeletal-no cyanosis, clubbing
Skin-warm and dry
#Acute hypoxic respiratory failure -likely multifactorial etiology including acute pulmonary edema from heart failure, bilateral pleural effusions, pneumonia, sepsis.
Intubated 11/23.
Status post self extubation 11/25.
Status post reintubation 11/28/2024
Repeat chest x-ray noted with increasing fluid pleural and moderate B/L pleural effusions
Continue with tube feeding
IRAD placed left side chest tube.
Repaet CXR with increase in R sided pleural effusion-?need for R CT. will defer to horse trainer.
Cont with bronchodilators
Chief Of Production following
#Sepsis due to pneumonia and Streptococcus bacteremia-poa
#Shock likely sepsis
#Bandemia 2/2 sepsis
#Parapneumonic effusion status post thoracentesis
requiring levophed. Wean pressors as BP allows.
Continue with ceftriaxone 2 g every 24. DC further vancomycin and azithromycin. Bump in WBC noted.
Underwent bilateral thoracentesis by IR, 2 L of fluid removed from each side. Has had multiple bilateral thoracenteses in the past.
Infectious disease following
#Acute on chronic heart failure with preserved EF
Echocardiogram done 11/22 shows LVEF 60 to 65%, stage I diastolic dysfunction, mild to moderate TR, normal RV size and function.
BNP 7510.
Lasix 80 mg IV twice daily-on hold.
Diuretics per nephro.
#Rapid atrial fibrillation -appears to be a new diagnosis.
s/p amiodarone infusion and heparin infusion.
Now transition to p.o. amiodarone 400 mg twice daily and Cardizem 30 mg every 6 hours
Off heparin and now started on Eliquis
Cardiology following.
#Hyperkalemia
resolved. Hold losartan.
#AURY on CKD 4
previous creatinine was in the 2 range, 2.1-2.6 in February.
Cr uptrending to 3.5.
Nephrology following.
Etiology of AURY suspected to be due to sepsis, shock. Hold losartan. Continue Hernandez catheter.
#DM 2 with hyperglycemia
Has been on Lantus 14 units daily, NovoLog 6 units AC at home.
now on critical care glycemic protocol-cont with insulin gtt.
Essential hypertension -losartan held.
Hyperlipidemia -atorvastatin.
PAD -history of right BKA.
Mild intermittent asthma
History of Burks-Troy syndrome
Hypokalemia-replete/monitor
Full code
Anticipated Discharge: > 48 hours
Subjective/Interval History
-
Date of Service: November 29, 2024
intubated and sedated
on pressors
Increase in FIO2
Objective Data
-
Labs:
Laboratory Results
11/29/24 11/29/24
03:32 05:12
WBC 19.2 H
Hgb 11.1 L
Hct 35.7 L
Plt Count 176 D
HCO3 24.3
Sodium 140
Potassium 4.5
Chloride 102
Carbon Dioxide 25
BUN 133 H*
Creatinine 3.5 H
Glucose 121 H
Calcium 8.0 L
Vital Signs:
Vital Signs
Temp Pulse Resp BP Pulse Ox
99.3 F 77 19 123/48 93
11/29/24 08:25 11/29/24 10:15 11/29/24 10:15 11/29/24 08:00 11/29/24 10:15
I&O
11/28/24 11/29/24 11/30/24
06:59 06:59 06:59
Intake Total 1811.1 / 1866.1 2719.9 / 2827.3 514.8 / 514.8
Output Total 590 / 590 862 / 862
Balance 1221.1 / 1276.1 1857.9 / 1965.3 498.8 / 498.8
Data Reviewed
-
Total Time Spent with Patient (in minutes): 55
--- NOTE | 2024-11-29 12:15 | W.PN.NEPH.PH ---
Today's Communication / Plan
-
lasix, follow labs in am
Assessment/Plan
-
Assessment:
CKD IV (followed by Dr. Duncan) presumed to be DKD/vascular sclerosis
AURY
b/l pleural effusions
Decompensated Diastolic heart failure (on losartan, metoprolol, jardiance previously tried. no aldactone due to hyperK)
DM2
PVD s/p R BKA
hypotension
subnephrotic range proteinuria ?improving
PNA
GPC Bacteremia= strep pneumo
leukopenia
- In 2020 Kidney biopsy was not adequate but EM showed nodular diabetic sclerosis and severe vascular sclerosis.
Plan:
AURY-cr cont to increase with oliguric and worsening azotemia
wt is increasing-could try lasix
potential HD in next 24-48hr
adjust meds renally
abx per pulm
pressors to keep SBP>90, DBP are low
PLt improving
VDRF and left CT
spoke with on phone in detail and consents to HD if needed
d/w nursing, ICU
critical care time 31 minutes
-
-
Date of Service: November 29, 2024
CC / HPI / ROS
-
Chief Complaint:
AURY
History of Present Illness:
critically ill in ICU now off pressors
reintubated this morning for worsening hypoxia
AURY/Cr worse at 3.5, BUN 133
WBC rising 19
plts improving
abx for strep pneumonia
remains on levo
Review of Systems:
intubated, self extubated on 11/28 but needed to be reintubated, left CT placed
sedated
oliguric
Labs
-
Labs:
WBC 19.2 10^3/uL (4.8-10.8) H 11/29/24 03:32
RBC 4.02 10^6/uL (4.70-6.10) L 11/29/24 03:32
Hgb 11.1 g/dL (13.0-18.0) L 11/29/24 03:32
Hct 35.7 % (39.0-52.0) L 11/29/24 03:32
Plt Count 176 10^3/uL (130-400) D 11/29/24 03:32
Sodium 140 mmol/L (135-145) 11/29/24 03:32
Potassium 4.5 mmol/L (3.5-5.1) 11/29/24 03:32
Chloride 102 mmol/L (98-107) 11/29/24 03:32
Carbon Dioxide 25 mmol/L (22-30) 11/29/24 03:32
BUN 133 mg/dl (9-20) H* 11/29/24 03:32
Creatinine 3.5 mg/dL (0.7-1.3) H 11/29/24 03:32
eGFR 16.82 11/29/24 03:32
Glucose 121 mg/dl (70-99) H 11/29/24 03:32
Calcium 8.0 mg/dl (8.4-10.2) L 11/29/24 03:32
Jsx-A-Gwtwzewoiao Pept 7510 pg/ml 11/22/24 10:00
Albumin 2.6 g/dl (3.5-5.0) L 11/25/24 03:28
Physical Exam
-
Vital Signs:
Vital Signs
Temp Pulse Resp BP Pulse Ox
99.3 F 77 19 123/48 92
11/29/24 08:25 11/29/24 10:15 11/29/24 10:15 11/29/24 08:00 11/29/24 12:07
Cardiovascular:: Regular rate and rhythm
Respiratory:: Bilateral: Coarse
Lung Excursion:: Abnormal
Abdomen:: Nontender and Soft
Hernandez Catheter: Yes
Other Findings::
right BKA, left trace edema
[2024-11-29 12:48] LABS: NT-proBNP 5660 pg/ml
[2024-11-29 12:54] LABS: Glucose - Point of Care 120 mg/dl (70-99)
[2024-11-29] MEDS: LASIX 80 MG IV (13:07)
--- NOTE | 2024-11-29 13:18 | PTCARENOTE ---
Assessment unchanged. Pt making 0-10cc/hr urine. Tobacco Grower notified. Lasix administered. FiO2 to 70%.
[2024-11-29] MEDS: PITRESSIN 100 IV ×2 (14:13→23:27)
[2024-11-29 14:30] LABS: Glucose - Point of Care 82 mg/dl (70-99)
[2024-11-29 14:32] LABS: Glucose - Point of Care 57 mg/dl (70-99)
--- NOTE | 2024-11-29 14:49 | W.PN.INTV ---
Today's Communication / Plan
Recommendations
Continue mechanical ventilation without change
Continue antibiotics
Attempt diuresis
Dialysis may be needed
Hold Cardizem
Continue vasopressors Levophed, vasopressin added
Will consider stress dose of steroids if vasopressor requirement continues to escalate
Continue tube feedings
Continue sedation with fentanyl and propofol
Prognosis is guarded
Assessment
-
79-year-old male with history of heart failure, chronic kidney disease, bilateral pleural effusions requiring intermittent thoracentesis, presents with 3 days of increased chest discomfort on the left side. This was associated with increased
shortness of breath. He admits to not taking his Lasix therapy given recent stress and travel to the city with sick grandchild. Was found to have bilateral pleural effusions. Underwent right thoracentesis drained 2 L. Postthoracentesis required
increased oxygen, now on BiPAP saturation 86%. We are asked to help from critical care standpoint 11/22/2024
Acute hypoxic respiratory insufficiency
on NIV, intubated 11/23
Baseline 1 to 2 L at home as needed
Worsening left upper lobe infiltrate
Pneumonia versus reexpansion pulmonary edema
Bacteremia/bilateral pleural effusions
Right/Left pleural fluid positive for Streptococcus hypotension, secondary to sepsis
s/p Left thora 11/23, -2L
Left-sided chest tube placement 11/28/2024
History of heart failure
Pulmonary hypertension
Noncompliance with Lasix in the past
s/p rt thora -2L on 11/22
Acute renal insufficiency, creatinine 3.5
Conditions present prior to admission
COPD, emphysema per CT imaging
FEV1 2.48/92%, TLC 90%, DLCO 50% per PFT 2019
Hypertension/hyperlipidemia
Peripheral arterial disease, right BKA
On Plavix
Left toe amputation
Chronic kidney disease, stage III
Diabetic nodular glomerulosclerosis
Recurrent pleural effusion requiring intermittent thoracentesis
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
COVID December 2022
Plan/recommendations:
Required intubation 11/23 for progressive hypoxia.
Self extubated 11/25/2024 in the afternoon.
Unfortunately, the morning of 11/28/2024: Increased work of breathing, more hypoxemic, anxious, nauseous. Required reintubation.
-
Mechanical ventilation settings reviewed.
Chest x-ray 11/29/2024: Left pigtail in place. No pneumothorax. Decreased left-sided pleural effusion. Moderate to large right pleural effusion. Pulmonary edema stable. ET tube in place
Assist-control:500/18/+5/70%
Peak pressure 24/plateau pressure 19
ET tube without significant secretions.
ABG 11/29/2024: 7.35/40/67 adequate oxygenation on ventilator-continue mechanical ventilation settings without change
-
Left chest tube in place with serous fluid, no air leaks
Daily chest
ABG tomorrow
-
Propofol/fentanyl for light sedation
-
Pulmonary edema pattern on chest x-ray:
IV Lasix given 11/29/2024 without significant response
Worsening renal function with BUN greater than 100
Nephrology following patient
Dialysis might be needed
-
Shock: Possibly septic
Levophed/vasopressin
Last lactic acid was 2.0 11/23/2024
Will try to minimize
Hold Cardizem
May need to consider stress dose of steroids.
-
Worsening leukocytosis. Afebrile
Continue ceftriaxone- 11/23
Azithromycin discontinued
Infectious disease following
Left/right pleural fluid positive with a streptococcal pneumonia
Blood culture positive with Streptococcus pneumonia
Vancomycin discontinued.
COVID-negative
Flu negative
-
Status post left/right thoracentesis:
Blood cultures are positive-for Streptococcus pneumonia as well.
Bilateral pleural fluid positive with Streptococcus pneumonia.
Given deteriorating clinical condition, moderate bilateral pleural effusions and infiltrate, chest tube will be requested to be placed at least on the left side. Left chest tube placed 10/28/[id number]
Continue with daily chest x-ray.
-
Not bronchospastic on exam
Nebulizers 3 times a day to aid with secretion clearance
-
Possible heart failure component, volume overload, chronic kidney disease
Diuretics per nephrology
Echocardiogram was done in the ED, PA pressure 57, large bilateral pleural effusion, normal biventricular function which is encouraging
Cardiology following-supportive care for now.
Follow urine output
Hernandez catheter in place
Atrial fibrillation-improved rate.
Currently on oral anticoagulants.
Remains on amiodarone, started 11/23.
Hold Cardizem
Cardiology following
Glycemic control-Target 140-180.
Insulin sliding scale
Dobbhoff tube in place-continue tube feeds
Keep n.p.o. for now, respiratory status very tenuous.
DVT prophylaxis: transitioned to oral anticoagulant
GI prophylaxis: PPI
High risk situation. Dr. Morales updated 11/28/2024 from 11/29/2024. Prognosis is guarded
Reviewed with critical care nursing, respiratory care, primary service, cardiology
Critical care statement: A total of 40 minutes of critical care time was provided for this patient today. This includes management of unstable vital signs, evaluation of the patient at bedside, reviewing the patient's pertinent medical records
including ventilator settings, arterial blood gases, radiographs, microbiology, laboratory evaluations and discussion with primary team, critical care nursing, and respiratory therapy.
Subjective Dataa
Subjective Data
Date of Service:
Date of Service: November 29, 2024
Chief Complaint: Tool And Die Inspector Follow Up (Acute hypoxemic respiratory failure/septic shock)
Subjective:
Intubated, mechanical ventilation. Sedated.
Patient remains critically ill
Review of Systems
General: Unobtainable - Sedation
Objective Data
Data Reviewed
Vital Signs / I&O / Oxygen:
Vital Signs
Temp Pulse Resp BP Pulse Ox
99.5 F 77 18 123/48 94
11/29/24 12:30 11/29/24 13:15 11/29/24 13:15 11/29/24 08:00 11/29/24 13:15
Intake and Output
11/28/24 11/29/24 11/30/24
06:59 06:59 06:59
Intake Total 1811.1 / 1866.1 2719.9 / 2827.3 910.2 / 910.2
Output Total 590 / 590 862 / 862
Balance 1221.1 / 1276.1 1857.9 / 1965.3 890.2 / 890.2
SaO2 [A/C] 92
SaO2 [NIV (Non Invasive 95
Ventilation)]
SaO2 94
Nasal Cannula flow liters per 60
minute
Physical Exam
General: Respiratory Distress (None on sedation)
HEENT: Normocephalic, Anicteric, Other (Dry mucosa) and Other (ET tube in place without secretion)
Cardiovascular: S1-S2, Regular Rhythm, Murmur (n) and Other (Right lower extremity BKA)
Respiratory: Wheeze, Crackles (n), Rhonchi (n), Non-Labored Respirations and Stridor (n)
GI: Soft, Non Distended and Non Tender
Neurology: Lethargic (Intubated, mechanical ventilator)
Skin: Cyanosis (n), Jaundice (n) and Rash (n)
Labs/Micro/Reports
Lab Data
11/29/24 03:32
11/29/24 03:32
Laboratory Results
11/29/24
05:12
pH 7.35
pCO2 44
pO2 67 L
HCO3 24.3
O2 Delivery Level 70%
Microbiology
11/22/24 14:40 Pleural Fluid Fungal Smear - Final
No yeast or fungal elements seen.
11/22/24 14:40 Pleural Fluid Fungal Culture - Preliminary
Culture in progress.
Positive cultures are reported as soon as detected.
Final report to follow in four to five weeks.
[2024-11-29 14:55] LABS: Glucose - Point of Care 102 mg/dl (70-99)
--- NOTE | 2024-11-29 15:15 | PN.CDI ---
CDI
- -
CDI:
Physician Documentation Request
Admit Date: 11/22/24 14:35
Dear Doctor Cydney,
Patient is being managed for 'Acute hypoxic respiratory failure -likely multifactorial etiology including acute pulmonary edema from heart failure, bilateral pleural effusions, pneumonia, sepsis'
Patient has been intubated x 2
Pleural fluid cultures positive for streptococcus pneumoniae.
Could you please clarify in the Progress Notes further specificity regarding the known, suspected or likely type of pneumonia you are treating (recognizing the specific organism may not be known)?
Strep Pneumonia - indicate if strep B, strep pneumoniae or other type
Aspiration Pneumonia - indicate substance such as food or vomitus, oils or other solids or liquids
Other organism - specify known or suspected type
Other type
Use of terms such as suspected, likely, concern for, or probable (associated with a specific diagnosis that is being evaluated, monitored, or treated as if it exists) are acceptable and can be coded in the inpatient setting, when documented at the
time of discharge.
Thank you,
Liliana Self RN, BSN
CDI Specialist
tiger text
Please use your independent medical judgment in providing your response.
--- NOTE | 2024-11-29 15:16 | CM ---
CM following re: discharge planning.
Reviewed pt's chart, met with pt.
Per Rounds meeting, pt remains intubated, , very slow improvement, prognosis guarded, continue supportive care.
D/C plan: uncertain at this time and will depend on pt's progresses.
CM will follow with discharge plan updates as hospitalization progresses
--- NOTE | 2024-11-29 16:38 | PTCARENOTE ---
Addendum entered by Deandra Villanueva RN 11/29/24 16:39:
Crimping Machine Operator For Metal notified of minimal UOP after lasix admin.
Original Note:
Assessment unchanged. Vasopressin added.
[2024-11-29] MEDS: DEXTROSE 50% SYRINGE 12.5 GRAMS IV (16:47)
[2024-11-29 16:51] LABS: Glucose - Point of Care 51 mg/dl (70-99)
[2024-11-29 17:12] LABS: Glucose 57 mg/dl (70-99)
[2024-11-29 17:23] LABS: Glucose - Point of Care 95 mg/dl (70-99)
[2024-11-29] MEDS: LIPITOR 20 MG TUBE (17:44)
[2024-11-29 18:06] LABS: Glucose - Point of Care 92 mg/dl (70-99)
[2024-11-29 19:05] LABS: Glucose - Point of Care 99 mg/dl (70-99)
[2024-11-29 20:07] LABS: Glucose - Point of Care 98 mg/dl (70-99)
[2024-11-29 21:09] LABS: Glucose - Point of Care 97 mg/dl (70-99)
--- NOTE | 2024-11-29 21:19 | PTCARENOTE ---
Received pt from previous RN. Pt is drowsy/lethargic/nonverbal, pupils b/l [address] (see order and worklist). Aflutter on the monitor, doppler left pedal pulse. DC levo and vaso gtt per protocol (see worklist). ETT #8 24 @
lip, repositioned to the right side. AC settings 18/500/80%/5, O2 sat 93%. Left chest tube to water seal, dressing c/d/i. Dobhoff left nare @ 65 cm, Jevity 1.5 @ goal 45 ml/hr, no water flush. Pt with 2 incont liquid BM, FMS placed. Mary exchanged
for temperature sensing. Prop, Fent and insulin gtt per protocol (see worklist). CHG bath provided. Safe environment maintained.
[2024-11-29] MEDS: TYLENOL ORAL SOLUTION 650 MG TUBE (21:45)
[2024-11-29 22:06] LABS: Glucose - Point of Care 111 mg/dl (70-99)
[2024-11-29 23:06] LABS: Urine Albumin 1+ (Neg - Trace); Urine Bilirubin Negative (Negative); Urine Character Clear (Clear); Urine Color Yellow; Urine Glucose Negative (Negative); Urine Ketone Negative (Negative); Urine Leukocyte Trace (Negative); Urine Nitrite Negative (Negative); Urine Occult Blood 3+ (Negative); Urine Urobilinogen Negative (Neg - 1+)
[2024-11-29 23:11] LABS: Urine Squamous Cell 0-2 /LPF (Few)
--- NOTE | 2024-11-29 23:12 | PTCARENOTE ---
ICU TRANSPORTATION AIDE Sim notified about pt temp 100.5, PRN Tylenol given (see MAR). Notified about WBCs increased on AM labs. Sputum, urine and BC x2 ordered and sent. Prop, fent, levo, vaso, and insulin gtt per protocol (see worklist). Safe environment
maintained.
[2024-11-29 23:15] LABS: Urine Amorphous Seen; Urine Bacteria Many (Negative)
[2024-11-30 00:04] LABS: Glucose - Point of Care 131 mg/dl (70-99)
[2024-11-30 00:21] VITALS: BP_SYST 86
[2024-11-30] MEDS: DIPRIVAN 100 IV ×2 (01:14→16:08)
[2024-11-30] MEDS: SUBLIMAZE 100 IV (01:25)
[2024-11-30 02:15] LABS: Glucose - Point of Care 80 mg/dl (70-99)
[2024-11-30] MEDS: TYLENOL ORAL SOLUTION 650 MG TUBE (02:30)
[2024-11-30 03:00] VITALS: BMI 26.2
[2024-11-30 03:13] LABS: % Basophils 0.4 % (0-2); % Immature Granulocytes 1.2 % (0-0.5); % Lymphocytes 4.4 % (20.5-51.1); % Monocytes 5.9 % (1.7-9.3); % Neutrophils 87.1 % (42.2-75.2); Absolute Basophils 0.1 10^3/uL (0-0.2); Absolute Eosinophils 0.2 10^3/uL (0-0.7); Absolute Immature Granulocytes 0.3 10^3/uL (0-0.05); Absolute Lymphocytes 0.9 10^3/uL (1.2-3.4); Absolute Monocytes 1.3 10^3/uL (0.1-0.6); Absolute Neutrophils 18.8 10^3/uL (1.4-6.5); Hematocrit 35.7 % (39.0-52.0); Hemoglobin 11.2 g/dL (13.0-18.0); Mean Corp Hgb Conc. 31.4 g/dL (33.0-37.0); Mean Corpuscular Hgb 27.5 pg (27.0-31.0); Mean Corpuscular Volume 87.5 fL (80.0-94.0); Mean Platelet Volume 10.5 fL (7.4-10.4); Nucleated Red Blood Cells % 0 % (-); Platelet Count 238 10^3/uL (130-400); Red Blood Cell Count 4.08 10^6/uL (4.70-6.10); Red Cell Dist. Width 15.9 % (11.5-14.5); White Blood Cell Count 21.5 10^3/uL (4.8-10.8)
[2024-11-30 03:21] LABS: HCO3 23.6 mmol/L (21-28); O2 Saturation % 96.3 % (94-98); PCO2 48 mmHg (35-48); PO2 75 mmHg (83-108)
[2024-11-30 03:26] LABS: Calcium 7.9 mg/dl (8.4-10.2); Carbon Dioxide 21 mmol/L (22-30); Chloride 102 mmol/L (98-107); Estimated Creatinine Clearance 13 ml/min; Glucose 101 mg/dl (70-99); Magnesium 3.1 mg/dl (1.6-2.3); Potassium 5.5 mmol/L (3.5-5.1); Sodium 137 mmol/L (135-145); eGFR 12.78
--- NOTE | 2024-11-30 03:30 | PTCARENOTE ---
AM labs provided. Systems reviewed, no new changes in assessment. Medications titrated per protocol (see worklist). Safe environment maintained.
[2024-11-30 03:45] LABS: Blood Urea Nitrogen 150 mg/dl (9-20)
[2024-11-30 04:06] LABS: Glucose - Point of Care 108 mg/dl (70-99)
[2024-11-30] MEDS: CALCIUM GLUCONATE 100 IV (04:38)
--- NOTE | 2024-11-30 05:02 | PTCARENOTE ---
Pt temp 101.2, PRN Tylenol given x2 (see MAR). Cooling blanket applied.
[2024-11-30 05:07] VITALS: BP_SYST 103
[2024-11-30] MEDS: LEVOPHED 258 MG IV ×3 (05:37→21:56)
[2024-11-30 05:51] LABS: Glucose - Point of Care 142 mg/dl (70-99)
[2024-11-30 06:06] VITALS: BP_SYST 111
[2024-11-30] MEDS: DUONEB 3 ML INH ×3 (07:12→20:59)
[2024-11-30] MEDS: MIRALAX TUBE (07:55)
[2024-11-30] MEDS: ROCEPHIN 2000 MG IV (07:56)
[2024-11-30] MEDS: ELIQUIS 2.5 MG TUBE ×2 (07:56→19:47)
[2024-11-30] MEDS: LOW STRENGTH ASPIRIN 81 MG TUBE (07:56)
[2024-11-30] MEDS: NSS (PRESERVATIVE FREE) 10 ML IV (07:56)
[2024-11-30] MEDS: PACERONE 400 MG TUBE ×2 (07:56→19:46)
[2024-11-30] MEDS: PROTONIX IV 40 MG IV (07:56)
[2024-11-30] MEDS: STERILE WATER FOR INJECTION 20 ML IV (07:56)
[2024-11-30 08:17] LABS: Glucose - Point of Care 106 mg/dl (70-99)
--- NOTE | 2024-11-30 09:22 | W.PN.ID1 ---
Date of Service
Date of Service: November 30, 2024
Today's Communication
Broaden abx to cefepime.
Assessment / Plan
Bacteremia with Streptococcus pneumoniae
Pneumonia
B/L parapneumonic effusions; s/p thoracentesis
- 11/22 right sided pleural fluid with Streptococcus pneumoniae
- 11/23 left sided pleural fluid also with Streptococcus pneumoniae
- s/p left CT placement
VDRF 2*Hypoxic respiratory failure
Fevers overnight
Leukocytosis -trending up
HTN
CHF
DM type II with neuropathy
CKD stage IV
Dyslipidemia
Pulmonary hypertension
PAD with hx (R) BKA
Recommendations:
Febrile overnight.
Leukocytosis trending up.
Blood cx's pending.
Sputum pending
Broaden ceftriaxone 2 g IV every 24 hours to cefepime.
Trend wbc/temps.
Patient remains critically ill, in intensive care unit, on vent and pressor support.
����������������������������������������������������������
Chief Complaint
-: Clinical Sepsis, Pneumonia, Bacteremia and Other (Parapneumonic effusion)
Subjective / Review of Systems
Remains intubated.
Vital Signs / Physical Exam
Vital Signs
Vital Signs
Temp Pulse Resp BP Pulse Ox
98.7 F 84 18 101/41 95
11/30/24 07:28 11/30/24 08:15 11/30/24 08:15 11/29/24 19:13 11/30/24 07:55
Selected Entries
11/30/24
05:03
Temp 101.2 F H
Physical Exam
Constitutional: Acutely Ill
Eyes: Sclera Anicteric
Pulmonary: Other (Decreased BS. Left chest tube in place.)
Gastrointestinal: Soft, Non Tender, Non Distended and Normal Bowel Sounds
Extremities: Negative Edema
Objective Data
Lab Data
Lab Results
11/30/24 02:44
11/30/24 02:44
PT 17.4 Sec (11.4-14.6) H 11/22/24 10:00
INR 1.37 11/22/24 10:00
APTT Cancelled 11/27/24 10:50
Estimated Creat Clear 13 ml/min 11/30/24 02:44
Lactic Acid 2.0 mmol/L (0.7-2.0) 11/23/24 20:24
Total Bilirubin 0.4 mg/dl (0.2-1.3) 11/25/24 03:28
AST 24 U/L (17-59) 11/25/24 03:28
ALT 17 U/L (0-50) 11/25/24 03:28
Alkaline Phosphatase 67 U/L (38-126) 11/25/24 03:28
Most recent labs reviewed.
Micro Results:
11/29/24 23:15 Blood Culture - Pending
Blood/Venous
11/29/24 22:53 Urine Culture - Pending
Urine
11/29/24 22:55 Respiratory Culture - Pending
Tracheal Aspirate Gram Stain - Pending
11/29/24 22:49 Blood Culture - Pending
Blood/Venous
11/22/24 14:40 Fungal Smear - Final
Pleural Fluid No yeast or fungal elements seen.
Fungal Culture - Preliminary
Culture in progress.
Positive cultures are reported as soon as detected.
Final report to follow in four to five weeks.
11/22/24 14:39 Acid Fast Bacilli Smear - Preliminary
Pleural Fluid Acid Fast Bacilli Culture - Preliminary
11/22/24 14:40 Body Fluid Culture - Final
Pleural Fluid Streptococcus pneumoniae
Gram Stain - Final
11/23/24 11:42 Body Fluid Culture - Final
Pleural Fluid Streptococcus pneumoniae
Gram Stain - Final
11/22/24 16:01 Blood Culture - Final
Blood/Venous Streptococcus pneumoniae
Gram Stain - Final
11/22/24 16:01 Blood Culture - Final
Blood/Venous Streptococcus pneumoniae
Gram Stain - Final
11/22/24 16:59 Urine Culture - Final
Urine NO GROWTH
11/22/24 10:00 Influenza Types A & B (BERRY) - Final
Nasal Swab Negative for Influenza A & B, NAAT
Negative results must be combined with clinical observations
and patient history.
Nucleic Acid Amplification test (NAAT)performed on the
ADOP platform.
Imaging:
11/28/2024 CXR (portable): Moderate bilateral pleural effusions noted. No cardiomegaly. ET tube approximately 2.5 cm above terri. No visualized pneumothorax. Please see full dictation for additional detail.
11/26/2024 CXR (portable): Previously noted ET tube is no longer identified. Right IJ catheter is noted with tip in distal SVC. No pneumothorax. Moderate bilateral pleural effusions are without significant change. Cephalization of pulmonary
vasculature is noted.
11/22/2024 CXR (2 view): There is moderate bibasilar opacification at least in part suggesting moderate pleural effusions with likely underlying subsegmental atelectasis, slightly increased in comparison to prior study and significantly obscuring
the cardiac silhouette. There is no pneumothorax or suspected mediastinal shift.
11/22/2024 ECHO (TTE): EF approximately 60%. Mild to moderate tricuspid regurgitation. Large bilateral pleural effusions noted. Compared to prior from February 27, 2024, estimated pulmonary artery systolic pressure remain moderate to severely
elevated at 57 mmHg.
[2024-11-30] MEDS: PITRESSIN 100 IV ×2 (09:33→21:38)
[2024-11-30 10:11] LABS: Glucose - Point of Care 109 mg/dl (70-99)
--- NOTE | 2024-11-30 10:14 | PTCARENOTE ---
Rec'd pt at 0700. Pt sedate on Propofol/Fentanyl gtts on vent. Grimaces/localizes pain. Afib/aflutter on monitor. SBP 90-100's via left radial a-line. Remains on Levo/Vaso gtts to keep SBP >90. Lungs dim, sct coarse post. Left chest tube in place to
water seal, no crepitus or air leak, straw colored drainage to atrium. DHT with Jevity 1.5 at goal 45mls/hr. FMS draining liquid brown stool. Hernandez draining yellow urine. Q2hr accuchecks, glycemic protocol followed. Pt to start CRRT today, awaiting
IR to place HD cath.
[2024-11-30] MEDS: STERILE WATER FOR INJECTION 10 ML IV ×2 (10:19→17:17)
[2024-11-30] MEDS: MAXIPIME 2000 MG IV (10:19)
[2024-11-30 11:00] VITALS: BP_SYST 87
--- NOTE | 2024-11-30 11:37 | W.PN.NEPH.PH ---
Today's Communication / Plan
-
IR consulted for temp HD catheter
CRRT today
Assessment/Plan
-
Assessment:
CKD IV (followed by Dr. Duncan) presumed to be DKD/vascular sclerosis
AURY
b/l pleural effusions
Decompensated Diastolic heart failure (on losartan, metoprolol, jardiance previously tried. no aldactone due to hyperK)
DM2
PVD s/p R BKA
hypotension
subnephrotic range proteinuria ?improving
PNA
GPC Bacteremia= strep pneumo
leukopenia
- In 2020 Kidney biopsy was not adequate but EM showed nodular diabetic sclerosis and severe vascular sclerosis.
Plan:
AURY-cr cont to increase with anuric and worsening azotemia
wt is increasing, no response to lasix
will start CRRT today
adjust meds renally
abx per pulm
pressors to keep SBP>[address] , CXR still with effusion and pulm edema
spoke with on phone in detail and consents to HD
She is aware of poor prognosis
d/w nursing, ICU
critical care time 31 minutes
-
-
Date of Service: November 30, 2024
CC / HPI / ROS
-
Chief Complaint:
AURY
History of Present Illness:
critically ill in ICU now off pressors
reintubated this morning for worsening hypoxia
AURY/Cr worse at 4.4, BUN 150, k high 5.5
WBC rising 21, febrile overnight
abx for strep pneumonia
remains on levo, vaso added yesterday
Review of Systems:
intubated, left CT
sedated
anuric dior hernandez
Labs
-
Labs:
WBC 21.5 10^3/uL (4.8-10.8) H 11/30/24 02:44
RBC 4.08 10^6/uL (4.70-6.10) L 11/30/24 02:44
Hgb 11.2 g/dL (13.0-18.0) L 11/30/24 02:44
Hct 35.7 % (39.0-52.0) L 11/30/24 02:44
Plt Count 238 10^3/uL (130-400) D 11/30/24 02:44
Sodium 137 mmol/L (135-145) 11/30/24 02:44
Potassium 5.5 mmol/L (3.5-5.1) H 11/30/24 02:44
Chloride 102 mmol/L (98-107) 11/30/24 02:44
Carbon Dioxide 21 mmol/L (22-30) L 11/30/24 02:44
BUN 150 mg/dl (9-20) H* 11/30/24 02:44
Creatinine 4.4 mg/dL (0.7-1.3) H* 11/30/24 02:44
eGFR 12.78 11/30/24 02:44
Glucose 101 mg/dl (70-99) H 11/30/24 02:44
Calcium 7.9 mg/dl (8.4-10.2) L 11/30/24 02:44
Jff-N-Jnidgyyalpw Pept 5660 pg/ml 11/29/24 03:32
Albumin 2.6 g/dl (3.5-5.0) L 11/25/24 03:28
Physical Exam
-
Vital Signs:
Vital Signs
Temp Pulse Resp BP Pulse Ox
98.7 F 77 18 101/41 96
11/30/24 07:28 11/30/24 11:15 11/30/24 11:15 11/29/24 19:13 11/30/24 11:33
Cardiovascular:: Regular rate and rhythm
Respiratory:: Bilateral: Coarse
Lung Excursion:: Abnormal
Abdomen:: Nontender and Soft
Extremity Edema:: +1: Left:
Hernandez Catheter: Yes
Other Findings::
rt BKA
[2024-11-30 12:03] LABS: Glucose - Point of Care 110 mg/dl (70-99)
--- NOTE | 2024-11-30 12:23 | W.PN.HOSP.TC ---
Today's Communication/Plan
-
CRRT
TF
Abx switched to cefepime
IV insulin
wean pressors as tolerated
Assessment / Plan
Assessment / Plan
Gen-intubated and sedated
HEENT-NC, AT, anicteric, clear oral mm
Neck-supple
CV-reg, no M, +S1/S2, irregular irregular, tachycardia
Lungs- rhonchi anterior. ET tube noted
Abd-soft, NT, ND, rectal bag. Dobhoff noted
Ext-left lower extremity edema, right BKA
Musculoskeletal-no cyanosis, clubbing
Skin-warm and dry
#Acute hypoxic respiratory failure -likely multifactorial etiology including acute pulmonary edema from heart failure, bilateral pleural effusions, pneumonia, sepsis.
Intubated 11/23.
Status post self extubation 11/25.
Status post reintubation 11/28/2024
Repeat chest x-ray noted with increasing fluid pleural and moderate B/L pleural effusions
Continue with tube feeding
IRAD placed left side chest tube. Remains with drainage. Increase in FIO2 to 80%
Repeat CXR with increase effusion on left side-?re-position CT tube. ?lytic therapy.
Cont with bronchodilators
Pallet Rectifier following
#Sepsis due to pneumonia and Streptococcus bacteremia-poa
#Shock likely sepsis
#Bandemia 2/2 sepsis
#Parapneumonic effusion status post thoracentesis
requiring levophed. Wean pressors as BP allows.
DC further vancomycin and azithromycin. Bump in WBC noted. Spiking fever. Abx switched to Cefepime now. Off rocephin.
Underwent bilateral thoracentesis by IR, 2 L of fluid removed from each side. Has had multiple bilateral thoracenteses in the past.
Infectious disease following
#Acute on chronic heart failure with preserved EF
Echocardiogram done 11/22 shows LVEF 60 to 65%, stage I diastolic dysfunction, mild to moderate TR, normal RV size and function.
BNP 7510.
Lasix 80 mg IV twice daily-on hold.
Diuretics per nephro.
#Rapid atrial fibrillation -appears to be a new diagnosis.
s/p amiodarone infusion and heparin infusion.
Now transition to p.o. amiodarone 400 mg twice daily and Cardizem 30 mg every 6 hours
Off heparin and now started on Eliquis
Cardiology following.
#Hyperkalemia
resolved. Hold losartan.
#AURY on CKD 4
#Mild hyperkalemia
previous creatinine was in the 2 range, 2.1-2.6 in February.
Cr uptrending to 4.4.
Nephrology following.
Etiology of AURY suspected to be due to sepsis, shock. Hold losartan. Continue Hernandez catheter.
Not much urinary output.
Plan for CRRT today. Need to monitor BP closely as on 2 pressors.
#DM 2 with hyperglycemia
Has been on Lantus 14 units daily, NovoLog 6 units AC at home.
now on critical care glycemic protocol-cont with insulin gtt.
Essential hypertension -losartan held.
Hyperlipidemia -atorvastatin.
PAD -history of right BKA.
Mild intermittent asthma
History of Burks-Troy syndrome
Hypokalemia-replete/monitor
Full code
d/w with nephrology
Remains critically ill
d/w with RN
Total Critical Care Time 35 minutes. I was immediately available to the patient and staff. I personally examined, reviewed labs, diagnostic images/reports, interpretations, treatment plans, discussed patient care with other providers and family
or caregivers (if patient is unable to make decisions), entered orders as appropriate and documented the medical record.
Anticipated Discharge: > 48 hours
Subjective/Interval History
-
Date of Service: November 30, 2024
spiking fever
increase in FIO2
Worsening Cr
remains on pressors
Objective Data
-
Labs:
Laboratory Results
11/30/24 11/30/24
02:44 03:09
WBC 21.5 H
Hgb 11.2 L
Hct 35.7 L
Plt Count 238 D
HCO3 Cancelled 23.6
Sodium 137
Potassium 5.5 H
Chloride 102
Carbon Dioxide 21 L
BUN 150 H*
Creatinine 4.4 H*
Glucose 101 H
Calcium 7.9 L
Vital Signs:
Vital Signs
Temp Pulse Resp BP Pulse Ox
98.7 F 75 18 101/41 96
11/30/24 07:28 11/30/24 11:45 11/30/24 11:45 11/29/24 19:13 11/30/24 11:33
I&O
11/29/24 11/30/24 12/01/24
06:59 06:59 06:59
Intake Total 2719.9 / 2827.3 2823.9 / 2925.5 541.9 / 541.9
Output Total 862 / 862 587 / 587 138 / 138
Balance 1857.9 / 1965.3 2236.9 / 2338.5 403.9 / 403.9
--- NOTE | 2024-11-30 13:31 | W.PN.INTV ---
Today's Communication / Plan
Recommendations
Antibiotics changed to cefepime
Obtain ABG
Will adjust mechanical ventilation as necessary
CRRT today
Continue vasopressors Levophed/vasopressin
Chest x-ray daily
Check C. difficile
High risk situation
Assessment
-
79-year-old male with history of heart failure, chronic kidney disease, bilateral pleural effusions requiring intermittent thoracentesis, presents with 3 days of increased chest discomfort on the left side. This was associated with increased
shortness of breath. He admits to not taking his Lasix therapy given recent stress and travel to the city with sick grandchild. Was found to have bilateral pleural effusions. Underwent right thoracentesis drained 2 L. Postthoracentesis required
increased oxygen, now on BiPAP saturation 86%. We are asked to help from critical care standpoint 11/22/2024
Acute hypoxic respiratory insufficiency
on NIV, intubated 11/23
Baseline 1 to 2 L at home as needed
Worsening left upper lobe infiltrate
Pneumonia versus reexpansion pulmonary edema
Bacteremia/bilateral pleural effusions
Right/Left pleural fluid positive for Streptococcus hypotension, secondary to sepsis
s/p Left thora 11/23, -2L
Left-sided chest tube placement 11/28/2024
History of heart failure-now with pulmonary edema 11/29/2023
Pulmonary hypertension
Noncompliance with Lasix in the past
s/p rt thora -2L on 11/22
Acute renal insufficiency, creatinine 3.5-progressive
Conditions present prior to admission
COPD, emphysema per CT imaging
FEV1 2.48/92%, TLC 90%, DLCO 50% per PFT 2019
Hypertension/hyperlipidemia
Peripheral arterial disease, right BKA
On Plavix
Left toe amputation
Chronic kidney disease, stage III
Diabetic nodular glomerulosclerosis
Recurrent pleural effusion requiring intermittent thoracentesis
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
COVID December 2022
Plan/recommendations:
Required intubation 11/23 for progressive hypoxia.
Self extubated 11/25/2024 in the afternoon.
Unfortunately, the morning of 11/28/2024: Increased work of breathing, more hypoxemic, anxious, nauseous. Required reintubation.
-
Mechanical ventilation settings reviewed.
Chest x-ray 11/29/2024: Left pigtail in place. No pneumothorax. Decreased left-sided pleural effusion. Moderate to large right pleural effusion. Pulmonary edema stable. ET tube in place
Assist-control:500/18/+5/70%-occasionally overbreathing the ventilator
Peak pressure 23-blood total 19 11/30/2024
ET tube without significant secretions.
Repeat ABG
AB11/30/2024 3 AM 7.3/48/75
ABG 11/29/2024: 7.35/40/67 adequate oxygenation on ventilator-continue mechanical ventilation settings without change
-
Left chest tube in place with serous fluid, no air leaks
Chest x-ray 11/30/2024: Pulmonary edema pattern worsened. Bilateral effusions.
-
Propofol/fentanyl for light sedation
-
Pulmonary edema pattern on chest x-ray:
IV Lasix given 11/29/2024 without significant response
Worsening renal function with BUN greater than 100
Nephrology following patient-To start CRRT today.
Dialysis line obtained
-
Shock: Possibly septic
Levophed/vasopressin requirements are stable. Maintained to target mean arterial blood pressure greater than 65 mmHg.
Last lactic acid was 2.0 11/23/2024
Hold Cardizem
Check lactic acid
If unable to tolerate dialysis will start stress dose of steroids
-
Worsening leukocytosis. Febrile overnight 11/30/2024.
Continue ceftriaxone- 11/23 antibiotics broadened to cefepime November 30, 2024 due to worsening leukocytosis and sepsis
Azithromycin discontinued
Infectious disease following-correspondence reviewed
Left/right pleural fluid positive with a streptococcal pneumonia
Blood culture positive with Streptococcus pneumonia
Vancomycin discontinued.
COVID-negative
Flu negative
Check C. difficile 11/30/2024
-
Status post left/right thoracentesis:
Blood cultures are positive-for Streptococcus pneumonia as well.
Bilateral pleural fluid positive with Streptococcus pneumonia.
Given deteriorating clinical condition, moderate bilateral pleural effusions and infiltrate, chest tube will be requested to be placed at least on the left side. Left chest tube placed 10/28/[id number]
Continue with daily chest x-ray.
-
Not bronchospastic on exam
Nebulizers 3 times a day to aid with secretion clearance
-
Heart failure component, volume overload, chronic kidney disease
Diuretics per nephrology
Echocardiogram was done in the ED, PA pressure 57, large bilateral pleural effusion, normal biventricular function which is encouraging
Cardiology following-supportive care for now.
Follow urine output
Hernandez catheter in place
Atrial fibrillation-improved rate.
Currently on oral anticoagulants.
Remains on amiodarone, started 11/23.
Hold Cardizem,
Cardiology following
Glycemic control-Target 140-180.
Insulin sliding scale
Dobbhoff tube in place-continue tube feeds
Keep n.p.o. for now, respiratory status very tenuous.
DVT prophylaxis: transitioned to oral anticoagulant
GI prophylaxis: PPI
High risk situation. Dr. Morales updated 11/28/2024 from 11/29/2024. Prognosis is guarded
Reviewed with critical care nursing, respiratory care, primary service, cardiology
Critical care statement: A total of 45 minutes of critical care time was provided for this patient today. This includes management of unstable vital signs, evaluation of the patient at bedside, reviewing the patient's pertinent medical records
including ventilator settings, arterial blood gases, radiographs, microbiology, laboratory evaluations and discussion with primary team, critical care nursing, and respiratory therapy.
Subjective Dataa
Subjective Data
Date of Service:
Date of Service: November 30, 2024
Chief Complaint: Scientologist Follow Up (Acute hypoxemic respiratory failure/septic shock)
Subjective:
Intubated on mechanical ventilation
Sedated
Review of Systems
General: Unobtainable - Sedation
Objective Data
Data Reviewed
Vital Signs / I&O / Oxygen:
Vital Signs
Temp Pulse Resp BP Pulse Ox
98.9 F 75 18 101/41 96
11/30/24 11:25 11/30/24 11:45 11/30/24 11:45 11/29/24 19:13 11/30/24 11:33
Intake and Output
11/29/24 11/30/24 12/01/24
06:59 06:59 06:59
Intake Total 2719.9 / 2827.3 2823.9 / 2925.5 541.9 / 541.9
Output Total 862 / 862 587 / 587 138 / 138
Balance 1857.9 / 1965.3 2236.9 / 2338.5 403.9 / 403.9
SaO2 [A/C] 96
SaO2 [NIV (Non Invasive 95
Ventilation)]
SaO2 94
Nasal Cannula flow liters per 60
minute
Physical Exam
General: Respiratory Distress (None on sedation)
HEENT: Normocephalic, Anicteric, Other (Dry mucosa) and Other (ET tube in place without secretion)
Cardiovascular: S1-S2, Regular Rhythm, Murmur (n) and Other (Right lower extremity BKA)
Respiratory: Wheeze, Crackles (n), Rhonchi (n), Non-Labored Respirations and Stridor (n)
GI: Soft, Non Distended and Non Tender
Neurology: Lethargic (Intubated, mechanical ventilator)
Skin: Cyanosis (n), Jaundice (n) and Rash (n)
Labs/Micro/Reports
Lab Data
11/30/24 02:44
11/30/24 02:44
Laboratory Results
11/30/24 11/30/24
02:44 03:09
pH Cancelled 7.30 L
pCO2 Cancelled 48
pO2 Cancelled 75 L
HCO3 Cancelled 23.6
O2 Delivery Level Cancelled Unknown
Microbiology
11/29/24 22:55 Tracheal Aspirate Gram Stain - Preliminary
11/22/24 14:40 Pleural Fluid Fungal Smear - Final
No yeast or fungal elements seen.
11/22/24 14:40 Pleural Fluid Fungal Culture - Preliminary
Culture in progress.
Positive cultures are reported as soon as detected.
Final report to follow in four to five weeks.
[2024-11-30 14:10] LABS: Glucose - Point of Care 72 mg/dl (70-99)
--- NOTE | 2024-11-30 14:42 | W.PN.CD ---
Today's Communication / Plan
-
-Worsening renal function; will receive CRRT today.
-Continue current amiodarone via tube; Cardizem being held due to hypotension.
-Continue supportive care and management as per primary team/Grooming Assistant; prognosis looks poor.
-Cardiology will follow along peripherally on an as-needed basis; please call back if patient recovers.
Impression / Plan
-
IMPRESSION/PLAN: 79M with chronic HFpEF, hypertension, tricuspid regurgitation, pulmonary hypertension, dyslipidemia, PAD status post right BKA, chronic lymphedema, medically managed endocarditis in 2019 and chronic kidney disease stage IV who
presented to the emergency department with a chief complaint of shortness
Primary Groutman: Dr. Landa
Acute on chronic hypoxic respiratory insufficiency 2/2 PNA with septic shock
-Still intubated, on multiple pressors.
-Worsening renal function; will receive CRRT today.
-ID following.
-Continue supportive care and management as per primary team/Grooming Assistant; prognosis looks poor.
HFpEF, acute on chronic:
-Normal LVEF on echo (60-65%).
-Worsening renal failure.
-CRRT today.
AF RVR
- new; CHADSVASC at least 6
-Heart rate fairly controlled.
-Continue current amiodarone via tube; Cardizem being held due to hypotension.
-Continue Eliquis via tube.
Bilateral pleural effusions
-Status post thora
- bacteria in fluid
Moderate tricuspid regurgitation
Severe pulmonary hypertension
HTN, managed by Legal Writing Professor
HLD, on atorvastatin 20mg
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 Duncan
Secondary hyperparathyroidism
Type II DM, on insulin
PAD S/P right BKA, on clopidogrel
Former tobacco abuse, continued cessation recommended
Still critically ill, high oxygen requirements with high risk for the need to reintubate
Subjective:
Remains intubated and sedated.
CCT: 36 minutes
Physical Exam
Vital Signs/Labs
Vital Signs
Temp Pulse Resp BP Pulse Ox
98.9 F 87 19 101/41 92
11/30/24 11:25 11/30/24 14:00 11/30/24 14:00 11/29/24 19:13 11/30/24 14:00
11/29/24 11/30/24 12/01/24
06:59 06:59 06:59
Actual Weight 78.7 kg 80.4 kg
11/30/24 02:44
11/30/24 02:44
PT 17.4 Sec (11.4-14.6) H 11/22/24 10:00
INR 1.37 11/22/24 10:00
APTT Cancelled 11/27/24 10:50
Magnesium 3.1 mg/dl (1.6-2.3) H 11/30/24 02:44
Triglycerides 114 mg/dl (10-149) 11/28/24 08:36
11/22/24 11/29/24
10:00 03:32
Cbx-M-Jhnjbwpgiln Pept 7510 5660
Physical Exam
Constitutional: Other (Intubated)
Cardiovascular: Systolic murmur absent, Rhythm/rate is irregular and S1S2 is normal
Respiratory: Other (On vent; coarse bilateral breath sounds)
GI: Soft
Neuro/Psych: Other (Intubated)
Data Reviewed
-
Date of Service: November 30, 2024
EKG: Report Reviewed by me (Telemetry: A-fib)
Echo: Report Reviewed by me (EF 60-65%; mild to moderate TR, PASP 57 mmHg)
Medical Tests (PFT, Pathology etc): Discussed with Nurse
Labs: Labs Reviewed by me
[2024-11-30 14:59] LABS: B.E. -4.4 mmol/L; HCO3 23.3 mmol/L (21-28); O2 Saturation % 93.5 % (94-98); PCO2 52 mmHg (35-48); PO2 69 mmHg (83-108); pH 7.26 (7.35-7.45)
[2024-11-30 15:08] LABS: Glucose - Point of Care 89 mg/dl (70-99)
[2024-11-30] MEDS: RFP-401 HD Soln (K+ 4 mEq/L) 15000 ML CRRT-IRR ×2 (15:38→22:49)
--- NOTE | 2024-11-30 15:54 | PTCARENOTE ---
Addendum entered by Chelsea Mobley RN 11/30/24 17:10:
Pt placed on continuous lateral rotation mattress on transfer back from IR.
Original Note:
1400-Pt back from IR for [facility] HD cath placement. CRRT started at bedside at approx 1530. SBP mid 90's at this time on Vaso/Levo gtts.
[2024-11-30 16:22] LABS: Glucose - Point of Care 98 mg/dl (70-99)
[2024-11-30 17:12] LABS: Glucose - Point of Care 116 mg/dl (70-99)
--- NOTE | 2024-11-30 17:13 | W.PN.UPDATE ---
Update Note
Progress Note Update
CRRT note:
Pt seen during CRRT
bld flow 200cc/min
Dialysate 2lit/hr, GFR of 30cc/min
net neg 50cc/hr of UF
cont pressors to keep SBP>90
temp HD catheter functioning well
labs per protocol
[2024-11-30] MEDS: MAXIPIME 1000 MG IV (17:17)
[2024-11-30] MEDS: LIPITOR 20 MG TUBE (17:18)
[2024-11-30 18:17] LABS: Glucose - Point of Care 189 mg/dl (70-99)
[2024-11-30 19:20] LABS: Glucose - Point of Care 177 mg/dl (70-99)
[2024-11-30 21:22] LABS: Glucose - Point of Care 133 mg/dl (70-99)
[2024-11-30] MEDS: NOVOLIN R INSULIN INFUSION 100 IV (21:38)
[2024-11-30 22:21] LABS: Ionized Calcium 1.18 mMOL/L (1.15-1.33)
[2024-11-30 22:23] LABS: Mean Corp Hgb Conc. 31.4 g/dL (33.0-37.0); Mean Corpuscular Hgb 27.4 pg (27.0-31.0); Mean Corpuscular Volume 87.1 fL (80.0-94.0); Mean Platelet Volume 10.2 fL (7.4-10.4); Platelet Count 292 10^3/uL (130-400); Red Blood Cell Count 4.02 10^6/uL (4.70-6.10); Red Cell Dist. Width 15.7 % (11.5-14.5); White Blood Cell Count 27.1 10^3/uL (4.8-10.8)
[2024-11-30 22:45] LABS: Blood Urea Nitrogen 114 mg/dl (9-20); Calcium 7.9 mg/dl (8.4-10.2); Carbon Dioxide 24 mmol/L (22-30); Chloride 100 mmol/L (98-107); Estimated Creatinine Clearance 15 ml/min; Glucose 97 mg/dl (70-99); Magnesium 2.8 mg/dl (1.6-2.3); Phosphorus 7.3 mg/dl (2.5-4.5); Potassium 5.2 mmol/L (3.5-5.1); Sodium 135 mmol/L (135-145); eGFR 15.24
[2024-11-30] MEDS: CALCIUM GLUCONATE 130 MG IV (23:03)
[2024-11-30 23:20] LABS: Glucose - Point of Care 96 mg/dl (70-99)
[2024-11-30] MEDS: SUBLIMAZE 50 MCG IV (23:23)
[2024-12-01] VITALS (7 sets, daily range): BP systolic 85–135; BMI 27.0
[2024-12-01] MEDS: MAXIPIME 1000 MG IV ×4 (00:15→18:23)
[2024-12-01] MEDS: STERILE WATER FOR INJECTION 10 ML IV ×4 (00:15→18:23)
--- NOTE | 2024-12-01 00:39 | PTCARENOTE ---
Pt received at 19:00, intubated/sedated and on CRRT. Initial assessment as documented. Opens eyes to voice, intermittently lifts arms/squeezes hands-weak. A-flutter 60s-70s. Weak but palpable radial pulses, L DP and R pop present with doppler. L
radial a-line in place, zeroed/transduced. Anasarca +1. #8 ETT, 24cm--repositioned from R to L. AC 18/500/75%/+5. Received on 80%, decreased by KNOCKOUT MAN, tolerating. L CT to waterseal-serous drainage. L nare DHT infusing TF as ordered, tolerating. FMS in
place, minimal liquid brown stool. Bowel sounds hypoactive, abdomen round. Hernandez in place, oliguric--yellow urine. CRRT continues as ordered, UF -50. Pt continues on fentanyl, propofol, levophed, vasopressin, and insulin gtts as ordered. Safe
environment maintained, pt repositioned.
[2024-12-01] MEDS: SUBLIMAZE 100 IV ×2 (00:53→19:51)
[2024-12-01 01:22] LABS: Glucose - Point of Care 105 mg/dl (70-99)
[2024-12-01 03:23] LABS: Glucose - Point of Care 154 mg/dl (70-99)
[2024-12-01 04:05] LABS: B.E. -1.9 mmol/L; HCO3 24.7 mmol/L (21-28); O2 Saturation % 98.5 % (94-98); PCO2 49 mmHg (35-48); PO2 86 mmHg (83-108); pH 7.31 (7.35-7.45)
[2024-12-01 04:06] LABS: Hematocrit 34.4 % (39.0-52.0); Hemoglobin 10.6 g/dL (13.0-18.0); Ionized Calcium 1.25 mMOL/L (1.15-1.33); Mean Corp Hgb Conc. 30.8 g/dL (33.0-37.0); Mean Corpuscular Hgb 27.3 pg (27.0-31.0); Mean Corpuscular Volume 88.7 fL (80.0-94.0); Mean Platelet Volume 10.6 fL (7.4-10.4); O2 Therapy 80; Platelet Count 247 10^3/uL (130-400); Red Blood Cell Count 3.88 10^6/uL (4.70-6.10); Red Cell Dist. Width 15.7 % (11.5-14.5); White Blood Cell Count 22.9 10^3/uL (4.8-10.8)
[2024-12-01 04:38] LABS: Blood Urea Nitrogen 99 mg/dl (9-20); Calcium 8.4 mg/dl (8.4-10.2); Carbon Dioxide 24 mmol/L (22-30); Chloride 101 mmol/L (98-107); Estimated Creatinine Clearance 19 ml/min; Glucose 167 mg/dl (70-99); Magnesium 2.6 mg/dl (1.6-2.3); Potassium 5.4 mmol/L (3.5-5.1); Sodium 135 mmol/L (135-145); Triglycerides 61 mg/dl (10-149); eGFR 19.45
--- NOTE | 2024-12-01 05:00 | PTCARENOTE ---
Pt assessment unchanged. Tolerating UF -50. Safe environment maintained, CHG bath competed.
[2024-12-01 05:01] LABS: Phosphorus 7.1 mg/dl (2.5-4.5)
[2024-12-01 05:19] LABS: Glucose - Point of Care 152 mg/dl (70-99)
[2024-12-01] MEDS: RFP-401 HD Soln (K+ 4 mEq/L) 15000 ML CRRT-IRR (06:17)
[2024-12-01] MEDS: DIPRIVAN 100 IV ×2 (06:17→23:55)
[2024-12-01] MEDS: LEVOPHED 258 MG IV (06:42)
[2024-12-01 07:09] LABS: Glucose - Point of Care 89 mg/dl (70-99)
[2024-12-01] MEDS: DUONEB 3 ML INH ×3 (07:29→21:18)
[2024-12-01] MEDS: PROTONIX IV 40 MG IV (07:39)
[2024-12-01] MEDS: LOW STRENGTH ASPIRIN 81 MG TUBE (07:39)
[2024-12-01] MEDS: PACERONE 400 MG TUBE ×2 (07:39→19:51)
[2024-12-01] MEDS: NSS (PRESERVATIVE FREE) 10 ML IV (07:39)
[2024-12-01] MEDS: MIRALAX TUBE (07:39)
[2024-12-01] MEDS: ELIQUIS 2.5 MG TUBE ×2 (07:39→19:51)
[2024-12-01] MEDS: PITRESSIN 100 IV ×2 (08:28→19:50)
--- NOTE | 2024-12-01 08:33 | W.PN.INTV ---
Today's Communication / Plan
Recommendations
Continue mechanical ventilation without change FiO2 remains at 70%
Daily chest
Daily ABG
Follow repeat cultures from 11/29/2024
Continue cefepime day #2
CRRT
Insulin drip.
Nutritional support via tube feedings-at goal
Follow chest tube output
Sedation break per protocol
Assessment
-
79-year-old male with history of heart failure, chronic kidney disease, bilateral pleural effusions requiring intermittent thoracentesis, presents with 3 days of increased chest discomfort on the left side. This was associated with increased
shortness of breath. He admits to not taking his Lasix therapy given recent stress and travel to the city with sick grandchild. Was found to have bilateral pleural effusions. Underwent right thoracentesis drained 2 L. Postthoracentesis required
increased oxygen, now on BiPAP saturation 86%. We are asked to help from critical care standpoint 11/22/2024
Acute hypoxic respiratory insufficiency
on NIV, intubated 11/23-self extubated 11/26/2024
Baseline 1 to 2 L at home as needed
Reintubated 11/28/2024
Septic shock
Worsening left upper lobe infiltrate
Pneumonia versus reexpansion pulmonary edema
Bacteremia/bilateral pleural effusions-bilateral pleural effusions positive with Streptococcus pneumonia.
Right/Left pleural fluid positive for Streptococcus hypotension, secondary to sepsis
s/p Left thora 11/23, -2L
Left-sided chest tube placement 11/28/2024
History of heart failure-now with pulmonary edema 11/29/2023
Pulmonary hypertension
Noncompliance with Lasix in the past
s/p rt thora -2L on 11/22
Acute renal insufficiency, creatinine 3.5-progressive
CRRT started 11/30/2024
Conditions present prior to admission
COPD, emphysema per CT imaging
FEV1 2.48/92%, TLC 90%, DLCO 50% per PFT 2019
Hypertension/hyperlipidemia
Peripheral arterial disease, right BKA
On Plavix
Left toe amputation
Chronic kidney disease, stage III
Diabetic nodular glomerulosclerosis
Recurrent pleural effusion requiring intermittent thoracentesis
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
COVID December 2022
Plan/recommendations:
Required intubation 11/23 for progressive hypoxia.
Self extubated 11/25/2024 in the afternoon.
Unfortunately, the morning of 11/28/2024: Increased work of breathing, more hypoxemic, anxious, nauseous. Required reintubation.
-
Mechanical ventilation settings reviewed.
Chest x-ray 11/29/2024: Left pigtail in place. No pneumothorax. Decreased left-sided pleural effusion. Moderate to large right pleural effusion. Pulmonary edema stable. ET tube in place
Assist-control:500/18/+5/70%-occasionally overbreathing the ventilator
Peak pressure 24-plateau pressure 19-20 (12/01/2024)
ET tube without significant secretions.
ABG 12/01/2024: 7.31/49/86
AB11/30/2024 3 AM 7.3/48/75
ABG 11/29/2024: 7.35/40/67 adequate oxygenation on ventilator-continue mechanical ventilation settings without change
-
Left chest tube in place with serous fluid, no air leaks-maintain for now.
Chest x-ray 11/30/2024: Pulmonary edema pattern worsened. Bilateral effusions.
-
Propofol/fentanyl for light sedation-sedation breaks per protocol
-
Pulmonary edema pattern on chest x-ray:
IV Lasix given 11/29/2024 without significant response
Worsening renal function-CRRT started 11/30/2024
Nephrology following
Negative fluid balance as able
Left IJ dialysis line in place
Right IJ in place
-
Shock: Septic.
Levophed/vasopressin requirements improved 12/01/2024. Maintained to target mean arterial blood pressure greater than 65 mmHg.
Last lactic acid was 2.0 11/23/2024
Hold Cardizem
Hold on a stress dose of steroids, vasopressor requirements improving.
-
Leukocytosis. Febrile overnight 11/30/2024.Now hypothermic 12/01/2024
Continue ceftriaxone- 11/23 antibiotics broadened to cefepime November 30, 2024 due to worsening leukocytosis and sepsis
Azithromycin discontinued
Infectious disease following-correspondence reviewed
Left/right pleural fluid positive with a streptococcal pneumonia
Blood culture positive with Streptococcus pneumonia
Last blood culture 11/29/2024: Negative
Repeat tracheal aspirate 11/29/2024: Pending
Repeat urine culture 11/29/2024: Pending
C. difficile 11/30/2024: Negative
Vancomycin discontinued.
COVID-negative
Flu negative
Check C. difficile 11/30/2024
-
Status post left/right thoracentesis:
Blood cultures are positive-for Streptococcus pneumonia as well.
Bilateral pleural fluid positive with Streptococcus pneumonia.
Status post left chest tube placement-continue to follow output.
Continue with daily chest x-ray.
Right pleural effusion is persisting, if there is no improvement with CRRT and there is ongoing sepsis may need to place chest tube on the right.
-
Not bronchospastic on exam
Nebulizers 3 times a day to aid with secretion clearance
-
Heart failure component, volume overload, chronic kidney disease
Did not respond to diuresis. CRRT started 11/30/2024.
Echocardiogram was done in the ED, PA pressure 57, large bilateral pleural effusion, normal biventricular function which is encouraging
Cardiology following-supportive care for now.
Follow urine output
Hernandez catheter in place
Atrial fibrillation-improved rate.
Currently on oral anticoagulants.
Remains on p.o. amiodarone, started 11/23.
Hold Cardizem- hypotension
Cardiology following
Glycemic control-Target 140-180.
Insulin drip continues
Dobbhoff tube in place-continue tube feeds-so far tolerating
Keep n.p.o. for now, respiratory status very tenuous.
DVT prophylaxis: Oral anticoagulation.
GI prophylaxis: PPI
High risk situation. Dr. Morales updated 11/28/2024 from 11/29/2024. Prognosis is guarded
Reviewed with critical care nursing, respiratory care, primary service, cardiology
Critical care statement: A total of 42 minutes of critical care time was provided for this patient today. This includes management of unstable vital signs, evaluation of the patient at bedside, reviewing the patient's pertinent medical records
including ventilator settings, arterial blood gases, radiographs, microbiology, laboratory evaluations and discussion with primary team, critical care nursing, and respiratory therapy.
Subjective Dataa
Subjective Data
Date of Service:
Date of Service: December 01, 2024
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
Subjective:
Intubated, on mechanical ventilation
Sedated
Critically ill
Review of Systems
General: Unobtainable - Sedation
Objective Data
Data Reviewed
Vital Signs / I&O / Oxygen:
Vital Signs
Temp Pulse Resp BP Pulse Ox
96.8 F L 76 19 102/40 92
12/01/24 07:27 12/01/24 08:15 12/01/24 08:15 11/30/24 19:46 12/01/24 08:15
Intake and Output
11/30/24 12/01/24 12/02/24
06:59 06:59 06:59
Intake Total 2823.9 / 2925.5 2562.5 / 2643.1 241.2 / 241.2
Output Total 587 / 587 2586 / 2716 268 / 268
Balance 2236.9 / 2338.5 -23.5 / -72.9 -26.8 / -26.8
SaO2 [A/C] 95
SaO2 [NIV (Non Invasive 95
Ventilation)]
SaO2 92
Nasal Cannula flow liters per 60
minute
Physical Exam
General: Respiratory Distress (None on sedation)
HEENT: Normocephalic, Anicteric, Other (Dry mucosa) and Other (ET tube in place without secretion)
Cardiovascular: S1-S2, Regular Rhythm, Murmur (n), Peripheral Edema and Other (Right lower extremity BKA)
Respiratory: Wheeze, Crackles (n), Rhonchi (n), Non-Labored Respirations and Stridor (n)
GI: Soft, Non Distended and Non Tender
Neurology: Lethargic (Intubated, mechanical ventilator)
Skin: Cyanosis (n), Jaundice (n) and Rash (n)
Labs/Micro/Reports
Laboratory Results
11/30/24 12/01/24
13:56 03:55
pH 7.26 L 7.31 L
pCO2 52 H 49 H
pO2 69 L 86
HCO3 23.3 24.7
O2 Delivery Level 80
Microbiology
11/29/24 23:15 Blood/Venous Blood Culture - Preliminary
No Growth in 24 hours- Final report to follow
11/29/24 22:49 Blood/Venous Blood Culture - Preliminary
No Growth in 24 hours- Final report to follow
11/29/24 22:55 Tracheal Aspirate Gram Stain - Preliminary
11/22/24 14:40 Pleural Fluid Fungal Smear - Final
No yeast or fungal elements seen.
11/22/24 14:40 Pleural Fluid Fungal Culture - Preliminary
Culture in progress.
Positive cultures are reported as soon as detected.
Final report to follow in four to five weeks.
--- NOTE | 2024-12-01 09:09 | PTCARENOTE ---
Rec'd pt at 0700. Pt sedate on Propofol/Fentanyl on vent. Monitor SR 70's. SBP 120's via left radial a-line, Levophed titrated down to 9mcg/min at this time to keep SBP>90. Vaso remains at 0.03units/min. Left chest tube to water seal, straw colored
drainage. No crepitus or airleak noted. DHT with Jevity 1.5 at goal 45mls/hr. Hernandez draining minimal amt yellow urine. CRRT continues at bedside. Pt remains on lateral rotation mattress. Accuchecks Q2hr on Glycemic Protocol.
[2024-12-01 09:10] LABS: Glucose - Point of Care 157 mg/dl (70-99)
[2024-12-01 10:06] LABS: Ionized Calcium 1.23 mMOL/L (1.15-1.33)
--- NOTE | 2024-12-01 10:06 | W.PN.ID1 ---
Date of Service
Date of Service: December 01, 2024
Today's Communication
Continue cefepime.
Assessment / Plan
Bacteremia with Streptococcus pneumoniae
Pneumonia
B/L parapneumonic effusions; s/p thoracentesis
- 11/22 right sided pleural fluid with Streptococcus pneumoniae
- 11/23 left sided pleural fluid also with Streptococcus pneumoniae
- s/p left CT placement
VDRF 2*Hypoxic respiratory failure
Fevers
Leukocytosis
AURY CKD, now on CRRT
HTN
CHF
DM type II with neuropathy
CKD stage IV
Dyslipidemia
Pulmonary hypertension
PAD with hx (R) BKA
Recommendations:
Febrile (11/29 to 11/30) now hypothermic.
Leukocytosis trending down today.
Blood cx's neg to date.
C. diff neg.
Sputum usual resp gene.
s/p ceftriaxone (11/23 to 11/30)
Continue broader abx cefepime (d2), adjsuted for CRRT. Appreciate Pharmacist's input in dosing.
Trend wbc/temps.
Patient remains critically ill, in intensive care unit, on vent and pressor support.
����������������������������������������������������������
Chief Complaint
-: Clinical Sepsis, Pneumonia, Bacteremia and Other (Parapneumonic effusion)
Subjective / Review of Systems
Remains on vent. Moves spontaneously.
Vital Signs / Physical Exam
Vital Signs
Vital Signs
Temp Pulse Resp BP Pulse Ox
96.8 F L 79 18 102/40 92
12/01/24 07:27 12/01/24 08:45 12/01/24 08:45 11/30/24 19:46 12/01/24 08:45
Physical Exam
Constitutional: Acutely Ill
Eyes: Sclera Anicteric
Cardiovascular: Regular Rate and S1/S2
Pulmonary: Other (Decreased BS. Left chest tube in place.)
Gastrointestinal: Soft, Non Tender, Non Distended, Normal Bowel Sounds and Other (FMS liquid dark stool)
Extremities: Negative Edema
Objective Data
Lab Data
PT 17.4 Sec (11.4-14.6) H 11/22/24 10:00
INR 1.37 11/22/24 10:00
APTT Cancelled 11/27/24 10:50
Estimated Creat Clear 19 ml/min 12/01/24 03:55
Estimated Creat Clear Cancelled 12/01/24 03:55
Lactic Acid 2.0 mmol/L (0.7-2.0) 11/23/24 20:24
Total Bilirubin 0.4 mg/dl (0.2-1.3) 11/25/24 03:28
AST 24 U/L (17-59) 11/25/24 03:28
ALT 17 U/L (0-50) 11/25/24 03:28
Alkaline Phosphatase 67 U/L (38-126) 11/25/24 03:28
Most recent labs reviewed.
Micro Results:
11/29/24 22:55 Respiratory Culture - Preliminary
Tracheal Aspirate Usual Respiratory Gene
Gram Stain - Preliminary
11/30/24 17:31 C. difficile GDH Antigen & Toxins - Final
Feces/Stool Negative for toxigenic C.difficile
11/29/24 23:15 Blood Culture - Preliminary
Blood/Venous No Growth in 24 hours- Final report to follow
11/29/24 22:49 Blood Culture - Preliminary
Blood/Venous No Growth in 24 hours- Final report to follow
11/29/24 22:53 Urine Culture - Pending
Urine
11/22/24 14:40 Fungal Smear - Final
Pleural Fluid No yeast or fungal elements seen.
Fungal Culture - Preliminary
Culture in progress.
Positive cultures are reported as soon as detected.
Final report to follow in four to five weeks.
11/22/24 14:39 Acid Fast Bacilli Smear - Preliminary
Pleural Fluid Acid Fast Bacilli Culture - Preliminary
11/22/24 14:40 Body Fluid Culture - Final
Pleural Fluid Streptococcus pneumoniae
Gram Stain - Final
11/23/24 11:42 Body Fluid Culture - Final
Pleural Fluid Streptococcus pneumoniae
Gram Stain - Final
11/22/24 16:01 Blood Culture - Final
Blood/Venous Streptococcus pneumoniae
Gram Stain - Final
11/22/24 16:01 Blood Culture - Final
Blood/Venous Streptococcus pneumoniae
Gram Stain - Final
11/22/24 16:59 Urine Culture - Final
Urine NO GROWTH
11/22/24 10:00 Influenza Types A & B (BERRY) - Final
Nasal Swab Negative for Influenza A & B, NAAT
Negative results must be combined with clinical observations
and patient history.
Nucleic Acid Amplification test (NAAT)performed on the
[employer] platform.
Imaging:
11/28/2024 CXR (portable): Moderate bilateral pleural effusions noted. No cardiomegaly. ET tube approximately 2.5 cm above terri. No visualized pneumothorax. Please see full dictation for additional detail.
11/26/2024 CXR (portable): Previously noted ET tube is no longer identified. Right IJ catheter is noted with tip in distal SVC. No pneumothorax. Moderate bilateral pleural effusions are without significant change. Cephalization of pulmonary
vasculature is noted.
11/22/2024 CXR (2 view): There is moderate bibasilar opacification at least in part suggesting moderate pleural effusions with likely underlying subsegmental atelectasis, slightly increased in comparison to prior study and significantly obscuring
the cardiac silhouette. There is no pneumothorax or suspected mediastinal shift.
11/22/2024 ECHO (TTE): EF approximately 60%. Mild to moderate tricuspid regurgitation. Large bilateral pleural effusions noted. Compared to prior from February 27, 2024, estimated pulmonary artery systolic pressure remain moderate to severely
elevated at 57 mmHg.
[2024-12-01 10:07] LABS: Hematocrit 32.6 % (39.0-52.0); Hemoglobin 10.3 g/dL (13.0-18.0); Mean Corp Hgb Conc. 31.6 g/dL (33.0-37.0); Mean Corpuscular Hgb 27.7 pg (27.0-31.0); Mean Corpuscular Volume 87.6 fL (80.0-94.0); Mean Platelet Volume 10.6 fL (7.4-10.4); Platelet Count 197 10^3/uL (130-400); Red Blood Cell Count 3.72 10^6/uL (4.70-6.10); Red Cell Dist. Width 15.6 % (11.5-14.5); White Blood Cell Count 21.5 10^3/uL (4.8-10.8)
[2024-12-01 10:14] LABS: Blood Urea Nitrogen 92 mg/dl (9-20); Calcium 8.1 mg/dl (8.4-10.2); Carbon Dioxide 25 mmol/L (22-30); Chloride 101 mmol/L (98-107); Estimated Creatinine Clearance 21 ml/min; Glucose 200 mg/dl (70-99); Magnesium 2.4 mg/dl (1.6-2.3); Phosphorus 6.5 mg/dl (2.5-4.5); Potassium 5.4 mmol/L (3.5-5.1); Sodium 135 mmol/L (135-145); eGFR 22.96
--- NOTE | 2024-12-01 10:23 | W.PN.NEPH.PH ---
Today's Communication / Plan
-
CRRT -increase UF
Assessment/Plan
-
Assessment:
CKD IV (followed by Dr. Duncan) presumed to be DKD/vascular sclerosis
AURY
b/l pleural effusions
Decompensated Diastolic heart failure (on losartan, metoprolol, jardiance previously tried. no aldactone due to hyperK)
DM2
PVD s/p R BKA
hypotension
subnephrotic range proteinuria ?improving
PNA
GPC Bacteremia= strep pneumo
leukopenia
- In 2020 Kidney biopsy was not adequate but EM showed nodular diabetic sclerosis and severe vascular sclerosis.
Plan:
CRRT started on 11/30 for anuric AURY
wt is increasing, increase UF in CRRT
pt is on ELiquis hence not on heparin gtt
adjust meds renally
abx per pulm
wean pressors as able to keep SBP>[address]
family aware of poor prognosis
d/w nursing
critical care time 31 minutes
-
-
Date of Service: December 01, 2024
CC / HPI / ROS
-
Chief Complaint:
AURY
History of Present Illness:
critically ill intubated
AURY/Cr anuric , k 5.2
WBC rising 21, afebrile overnight
abx for strep pneumonia
remains on levo, vaso
Review of Systems:
intubated, left CT
sedated
anuric dior hernandez
Labs
-
Labs:
eGFR 22.96 12/01/24 09:50
Ibr-T-Zfoswvrmcin Pept 5660 pg/ml 11/29/24 03:32
Albumin 2.6 g/dl (3.5-5.0) L 11/25/24 03:28
Physical Exam
-
Vital Signs:
Vital Signs
Temp Pulse Resp BP Pulse Ox
97.7 F 84 24 102/40 90
12/01/24 11:20 12/01/24 12:00 12/01/24 12:00 11/30/24 19:46 12/01/24 12:00
Cardiovascular:: Regular rate and rhythm
Respiratory:: Bilateral: CTA (decreased)
Lung Excursion:: Abnormal
Abdomen:: Nontender and Soft
Extremity Edema:: +1: Left:
Hernandez Catheter: Yes
Other Findings::
Rt BKA
[2024-12-01 11:12] LABS: Glucose - Point of Care 171 mg/dl (70-99)
--- NOTE | 2024-12-01 11:44 | W.PN.HOSP.TC ---
Addendum entered and electronically signed by Dami Lamas MD 12/01/24 14:43:
suspected bacterial pneumonia unknown organism
Original Note:
Today's Communication/Plan
-
Continue with IV antibiotic
CRRT
Increase FiO2 requirement
Wean pressors as tolerated
Remains critically ill. Prognosis guarded. Spouse updated.
Assessment / Plan
Assessment / Plan
Gen-intubated and sedated. More awake at times.
HEENT-NC, AT, anicteric, clear oral mm
Neck-supple
CV-reg, no M, +S1/S2, irregular irregular, tachycardia
Lungs- rhonchi anterior. ET tube noted
Abd-soft, NT, ND, rectal bag. Dobhoff noted
Ext-left lower extremity edema, right BKA
Musculoskeletal-no cyanosis, clubbing
Skin-warm and dry
#Acute hypoxic respiratory failure -likely multifactorial etiology including acute pulmonary edema from heart failure, bilateral pleural effusions, pneumonia, sepsis.
Intubated 11/23.
Status post self extubation 11/25/24.
Status post reintubation 11/28/2024
Repeat chest x-ray noted with increasing fluid pleural and moderate B/L pleural effusions
Continue with tube feeding
IRAD placed left side chest tube. Remains with drainage. FIO2 at 75%.
Repeat CXR with increase effusion on left side-?re-position CT tube. ?lytic therapy. May even require R sided CT tube.
Cont with bronchodilators
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
#Sepsis due to pneumonia and Streptococcus bacteremia-poa
#Shock likely sepsis
#Bandemia 2/2 sepsis
#Parapneumonic effusion status post thoracentesis
requiring levophed and vasopressin. Wean pressors as BP allows.
DC further vancomycin and azithromycin. Bump in WBC noted. Spiking fever. Abx switched to Cefepime now. Off rocephin.
Underwent bilateral thoracentesis by IR, 2 L of fluid removed from each side. Has had multiple bilateral thoracenteses in the past.
Infectious disease following
#Acute on chronic heart failure with preserved EF
Echocardiogram done 11/22 shows LVEF 60 to 65%, stage I diastolic dysfunction, mild to moderate TR, normal RV size and function.
BNP 7510.
Lasix 80 mg IV twice daily-on hold.
Diuretics per nephro.
#Rapid atrial fibrillation -appears to be a new diagnosis.
s/p amiodarone infusion and heparin infusion.
Now transition to p.o. amiodarone 400 mg twice daily and Cardizem 30 mg every 6 hours
Off heparin and now started on Eliquis
Cardiology following.
#Hyperkalemia
resolved. Hold losartan.
#AURY on CKD 4
#Mild hyperkalemia
previous creatinine was in the 2 range, 2.1-2.6 in February.
Cr significant uptrend
Nephrology following.
Etiology of AURY suspected to be due to sepsis, shock. Hold losartan. Continue Hernandez catheter.
Not much urinary output.
Started on CRRT on 11/30/24. . Need to monitor BP closely as on 2 pressors.
#DM 2 with hyperglycemia
Has been on Lantus 14 units daily, NovoLog 6 units AC at home.
now on critical care glycemic protocol-cont with insulin gtt.
Essential hypertension -losartan held.
Hyperlipidemia -atorvastatin.
PAD -history of right BKA.
Mild intermittent asthma
History of Burks-Troy syndrome
Hypokalemia-replete/monitor
Full code
Remains critically ill
d/w with RN
update spouse on the phone in details
Total Critical Care Time 37 minutes. I was immediately available to the patient and staff. I personally examined, reviewed labs, diagnostic images/reports, interpretations, treatment plans, discussed patient care with other providers and family
or caregivers (if patient is unable to make decisions), entered orders as appropriate and documented the medical record.
Anticipated Discharge: > 48 hours
Subjective/Interval History
-
Date of Service: December 01, 2024
remains intubated
started on CRRT
Increase in FIO2
Improvement in pressors requirement-mild downtrend
Objective Data
-
Labs:
Laboratory Results
12/01/24 12/01/24 12/01/24
03:55 03:55 03:55
WBC 22.9 H
Hgb 10.6 L
Hct 34.4 L
Plt Count 247
HCO3 24.7
Sodium 135 Cancelled
Potassium 5.4 H Cancelled
Chloride 101
Carbon Dioxide
BUN
Creatinine
Glucose
Calcium
12/01/24 12/01/24 12/01/24
03:55 03:55 03:55
WBC
Hgb
Hct
Plt Count
HCO3
Sodium
Potassium
Chloride Cancelled
Carbon Dioxide 24 Cancelled
BUN 99 H Cancelled
Creatinine 3.1 H
Glucose
Calcium
12/01/24 12/01/24 12/01/24
03:55 03:55 03:55
WBC
Hgb
Hct
Plt Count
HCO3
Sodium
Potassium
Chloride
Carbon Dioxide
BUN
Creatinine Cancelled
Glucose 167 H Cancelled
Calcium 8.4 Cancelled
12/01/24 12/01/24 12/01/24
06:00 09:50 09:51
WBC Cancelled 21.5 H
Hgb Cancelled 10.3 L
Hct Cancelled 32.6 L
Plt Count Cancelled 197 D
HCO3
Sodium 135
Potassium 5.4 H
Chloride 101
Carbon Dioxide 25
BUN 92 H
Creatinine 2.7 H
Glucose 200 H
Calcium 8.1 L
12/01/24 12/01/24
16:00 22:00
WBC Pending Pending
Hgb Pending Pending
Hct Pending Pending
Plt Count Pending Pending
HCO3
Sodium Pending Pending
Potassium Pending Pending
Chloride Pending Pending
Carbon Dioxide Pending Pending
BUN Pending Pending
Creatinine Pending Pending
Glucose Pending Pending
Calcium Pending Pending
Vital Signs:
Vital Signs
Temp Pulse Resp BP Pulse Ox
97.7 F 79 18 102/40 93
12/01/24 11:20 12/01/24 11:00 12/01/24 11:00 11/30/24 19:46 12/01/24 11:00
I&O
11/30/24 12/01/24 12/02/24
06:59 06:59 06:59
Intake Total 2823.9 / 2925.5 2562.5 / 2643.1 492.8 / 492.8
Output Total 587 / 587 2586 / 2716 734 / 734
Balance 2236.9 / 2338.5 -23.5 / -72.9 -241.2 / -241.2
--- NOTE | 2024-12-01 12:09 | PTCARENOTE ---
ETT repositioned to left lip, after ETT repositioned pt began coughing and then proceeded to vomit. Yankauer at bedside used quickly to clear mouth and OT suction. Pox dropped to 87% and SBP dropping into high 70-low 80's. 100% fio2 used on vent and
Levophed increased to 10mcg/min. ETT suctioned. Tube feeds placed on hold and residual assessed, 830ml removed. Dr. Morales notified of current events. Residual removed from DHT wasted, tube feeds placed on hold. Pt gown and linens changed, partial
bath completed.
[2024-12-01 12:28] LABS: Glucose - Point of Care 119 mg/dl (70-99)
--- NOTE | 2024-12-01 12:33 | W.PN.UPDATE ---
Update Note
Progress Note Update
CRRT notes:
Bld flow 200-300cc/min
dialysate 2lit/hr, change to 2k bath
UF net neg 50cc-increase to 100c/hr
follow labs per protocol
add prn heparin flushes
GFR 30cc/min
temp catheter functions fine
[2024-12-01] MEDS: HEPARIN 500 UNITS CRRT-ART ×3 (13:18→21:12)
[2024-12-01 13:22] LABS: Glucose - Point of Care 99 mg/dl (70-99)
[2024-12-01] MEDS: RFP-400 HD Soln (K+ 2 mEq/L) 15000 ML CRRT-IRR ×2 (13:30→22:09)
--- NOTE | 2024-12-01 13:35 | PTCARENOTE ---
CRRT filter with clot formation and decreasing AP throughout morning, Dr. Duncan aware, PRN Heparin ordered and given via pre pump arterial port. HD solution changed to 2K+ bath and desired net loss changed to 100mls.
[2024-12-01 14:14] LABS: Glucose - Point of Care 93 mg/dl (70-99)
[2024-12-01 15:13] LABS: Glucose - Point of Care 89 mg/dl (70-99)
[2024-12-01 16:06] LABS: Glucose - Point of Care 135 mg/dl (70-99)
[2024-12-01 16:08] LABS: Hematocrit 33.2 % (39.0-52.0); Hemoglobin 10.5 g/dL (13.0-18.0); Mean Corp Hgb Conc. 31.6 g/dL (33.0-37.0); Mean Corpuscular Hgb 27.9 pg (27.0-31.0); Mean Corpuscular Volume 88.1 fL (80.0-94.0); Mean Platelet Volume 10.6 fL (7.4-10.4); Platelet Count 191 10^3/uL (130-400); Red Blood Cell Count 3.77 10^6/uL (4.70-6.10); Red Cell Dist. Width 15.6 % (11.5-14.5); White Blood Cell Count 22.3 10^3/uL (4.8-10.8)
[2024-12-01 16:25] LABS: Blood Urea Nitrogen 84 mg/dl (9-20); Carbon Dioxide 26 mmol/L (22-30); Chloride 101 mmol/L (98-107); Estimated Creatinine Clearance 22 ml/min; Glucose 144 mg/dl (70-99); Magnesium 2.4 mg/dl (1.6-2.3); Phosphorus 6.3 mg/dl (2.5-4.5); Potassium 5.6 mmol/L (3.5-5.1); Sodium 135 mmol/L (135-145); eGFR 24.02
[2024-12-01 17:06] LABS: Glucose - Point of Care 109 mg/dl (70-99)
[2024-12-01] MEDS: LIPITOR 20 MG TUBE (18:23)
[2024-12-01 18:27] LABS: Glucose - Point of Care 127 mg/dl (70-99)
--- NOTE | 2024-12-01 18:29 | PTCARENOTE ---
CRRT with sudden increase in access pressure, filter assessed-clotted off. Unable to safely return blood to pt. CRRT stopped, pt detached from machine and lines flushed. Dr. Duncan notified.
[2024-12-01 19:20] LABS: Glucose - Point of Care 112 mg/dl (70-99)
--- NOTE | 2024-12-01 19:20 | PTCARENOTE ---
CRRT restarted at approx 1919, report given at bedside to nightshift RN.
[2024-12-01 21:08] LABS: Glucose - Point of Care 100 mg/dl (70-99)
[2024-12-01] MEDS: SUBLIMAZE 50 MCG IV (21:33)
[2024-12-01 23:31] LABS: Glucose - Point of Care 87 mg/dl (70-99)
[2024-12-02] VITALS (9 sets, daily range): BP systolic 72–126; BP diastolic 37; BMI 26.3
[2024-12-02] MEDS: LEVOPHED 258 MG IV ×2 (00:14→13:20)
[2024-12-02] MEDS: STERILE WATER FOR INJECTION 10 ML IV ×3 (00:55→11:44)
[2024-12-02] MEDS: MAXIPIME 1000 MG IV ×3 (00:55→11:43)
[2024-12-02 01:00] LABS: Glucose - Point of Care 126 mg/dl (70-99)
[2024-12-02 01:20] LABS: Hemoglobin 9.5 g/dL (13.0-18.0); Ionized Calcium 1.19 mMOL/L (1.15-1.33); Mean Corp Hgb Conc. 31.7 g/dL (33.0-37.0); Mean Corpuscular Hgb 28.1 pg (27.0-31.0); Mean Corpuscular Volume 88.8 fL (80.0-94.0); Mean Platelet Volume 10.9 fL (7.4-10.4); Platelet Count 142 10^3/uL (130-400); Red Blood Cell Count 3.38 10^6/uL (4.70-6.10); Red Cell Dist. Width 15.7 % (11.5-14.5); White Blood Cell Count 19.6 10^3/uL (4.8-10.8)
--- NOTE | 2024-12-02 01:28 | PTCARENOTE ---
Received at 19:00, initial assessment as documented.
At 21:00 pt vomited large amount of butt thin liquid, FMS leaked, moderate amount of loose brown stool. Pt arterial line for CRRT pulled air, attempted to recover arterial air per machine instructions and switched arterial and venous access port
connections on the catheter. Alarming for venous air following air recovery. Large clot noted in filter after air recovery repeated, pressures increased, blood returned with emergency rinse back. New cartridge primed and CRRT restarted at 00:25.
[2024-12-02 01:35] LABS: Blood Urea Nitrogen 76 mg/dl (9-20); Calcium 7.7 mg/dl (8.4-10.2); Carbon Dioxide 25 mmol/L (22-30); Chloride 104 mmol/L (98-107); Estimated Creatinine Clearance 23 ml/min; Glucose 136 mg/dl (70-99); Magnesium 2.3 mg/dl (1.6-2.3); Phosphorus 6.6 mg/dl (2.5-4.5); Potassium 5.4 mmol/L (3.5-5.1); Sodium 136 mmol/L (135-145); eGFR 25.18
[2024-12-02] MEDS: CALCIUM GLUCONATE 130 MG IV (02:48)
[2024-12-02 03:24] LABS: Glucose - Point of Care 106 mg/dl (70-99)
[2024-12-02] MEDS: SUBLIMAZE 50 MCG IV (03:54)
[2024-12-02] MEDS: ZOFRAN 4 MG IV (03:54)
--- NOTE | 2024-12-02 04:42 | PTCARENOTE ---
Pt projectile vomited, DHT removed, NGT placed to LIWS. Full CHG bath/bed change, ETT mccormick change. Pt temp 94.8 via temp sensing hernandez, 94.3 rectally, kaleihg hugger now in place. CRRT continues, pt tolerating. SBP into low 80s, levophed titrated as
ordered.
[2024-12-02] MEDS: HEPARIN 500 UNITS CRRT-ART ×3 (05:18→11:42)
[2024-12-02 05:21] LABS: B.E. -0.9 mmol/L; HCO3 25.3 mmol/L (21-28); O2 Saturation % 98.7 % (94-98); PCO2 48 mmHg (35-48); PO2 93 mmHg (83-108); pH 7.33 (7.35-7.45)
[2024-12-02 05:22] LABS: Glucose - Point of Care 104 mg/dl (70-99)
[2024-12-02 05:44] LABS: % Basophils 0.2 % (0-2); % Eosinophils 0.4 % (0-6); % Immature Granulocytes 0.7 % (0-0.5); % Neutrophils 92.7 % (42.2-75.2); Absolute Eosinophils 0.1 10^3/uL (0-0.7); Absolute Immature Granulocytes 0.1 10^3/uL (0-0.05); Absolute Lymphocytes 0.4 10^3/uL (1.2-3.4); Absolute Monocytes 0.8 10^3/uL (0.1-0.6); Absolute Neutrophils 17.7 10^3/uL (1.4-6.5); Hematocrit 31.4 % (39.0-52.0); Hemoglobin 9.9 g/dL (13.0-18.0); Mean Corp Hgb Conc. 31.5 g/dL (33.0-37.0); Mean Corpuscular Hgb 27.7 pg (27.0-31.0); Mean Platelet Volume 11.3 fL (7.4-10.4); Nucleated Red Blood Cells % 0 % (-); Platelet Count 172 10^3/uL (130-400); Red Blood Cell Count 3.57 10^6/uL (4.70-6.10); Red Cell Dist. Width 15.5 % (11.5-14.5); White Blood Cell Count 19.1 10^3/uL (4.8-10.8)
[2024-12-02 05:58] LABS: Blood Urea Nitrogen 67 mg/dl (9-20); Calcium 8.8 mg/dl (8.4-10.2); Carbon Dioxide 24 mmol/L (22-30); Chloride 102 mmol/L (98-107); Estimated Creatinine Clearance 25 ml/min; Glucose 105 mg/dl (70-99); Magnesium 2.4 mg/dl (1.6-2.3); Potassium 4.8 mmol/L (3.5-5.1); Sodium 134 mmol/L (135-145); eGFR 27.83
[2024-12-02] MEDS: RFP-400 HD Soln (K+ 2 mEq/L) 5000 ML CRRT-IRR ×2 (06:48→13:22)
[2024-12-02] MEDS: PITRESSIN 100 IV (06:53)
--- NOTE | 2024-12-02 07:18 | W.PN.INTV ---
Addendum entered and electronically signed by Maye Carbajal DO 12/02/24 13:28:
See other note, family discussions ~30mins
Total critical care team updated- 75 mins.
Original Note:
Today's Communication / Plan
Recommendations
Patient on 2 pressors, CRRT, vented on 90% FiO2
L chest tube in place but R side remains with moderate effusion
Not responding to current maximal medical therapy, remains full code
Will discuss with family in terms of GOC, his overall prognosis appears poor
Assessment
-
79-year-old male with history of heart failure, chronic kidney disease, bilateral pleural effusions requiring intermittent thoracentesis, presents with 3 days of increased chest discomfort on the left side. This was associated with increased
shortness of breath. He admits to not taking his Lasix therapy given recent stress and travel to the city with sick grandchild. Was found to have bilateral pleural effusions. Underwent right thoracentesis drained 2 L. Postthoracentesis required
increased oxygen, now on BiPAP saturation 86%. We are asked to help from critical care standpoint 11/22/2024
Acute hypoxic respiratory insufficiency
on NIV, intubated 11/23-self extubated 11/26/2024
Baseline 1 to 2 L at home as needed
Reintubated 11/28/2024
Septic shock
Worsening left upper lobe infiltrate
Pneumonia versus reexpansion pulmonary edema
Bacteremia/bilateral pleural effusions-bilateral pleural effusions positive with Streptococcus pneumonia.
Right/Left pleural fluid positive for Streptococcus hypotension, secondary to sepsis
s/p Left thora 11/23, -2L
Left-sided chest tube placement 11/28/2024
History of heart failure-now with pulmonary edema 11/29/2023
Pulmonary hypertension
Noncompliance with Lasix in the past
s/p rt thora -2L on 11/22
Acute renal insufficiency, creatinine 3.5-progressive
CRRT started 11/30/2024
Leukocytosis
Conditions present prior to admission
COPD, emphysema per CT imaging
FEV1 2.48/92%, TLC 90%, DLCO 50% per PFT 2019
Hypertension/hyperlipidemia
Peripheral arterial disease, right BKA
On Plavix
Left toe amputation
Chronic kidney disease, stage III
Diabetic nodular glomerulosclerosis
Recurrent pleural effusion requiring intermittent thoracentesis
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
COVID December 2022
Plan
Propofol/fentanyl for light sedation-sedation breaks per protocol
Wean as tolerated, reviewed with RN
Rass goal: -2
Required intubation 11/23 for progressive hypoxia.
Self extubated 11/25/2024 in the afternoon.
Increased work of breathing, more hypoxemic, anxious, nauseous--required reintubation 11/28/24
Mechanical ventilation settings reviewed.
Chest x-ray 11/29/2024: Left pigtail in place. No pneumothorax. Decreased left-sided pleural effusion. Moderate to large right pleural effusion. Pulmonary edema stable. ET tube in place
Assist-control: 500/18/+5/90%-can try higher PEEP to lower FiO2, reviewed with RT today
Peak pressure 24-plateau pressure 19-20 (12/01/2024)
ET tube without significant secretions.
ABG 12/01/2024: 7.31/49/86
ABG 11/30/2024: 7.3/48/75
ABG 11/29/2024: 7.35/40/67
Adequate oxygenation on ventilator-continue mechanical ventilation settings without change
Strep PNA noted
Left chest tube in place with serous fluid, no air leaks-maintain for now.
Chest x-ray 11/30/2024: Pulmonary edema pattern worsened. Bilateral effusions.
Status post left/right thoracentesis-Bilateral pleural fluid positive with Streptococcus pneumonia
Blood cultures are positive-for Streptococcus pneumonia as well.
Status post left chest tube placement-continue to follow output, R>L remains
Continue with daily chest x-ray.
Right pleural effusion is persisting, if there is no improvement with CRRT and there is ongoing sepsis may need to place chest tube on the right.
Not bronchospastic on exam
Nebulizers 3 times a day to aid with secretion clearance
Pulmonary edema pattern on chest x-ray
IV Lasix given 11/29/2024 without significant response
Worsening renal function-CRRT started 11/30/2024
Nephrology following
Negative fluid balance as able
Left IJ dialysis line in place
Right IJ in place
Shock: Septic.
Levophed @15/vasopressin requirements remain.
Maintained to target mean arterial blood pressure greater than 65 mmHg.
Last lactic acid was 2.0 11/23/2024
Hold Cardizem
Hold on a stress dose of steroids, can consider adding if not improving on pressors
Leukocytosis. Febrile overnight 11/30/2024. Now hypothermic 12/01/2024
Continue ceftriaxone- 11/23 antibiotics broadened to cefepime November 30, 2024 due to worsening leukocytosis and sepsis
Azithromycin discontinued/Vancomycin discontinued.
Infectious disease following-correspondence reviewed
Cultures reviewed:
Left/right pleural fluid positive with a streptococcal pneumonia
Blood culture positive with Streptococcus pneumonia
Last blood culture 11/29/2024: Negative
Repeat tracheal aspirate 11/29/2024: Pending
Repeat urine culture 11/29/2024: Pending
C. difficile 11/30/2024: Negative
COVID-negative
Flu negative
C. difficile 11/30/2024-neg
Heart failure component, volume overload, chronic kidney disease
Did not respond to diuresis. CRRT started 11/30/2024.
Echocardiogram was done in the ED, PA pressure 57, large bilateral pleural effusion, normal biventricular function which is encouraging
Cardiology following-supportive care for now.
Follow urine output
Hernandez catheter in place
Atrial fibrillation-improved rate.
Currently on oral anticoagulants.
Remains on p.o. amiodarone, started 11/23.
Hold Cardizem- hypotension
Cardiology following
Glycemic control-Target 140-180.
Insulin drip continues
Dobbhoff tube in place-continue tube feeds-so far tolerating
Keep n.p.o. for now, respiratory status very tenuous.
DVT prophylaxis: Oral anticoagulation.
GI prophylaxis: PPI
High risk situation. Dr. Morales updated 11/28/2024 from 11/29/2024. Prognosis is guarded
Reviewed with critical care nursing, respiratory care, primary service, cardiology
Diagnostic Data
Chest X-Ray: 12/02/24- 1. Endotracheal tube, left IJ hemodialysis catheter, right IJ central venous catheter, and nasogastric tube in normal position.
2. Moderate-sized bilateral pleural effusions (right greater than left) which appear unchanged.
3. SEVERE ALVEOLAR and INTERSTITIAL PULMONARY EDEMA which appears unchanged.
11/30/24- Moderate bilateral pleural effusions. Progressed on the left. Stable on the right.
Findings suggesting moderate pulmonary edema. Slightly progressed.
CT Scan:
Echo: 11/22/24- Normal left ventricular size, wall thickness and systolic function. LV ejection fraction is 60-65% by Jones's method of discs. Stage I diastolic dysfunction suggestive of abnormal relaxation. Normal right ventricular size and
function. Mild to moderate tricuspid regurgitation. Estimated pulmonary artery pressure of 57 mmHg assuming a right atrial pressure of 8 mmHg. Large bilateral pleural effusion present. Compared to prior from February 27, 2024, estimated pulmonary
artery systolic pressure remain moderate to severely elevated at 57 mmHg.
PFT's:
Reports and relevant images were personally reviewed.
Critical care statement: A total of 45 minutes of critical care time was provided for this patient today. This includes management of unstable vital signs, evaluation of the patient at bedside, reviewing the patient's pertinent medical records
including ventilator settings, arterial blood gases, radiographs, microbiology, laboratory evaluations and discussion with primary team, critical care nursing, and respiratory therapy.
Subjective Dataa
Subjective Data
Date of Service:
Date of Service: December 02, 2024
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
Subjective:
Remains critically ill, on vent
Remains on 2 pressors, CRRT
Chest tube, hernandez, FMS
Objective Data
Data Reviewed
Vital Signs / I&O / Oxygen:
Vital Signs
Temp Pulse Resp BP Pulse Ox
94.8 F L 66 18 95/40 93
12/02/24 06:00 12/02/24 02:40 12/02/24 02:40 12/01/24 19:51 12/02/24 04:07
Intake and Output
12/01/24 12/02/24 12/03/24
06:59 06:59 06:59
Intake Total 2562.5 / 2643.1 1968.6 / 2000.8 32.2 / 32.2
Output Total 2586 / 2716 3885 / 4030 145 / 145
Balance -23.5 / -72.9 -1916.4 / -2029.2 -112.8 / -112.8
SaO2 [A/C] 98
SaO2 [NIV (Non Invasive 95
Ventilation)]
SaO2 93
Nasal Cannula flow liters per 60
minute
Physical Exam
General: Respiratory Distress (None on sedation)
HEENT: Normocephalic, Anicteric, Other (Dry mucosa) and Other (ET tube in place without secretion)
Cardiovascular: S1-S2, Regular Rhythm, Murmur (n), Peripheral Edema and Other (Right lower extremity BKA)
Respiratory: Wheeze, Crackles (n), Rhonchi (n), Non-Labored Respirations, Stridor (n), ET Tube and Chest Tube (L)
GI: Soft, Non Distended, Non Tender, Feeding Tube (OGT) and Other (little to no BS)
Neurology: Lethargic (Intubated, mechanical ventilator) and Non Verbal
Skin: Cyanosis (n), Jaundice (n) and Rash (n)
Labs/Micro/Reports
Laboratory Results
12/02/24
05:11
pH 7.33 L
pCO2 48
pO2 93
HCO3 25.3
O2 Delivery Level
Microbiology
11/29/24 23:15 Blood/Venous Blood Culture - Preliminary
No Growth in 48 hours- Final report to follow
11/29/24 22:49 Blood/Venous Blood Culture - Preliminary
No Growth in 48 hours- Final report to follow
11/29/24 22:53 Urine Urine Culture - Final
NO GROWTH
11/29/24 22:55 Tracheal Aspirate Respiratory Culture - Preliminary
Usual Respiratory Narcisa
11/29/24 22:55 Tracheal Aspirate Gram Stain - Preliminary
11/30/24 17:31 Feces/Stool C. difficile GDH Antigen & Toxins - Final
Negative for toxigenic C.difficile
11/22/24 14:40 Pleural Fluid Fungal Smear - Final
No yeast or fungal elements seen.
11/22/24 14:40 Pleural Fluid Fungal Culture - Preliminary
Culture in progress.
Positive cultures are reported as soon as detected.
Final report to follow in four to five weeks.
[2024-12-02] MEDS: RFP-400 HD Soln (K+ 2 mEq/L) 10000 ML CRRT-IRR ×2 (07:29→13:24)
[2024-12-02 07:37] LABS: Glucose - Point of Care 108 mg/dl (70-99)
--- NOTE | 2024-12-02 07:48 | PTCARENOTE ---
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 patient is intabated, sedated, moving hands off bed intermittently but otherwise not following commands. Patient has #8ETT maked 24cm at lip AC 18/500/5/100%, vent checks as charted. PAtient is sinus rhythm on
monitor, on levophed and vasopressin for SBP>90. He had a episode of large volume emesis at 0400, tube feed currently on hold. Has JACKLYN in place as well as regtal probe for kaleigh hugger. patient has thermister hernandez with scant output. Patient is
generally pale, cachectic, has edema in extremities, Right BKA and left toes amputated. All medications infusing through right IJ. Insulin gtt as charted. CRRT ongoing. Will review orders and maintain safe environment.
--- NOTE | 2024-12-02 08:08 | W.PN.NEPH.PH ---
Today's Communication / Plan
-
Maintain CRRT at 100 cc/h UF
Maintain pressor support to keep MAP at 65 or greater
Assessment/Plan
-
Assessment:
CKD IV (followed by Dr. Duncan) presumed to be DKD/vascular sclerosis
AURY
b/l pleural effusions
Decompensated Diastolic heart failure (on losartan, metoprolol, jardiance previously tried. no aldactone due to hyperK)
DM2
PVD s/p R BKA
hypotension
subnephrotic range proteinuria ?improving
PNA
GPC Bacteremia= strep pneumo
leukopenia
- In 2020 Kidney biopsy was not adequate but EM showed nodular diabetic sclerosis and severe vascular sclerosis.
Plan:
CRRT started on 11/30 for anuric AURY, remains anuric
wt is slightly down, maintain UF in CRRT
pt is on ELiquis hence not on heparin gtt
adjust meds renally, tube feeds held due to emesis last evening
abx per pulm
wean pressors as able to keep SBP>90,currently on 2pressor support
VDRF and left CT , Fio@ at 100%
family aware of poor prognosis
Patient remains critically ill on pressor support intubation and CRRT
d/w nursing
critical care time 31 minutes
-
-
Date of Service: December 02, 2024
CC / HPI / ROS
-
Chief Complaint:
AURY
History of Present Illness:
critically ill intubated
AURY/Cr anuric ,
Emesis overnight
abx for strep pneumonia
remains on levo, vaso
Leukocytosis persist
Review of Systems:
intubated, FiO2 100, left CT
sedated
anuric dior hernandez
Labs
-
Labs:
eGFR Cancelled 12/02/24 16:00
Anf-T-Nnfyfcjfxrg Pept 5660 pg/ml 11/29/24 03:32
Albumin 2.6 g/dl (3.5-5.0) L 11/25/24 03:28
Physical Exam
-
Vital Signs:
Vital Signs
Temp Pulse Resp BP Pulse Ox
96.4 F L 87 18 95/40 99
12/02/24 07:56 12/02/24 07:40 12/02/24 07:40 12/01/24 19:51 12/02/24 07:56
Cardiovascular:: Regular rate and rhythm
Respiratory:: Bilateral: CTA (decreased)
Lung Excursion:: Abnormal
Abdomen:: Nontender and Soft
Extremity Edema:: +1: Left:
Hernandez Catheter: Yes
Other Findings::
Rt BKA
Intubated sedated
[2024-12-02] MEDS: DUONEB 3 ML INH ×2 (08:13→13:27)
--- NOTE | 2024-12-02 08:17 | W.PN.UPDATE ---
Update Note
Progress Note Update
CRRT note:
UF set to 100 cc/h negative
QB 200 to 300 cc/min
Dialysate 2 L/h with 2K bath
Labs per protocol
HD via temporary catheter
[2024-12-02] MEDS: PROTONIX IV 40 MG IV (08:33)
[2024-12-02] MEDS: NSS (PRESERVATIVE FREE) 10 ML IV (08:33)
[2024-12-02] MEDS: MIRALAX TUBE (08:38)
[2024-12-02 09:25] LABS: Glucose - Point of Care 91 mg/dl (70-99)
[2024-12-02] MEDS: PACERONE 400 MG TUBE (09:27)
[2024-12-02] MEDS: ELIQUIS 2.5 MG TUBE (09:27)
[2024-12-02] MEDS: LOW STRENGTH ASPIRIN 81 MG TUBE (09:27)
[2024-12-02] MEDS: SUBLIMAZE 100 IV (09:41)
--- NOTE | 2024-12-02 10:55 | W.PN.ID1 ---
Date of Service
Date of Service: December 02, 2024
Today's Communication
Continue antibiotics for today.
Assessment / Plan
Bacteremia with Streptococcus pneumoniae
Pneumonia
B/L parapneumonic effusions; s/p thoracentesis
- 11/22 right sided pleural fluid with Streptococcus pneumoniae
- 11/23 left sided pleural fluid also with Streptococcus pneumoniae
- s/p left CT placement
VDRF 2*Hypoxic respiratory failure
Fevers
Leukocytosis
- suspect component of steroid effect.
AURY CKD, now on CRRT
HTN
CHF
DM type II with neuropathy
CKD stage IV
Dyslipidemia
Pulmonary hypertension
PAD with hx (R) BKA
Recommendations:
Febrile (11/29 to 11/30) now hypothermic.
Leukocytosis trending down today.
Blood cx's neg to date.
C. diff neg.
Sputum usual resp gene.
s/p ceftriaxone (11/23 to 11/30)
Continue cefepime (d#3), adjsuted for CRRT.
Trend wbc/temps.
Patient remains critically ill, in intensive care unit, on vent and pressor support.
Sullivan guarded.
����������������������������������������������������������
Chief Complaint
-: Clinical Sepsis, Pneumonia, Bacteremia and Other (Parapneumonic effusion)
Subjective / Review of Systems
Patient seen and examined. Remains on vent at this time. Has been initiated on CRRT secondary to progressive renal insufficiency/failure
Vital Signs / Physical Exam
Vital Signs
Vital Signs
Temp Pulse Resp BP Pulse Ox
98.4 F 77 18 95/40 98
12/02/24 10:00 12/02/24 10:40 12/02/24 10:40 12/02/24 09:27 12/02/24 10:00
Physical Exam
Constitutional: Acutely Ill and Toxic
Eyes: Sclera Anicteric
Oropharyngeal: Other (ET tube in place. NG in place)
Cardiovascular: Regular Rate and S1/S2
Pulmonary: Other (Decreased BS. Left chest tube in place.)
Gastrointestinal: Soft, Non Tender, Non Distended, Decreased Bowel Sounds and Other (FMS liquid dark stool)
Extremities: Negative Edema
Musculoskeletal: Other (Hx right BKA)
Skin: Warm and Dry; Negative Rash
Objective Data
Lab Data
PT 17.4 Sec (11.4-14.6) H 11/22/24 10:00
INR 1.37 11/22/24 10:00
APTT Cancelled 11/27/24 10:50
Estimated Creat Clear Cancelled 12/02/24 16:00
Lactic Acid 2.0 mmol/L (0.7-2.0) 11/23/24 20:24
Total Bilirubin 0.4 mg/dl (0.2-1.3) 11/25/24 03:28
AST 24 U/L (17-59) 11/25/24 03:28
ALT 17 U/L (0-50) 11/25/24 03:28
Alkaline Phosphatase 67 U/L (38-126) 11/25/24 03:28
Most recent labs reviewed.
Micro Results:
11/29/24 22:55 Respiratory Culture - Final
Tracheal Aspirate Usual Respiratory Gene
Gram Stain - Final
11/29/24 23:15 Blood Culture - Preliminary
Blood/Venous No Growth in 48 hours- Final report to follow
11/29/24 22:49 Blood Culture - Preliminary
Blood/Venous No Growth in 48 hours- Final report to follow
11/29/24 22:53 Urine Culture - Final
Urine NO GROWTH
11/30/24 17:31 C. difficile GDH Antigen & Toxins - Final
Feces/Stool Negative for toxigenic C.difficile
11/22/24 14:40 Fungal Smear - Final
Pleural Fluid No yeast or fungal elements seen.
Fungal Culture - Preliminary
Culture in progress.
Positive cultures are reported as soon as detected.
Final report to follow in four to five weeks.
11/22/24 14:39 Acid Fast Bacilli Smear - Preliminary
Pleural Fluid Acid Fast Bacilli Culture - Preliminary
11/22/24 14:40 Body Fluid Culture - Final
Pleural Fluid Streptococcus pneumoniae
Gram Stain - Final
11/23/24 11:42 Body Fluid Culture - Final
Pleural Fluid Streptococcus pneumoniae
Gram Stain - Final
11/22/24 16:01 Blood Culture - Final
Blood/Venous Streptococcus pneumoniae
Gram Stain - Final
11/22/24 16:01 Blood Culture - Final
Blood/Venous Streptococcus pneumoniae
Gram Stain - Final
11/22/24 16:59 Urine Culture - Final
Urine NO GROWTH
11/22/24 10:00 Influenza Types A & B (BERRY) - Final
Nasal Swab Negative for Influenza A & B, NAAT
Negative results must be combined with clinical observations
and patient history.
Nucleic Acid Amplification test (NAAT)performed on the
[employer] platform.
Imaging:
11/28/2024 CXR (portable): Moderate bilateral pleural effusions noted. No cardiomegaly. ET tube approximately 2.5 cm above terri. No visualized pneumothorax. Please see full dictation for additional detail.
11/26/2024 CXR (portable): Previously noted ET tube is no longer identified. Right IJ catheter is noted with tip in distal SVC. No pneumothorax. Moderate bilateral pleural effusions are without significant change. Cephalization of pulmonary
vasculature is noted.
11/22/2024 CXR (2 view): There is moderate bibasilar opacification at least in part suggesting moderate pleural effusions with likely underlying subsegmental atelectasis, slightly increased in comparison to prior study and significantly obscuring
the cardiac silhouette. There is no pneumothorax or suspected mediastinal shift.
11/22/2024 ECHO (TTE): EF approximately 60%. Mild to moderate tricuspid regurgitation. Large bilateral pleural effusions noted. Compared to prior from February 27, 2024, estimated pulmonary artery systolic pressure remain moderate to severely
elevated at 57 mmHg.
Care Review
Plan reviewed with: Physician (Critical Care.)
[2024-12-02 11:19] LABS: Glucose - Point of Care 104 mg/dl (70-99)
--- NOTE | 2024-12-02 12:00 | PTCARENOTE ---
Patient continuing to have high access pressures. Levophed now at 15mcg/min, will make patient NPO, holding tube feeds at this time. Vent changes as charted, weaning down FI02 and adjusting Peep. Otherwise no change in assessment.
[2024-12-02 12:09] LABS: Ionized Calcium 1.22 mMOL/L (1.15-1.33)
[2024-12-02 12:22] LABS: Glucose - Point of Care 106 mg/dl (70-99)
[2024-12-02 12:36] LABS: Blood Urea Nitrogen 60 mg/dl (9-20); Calcium 8.2 mg/dl (8.4-10.2); Carbon Dioxide 25 mmol/L (22-30); Chloride 102 mmol/L (98-107); Estimated Creatinine Clearance 29 ml/min; Glucose 110 mg/dl (70-99); Magnesium 2.2 mg/dl (1.6-2.3); Phosphorus 5.5 mg/dl (2.5-4.5); Potassium 4.7 mmol/L (3.5-5.1); Sodium 133 mmol/L (135-145); eGFR 32.91
--- NOTE | 2024-12-02 12:44 | PTCARENOTE ---
Stopped CRRT at 1235 due to loss of access pressure and clotting. Blood returned, will change cartridge.
[2024-12-02 12:49] LABS: Hematocrit 31.1 % (39.0-52.0); Hemoglobin 9.7 g/dL (13.0-18.0); Mean Corp Hgb Conc. 31.2 g/dL (33.0-37.0); Mean Corpuscular Hgb 27.2 pg (27.0-31.0); Mean Corpuscular Volume 87.4 fL (80.0-94.0); Mean Platelet Volume 11.7 fL (7.4-10.4); Platelet Count 215 10^3/uL (130-400); Red Blood Cell Count 3.56 10^6/uL (4.70-6.10); Red Cell Dist. Width 15.4 % (11.5-14.5)
--- NOTE | 2024-12-02 13:04 | W.PN.HOSP.TC ---
Today's Communication/Plan
-
Continue current efforts
Assessment / Plan
Assessment / Plan
Gen-intubated and sedated. More awake at times.
HEENT-NC, AT, anicteric, clear oral mm
Neck-supple
CV-reg, no M, +S1/S2, irregular irregular, tachycardia
Lungs- rhonchi anterior. ET tube noted
Abd-soft, NT, ND, rectal bag. Dobhoff noted
Ext-left lower extremity edema, right BKA
Musculoskeletal-no cyanosis, clubbing
Skin-warm and dry
Acute hypoxic respiratory failure -likely multifactorial etiology including acute pulmonary edema from heart failure, bilateral pleural effusions, pneumonia, sepsis.
Intubated 11/23.
Status post self extubation 11/25/24.
Status post reintubation 11/28/2024
Repeat chest x-ray noted with increasing fluid pleural and moderate B/L pleural effusions
Continue with tube feeding
IRAD placed left side chest tube. Remains with drainage. FIO2 at 75%.
Repeat CXR with increase effusion on left side-?re-position CT tube. ?lytic therapy. May even require R sided CT tube.
Cont with bronchodilators
Section Beamer following
Sepsis due to pneumonia and Streptococcus bacteremia
Shock likely sepsis
Bandemia 2/2 sepsis
Parapneumonic effusion status post thoracentesis
requiring levophed and vasopressin. Wean pressors as BP allows.
DC further vancomycin and azithromycin. Bump in WBC noted. Spiking fever. Abx switched to Cefepime now. Off rocephin.
Underwent bilateral thoracentesis by IR, 2 L of fluid removed from each side. Has had multiple bilateral thoracenteses in the past.
Infectious disease following
Acute on chronic heart failure with preserved EF
Echocardiogram done 11/22 shows LVEF 60 to 65%, stage I diastolic dysfunction, mild to moderate TR, normal RV size and function.
BNP 7510.
Lasix 80 mg IV twice daily-on hold.
Diuretics per nephro.
Rapid atrial fibrillation -appears to be a new diagnosis.
s/p amiodarone infusion and heparin infusion.
Now transition to p.o. amiodarone 400 mg twice daily and Cardizem 30 mg every 6 hours
Off heparin and now started on Eliquis
Cardiology following.
Hyperkalemia
resolved. Hold losartan.
AURY on CKD 4
Mild hyperkalemia -resolved.
previous creatinine was in the 2 range, 2.1-2.6 in February.
Cr significant uptrend
Nephrology following.
Etiology of AURY suspected to be due to sepsis, shock. Hold losartan. Continue Hernandez catheter.
Not much urinary output.
Started on CRRT on 11/30/24. Need to monitor BP closely as on 2 pressors.
DM 2 with hyperglycemia -continue IV insulin per critical care glycemic protocol. Under good control.
Essential hypertension -losartan held.
Hyperlipidemia -atorvastatin.
PAD -history of right BKA.
Mild intermittent asthma
History of Burks-Troy syndrome
Hypokalemia-replete/monitor
Full code
Anticipated Discharge: > 48 hours
Subjective/Interval History
-
Date of Service: December 02, 2024
Patient seen and examined. Intubated, sedated.
Objective Data
-
Labs:
Laboratory Results
12/02/24 12/02/24 12/02/24
00:57 04:00 05:11
WBC 19.6 H Cancelled 19.1 H
Hgb 9.5 L Cancelled 9.9 L
Hct 30.0 L Cancelled 31.4 L
Plt Count 142 D Cancelled 172 D
HCO3 25.3
Sodium 136 Cancelled 134 L
Potassium 5.4 H Cancelled 4.8
Chloride 104 Cancelled 102
Carbon Dioxide 25 Cancelled 24
BUN 76 H Cancelled 67 H
Creatinine 2.5 H Cancelled 2.3 H
Glucose 136 H Cancelled 105 H
Calcium 7.7 L Cancelled 8.8
12/02/24 12/02/24 12/02/24
10:00 11:56 16:00
WBC 19.0 H
Hgb 9.7 L
Hct 31.1 L
Plt Count 215 D
HCO3
Sodium Cancelled 133 L Cancelled
Potassium Cancelled 4.7 Cancelled
Chloride Cancelled 102 Cancelled
Carbon Dioxide Cancelled 25 Cancelled
BUN Cancelled 60 H Cancelled
Creatinine Cancelled 2.0 H Cancelled
Glucose Cancelled 110 H Cancelled
Calcium Cancelled 8.2 L Cancelled
12/02/24
18:00
WBC Pending
Hgb Pending
Hct Pending
Plt Count Pending
HCO3
Sodium Pending
Potassium Pending
Chloride Pending
Carbon Dioxide Pending
BUN Pending
Creatinine Pending
Glucose Pending
Calcium Pending
Vital Signs:
Vital Signs
Temp Pulse Resp BP Pulse Ox
98.4 F 75 18 95/40 96
12/02/24 10:00 12/02/24 11:00 12/02/24 11:00 12/02/24 09:27 12/02/24 11:40
I&O
12/01/24 12/02/24 12/03/24
06:59 06:59 06:59
Intake Total 2562.5 / 2643.1 1968.6 / 1999.8 261.0 / 261.0
Output Total 2586 / 2716 3885 / 4030 788 / 788
Balance -23.5 / -72.9 -1916.4 / -2029.2 -527.0 / -527.0
Review of Systems
-
Unable to obtain full review of systems at this time due to: Acuity and Patient Intubation
[2024-12-02 13:17] LABS: Glucose - Point of Care 91 mg/dl (70-99)
--- NOTE | 2024-12-02 13:22 | W.PN.UPDATE ---
Addendum entered and electronically signed by Maye Carbajal DO 12/02/24 16:04:
has come in and is now going to w/d care, orders for comfort are placed
Code status changed to DNR
Care team updated
Original Note:
Update Note
Progress Note Update
Update:
I have discussed the case with his , Maye and she is aware that his overall prognosis is poor. He remains full code. I reviewed with her that he has multiorgan dysfunction including mechanical ventilation, hemodialysis, left chest tube
placement, Hernandez, fecal tube, and contemplating insertion of right chest tube as well.
She was tearful regarding his poor prognosis as she is currently dealing with her 12-year-old grandchild who also has a rare severe brain tumor and is on morphine at [facility]. She was unable to decide regarding plan of care and deferred phone call to
Mary her daughter who works at [employer] and is a mother of the grandchild at [facility].
I have called Mary ([phone]) and explained all of the patient's prognosis and current condition. 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
issues (i.e. gangrene of toes, noncompliance with medical therapy, refusing to pursue treatment) and life after finding out the diagnosis of his grandchild on 11/01/2024. She feels that this is his way of relinquishing his own life. She understands
that his prognosis is poor and that he would not want to continue this way. She asked many questions about withdrawal, CODE STATUS so that she may discuss this further with her mother and ultimately make a decision. She will let us know what they
have decided.
Care team is updated.
Additional critical care time 30 minutes.
[2024-12-02 14:35] LABS: Glucose - Point of Care 116 mg/dl (70-99)
[2024-12-02] MEDS: DIPRIVAN 100 IV (14:37)
[2024-12-02 15:24] LABS: Glucose - Point of Care 102 mg/dl (70-99)
--- NOTE | 2024-12-02 15:48 | CM ---
CM following re: discharge planning.
Reviewed pt's chart, met with pt and pt's spouse at bedside. Pt's spouse in tears dealing with pt's current health situation/prognosis and her 12 year old granddaughter who is in morphine at [facility]. Emotional support offered and provided.
Per Rounds meeting, pt remains intubated, prognosis guarded, continue supportive care, goals of care ongoing with pt's spouse and family.
D/C plan: uncertain at this time and will depend on pt's progresses.
CM will follow with discharge plan updates as hospitalization progresses
--- NOTE | 2024-12-02 15:48 | CHAP ---
Emotional and spiritual support provided for Mr. Melissa's , Maye, who was tearful at bedside. She shared about their 12 year old granddaughter's recent devastating brain tumor diagnosis and her belief that he (Mr. Melissa) has deliberately
neglected his own health in order to 'be there' for the granddaughter when she dies. Will follow as able through his hospital stay.
--- NOTE | 2024-12-02 16:11 | PTCARENOTE ---
Patient's family has decided to withdrawal care, CRRT stopped, with wean medications
[2024-12-02] MEDS: SUBLIMAZE 100 MCG IV (16:24)
--- NOTE | 2024-12-02 16:56 | PTCARENOTE ---
Patient peacefully with at bedside.
--- NOTE | 2024-12-02 17:10 | W.PN.DEATH ---
Pronouncement of
-
Called to see patient to pronounce.
No spontaneous heart tones or respirations noted.
Patient not responsive to verbal stimuli.
Patient is pronounced .
Time of : 16:46
Date of : 12/02/24
Cause of : Septic shock
Family Notified: Yes
== END 2024-12-02 16:46 | disposition expired | DRG 870 ==
LOC: ICU 14:35
PROVIDERS: Clinical Nurse Specialist Family Health; Emergency Medicine; Hospitalist; Internal Medicine Critical Care Medicine; Nurse Practitioner Family; Nurse Practitioner Primary Care; Radiology Diagnostic Radiology; Radiology Vascular & Interventional Radiology; Specialist; ADMITTING PHYSICIAN Hospitalist; ATTENDING PHYSICIAN Hospitalist; CONSULT PHYSICIAN Internal Medicine Cardiovascular Disease; CONSULT PHYSICIAN Internal Medicine Critical Care Medicine; CONSULT PHYSICIAN Internal Medicine Infectious Disease; CONSULT PHYSICIAN Specialist; EMERGENCY PHYSICIAN Emergency Medicine; FAMILY PHYSICIAN Internal Medicine
PROC: 5A09357 Assistance with Respiratory Ventilation, Less than 24 Consecutive Hours, Continuous Positive Airway Pressure (ICD-10-PCS; 2024-11-22)
PROC: 0W993ZZ Drainage of Right Pleural Cavity, Percutaneous Approach (ICD-10-PCS; 2024-11-22)
PROC: 05HM33Z Insertion of Infusion Device into Right Internal Jugular Vein, Percutaneous Approach (ICD-10-PCS; 2024-11-23)
PROC: 5A1945Z Respiratory Ventilation, 24-96 Consecutive Hours (ICD-10-PCS; 2024-11-23)
PROC: 0BH17EZ Insertion of Endotracheal Airway into Trachea, Via Natural or Artificial Opening (ICD-10-PCS; 2024-11-23)
PROC: 0W9B3ZZ Drainage of Left Pleural Cavity, Percutaneous Approach (ICD-10-PCS; 2024-11-23)
PROC: 0DH67UZ Insertion of Feeding Device into Stomach, Via Natural or Artificial Opening (ICD-10-PCS; 2024-11-26)
PROC: 5A0935A Assistance with Respiratory Ventilation, Less than 24 Consecutive Hours, High Flow/Velocity Cannula (ICD-10-PCS; 2024-11-26)
PROC: 0W9B30Z Drainage of Left Pleural Cavity with Drainage Device, Percutaneous Approach (ICD-10-PCS; 2024-11-28)
PROC: 5A1955Z Respiratory Ventilation, Greater than 96 Consecutive Hours (ICD-10-PCS; 2024-11-28)
PROC: 02H633Z Insertion of Infusion Device into Right Atrium, Percutaneous Approach (ICD-10-PCS; 2024-11-30)
PROC: B5181ZA Fluoroscopy of Superior Vena Cava using Low Osmolar Contrast, Guidance (ICD-10-PCS; 2024-11-30)
PROC: 5A1D90Z Performance of Urinary Filtration, Continuous, Greater than 18 hours Per Day (ICD-10-PCS; 2024-12-01)
DX: A40.3 Sepsis due to Streptococcus pneumoniae (principal); I50.33 Acute on chronic diastolic (congestive) heart failure; J96.01 Acute respiratory failure with hypoxia; R65.21 Severe sepsis with septic shock; J15.9 Unspecified bacterial pneumonia; I13.0 Hypertensive heart and chronic kidney disease with heart failure and stage 1 through stage 4 chronic kidney disease, or unspecified chronic kidney disease; N18.4 Chronic kidney disease, stage 4 (severe); J98.11 Atelectasis; N25.81 Secondary hyperparathyroidism of renal origin; N17.9 Acute kidney failure, unspecified; Z99.11 Dependence on respirator [ventilator] status; I48.92 Unspecified atrial flutter; Z51.5 Encounter for palliative care; M79.89 Other specified soft tissue disorders; E78.00 Pure hypercholesterolemia, unspecified; D50.9 Iron deficiency anemia, unspecified; T50.1X6A Underdosing of loop [high-ceiling] diuretics, initial encounter; Y63.6 Underdosing and nonadministration of necessary drug, medicament or biological substance; Y92.009 Unspecified place in unspecified non-institutional (private) residence as the place of occurrence of the external cause; I27.20 Pulmonary hypertension, unspecified; I08.3 Combined rheumatic disorders of mitral, aortic and tricuspid valves; I89.0 Lymphedema, not elsewhere classified; E11.65 Type 2 diabetes mellitus with hyperglycemia; J43.9 Emphysema, unspecified; D72.819 Decreased white blood cell count, unspecified; E87.5 Hyperkalemia; J45.20 Mild intermittent asthma, uncomplicated; I48.91 Unspecified atrial fibrillation; I70.90 Unspecified atherosclerosis; E11.22 Type 2 diabetes mellitus with diabetic chronic kidney disease; E11.40 Type 2 diabetes mellitus with diabetic neuropathy, unspecified; E11.51 Type 2 diabetes mellitus with diabetic peripheral angiopathy without gangrene; G60.0 Hereditary motor and sensory neuropathy; R68.0 Hypothermia, not associated with low environmental temperature; Z91.128 Patient's intentional underdosing of medication regimen for other reason; Z89.511 Acquired absence of right leg below knee; Z87.891 Personal history of nicotine dependence; Z79.02 Long term (current) use of antithrombotics/antiplatelets; Z79.82 Long term (current) use of aspirin; Z79.4 Long term (current) use of insulin; Z99.81 Dependence on supplemental oxygen; Z63.79 Other stressful life events affecting family and household; Z91.148 Patient's other noncompliance with medication regimen for other reason; Z11.52 Encounter for screening for COVID-19; Z86.16 Personal history of COVID-19; Z91.199 Patient's noncompliance with other medical treatment and regimen due to unspecified reason
CPT/HCPCS: 88305; 32555; 32557; 36556; 36600; 51702; 51798; 71045; 71046; 74018; 76937; 77001; 80048; 80053; 80202; 81003; 81015; 82150; 82330; 82570; 82805; 82945; 82947; 82962; 83036; 83605; 83615; 83735; 83880; 83986; 84100; 84132; 84145; 84155; 84156; 84157; 84300; 84302; 84478; 84484; 85014; 85025; 85027; 85379; 85610; 85730; 87015; 87040; 87070; 87077; 87086; 87102; 87116; 87186; 87205; 87206; 87324; 87449; 87502; 87811; 88112; 89051; 93005; 93306; 93970; 94002; 94003; 94640; 94660; 94669; 96374; 99285; C1729; C1751; C1752; C1769